=== PATIENT | female | born 1930 | race Two or more races ===

== ENCOUNTER → 2016-09-19 | Outpatient (REF) | payer MEDICARE, BC ==
[~2016-09-19] MED LIST: *BLDWK10; *MAMMOGRAM; AMBIEN5 PO; ATENOLOL50 PO; CANE; EVISTA60 PO; LASIX20 PO; MOTRIN6 PO; [UNRECOGNIZED DRUG - CODE] TOPICAL
[2016-09-19 18:34] LABS: ALBUMIN/GLOBULIN RATIO 1.29 (1.00-1.93); ALKALINE PHOSPHATASE 68 U/L (45-117); ALT/SGPT 18 U/L (12-78); ANION GAP 9 MEQ/L (8-16); AST/SGOT 20 U/L (15-37); BLOOD UREA NITROGEN 12 MG/DL (7-18); CALCIUM LEVEL 8.9 MG/DL (8.8-10.2); CARBON DIOXIDE LEVEL 28 MEQ/L (21-32); CHLORIDE LEVEL 106 MEQ/L (98-107); CHOLESTEROL LEVEL 203 MG/DL (<200); GLOMERULAR FILTRATION RATE > 60.0 (>32); GLUCOSE, FASTING 90 MG/DL (83-110); POTASSIUM SERUM 4.4 MEQ/L (3.5-5.1); SODIUM LEVEL 143 MEQ/L (136-145); TOTAL PROTEIN 7.1 GM/DL (6.4-8.2); TRIGLYCERIDES LEVEL 216 MG/DL (<150)
== END ==
LOC: M LABDRWCV 16:46
PROVIDERS: ATTEND Family Medicine
DX: E78.5 Hyperlipidemia, unspecified (principal); I10 Essential (primary) hypertension

== ENCOUNTER → 2017-02-01 | Outpatient (REF) | payer MEDICARE, BC ==
[2017-02-01 20:10] LABS: ANION GAP 6 MEQ/L (8-16); BLOOD UREA NITROGEN 10 MG/DL (7-18); CALCIUM LEVEL 9.2 MG/DL (8.8-10.2); CARBON DIOXIDE LEVEL 29 MEQ/L (21-32); CHLORIDE LEVEL 106 MEQ/L (98-107); CREATININE FOR GFR 0.72 MG/DL (0.55-1.02); GLOMERULAR FILTRATION RATE > 60.0 (>32); GLUCOSE, FASTING 101 MG/DL (83-110); POTASSIUM SERUM 4.1 MEQ/L (3.5-5.1); SODIUM LEVEL 141 MEQ/L (136-145)
== END ==
LOC: M LAB REF 16:21
PROVIDERS: ATTEND Orthopaedic Surgery
DX: Z51.81 Encounter for therapeutic drug level monitoring (principal); Z79.899 Other long term (current) drug therapy

== ENCOUNTER → 2017-03-09 | Outpatient (REF) | payer MEDICARE, BC ==
[2017-03-09 17:58] LABS: ALBUMIN 3.7 GM/DL (3.2-5.2); ALBUMIN/GLOBULIN RATIO 1.16 (1.00-1.93); ALKALINE PHOSPHATASE 70 U/L (45-117); ALT/SGPT 23 U/L (12-78); ANION GAP 8 MEQ/L (8-16); AST/SGOT 17 U/L (15-37); BLOOD UREA NITROGEN 9 MG/DL (7-18); CALCIUM LEVEL 8.9 MG/DL (8.8-10.2); CARBON DIOXIDE LEVEL 26 MEQ/L (21-32); CHLORIDE LEVEL 108 MEQ/L (98-107); CHOLESTEROL LEVEL 199 MG/DL (<200); CREATININE FOR GFR 0.75 MG/DL (0.55-1.02); GLOMERULAR FILTRATION RATE > 60.0 (>32); GLUCOSE, FASTING 93 MG/DL (83-110); SODIUM LEVEL 142 MEQ/L (136-145); TOTAL PROTEIN 6.9 GM/DL (6.4-8.2); TRIGLYCERIDES LEVEL 271 MG/DL (<150)
== END ==
LOC: M LAB REF 07:15
PROVIDERS: ATTEND Family Medicine
DX: E78.5 Hyperlipidemia, unspecified (principal); I10 Essential (primary) hypertension

== ENCOUNTER → 2017-07-31 | Outpatient (REF) | payer MEDICARE, BC ==
[2017-07-31 19:48] LABS: ALBUMIN 4.2 GM/DL (3.2-5.2); ALKALINE PHOSPHATASE 77 U/L (45-117); ALT/SGPT 18 U/L (12-78); ANION GAP 9 MEQ/L (8-16); AST/SGOT 19 U/L (7-37); BILIRUBIN,TOTAL 1.2 MG/DL (0.2-1.0); BLOOD UREA NITROGEN 8 MG/DL (7-18); CALCIUM LEVEL 9.5 MG/DL (8.8-10.2); CARBON DIOXIDE LEVEL 28 MEQ/L (21-32); CHLORIDE LEVEL 107 MEQ/L (98-107); CHOLESTEROL LEVEL 203 MG/DL (<200); CHOLESTEROL RISK RATIO 4.413 (<5); CREATININE FOR GFR 0.71 MG/DL (0.55-1.02); GLOMERULAR FILTRATION RATE > 60.0 (>32); GLUCOSE, FASTING 100 MG/DL (83-110); HDL CHOLESTEROL 46 MG/DL (>40); LDL CHOLESTEROL 107.4 MG/DL (<100); NON-HDL-C 157 MG/DL; POTASSIUM SERUM 3.6 MEQ/L (3.5-5.1); SODIUM LEVEL 144 MEQ/L (136-145); TOTAL PROTEIN 7.2 GM/DL (6.4-8.2); TRIGLYCERIDES LEVEL 248 MG/DL (<150)
== END ==
LOC: M LAB REF 16:30
DX: E78.5 Hyperlipidemia, unspecified (principal); I10 Essential (primary) hypertension; M81.0 Age-related osteoporosis without current pathological fracture
CPT/HCPCS: 84443

== ENCOUNTER → 2018-02-22 | Outpatient (REF) | payer MEDICARE, BC ==
[2018-02-22 16:40] LABS: ALBUMIN 3.5 GM/DL (3.2-5.2); ALBUMIN/GLOBULIN RATIO 0.92 (1.00-1.93); ALKALINE PHOSPHATASE 84 U/L (45-117); ALT/SGPT 26 U/L (12-78); ANION GAP 10 MEQ/L (8-16); AST/SGOT 17 U/L (7-37); BILIRUBIN,TOTAL 0.7 MG/DL (0.2-1.0); BLOOD UREA NITROGEN 5 MG/DL (7-18); CALCIUM LEVEL 8.9 MG/DL (8.8-10.2); CARBON DIOXIDE LEVEL 27 MEQ/L (21-32); CHLORIDE LEVEL 105 MEQ/L (98-107); CHOLESTEROL LEVEL 177 MG/DL (<200); CHOLESTEROL RISK RATIO 4.538 (<5); CREATININE FOR GFR 0.77 MG/DL (0.55-1.30); GLOMERULAR FILTRATION RATE > 60.0 (>32); GLUCOSE, FASTING 90 MG/DL (70-100); HDL CHOLESTEROL 39 MG/DL (>40); NON-HDL-C 138 MG/DL; POTASSIUM SERUM 4.2 MEQ/L (3.5-5.1); SODIUM LEVEL 142 MEQ/L (136-145); TOTAL PROTEIN 7.3 GM/DL (6.4-8.2); TRIGLYCERIDES LEVEL 315 MG/DL (<150)
== END ==
LOC: M LABDRWCV 16:06
DX: I10 Essential (primary) hypertension (principal); E78.5 Hyperlipidemia, unspecified; Z13.89 Encounter for screening for other disorder
CPT/HCPCS: 84443

== ENCOUNTER → 2020-01-03 | Outpatient (CLI) | payer MEDICARE, BC ==
[~2020-01-03] MED LIST changes: +ACET1TAB55 PO; +ALBU8.5H; +ASPI-161 PO; +ASPI81TAEC PO; +ATEN25TA PO; +ATEN50TA2 PO; +ATOR1TAB21 PO; +CLAR10TA7 PO; +CLOP75TA2 PO; +DOK1CAP7 PO; +FURO20TA2 PO; +GASTROGRAFIN SOLUTION 30ML (Q9963) As Ordered ONE; +ISOVUE-370 76% 100ML VIAL As Ordered ONE; +LIDO5TD TD; +MIRT-62 PO; +PANT40TA29 PO; +POLYOPD OU; +SENN18TA PO; +SERT25TA21 PO; +TRAZ-252 PO; +TRIPOIN5 XX; +VENTAER INH; +aspirin
--- NOTE | 2020-01-03 12:11 | REP ---
REASON FOR EXAM: Abdominal pain. There are no priors for comparison. CONTRAST: 100 mL Isovue 370. The precontrast enhanced portion of the examination shows a small amount of dense material in the dependent portion of the gallbladder. There are no nephroliths. Hepatic and splenic densities are within normal limits. Contrast enhanced portion of the examination shows the liver, spleen, pancreas, and adrenal glands, and kidneys with be within normal limits. There is no abnormal gallbladder wall enhancement. The abdominal aorta and para-aortic regions are within normal limits. There is very subtle fatty infiltration along the mesenteric side of the gastric antrum. The intra-abdominal bowel loops are otherwise unremarkable. There is descending colon and sigmoid colon diverticulosis. No free fluid or free air is seen in the abdomen or pelvis. There is no evidence of an intra-abdominal or intrapelvic mass or adenopathy. Bone window technique throughout the examination shows chronic spinal, hip, and sacroiliac joint degenerative changes. The lung bases are clear. IMPRESSION: 1. There is dense material seen in the dependent portion of the gallbladder suspicious for sludge formation or possibility tiny gravel-like calculi. 2. There is some evidence for fatty infiltration along the mesenteric side of the gastric antrum. Antral gastritis cannot be ruled out. 3. Diverticulosis without evidence of diverticulitis. ? Electronically Signed by Randy Pedraza DO 01/03/2020 01:46 P
== END ==
LOC: M RAD 09:09
PROVIDERS: ATTEND Physician Assistant Medical
DX: R10.9 Unspecified abdominal pain (principal); K57.30 Diverticulosis of large intestine without perforation or abscess without bleeding
CPT/HCPCS: 74178; Q9963; Q9967

== ENCOUNTER 2020-07-01 11:09 | Inpatient (IN) | payer MEDICARE, BC ==
[~2020-07-01] VITALS: Ht 157.5 cm; Wt 61.4 kg
[~2020-07-01 11:09] MED LIST changes: -ACET1TAB55 PO; -ALBU8.5H; -ASPI-161 PO; -ASPI81TAEC PO; +ASPIRIN 325 MG TAB PO SCH; -ATEN25TA PO; -ATEN50TA2 PO; -ATOR1TAB21 PO; +ATORVASTATIN 20 MG TAB PO SCH; -CLAR10TA7 PO; -CLOP75TA2 PO; -DOK1CAP7 PO; -FURO20TA2 PO; -GASTROGRAFIN SOLUTION 30ML (Q9963) As Ordered ONE; -ISOVUE-370 76% 100ML VIAL As Ordered ONE; -LIDO5TD TD; -MIRT-62 PO; -PANT40TA29 PO; -POLYOPD OU; -SENN18TA PO; -SERT25TA21 PO; -TRAZ-252 PO; -TRIPOIN5 XX; -VENTAER INH; -aspirin
[2020-07-01] MEDS ORDERED: aspirin (11:29)
[2020-07-01] MEDS ORDERED: VENTAER INH (11:29)
[2020-07-01] MEDS ORDERED: TRAZ-252 PO ×2 (11:29→13:33)
[2020-07-01] MEDS ORDERED: FURO20TA2 PO (11:29)
[2020-07-01] MEDS ORDERED: ATEN50TA2 PO (11:29)
[2020-07-01] MEDS ORDERED: ALBU8.5H (11:29)
--- NOTE | 2020-07-01 11:53 | REP ---
INDICATION: AMS. COMPARISON: None. TECHNIQUE: Helical scanning is acquired. 5 mm axial images were reformatted. Coronal MPR images were generated. FINDINGS: Bone window settings demonstrate an intact bony calvarium. There are several arachnoid granulations in the occipital bone visible incidentally. There is no evidence of skull fracture or incidental bony calvarial lesion. The visualized paranasal sinuses appear clear. No intraorbital abnormality is seen. On soft tissue window setting images; the lateral, third, and fourth ventricles are normal in size and position. Magana-white differentiation pattern is normal above and below the tentorium. There are is no evidence of intracranial hemorrhage. No mass, edema, infarction, or midline shift is seen. No extra-axial fluid collection is appreciated. There is minimal generalized volume loss. IMPRESSION: Generalized volume loss. No acute intracranial abnormality.. <Electronically signed by Jamal Roper > 07/01/20 [id number]
[2020-07-01 12:25] LABS: BASO % 0.3 % (0.0-1.0); EOS # 0.1 10^3/uL (0.0-0.5); HEMATOCRIT 40.7 % (36.0-47.0); HEMOGLOBIN 13.6 g/dl (12.0-15.5); LYMPH # 1.3 10^3/uL (1.5-5.0); LYMPH % 20.1 % (24.0-44.0); MEAN CORPUSCULAR HEMOGLOBIN 32.5 pg (27.0-33.0); MEAN CORPUSCULAR HGB CONC 33.4 g/dl (32.0-36.5); MEAN CORPUSCULAR VOLUME 97.4 fl (80.0-96.0); MONO # 0.6 10^3/uL (0.0-0.8); MONO % 10.1 % (0.0-5.0); NEUTROPHILS # 4.3 10^3/uL (1.5-8.5); NEUTROPHILS % 67.2 % (36.0-66.0); PLATELET COUNT, AUTOMATED 220 10^3/uL (150-450); RED BLOOD COUNT 4.18 10^6/uL (4.00-5.40); WHITE BLOOD COUNT 6.4 10^3/uL (4.0-10.0)
[2020-07-01 13:04] LABS: ALBUMIN 3.8 GM/DL (3.2-5.2); ALT/SGPT 20 U/L (12-78); BILIRUBIN,DIRECT 0.3 MG/DL (0.0-0.2); BILIRUBIN,TOTAL 1.3 MG/DL (0.2-1.0); BLOOD UREA NITROGEN 10 MG/DL (7-18); CARBON DIOXIDE LEVEL 32 MEQ/L (21-32); CHLORIDE LEVEL 104 MEQ/L (98-107); CPK CREATINE PHOSPHOKINASE 74 U/L (26-192); CREATININE FOR GFR 0.69 MG/DL (0.55-1.30); GLOMERULAR FILTRATION RATE > 60.0 (>32); GLUCOSE, FASTING 93 MG/DL (70-100); POTASSIUM SERUM 3.9 MEQ/L (3.5-5.1); SODIUM LEVEL 140 MEQ/L (136-145); THYROID STIMULATING HORMONE 0.726 uIU/ML (0.358-3.740); TOTAL PROTEIN 6.8 GM/DL (6.4-8.2); TROPONIN I < 0.02 NG/ML (< 0.10)
[2020-07-01] MEDS ORDERED: ASPIRIN 81 MG CHEW TABLET PO ONE (13:15)
[2020-07-01] MEDS ORDERED: ASPI-161 PO (13:33)
[2020-07-01] MEDS ORDERED: SERT25TA21 PO (13:33)
[2020-07-01] MEDS ORDERED: ACETAMINOPHEN TAB 650MG DOSE (2X325MG) PO PRN (14:00)
[2020-07-01 14:13] LABS: CHOLESTEROL LEVEL 197 MG/DL (<200); CHOLESTEROL RISK RATIO 3.396 (<5); HDL CHOLESTEROL 58 MG/DL (>40); LDL CHOLESTEROL 106 MG/DL (<100); NON-HDL-C 139 MG/DL; TRIGLYCERIDES LEVEL 167 MG/DL (<150)
[2020-07-01 14:27] LABS: RSV AMPLIFICATION NEGATIVE (NEGATIVE)
--- NOTE | 2020-07-01 14:29 | REP ---
INDICATION: altered. COMPARISON: November 19, 2011.. TECHNIQUE: Portable upright AP radiograph. FINDINGS: Monitoring electrodes overlie the chest. The lungs are well inflated and free of infiltrate. There is minimal linear fibrosis in the left base. There are degenerative changes in the shoulders. The thoracic aorta is tortuous. Heart is not felt to be enlarged. Pulmonary vasculature is not increased. IMPRESSION: No active cardiopulmonary disease seen. <Electronically signed by Jamal Roper > 07/01/20 [id number]
--- NOTE | 2020-07-01 14:39 | HPEPDOC ---
[facility] Medical History & Physical Date of Admission Jul 01, 2020 Date of Service: Jul 01, 2020 Attending Physician: Leatha Vernon MD History and Physical CHIEF COMPLAINT: Altered mental status HISTORY OF PRESENT ILLNESS: Patient is an 89-year-old female with past medical history of high blood pr essure, anxiety, lately blind, macular degeneration, claustrophobia, anxiety/depression who was brought to the emergency room via EMS after being found to be altered by her neighbors. The patient is blind she is awake alert and oriented 3 at baseline and lives independently. According to urgency room staff, he was last seen her normal self last evening. At 10 AM this morning she walked out of her house talking and acting bizarrely. She stated that her "head feels big" and stated that she woke up this way. She does not number feeling like this last evening. She does admit to having been checked out by her primary care provider in the past several weeks for what she thought was an earache. No new medication changes over the past week. In the emergency room CT of the head was negative, labs were unremarkable. On neurological examination it was noted the patient had some expressive aphasia, was noted to be stuttering at times and somewhat forgetful. She had no increased weakness in any extremities, but due to concern for CVA she was admitted for further workup. [place] the patient anna ed chest pain, nausea, vomiting, fevers, chills, headache, change in her vision. REVIEW OF SYSTEMS: CONSTITUTIONAL: Denies lack of energy, unexplained weight gain or weight loss, loss of appetite, fever, night sweats EYES: Denies eye drainage, eye pain, visual changes, dry/irritated eye EARS, NOSE, MOUTH, THROAT: Denies difficulty hearing, ringing in ears, mouth sores, loose teeth, sore throat, facial numbness or pain NECK: Denies swollen glands CARDIOVASCULAR: Denies irregular heartbeat, racing heart, chest pains, swelling of feet or legs, pain in legs with walking RESPIRATORY: Denies shortness of breath, night sweats, wheezing, sputum production, oxygen at home, coughing up blood, cough lasting > 1 month GASTROINTESTINAL: Denies abdominal pain, constipation, bloody stool, diarrhea, h eartburn, nausea, vomiting GENITOURINARY: Denies painful urination, bloody urine, frequent urination, urgency, leaking urine, impotence MUSCULOSKELETAL: Denies joint pain, muscle pain, leg swelling INTEGUMENTARY: Denies rash, itching, new skin lesion, change in existing skin lesion, hair loss or increase, breast changes. NEUROLOGICAL: Denies headaches, dizziness, difficulty walking, numbness or tingling PSYCHIATRIC: Denies recurrent bad thoughts, mood swings, hallucinations PAST MEDICAL HISTORY: 1. High blood pressure 2. Anxiety 3. legally blind 4. Macular degeneration 5. Claustrophobia 6. Anxiety/depression PAST SURGICAL HISTORY: 1. Total hysterectomy FAMILY HISTORY: Father: Healthy. Deceasead at 82 y/o Mother: Healthy. at 83 y/o SOCIAL HISTORY: Denies smoking, alcohol or drug use history. Lives alone with home health aides who come in during the day and night. She has no recent falls. She uses a cane and walker at baseline. She is DNR with trial period of intubation. ALLERGIES: Please see below. HOME MEDICATIONS: Please see below. PHYSICAL EXAMINATION: VS: Please see below CONSTITUTIONAL: No acute distress, resting comfortably, AAO x 3 EYES: PERRLA, EOM intact HENT, MOUTH: Normocephalic, atraumatic, moist mucous membranes, NECK: SUPPLE, no JVD, no lymphadenopathy, no carotid bruit CV: Regular rate and rhythm, S1S2 normal, no murmurs/rubs/gallops RESPIRATORY: Clear to auscultation bilaterally, no rales/rhonchi/wheezes GI: BS positive in 4 quadrants, soft, nontender, nondistended, no rebound or guarding, no organomegaly : Deferred MUSCULOSKELETAL: Normal ROM. No cyanosis, clubbing, swelling, joint deformity, extremity edema INTEGUMENTARY: Intact, no rashes, no lesions, no erythema NEUROLOGIC: Cranial Nerves II-XII are intact, stuttering at times, forgetful during exam LABORATORY DATA: Please see below IMAGING: CT head: Generalized volume loss. No acute intracranial abnormality. MRI brain pending US carotid ordered Echo ordered ASSESSMENT: 89-year-old female with past medical history of high blood pressure, anxiety, lately blind, macular degeneration, claustrophobia, anxiety/depression admitted for further workup of CVA. PLAN: Altered mental status r/o CVA -expressive aphasia, generalized weakness, -CT head neg above -F/u lipid panel, MRI brain, echo, swallowing eval, carotid US, PT/OT -Started on ASA, statin. -Neuro checks Q4H HTN -BP stable in ER -C/w home lasix, atenolol Depression/anxiety/claustrophobia -Currently slightly anxious -C/w sertraline, trazodone. -Can give low dose ativan for anxiolytic for MRI if needed Abnormal ECG -repeat when arrives on the floor -Trop neg, denies chest pain, incr SOB -Tele DVT px. -c/w ASA today, SCD, teds. Start Lovenox in the AM DISPOSITION: C/w treatment above. Plan is hopefully home to prior living situation when medically cleared. Vital Signs Vital Signs Date Time Temp Pulse Resp B/P (MAP) Pulse Ox O2 Delivery O2 Flow Rate FiO2 07/01/20 14:00 156/85 (108) 07/01/20 13:54 71 95 Room Air 07/01/20 11:24 98.1 20 Laboratory Data Labs 24H Laboratory Tests 2 07/01/20 12:11: Immature Granulocyte % (Auto) 0.3, Neutrophils (%) (Auto) 67.2H, Lymphocytes (%) (Auto) 20.1L, Monocytes (%) (Auto) 10.1H, Eosinophils (%) (Auto) 2.0, Basophils (%) (Auto) 0.3, Neutrophils # (Auto) 4.3, Lymphocytes # (Auto) 1.3L, Monocytes # (Auto) 0.6, Eosinophils # (Auto) 0.1, Basophils # (Auto) 0.0, Nucleated Red Blood Cells % (auto) 0.0, Anion Gap 4L, Glomerular Filtration Rate > 60.0, Calcium Level 10.0, Total Bilirubin 1.3H, Direct Bilirubin 0.3H, Aspartate Amino Transf (AST/SGOT) 11, Alanine Aminotransferase (ALT/SGPT) 20, Alkaline Phosphatase 49, Ammonia 11, Total Creatine Kinase 74, Creatine Kinase MB 2.0, Creatine Kinase MB Relative Index 2.70, Troponin I < 0.02, Total Protein 6.8, Albumin 3.8, Albumin/Globulin Ratio 1.3, Triglycerides Level 167H, Total Cholesterol 197, LDL Cholesterol 106H, Non-HDL Cholesterol (LDL + VLDL) 139, Total HDL Cholesterol 58, Cholesterol/HDL Ratio 3.396, Thyroid Stimulating Ho rmone (TSH) 0.726 07/01/20 12:31: 07/01/20 13:24: CBC/BMP Laboratory Tests 07/01/20 12:11 Home Medications Scheduled Aspirin (Aspirin EC) 81 Mg Tablet.dr, 81 MG PO DAILY Atenolol (Atenolol) 50 Mg Tablet, 50 MG PO DAILY Furosemide (Furosemide) 20 Mg Tablet, 20 MG PO DAILY Sertraline HCl (Sertraline HCl) 25 Mg Tablet, 12.5 MG PO DAILY Trazodone HCl (Trazodone HCl) 50 Mg Tablet, 50 MG PO QHS Scheduled PRN Albuterol Sulfate (Ventolin Hfa) 18 Gm Hfa.aer.ad, 2 PUFFS INH QID PRN for SHORTNESS OF BREATH Trazodone HCl (Trazodone HCl) 50 Mg Tablet, 25 MG PO QHS PRN for SLEEP TAKES IF SHE WAKES IN THE NIGHT Allergies Coded Allergies: morphine (Verified Adverse Reaction, Unknown, N/V, 07/01/20) A-FIB/CHADSVASC A-FIB History Current/History of A-Fib/PAF?: No Current PO Anticoag Therapy: No Age/Risk Factor Scoring CHADSVASC: CHADSVASC Response (Comments) Value Age Risk Factor Age >/= 75 years old 2 Gender Risk Factor Female 1 Hx of CHF No 0 Hx of HTN Yes 1 Hx of Stroke/TIA/or VTE Yes 2 Hx of Diabetes No 0 Hx of Vascular Disease No 0 Total 6 Treatment Treatment ordered: Other Other anticoagulant ordered: other Leatha Vernon MD Jul 01, 2020 14:39
[2020-07-01] MEDS ORDERED: ALBUTEROL 90 MCG/ACT 8GM HFA INHALER INH PRN (14:45)
[2020-07-01] MEDS ORDERED: traZODone 25MG PER 1/2 TABLET PO PRN (14:45)
[2020-07-01] MEDS ORDERED: LORazepam 2 MG/ML VIAL IV STA (14:53)
[2020-07-01] MEDS ORDERED: PILL CUTTER 1 EACH XX PRN (15:00)
--- NOTE | 2020-07-01 16:02 | REPVR ---
PROCEDURE INFORMATION: Exam: MR Head Without Contrast Exam date and time: 07/01/2020 3:50 PM Age: 89 years old Clinical indication: Altered mental status/memory loss; Confusion or disorientation; Patient HX: Confusion, disorientation that comes and goes; Additional info: Confused weak TECHNIQUE: Imaging protocol: MR of the head without contrast. COMPARISON: CT Head without contrast 07/01/2020 11:28 AM FINDINGS: Brain: There is no acute intracranial hemorrhage, cerebral edema, or midline shift. Mild chronic small vessel ischemic disease is present in the periventricular white matter. There is a small area of increased signal on the diffusion-weighted sequence involving the cortex and subcortical white matter of the medial right parietal convexity. No corresponding decreased signal on the ADC map can be identified. Increased FLAIR signal in this area is present. The findings likely represent a late subacute/chronic infarct. Cerebral ventricles: No hydrocephalus. Bones/joints: Unremarkable. Paranasal sinuses: Normal as visualized. No acute sinusitis. Mastoid air cells: Normal as visualized. No mastoid effusion. Orbits: Unremarkable. Soft tissues: Unremarkable. 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
--- NOTE | 2020-07-01 16:13 | REPVR ---
PROCEDURE INFORMATION: Exam: MR Angiogram Head Without Contrast, Arteries Exam date and time: 07/01/2020 3:50 PM Age: 89 years old Clinical indication: Cognitive deficit; Altered mental status; Patient HX: Confusion, disorientation that comes and goes; Additional info: Confused weak TECHNIQUE: Imaging protocol: MR angiogram head without contrast. Exam focused on the arteries. 3D rendering (Not supervised by radiologist): MIP and/or 3D reconstructed images were created by the technologist. COMPARISON: CT Head without contrast 07/01/2020 11:28 AM FINDINGS: ANTERIOR CIRCULATION: Right internal carotid artery: Intracranial segment is patent with no significant stenosis. No aneurysm. Right middle cerebral artery: No occlusion or significant stenosis. No aneurysm. Right anterior cerebral artery: No occlusion or significant stenosis. No aneurysm. Left internal carotid artery: Intracranial segment is patent with no significant stenosis. No aneurysm. Left middle cerebral artery: No occlusion or significant stenosis. No aneurysm. Left anterior cerebral artery: There is an early prominent pericallosal artery branch arising from the proximal left A2 segment. 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 Left vertebral artery: No occlusion or significant stenosis. No aneurysm. Basilar artery: No occlusion or significant stenosis. No aneurysm. Right posterior cerebral artery: No occlusion or significant stenosis. No aneurysm. Left posterior cerebral artery: No occlusion or significant stenosis. No aneurysm. IMPRESSION: There is an early prominent pericallosal artery branch arising from the proximal left A2 segment. 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 Electronically signed by: Jimmie Marroquin On 07/01/2020 16:12:59 PM
--- NOTE | 2020-07-01 16:22 | REP ---
INDICATION: CVA COMPARISON: None. TECHNIQUE: Real-time ultrasound evaluation and duplex Doppler interrogation of the extracranial carotid vasculature is performed. FINDINGS: Antegrade flow is observed in both vertebral arteries. Right carotid: The right common carotid artery shows diffuse intimal thickening but is otherwise unremarkable. There ismild mixed plaquing in the right carotid bulb and proximal ICA on two-dimensional scanning. Color flow and spectral Doppler interrogation are unremarkable on the right. Velocity chart right carotid: Right CCA PSV: 70 cm/S Right ICA PSV: 88 cm/S Right ICA EDV: 31 cm/S Right ECA PSV: 55 cm/S Right ICA/CCA ratio: 1.3 Left carotid: The left common carotid artery shows diffuse intimal thickening but is otherwise unremarkable. There is mild mixed plaquing in the left carotid bulb and proximal ICA on two-dimensional scanning. Color flow and spectral Doppler interrogation are unremarkable on the left. Velocity chart left carotid: Left CCA PSV: 87 cm/S Left ICA PSV: 73 cm/S Left ICA EDV: 19 cm/S Left ECA PSV: 66 cm/S Left ICA/CCA ratio: 0.83 IMPRESSION: Less than 50% category narrowing in the right internal carotid artery by Doppler velocity criteria. Less than 50% category narrowing in the left ICA by Doppler velocity criteria. <Electronically signed by Jamal Roper > 07/01/20 [id number]
[2020-07-01 17:32] VITALS: BP 126/70
[2020-07-01] MEDS: FUROSEMIDE 20 MG TAB PO SCH (18:32)
[2020-07-01] MEDS: atenoloL 50 MG TAB PO SCH (18:33)
[2020-07-01] MEDS: traZODone 50 MG TAB PO SCH (20:13)
[2020-07-01 21:47] VITALS: BP 102/50
[2020-07-01 22:00] VITALS: BP 127/70
[2020-07-02 06:00] VITALS: BP 116/68
[2020-07-02 06:25] LABS: HEMATOCRIT 38.8 % (36.0-47.0); MEAN CORPUSCULAR HEMOGLOBIN 32.7 pg (27.0-33.0); MEAN CORPUSCULAR HGB CONC 33.5 g/dl (32.0-36.5); MEAN CORPUSCULAR VOLUME 97.7 fl (80.0-96.0); PLATELET COUNT, AUTOMATED 205 10^3/uL (150-450); RED BLOOD COUNT 3.97 10^6/uL (4.00-5.40)
[2020-07-02 07:00] LABS: ALBUMIN 3.4 GM/DL (3.2-5.2); ALT/SGPT 18 U/L (12-78); BILIRUBIN,TOTAL 1.1 MG/DL (0.2-1.0); BLOOD UREA NITROGEN 12 MG/DL (7-18); CALCIUM LEVEL 9.4 MG/DL (8.8-10.2); CARBON DIOXIDE LEVEL 30 MEQ/L (21-32); CHLORIDE LEVEL 106 MEQ/L (98-107); CREATININE FOR GFR 0.66 MG/DL (0.55-1.30); GLOMERULAR FILTRATION RATE > 60.0 (>32); GLUCOSE, FASTING 89 MG/DL (70-100); POTASSIUM SERUM 3.6 MEQ/L (3.5-5.1); SODIUM LEVEL 140 MEQ/L (136-145); TOTAL PROTEIN 6.4 GM/DL (6.4-8.2)
--- NOTE | 2020-07-02 07:26 | ECGEPIP ---
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 Considerably less somatic artifact and slightly different precordial lead p placement but otherwise unchanged from 07/01/20 Previous EKG misinterpreted as atrial fibrillation (his rhythm is not an i indication for oral anticoagulation) Electronically Signed on 07-02-2020 7:25:55 EST by Jesse Mock
[2020-07-02] MEDS ORDERED: ASPIRIN 325 MG TAB PO SCH (09:00)
[2020-07-02] MEDS: ASPIRIN 81 MG ENTERIC TAB PO SCH (10:13)
[2020-07-02] MEDS: ATORVASTATIN 20 MG TAB PO SCH (10:14)
[2020-07-02] MEDS: FUROSEMIDE 20 MG TAB PO SCH (10:14)
[2020-07-02] MEDS: SERTRALINE HCL 25 MG TABLET PO SCH (10:14)
[2020-07-02] MEDS: CLOPIDOGREL 75 MG TAB PO SCH (10:14)
[2020-07-02] MEDS: atenoloL 50 MG TAB PO SCH (10:15)
[2020-07-02] MEDS: cefTRIAXone SOD 1 GM in D5W MINI-BAG PLUS 50 ML IV SCH (10:15)
[2020-07-02 12:36] VITALS: BP_SYST 127; BP_SYST 147; BP_DIAS 82; BP_DIAS 83
--- NOTE | 2020-07-02 13:17 | ECGEPIP ---
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
[2020-07-02 14:00] VITALS: BP 125/78
--- NOTE | 2020-07-02 14:46 | IPNPDOC ---
Date Seen The patient was seen on 07/02/20. Progress Note SUBJECTIVE: Episode of "spacing out" with walking with PT today, did not fall or get increasingly weak. Possible orthostatic hypotension, per daughter patient has been increasingly dizzy with ambulation even over the past several weeks, has had decreased PO intake. Discussed case with Dr. Silver (neurology) who agrees with plan of care. Patient denies chest pain, shortness of breath, n/v/d. OBJECTIVE: PHYSICAL EXAMINATION: VS: Please see below CONSTITUTIONAL: No acute distress, resting comfortably, AAO x 2 (self and place "place where they take care of you-hospital") EYES: PERRLA, EOM intact HENT, MOUTH: Normocephalic, atraumatic, moist mucous membranes, NECK: SUPPLE, no JVD, no lymphadenopathy, no carotid bruit CV: Regular rate and rhythm, S1S2 normal, no murmurs/rubs/gallops RESPIRATORY: Clear to auscultation bilaterally, no rales/rhonchi/wheezes GI: BS positive in 4 quadrants, soft, nontender, nondistended, no rebound or guarding, no organomegaly : Deferred MUSCULOSKELETAL: Normal ROM. No cyanosis, clubbing, swelling, joint deformity, extremity edema INTEGUMENTARY: Intact, no rashes, no lesions, no erythema NEUROLOGIC: Cranial Nerves II-XII are intact, stuttering at times, forgetful during exam. Strength 4/4 of all extremities, no acute focal deficits. Has c hronic left eye lid drooping. Sensory in tact LABORATORY DATA: Please see below IMAGING: Echocardiogram pending CT head: Generalized volume loss. No acute intracranial abnormality. 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 US carotid: Less than 50% category narrowing in the right internal carotid artery by Doppler velocity criteria. Less than 50% category narrowing in the left ICA by Doppler velocity criteria. ASSESSMENT: 89-year-old female with past medical history of high blood pressure, anxiety, lately blind, macular degeneration, claustrophobia, anxiety/depression admitted for further workup of CVA. PLAN: Altered mental status likely 2/2 to subacute/chronic CVA, UTI -Has increased forgetfullness, generalized weakness, no new focal deficits. Episode of "spacing out" with PT, no incr weakness -Orthostatics: positive but was asymptomatic -CT head, MRI, MRA above -F/u echo, PT/OT -Started on ASA, statin, plavix -Neuro checks Q4H UTI -+ UA -F/u UCX -Ceftriaxone HTN -Improved -BP elevated at 180's on admission -C/w home lasix, atenolol Depression/anxiety/claustrophobia -Has had worsening depression, anxiety with COVID -C/w sertraline, trazodone. Hx of dizziness -Per daughter she has been getting dizzy -Orthostats + so this could be cause -Poor eating at home over the past several months per daughter, decreased appetite. -Will watch and if patient complains of this issue, will consider additional imaging. -Encouraging water Q2hrs while awake. -Nutritional consult Abnormal ECG -repeat when arrives on the floor -Trop neg, denies chest pain, incr SOB -Tele DVT px. -c/w ASA today, SCD, teds. Start Lovenox in the AM DISPOSITION: C/w treatment above. Plan is hopefully home to prior living situation when medically cleared. VS, I&O, 24H, [place] Vital Signs/I&O Vital Signs Date Time Temp Pulse Resp B/P (MAP) Pulse Ox O2 Delivery O2 Flow Rate FiO2 07/02/20 10:15 78 120/66 07/02/20 06:00 96.8 18 99 Room Air I&O- Last 24 Hours up to 6 AM 07/02/20 06:00 Intake Total 300 ml Output Total 800 ml Balance -500 ml Laboratory Data 24H LABS Laboratory Tests 2 07/02/20 06:15: Nucleated Red Blood Cells % (auto) 0.0, Anion Gap 4L, Glomerular Filtration Rate > 60.0, Calcium Level 9.4, Total Bilirubin 1.1H, Aspartate Amino Transf (AST/SGOT) 13, Alanine Aminotransferase (ALT/SGPT) 18, Alkaline Phosphatase 44L, Total Protein 6.4, Albumin 3.4, Albumin/Globulin Ratio 1.1L CBC/BMP Laboratory Tests 07/02/20 06:15 Microbiology Microbiology 07/01/20 Urine Culture, Received Pending Current Medications Current Medications Medications (Trade) Dose Ordered Sig/Gayathri Route PRN Reason Start Time Stop Time Status Last Admin Dose Admin Acetaminophen (Tylenol Tab) 650 mg Q4H PRN PO PAIN OR FEVER 07/01/20 14:00 Albuterol Sulfate (Proventil, Ventolin Hfa) 2 puff QID PRN INH SHORTNESS OF BREATH 07/01/20 14:45 Aspirin (Aspirin) 325 mg DAILY PO 07/01/20 09:00 07/01/20 14:02 DC Aspirin (Aspirin) 325 mg DAILY PO 07/02/20 09:00 07/01/20 14:38 DC Aspirin (Ecotrin) 81 mg QAM PO 07/02/20 09:00 07/02/20 10:13 Atenolol (Tenormin) 50 mg DAILY PO 07/01/20 09:00 07/02/20 10:15 Atorvastatin Calcium (Lipitor) 20 mg DAILY PO 07/01/20 09:00 07/02/20 08:56 DC 07/01/20 18:32 Atorvastatin Calcium (Lipitor) 40 mg DAILY PO 07/02/20 09:00 07/02/20 10:14 Ceftriaxone Sodium 1 gm/ Dextrose 50 ml @ 100 mls/hr Q24H IV 07/02/20 09:00 07/02/20 10:15 Clopidogrel Bisulfate (PLAVix) 75 mg DAILY PO 07/02/20 09:00 07/02/20 10:14 Furosemide (Lasix) 20 mg DAILY PO 07/01/20 09:00 07/02/20 10:14 Home Med (Med Rec Complete!) ASDIRECTED XX 07/01/20 13:45 07/01/20 13:49 DC Lorazepam (Ativan) 1 mg STAT STAT IV 07/01/20 14:53 07/01/20 14:54 DC 07/01/20 15:05 Sertraline HCl (Zoloft) 12.5 mg DAILY PO 07/02/20 09:00 07/02/20 10:14 Trazodone HCl (Desyrel) 25 mg QHS PRN PO SLEEP 07/01/20 14:45 Trazodone HCl (Desyrel) 50 mg QHS PO 07/01/20 21:00 07/01/20 20:13 Allergies Coded Allergies: morphine (Verified Adverse Reaction, Unknown, N/V, 07/01/20) Leatha Vernon MD Jul 02, 2020 14:45
[2020-07-02] MEDS: traZODone 50 MG TAB PO SCH (21:25)
[2020-07-02 22:00] VITALS: BP 135/75
[2020-07-03 06:00] VITALS: BP 136/75
[2020-07-03 06:05] LABS: HEMATOCRIT 37.6 % (36.0-47.0); HEMOGLOBIN 12.9 g/dl (12.0-15.5); MEAN CORPUSCULAR HEMOGLOBIN 33.3 pg (27.0-33.0); MEAN CORPUSCULAR HGB CONC 34.3 g/dl (32.0-36.5); MEAN CORPUSCULAR VOLUME 97.2 fl (80.0-96.0); PLATELET COUNT, AUTOMATED 199 10^3/uL (150-450); RED BLOOD COUNT 3.87 10^6/uL (4.00-5.40); WHITE BLOOD COUNT 6.8 10^3/uL (4.0-10.0)
[2020-07-03 06:23] LABS: ALBUMIN 3.3 GM/DL (3.2-5.2); ALT/SGPT 19 U/L (12-78); BILIRUBIN,TOTAL 0.9 MG/DL (0.2-1.0); BLOOD UREA NITROGEN 15 MG/DL (7-18); CALCIUM LEVEL 8.8 MG/DL (8.8-10.2); CARBON DIOXIDE LEVEL 28 MEQ/L (21-32); CHLORIDE LEVEL 105 MEQ/L (98-107); CREATININE FOR GFR 0.65 MG/DL (0.55-1.30); GLOMERULAR FILTRATION RATE > 60.0 (>32); GLUCOSE, FASTING 101 MG/DL (70-100); POTASSIUM SERUM 3.9 MEQ/L (3.5-5.1); SODIUM LEVEL 141 MEQ/L (136-145); TOTAL PROTEIN 6.4 GM/DL (6.4-8.2)
[2020-07-03] MEDS: ATORVASTATIN 20 MG TAB PO SCH (10:12)
[2020-07-03] MEDS: ASPIRIN 81 MG ENTERIC TAB PO SCH (10:12)
[2020-07-03 10:16] VITALS: BP 125/54
[2020-07-03] MEDS: CLOPIDOGREL 75 MG TAB PO SCH (10:16)
[2020-07-03] MEDS: FUROSEMIDE 20 MG TAB PO SCH (10:16)
[2020-07-03] MEDS: atenoloL 50 MG TAB PO SCH (10:16)
[2020-07-03] MEDS: SERTRALINE HCL 25 MG TABLET PO SCH (10:16)
[2020-07-03] MEDS: cefTRIAXone SOD 1 GM in D5W MINI-BAG PLUS 50 ML IV SCH (10:17)
[2020-07-03] MEDS ORDERED: ATOR1TAB21 PO (11:21)
[2020-07-03] MEDS ORDERED: CLOP75TA2 PO (11:21)
[2020-07-03] MEDS ORDERED: ASPI81TAEC PO (11:21)
[2020-07-03 14:00] VITALS: BP 124/70
--- NOTE | 2020-07-03 14:41 | DS.PDOC ---
Discharge Summary General Date of Admission Jul 01, 2020 at 13:51 Date of Discharge 07/03/20 Attending Physician: Leatha Vernon MD Discharge Summary HISTORY OF PRESENT ILLNESS: Patient is an 89-year-old female with past medical history of high blood pressure, anxiety, lately blind, macular degeneration, claustrophobia, anxiety/depression who was brought to the emergency room via EMS after being found to be altered by her neighbors. The patient is blind she is awake alert and oriented 3 at baseline and lives independently. According to urgency room staff, he was last seen her normal self last evening. At 10 AM this morning she walked out of her house talking and acting bizarrely. She stated that her "head feels big" and stated that she woke up this way. She does not remember feeling like this last evening. She does admit to having been checked out by her primary care provider in the past several weeks for what she thought was an earache. No new medication changes over the past week. In the emergency room CT of the head was negative, labs were unremarkable. On neurological examination it was noted the patient had some expressive aphasia, was noted to be stuttering at times and somewhat forgetful. She had no increased weakness in any extremities, but due to concern for CVA she was admitted for further workup. [place] the patient denied chest pain, nausea, vomiting, fevers, chills, headache, change in her vision. HOSPITAL COURSE: MRI brain showed small late subacute/chronic infarct involving the medial right parietal convexity. MRA showed an early prominent pericallosal artery branch arising from the proximal left A2 segment. 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 US carotid: less than 50% category narrowing in the right internal carotid artery by Doppler velocity criteria, less than 50% category narrowing in the left ICA by Doppler velocity criteria. Echocardiogram 07/01/20: results are pending. Lipids were elevated, she was started on both ASA, Plavix and high dose statin. Neurology was consulted who agreed with current treatment plan, he did not think she needed a vascular evaluation. Patient was assessed by PT and felt she would benefit from continued rehab. She had several episodes of orthostatic hypotension during her stay, one of which she "blanked out" while standing but soon after came to. There were no new focal deficits aside from mild memory loss, stuttering at times. She has been generally weak since admission, not increased. She was later discharged to ARU to continue rehabilitation. PAST MEDICAL HISTORY: 1. High blood pressure 2. Anxiety 3. legally blind 4. Macular degeneration 5. Claustrophobia 6. Anxiety/depression PAST SURGICAL HISTORY: 1. Total hysterectomy FAMILY HISTORY: Father: Healthy. Deceasead at 82 y/o Mother: Healthy. at 83 y/o SOCIAL HISTORY: Denies smoking, alcohol or drug use history. Lives alone with home health aides who come in during the day and night. She has no recent falls. She uses a cane and walker at baseline. She is DNR with trial period of intubation. PHYSICAL EXAMINATION: VS: Please see below CONSTITUTIONAL: No acute distress, resting comfortably, AAO x 2 (self and place "place where they take care of you-hospital") EYES: PERRLA, EOM intact HENT, MOUTH: Normocephalic, atraumatic, moist mucous membranes, NECK: SUPPLE, no JVD, no lymphadenopathy, no carotid bruit CV: Regular rate and rhythm, S1S2 normal, no murmurs/rubs/gallops RESPIRATORY: Clear to auscultation bilaterally, no rales/rhonchi/wheezes GI: BS positive in 4 quadrants, soft, nontender, nondistended, no rebound or guarding, no organomegaly : Deferred MUSCULOSKELETAL: Normal ROM. No cyanosis, clubbing, swelling, joint deformity, extremity edema INTEGUMENTARY: Intact, no rashes, no lesions, no erythema NEUROLOGIC: Cranial Nerves II-XII are intact, stuttering at times, forgetful during exam. Strength 4/4 of all extremities, no acute focal deficits. Has chronic left eye lid drooping. Sensory in tact LABORATORY DATA: Please see below IMAGING: Echocardiogram: Pending report CT head: Generalized volume loss. No acute intracranial abnormality. 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 US carotid: Less than 50% category narrowing in the right internal carotid artery by Doppler velocity criteria. Less than 50% category narrowing in the left ICA by Doppler velocity criteria. ASSESSMENT: 89-year-old female with past medical history of high blood pressure, anxiety, lately blind, macular degeneration, claustrophobia, anxiety/depression admitted for further workup of CVA. PLAN: Altered mental status likely 2/2 to subacute/chronic CVA, UTI -Has increased forgetfullness, generalized weakness, no new focal deficits. Episode of "spacing out" with PT, no incr weakness -Orthostatics: positive but was asymptomatic -CT head, MRI, MRA above -F/u echo, PT/OT -Started on ASA, statin, plavix -Neuro checks Q4H UTI -+ UA -UCX pending currently but can f/u in ARU -Completed 3 days of ceftriaxone by 07/03/20 HTN -Improved -BP elevated at 180's on admission -C/w home lasix, atenolol Depression/anxiety/claustrophobia -Has had worsening depression, anxiety with COVID -C/w sertraline, trazodone. Hx of dizziness -Per daughter she has been getting dizzy -Orthostats + so this could be cause -Poor eating at home over the past several months per daughter, decreased appetite. -Encouraging water Q2hrs while awake. -Nutritional consult Abnormal ECG -Trop neg, denies chest pain, incr SOB -Tele DISPOSITION: D/c to ARU today to continue rehab. TIME SPENT ON DISCHARGE: Greater than 30 minutes. Vital Signs/I&Os Vital Signs Date Time Temp Pulse Resp B/P (MAP) Pulse Ox O2 Delivery O2 Flow Rate FiO2 07/03/20 10:16 72 125/54 07/03/20 06:00 97.3 16 93 Room Air I&O- Last 24 Hours up to 6 AM 07/03/20 06:00 Intake Total 1270 ml Output Total 1025 ml Balance 245 ml Laboratory Data Labs 24H Laboratory Tests 2 07/03/20 05:16: Nucleated Red Blood Cells % (auto) 0.0, Anion Gap 8, Glomerular Filtration Rate > 60.0, Calcium Level 8.8, Total Bilirubin 0.9, Aspartate Amino Transf (AST/SGOT) 15, Alanine Aminotransferase (ALT/SGPT) 19, Alkaline Phosphatase 43L, Total Protein 6.4, Albumin 3.3, Albumin/Globulin Ratio 1.1L CBC/BMP Laboratory Tests 07/03/20 05:16 Microbiology Microbiology 07/01/20 Urine Culture, Received Pending Discharge Medications Scheduled Aspirin (Aspirin EC) 81 Mg Tablet.dr, 81 MG PO DAILY, (Reported) Atenolol (Atenolol) 50 Mg Tablet, 50 MG PO DAILY, (Reported) Atorvastatin Calcium (Atorvastatin Calcium) 20 Mg Tablet, 40 MG PO DAILY Clopidogrel Bisulfate (Clopidogrel) 75 Mg Tablet, 75 MG PO DAILY Furosemide (Furosemide) 20 Mg Tablet, 20 MG PO DAILY, (Reported) Sertraline HCl (Sertraline HCl) 25 Mg Tablet, 12.5 MG PO DAILY, (Reported) Trazodone HCl (Trazodone HCl) 50 Mg Tablet, 50 MG PO QHS, (Reported) Scheduled PRN Albuterol Sulfate (Ventolin Hfa) 18 Gm Hfa.aer.ad, 2 PUFFS INH QID PRN for SHORTNESS OF BREATH, (Reported) Trazodone HCl (Trazodone HCl) 50 Mg Tablet, 25 MG PO QHS PRN for SLEEP, (Reported) TAKES IF SHE WAKES IN THE NIGHT Allergies Coded Allergies: morphine (Verified Adverse Reaction, Unknown, N/V, 07/01/20) Leatha Vernon MD Jul 03, 2020 14:41
--- NOTE | 2020-07-06 10:20 | ECHO ---
DATE OF PROCEDURE: 07/02/2020 Age: 89 Gender: Female REFERRING PHYSICIAN: Dr. Leatha Vernon PATIENT LOCATION: [id number]. REASON FOR STUDY: Cerebrovascular accident (CVA). 2D MEASUREMENTS: IVS 1.0 cm LV 5.2 cm LVPW 1.1 cm LA 4.5 cm Aorta 3.2 cm IVC 1.3 cm DOPPLER MEASUREMENT Peak velocity across the aortic valve 1.6 msec Peak velocity across the LVOT 0.9 msec Maximum tricuspid valve velocity 2.4 msec 2D COMMENTS: 1. Normal left ventricular size, wall thickness, and low normal global left ventricular systolic function. The estimated left ventricular systolic ejection fraction is 50% to 55%. 2. Mildly dilated left atrium. Normal right atrium and right ventricle. 3. The atrial septum appeared to be normal without evidence of defect or shunt. 4. Normal aortic root. 5. No pericardial effusion seen. 6. Minimally calcified aortic valve with normal leaflet excursion. Normal mitral valve and tricuspid valve. The pulmonic valve and proximal pulmonary artery branches were not well visualized. 7. The inferior vena cava was normal in size. Central venous pressure is most likely normal. Doppler detects mild mitral regurgitation and mild tricuspid regurgitation. The calculated pulmonary artery systolic pressure varies between 30 to 40 mmHg. Abnormal relaxation pattern was noted across the mitral valve leaflets, as well as the mitral valve annulus, consistent with features of grade 1 left ventricular diastolic dysfunction. IMPRESSION: 1. Low-normal global left ventricular systolic function. There are some features of grade 1 left ventricular diastolic dysfunction manifested by abnormal relaxation. 2. Aortic valve sclerosis without stenosis or aortic regurgitation. 3. Mildly enlarged left atrium with mild mitral regurgitation. 4. Mild tricuspid regurgitation with mild pulmonary hypertension. MTDD
== END 2020-07-03 16:22 | DRG 65 ==
LOC: EDBD 11:09 → M ED 11:09 → M ED INP 13:51 → M MSPAV 17:41
PROVIDERS: ADMIT Internal Medicine; ATTEND Internal Medicine
DX: I63.9 Cerebral infarction, unspecified (principal); N39.0 Urinary tract infection, site not specified; I10 Essential (primary) hypertension; F41.9 Anxiety disorder, unspecified; F32.9 Major depressive disorder, single episode, unspecified; Z79.82 Long term (current) use of aspirin; Z79.899 Other long term (current) drug therapy; Z88.5 Allergy status to narcotic agent

== ENCOUNTER 2020-07-03 12:40 | Inpatient (IN) | payer MEDICARE, BC ==
[~2020-07-03] VITALS: Ht 157.5 cm; Wt 57.8 kg
[~2020-07-03 12:40] MED LIST changes: +ALBU8.5H; +ASPI-161 PO; +ASPI81TAEC PO; -ASPIRIN 325 MG TAB PO SCH; +ATEN50TA2 PO; +ATOR1TAB21 PO; -ATORVASTATIN 20 MG TAB PO SCH; +CLOP75TA2 PO; +FURO20TA2 PO; +SERT25TA21 PO; +TRAZ-252 PO; +VENTAER INH; +aspirin
--- NOTE | 2020-07-03 13:51 | HPEPDOC ---
Mailroom Messenger Note DATE OF ADMISSION: 07-03-20 DATE OF SERVICE:07-03-20 TIME OF ADMISSION: Please refer to physician's admission order. SOURCE OF ADMISSION INFORMATION: [facility] record and patient CHIEF COMPLAINT: stroke with dizziness HISTORY OF PRESENT ILLNESS: 89F pmh HTN, anxiety, macular degeneration and total left eye blindness from , claustrophobia, anxiety/depression started on low dose ZOloft about 2 weeks ago who presented to [facility] ED on 07-01-20 with altered mental status. 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 She was diagnosed with a urinary tract infection and her encephalopathy was thought to be due to recent stroke and UTI. She was started on IV Ceftriaxone and was noted to have orthostatic with a history dizziness that she reported was chronic. Per patients daughter she also had poor po intake for quite some time and patient reports insomnia. She was evaluated by therapy, noted to have impairments in mobility and ADLs and deemed medically appropriate for discharge to ARU on 07-03-20. REVIEW OF SYSTEMS: The following is a completed review of systems and has been reviewed. Review of systems otherwise unremarkable. PAIN: Patient self reports no pain EYES: +legally blind EARS, NOSE, & THROAT: +dysphagia CARDIOVASCULAR: Denies chest pain or palpitations PULMONARY: Denies shortness of breath GASTROINTESTINAL: + constipation GENITOURINARY: +UTI MUSCULOSKELETAL: left sided weakness, bilat shoulder arthritis NEUROLOGICAL:+stroke HEMATOLOGICAL: denies easy bruising SKIN: denies rash PSYCHIATRIC: +anxiety/depression All other review of systems found to be negative. PAST MEDICAL HISTORY: as per HPI PAST SURGICAL HISTORY: Hysterectomy ALLERGIES: Please see below. MEDICATIONS: Please see below. FAMILY HISTORY: non-contributory SOCIAL HISTORY: No etoh/illicit drugs/smoking, DIET: level 3, fluid restrict PHYSICAL EXAMINATION: VITAL SIGNS: Please see below. GENERAL: Pleasant and cooperative. No acute distress. left eye ptosis (chronic) HEENT: PERRL. Extraocular movements intact in right eye. Clear conjunctiva CARDIOVASCULAR: Regular rate and rhythm. No murmurs, rubs, or gallops LUNGS: +bibasilar crackles ABDOMEN: Soft, nontender, nondistended. Positive bowel sounds. Normal active bowel sounds NEUROLOGICAL: Alert and oriented times three. Cranial nerves II through XII grossly intact. Sensation grossly intact with extinction to light touch left side +head/neck/trunk chorea EXTREMITIES: 5-\5 strength bilateral upper extremities (bilat shoulder restricted ROM). 5\5 strength right lower extremity. 5-/5 strength in left lower extremity. +bilat LE (-) Mariah's SKIN: intact LABORATORY DATA: Please see below. IMAGING:Imaging documentation personally reviewed by record FUNCTIONAL STATUS: Premorbid: Modified Independent with all activities of daily life as well as mobility with cane and walker On Admission: Min-Mod assist with functional transfers, bed mobility, dressing, able to walk 10 feet GOALS: Mod-I with RW household distances, bathing, toileting, dressing ASSESSMENT:89-year-old F with past medical history of HTN who presents status post right parietal stroke PLAN: 1. rehab- PT/OT advance gait and ADLs, strengthen/stretch/maintain ROM all 4 limbs -[employer] for swallow and cognition 2. Neuro- recent right parietal stroke with left sided weakness, c/u ASa, Plavix and statin for secondary stroke prevention -patient noted to have head/neck/trunk chorea on exam, she reports this began years ago and attributes it to her anxiety and not since she started Zoloft a couple of weeks ago- will switch from SSRI to Remeron to assist with depression, poor appetite and insomnia while monitoring for worsening motor symptoms 3. cardiac- hx of HTN with recent orthostatics, will lower dose of atenolol and monitor, on ASA and Plavix -c/u lasix 20mg po, will give one time IV injection of 20mg due to crackles on exam and bilat LE edema, patient likely has CHF and reports she has had swollen legs before and drinks a lot of water at home to stay hydrated- will fluid restrict, daily weights, medicine consulted to assist in overall management -HLD c/u statin 4. resp- monitor for infection, Duonebs 5. - s/p 2 doses of IV ceftriaxone, f/u Ucx results -monitor PVRs 6. Psych- will start remeron for insomnia/depression/poor po intake and stop low dose sertraline which patient reports was started about 2 weeks ago -trazodone 25mg prn 7. DVT ppx- lovenox 8. GI ppx- protonix 9 Pain- tyelenol prn 10. Dispo- tbd POST ADMISSION PHYSICIAN EVALUATION: Medical and functional status: Description of medical status, medical assessment: As above. Rehabilitation diagnosis and current and prior cold morbid medical conditions as above. Risk of complications and plans to mitigate them as above. Description of functional status current status is as above. Prior status as above. Status compared to preadmission: There are no clinically significant differences between the patient's current status and the information described on the preadmission screening document. Treatment plan anticipated: Treatment plan is as described above. Required disciplines including physical therapy, occupational therapy, others as noted above Intensity of services: 3 hours a day, 6 days a week. Special considerations: There are no specific special or safety considerations that would likely preclude immediate implementation of an intensive rehabilitation program or subsequently influence the plan of care. ATTESTATION: Considering all the information above, it is my best judgment that this patient requires intensive rehabilitation therapy as described above and an inpatient hospital environment due to the complexity of nursing, medical, and rehabilitation needs required by the patient. Furthermore, this patient can reasonably be expected to participate in an benefit from an inpatient rehabilitation stay with an interdisciplinary team approach to the delivery of rehabilitation care under the direction and supervision of rehabilitation physician. PROGNOSIS: good ESTIMATED LENGTH OF STAY:14-18 days. PROJECTED DISCHARGE DESTINATION: Home with family support and any durable med ical equipment required to increase functional safety and mobility. TIME SPENT COUNSELING AND COORDINATING INITIAL CARE: Greater than 70 minutes. Vital Signs as per EMR charting Home Medications Scheduled Aspirin (Aspirin EC) 81 Mg Tablet.dr, 81 MG PO DAILY, (Reported) Atenolol (Atenolol) 50 Mg Tablet, 50 MG PO DAILY, (Reported) Atorvastatin Calcium (Atorvastatin Calcium) 20 Mg Tablet, 40 MG PO DAILY Clopidogrel Bisulfate (Clopidogrel) 75 Mg Tablet, 75 MG PO DAILY Furosemide (Furosemide) 20 Mg Tablet, 20 MG PO DAILY, (Reported) Sertraline HCl (Sertraline HCl) 25 Mg Tablet, 12.5 MG PO DAILY, (Reported) Trazodone HCl (Trazodone HCl) 50 Mg Tablet, 50 MG PO QHS, (Reported) Scheduled PRN Albuterol Sulfate (Ventolin Hfa) 18 Gm Hfa.aer.ad, 2 PUFFS INH QID PRN for SHORTNESS OF BREATH, (Reported) Trazodone HCl (Trazodone HCl) 50 Mg Tablet, 25 MG PO QHS PRN for SLEEP, (Reported) TAKES IF SHE WAKES IN THE NIGHT Allergies Coded Allergies: morphine (Verified Adverse Reaction, Unknown, N/V, 07/01/20) A-FIB/CHADSVASC A-FIB History Current/History of A-Fib/PAF?: No PAT RAMIREZ MD Jul 03, 2020 13:51
[2020-07-03] MEDS: REMEDY PHYTOPLEX Z-GUARD PASTE 113GM TUBE (FROM STOREROOM PRODUCT) TOP SCH ×2 (16:00→20:58)
[2020-07-03 16:56] VITALS: BP 168/80
[2020-07-03] MEDS ORDERED: FUROSEMIDE 20MG/2ML VIAL (J1940) IV ONE (17:00)
[2020-07-03 20:00] VITALS: BP 166/79
[2020-07-03] MEDS: IPRATROPIUM 0.5MG/ALBUTEROL 2.5MG INH SOL UD 3ML (DUONEB) NEB SCH (20:00)
[2020-07-03 20:01] VITALS: BP 137/79
[2020-07-03 20:02] VITALS: BP 140/83
[2020-07-03] MEDS: traZODone 25MG PER 1/2 TABLET PO PRN (20:57)
[2020-07-03] MEDS: MIRTAZAPINE 7.5MG PER 1/2 TABLET PO SCH (20:57)
[2020-07-03] MEDS: DOCUSATE SODIUM 100MG CAPSULE PO SCH (20:58)
[2020-07-03] MEDS: SENNA 8.6 MG TAB (SENOKOT) PO SCH (20:58)
[2020-07-04] VITALS (9 sets, daily range): BP systolic 118–147; BP diastolic 58–77
[2020-07-04] MEDS: IPRATROPIUM 0.5MG/ALBUTEROL 2.5MG INH SOL UD 3ML (DUONEB) NEB SCH ×3 (07:34→20:42)
[2020-07-04] MEDS: atenoloL 25 MG TAB PO SCH (08:00)
[2020-07-04] MEDS: ASPIRIN 81 MG ENTERIC TAB PO SCH (08:00)
[2020-07-04] MEDS: ATORVASTATIN 20 MG TAB PO SCH (08:00)
[2020-07-04] MEDS: CLOPIDOGREL 75 MG TAB PO SCH (08:00)
[2020-07-04] MEDS: PANTOPRAZOLE 40MG TAB (PROTONIX) PO SCH (08:00)
[2020-07-04] MEDS: FUROSEMIDE 20 MG TAB PO SCH (08:00)
[2020-07-04] MEDS: REMEDY PHYTOPLEX Z-GUARD PASTE 113GM TUBE (FROM STOREROOM PRODUCT) TOP SCH ×3 (08:01→20:42)
[2020-07-04] MEDS: ENOXAPARIN 30MG/0.3ML SYRINGE (J1650 PER 10MG) SC SCH (08:01)
[2020-07-04] MEDS: DOCUSATE SODIUM 100MG CAPSULE PO SCH ×2 (08:01→20:42)
[2020-07-04 08:19] LABS: BASO % 0.6 % (0.0-1.0); EOS # 0.2 10^3/uL (0.0-0.5); EOS % 3.3 % (0.0-3.0); HEMATOCRIT 39.9 % (36.0-47.0); HEMOGLOBIN 13.4 g/dl (12.0-15.5); LYMPH # 1.7 10^3/uL (1.5-5.0); LYMPH % 24.4 % (24.0-44.0); MEAN CORPUSCULAR HGB CONC 33.6 g/dl (32.0-36.5); MEAN CORPUSCULAR VOLUME 98.3 fl (80.0-96.0); MONO # 0.7 10^3/uL (0.0-0.8); MONO % 10.1 % (0.0-5.0); NEUTROPHILS # 4.3 10^3/uL (1.5-8.5); NEUTROPHILS % 61.3 % (36.0-66.0); PLATELET COUNT, AUTOMATED 211 10^3/uL (150-450); RED BLOOD COUNT 4.06 10^6/uL (4.00-5.40); WHITE BLOOD COUNT 7.1 10^3/uL (4.0-10.0)
[2020-07-04 08:43] LABS: ALBUMIN 3.5 GM/DL (3.2-5.2); ALT/SGPT 20 U/L (12-78); BILIRUBIN,TOTAL 0.9 MG/DL (0.2-1.0); BLOOD UREA NITROGEN 18 MG/DL (7-18); CALCIUM LEVEL 9.3 MG/DL (8.8-10.2); CARBON DIOXIDE LEVEL 31 MEQ/L (21-32); CHLORIDE LEVEL 102 MEQ/L (98-107); GLOMERULAR FILTRATION RATE > 60.0 (>32); GLUCOSE, FASTING 119 MG/DL (70-100); SODIUM LEVEL 141 MEQ/L (136-145); TOTAL PROTEIN 6.5 GM/DL (6.4-8.2)
[2020-07-04] MEDS: MIDODRINE 5 MG TAB PO SCH ×2 (12:18→16:25)
--- NOTE | 2020-07-04 13:56 | HPEPDOC ---
[facility] Medical History & Physical Date of Admission Jul 03, 2020 Date of Service: Jul 04, 2020 Attending Physician: Leatha Vernon MD History and Physical MEDICAL H&P HISTORY OF PRESENT ILLNESS: Patient is an 89-year-old female with past medical history of high blood pressure, anxiety, lately blind, macular degeneration, claustrophobia, anxiety/depression, known subacute vs. chronic CVA, dysphagia who was admitted to ARU after being discharged from [facility] inpatient 07/01- where she was being treated for new CVA, dysphagia. During her hospitalization there she had a MRI brain showed small late subacute/chronic infarct involving the medial right parietal convexity. MRA showed an early prominent pericallosal artery branch arising from the proximal left A2 segment. 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 US carotid: less than 50% category narrowing in the right internal carotid artery by Doppler velocity criteria, less than 50% category narrowing in the left ICA by Doppler velocity criteria. Echocardiogram 07/01/20: results are pending. Lipids were elevated, she was started on both ASA, Plavix and high dose statin. Neurology was consulted who agreed with current treatment plan, he did not think she needed a vascular evaluation. Patient was assessed by PT and felt she would benefit from continued rehab. She had several episodes of orthostatic hypotension during her stay, one of which she "blanked out" while standing but soon after came to. There were no new focal deficits aside from mild memory lo ss, stuttering at times. She has been generally weak since admission, not increased. She was later discharged to ARU to continue rehabilitation on 07/03/20. ARU consulted medicine team to continue following beginning 07/04/20. It was reported that she had several episodes of "blanking out" during conversation, not losing consciousness but almost staring into space. There seemed be a disconnect in the patient communicating during this time. After several seconds, patient would resume talking to nursing staff, rehab staff. BP and HR were tested, she did not appear orthostatic at that time ;however, when this happened previously on the hospital floor it was noted her BP systolic had dropped 20 mmHg. On exam, patient had chronic left eyelid drooping but no new focal deficits. She admits to knowing when she has these episodes, this upsets her as she becomes apologetic and also tearful. I discussed current issue with on-call Neurologist (Dr. Silver) who said we could be seeing AMS 2/2 to transient orthostatic hypotension vs. possible seizure activity. She was started on lower ext compression stockings and low dose midodrine TID. EEG was ordered. If should occur again before EEG to be done (07/06/20) then we could start on keppra 250 mg PO BID. As this may alter EEG results, do not add unless thinking to absolutely need it. 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 Deceasead at 82 y/o Mother: Healthy. at 83 y/o SOCIAL HISTORY: Denies smoking, alcohol or drug use history. Lives alone with home health aides who come in during the day and night. She has no recent falls. She uses a cane and walker at baseline. She is DNR with trial period of intubation. PHYSICAL EXAMINATION: VS: Please see below CONSTITUTIONAL: No acute distress, sitting in bedside chair , AAO x3 EYES: PERRLA, EOM intact HENT, MOUTH: Normocephalic, atraumatic, moist mucous membranes, NECK: SUPPLE, no JVD, no lymphadenopathy, no carotid bruit CV: Regular rate and rhythm, S1S2 normal, no murmurs/rubs/gallops RESPIRATORY: Clear to auscultation bilaterally, no rales/rhonchi/wheezes GI: BS positive in 4 quadrants, soft, nontender, nondistended, no rebound or guarding, no organomegaly : Deferred MUSCULOSKELETAL: Normal ROM. No cyanosis, clubbing, swelling, joint deformity, extremity edema INTEGUMENTARY: Intact, no rashes, no lesions, no erythema NEUROLOGIC: Cranial Nerves II-XII are intact. Strength 4/5 of all extremities, no acute focal deficits. Has chronic left eye lid drooping. Sensory in tact PSYCH: mood at times sad, tearful LABORATORY DATA: Please see below IMAGING: Echocardiogram 07/01/20: Report still pending CT head: Generalized volume loss. No acute intracranial abnormality. 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 US carotid: Less than 50% category narrowing in the right internal carotid artery by Doppler velocity criteria. Less than 50% category narrowing in the left ICA by Doppler velocity criteria. ASSESSMENT: 89-year-old female with past medical history of high blood pressure, anxiety, lately blind, macular degeneration, claustrophobia, anxiety/with recent CVA, dysphagia, episodes of change in mental status admitted to ARU for rehabi litation. PLAN: Late subacute/chronic CVA possibly 2/2 to uncontrolled HTN vs. vasculopathy -Has increased forgetfullness, generalized weakness,episode of "spacing out" with PT -CT head, MRI, MRA above -Echo transciption still pending, PT/OT -No need for vascular consult per neuro -C/w ASA, statin, plavix Staring episodes, r/o seizures vs. transient changes in BP/HR or orthostatic hypotension -2 episodes since began rehab -No recorded positive orthostatics here but was + on the hospital floor when this occurred. -Discussed with neurology who recommended compression stockings, midodrine TID. Watch for too high of blood pressure -EEG ordered for 07/06/20 to r/o seizures, but if should occur before this date again, can start keppra 250 mg PO BID. -Can discuss with Dr. Silver at any time, no official consult placed. Dysphagia -Swallow evaluated, c/w current recommended diet Recent UTI -+ UA -UCX still not back from prior admission -Currently asymptomatic -Completed 3 days of ceftriaxone by 07/03/20 HTN -Stable, watch for incr with midodrine added. If increases then may need to either 1. decrease dose or 2. stop completely. -C/w home lasix, atenolol Depression/anxiety/claustrophobia -Has had worsening depression, anxiety with COVID -Currently stable -C/w sertraline, trazodone. Hx of dizziness poss 2/2 to BP changes/orthostatics +? -Per daughter she has been getting dizzy but no reported dizziness by patient today or to us by staff -Poor eating at home over the past several months per daughter, decreased appetite. -Encouraging water Q2hrs while awake, monitor intake Abnormal ECG -Trop neg, denies chest pain, incr SOB -Tele DVT px -Enoxaparin DISPOSITION: Thank you kindly for this consult. Will continue to follow closely. Please feel free to contact us at any time. Vital Signs Vital Signs Date Time Temp Pulse Resp B/P (MAP) Pulse Ox O2 Delivery O2 Flow Rate FiO2 07/04/20 12:18 84 147/64 (91) 07/04/20 05:48 98.0 18 96 Room Air Laboratory Data Labs 24H Laboratory Tests 2 07/04/20 07:44: Immature Granulocyte % (Auto) 0.3, Neutrophils (%) (Auto) 61.3, Lymphocytes (%) (Auto) 24.4, Monocytes (%) (Auto) 10.1H, Eosinophils (%) (Auto) 3.3H, Basophils (%) (Auto) 0.6, Neutrophils # (Auto) 4.3, Lymphocytes # (Auto) 1.7, Monocytes # (Auto) 0.7, Eosinophils # (Auto) 0.2, Basophils # (Auto) 0.0, Nucleated Red Blood Cells % (auto) 0.0, Anion Gap 8, Glomerular Filtration Rate > 60.0, Calcium Level 9.3, Total Bilirubin 0.9, Aspartate Amino Transf (AST/SGOT) 12, Alanine Aminotransferase (ALT/SGPT) 20, Alkaline Phosphatase 45, Total Protein 6.5, Albumin 3.5, Albumin/Globulin Ratio 1.2 CBC/BMP Laboratory Tests 07/04/20 07:44 Home Medications Scheduled Aspirin (Aspirin EC) 81 Mg Tablet.dr, 81 MG PO DAILY Atenolol (Atenolol) 50 Mg Tablet, 50 MG PO DAILY Atorvastatin Calcium (Atorvastatin Calcium) 20 Mg Tablet, 40 MG PO DAILY Clopidogrel Bisulfate (Clopidogrel) 75 Mg Tablet, 75 MG PO DAILY Furosemide (Furosemide) 20 Mg Tablet, 20 MG PO DAILY Sertraline HCl (Sertraline HCl) 25 Mg Tablet, 12.5 MG PO DAILY Trazodone HCl (Trazodone HCl) 50 Mg Tablet, 50 MG PO QHS Scheduled PRN Albuterol Sulfate (Ventolin Hfa) 18 Gm Hfa.aer.ad, 2 PUFFS INH QID PRN for SHORTNESS OF BREATH Trazodone HCl (Trazodone HCl) 50 Mg Tablet, 25 MG PO QHS PRN for SLEEP TAKES IF SHE WAKES IN THE NIGHT Allergies Coded Allergies: morphine (Verified Adverse Reaction, Unknown, N/V, 07/01/20) A-FIB/CHADSVASC A-FIB History Current/History of A-Fib/PAF?: No Current PO Anticoag Therapy: No Age/Risk Factor Scoring CHADSVASC: CHADSVASC Response (Comments) Value Age Risk Factor Age >/= 75 years old 2 Gender Risk Factor Female 1 Hx of CHF No 0 Hx of HTN Yes 1 Hx of Stroke/TIA/or VTE Yes 2 Hx of Diabetes No 0 Hx of Vascular Disease No 0 Total 6 Treatment Treatment ordered: Other Other anticoagulant ordered: Leatha Sands MD Jul 04, 2020 13:56
[2020-07-04] MEDS ORDERED: MIDODRINE 5 MG TAB PO SCH (16:00)
[2020-07-04] MEDS: MIRTAZAPINE 7.5MG PER 1/2 TABLET PO SCH (20:42)
[2020-07-04] MEDS: SENNA 8.6 MG TAB (SENOKOT) PO SCH (20:42)
[2020-07-04] MEDS: traZODone 25MG PER 1/2 TABLET PO PRN (20:44)
[2020-07-05] VITALS (7 sets, daily range): BP systolic 123–156; BP diastolic 65–81
[2020-07-05] MEDS: IPRATROPIUM 0.5MG/ALBUTEROL 2.5MG INH SOL UD 3ML (DUONEB) NEB SCH ×3 (07:27→19:21)
[2020-07-05] MEDS: ASPIRIN 81 MG ENTERIC TAB PO SCH (07:59)
[2020-07-05] MEDS: atenoloL 25 MG TAB PO SCH (07:59)
[2020-07-05] MEDS: MIDODRINE 5 MG TAB PO SCH ×3 (07:59→16:32)
[2020-07-05] MEDS: FUROSEMIDE 20 MG TAB PO SCH (07:59)
[2020-07-05] MEDS: ENOXAPARIN 30MG/0.3ML SYRINGE (J1650 PER 10MG) SC SCH (07:59)
[2020-07-05] MEDS: REMEDY PHYTOPLEX Z-GUARD PASTE 113GM TUBE (FROM STOREROOM PRODUCT) TOP SCH ×3 (08:00→20:06)
[2020-07-05] MEDS: ATORVASTATIN 20 MG TAB PO SCH (08:00)
[2020-07-05] MEDS: DOCUSATE SODIUM 100MG CAPSULE PO SCH ×2 (08:00→20:05)
[2020-07-05] MEDS: PANTOPRAZOLE 40MG TAB (PROTONIX) PO SCH (08:00)
[2020-07-05] MEDS: CLOPIDOGREL 75 MG TAB PO SCH (08:00)
[2020-07-05] MEDS: SENNA 8.6 MG TAB (SENOKOT) PO SCH (20:05)
[2020-07-05] MEDS: MIRTAZAPINE 7.5MG PER 1/2 TABLET PO SCH (20:05)
[2020-07-05] MEDS: traZODone 25MG PER 1/2 TABLET PO PRN (20:35)
[2020-07-06 03:31] VITALS: BP 165/81
--- NOTE | 2020-07-06 04:08 | REPVR ---
PROCEDURE INFORMATION: Exam: CT Head Without Contrast Exam date and time: 07/06/20 (3:39am) Age: 89 years old Clinical indication: Stroke symptoms. Possible CVA. TECHNIQUE: Imaging protocol: Computed tomography of the head without contrast. Radiation optimization: All CT scans at this facility use at least one of these dose optimization techniques: automated exposure control; mA and/or kV adjustment per patient size (includes targeted exams where dose is matched to clinical indication); or iterative reconstruction. COMPARISON: CT HEAD of 07/01/20 FINDINGS: Brain: Age-appropriate atrophic changes. No acute hemorrhage. No mass effect. Cerebral ventricles: No ventriculomegaly. Bones/joints: Unremarkable. No acute fracture. Paranasal sinuses: Visualized sinuses are unremarkable. No air-fluid levels. Mastoid air cells: Visualized mastoid air cells are well aerated. Soft tissues: Unremarkable. IMPRESSION: No acute intracranial pathology is appreciated. The brain had a similar appearance 5 days ago. Electronically signed by: Carey Mobley On 07/06/2020 04:08:19 AM
[2020-07-06 04:44] VITALS: BP 126/72
[2020-07-06 05:48] VITALS: BP 151/70
[2020-07-06] MEDS: IPRATROPIUM 0.5MG/ALBUTEROL 2.5MG INH SOL UD 3ML (DUONEB) NEB SCH ×3 (07:20→20:00)
[2020-07-06 07:38] LABS: HEMATOCRIT 40.5 % (36.0-47.0); HEMOGLOBIN 13.3 g/dl (12.0-15.5); MEAN CORPUSCULAR HEMOGLOBIN 32.7 pg (27.0-33.0); MEAN CORPUSCULAR HGB CONC 32.8 g/dl (32.0-36.5); MEAN CORPUSCULAR VOLUME 99.5 fl (80.0-96.0); PLATELET COUNT, AUTOMATED 226 10^3/uL (150-450); RED BLOOD COUNT 4.07 10^6/uL (4.00-5.40); WHITE BLOOD COUNT 7.1 10^3/uL (4.0-10.0)
[2020-07-06 07:48] LABS: ALBUMIN 3.6 GM/DL (3.2-5.2); ALT/SGPT 21 U/L (12-78); BILIRUBIN,TOTAL 1.1 MG/DL (0.2-1.0); BLOOD UREA NITROGEN 12 MG/DL (7-18); CALCIUM LEVEL 9.2 MG/DL (8.8-10.2); CARBON DIOXIDE LEVEL 31 MEQ/L (21-32); CHLORIDE LEVEL 103 MEQ/L (98-107); CREATININE FOR GFR 0.76 MG/DL (0.55-1.30); GLOMERULAR FILTRATION RATE > 60.0 (>32); GLUCOSE, FASTING 82 MG/DL (70-100); POTASSIUM SERUM 4.2 MEQ/L (3.5-5.1); SODIUM LEVEL 140 MEQ/L (136-145); TOTAL PROTEIN 6.6 GM/DL (6.4-8.2)
[2020-07-06] MEDS: ATORVASTATIN 20 MG TAB PO SCH (09:23)
[2020-07-06] MEDS: FUROSEMIDE 20 MG TAB PO SCH (09:23)
[2020-07-06] MEDS: PANTOPRAZOLE 40MG TAB (PROTONIX) PO SCH (09:23)
[2020-07-06] MEDS: CLOPIDOGREL 75 MG TAB PO SCH (09:23)
[2020-07-06] MEDS: DOCUSATE SODIUM 100MG CAPSULE PO SCH ×2 (09:23→20:46)
[2020-07-06] MEDS: ASPIRIN 81 MG ENTERIC TAB PO SCH (09:23)
[2020-07-06] MEDS: ENOXAPARIN 30MG/0.3ML SYRINGE (J1650 PER 10MG) SC SCH (09:24)
[2020-07-06] MEDS: atenoloL 25 MG TAB PO SCH (09:24)
[2020-07-06] MEDS: REMEDY PHYTOPLEX Z-GUARD PASTE 113GM TUBE (FROM STOREROOM PRODUCT) TOP SCH ×3 (09:25→20:48)
[2020-07-06] MEDS: MIDODRINE 5 MG TAB PO SCH ×3 (09:30→16:45)
--- NOTE | 2020-07-06 11:02 | IPNPDOC ---
PM&R Progress Note DATE OF SERVICE: Jul 06, 2020 Residential Living Assistant Progress Note Subjective: Patient seen walking in therapy stating she felt a heaviness in her head, but was able to walk and participate. Per therapy staff she had a few episodes of spacing out while in therapy and appeared more confused. REVIEW OF SYSTEMS: The following is a completed review of systems and has been reviewed. Review of systems otherwise unremarkable. PAIN: Patient self reports no pain EYES: +legally blind EARS, NOSE, & THROAT: +dysphagia CARDIOVASCULAR: Denies chest pain or palpitations PULMONARY: Denies shortness of breath GASTROINTESTINAL: denies diarrhea/constipation GENITOURINARY: +UTI MUSCULOSKELETAL: left sided weakness, bilat shoulder arthritis NEUROLOGICAL:+stroke HEMATOLOGICAL: denies easy bruising SKIN: denies rash PSYCHIATRIC: +anxiety/depression All other review of systems found to be negative. PHYSICAL EXAMINATION: VITAL SIGNS: Please see below. GENERAL: Pleasant and cooperative. No acute distress. left eye ptosis (chronic) HEENT: PERRL. Extraocular movements intact in right eye. Clear conjunctiva CARDIOVASCULAR: Regular rate and rhythm. No murmurs, rubs, or gallops LUNGS: CTA ABDOMEN: Soft, nontender, nondistended. Positive bowel sounds. Normal active bowel sounds NEUROLOGICAL: Alert and oriented times three. Cranial nerves II through XII grossly intact. Sensation grossly intact with extinction to light touch left side +head/neck/trunk chorea EXTREMITIES: 5-\5 strength bilateral upper extremities (bilat shoulder restricted ROM). 5\5 strength right lower extremity. 5-/5 strength in left lower extremity. +bilat LE (-) Mariah's SKIN: intact ASSESSMENT:89-year-old F with past medical history of HTN who presents status post right parietal stroke PLAN: 1. rehab- PT/OT advance gait and ADLs, strengthen/stretch/maintain ROM all 4 limbs -DAIRY NUTRITIONIST for swallow and cognition 2. Neuro- recent right parietal stroke with left sided weakness, c/u ASa, Plavix and statin for secondary stroke prevention -patient noted to have head/neck/trunk chorea on initial exam, she reports this began years ago and attributes it to her anxiety and not since she started Zoloft a couple of weeks ago- s/p switch from SSRI to Remeron to assist with depression, poor appetite and insomnia while monitoring for worsening motor symptoms -patient with episodes of spacing out today in therapy, EEG ordered, prolactin l evel pending, CTH negative for acute pathology, patient able to participate in therapy-neurology consulted 3. cardiac- hx of HTN with recent orthostatics which have resolved, c/u lower dose of atenolol, orthostatics d/'c and midodrine administration changed to hold if sBP >120 to avoid HTN, c/u on ASA and Plavix -c/u lasix 20mg po, c/u fluid restrict, daily weights, medicine consulted to assist in overall management -HLD c/u statin 4. resp- monitor for infection, Duonebs 5. - s/p 2 doses of IV ceftriaxone, +UCx for STREPTOCOCCUS ANGINOSUS will repeat UA/Ucx given altered mental status -monitor PVRs 6. Psych- c/u remeron for insomnia/depression/poor po intake and stop low dose sertraline which patient reports was started about 2 weeks ago- -trazodone 25mg prn 7. DVT ppx- lovenox 8. GI ppx- protonix 9 Pain- tyelenol prn 10. Dispo- tbd Allergies Coded Allergies: morphine (Verified Adverse Reaction, Unknown, N/V, 07/01/20) Vital Signs Vital Signs Date Time Temp Pulse Resp B/P (MAP) Pulse Ox O2 Delivery O2 Flow Rate FiO2 07/06/20 09:24 71 146/76 07/06/20 05:48 98.1 19 94 Room Air Laboratory Data CBC/BMP Laboratory Tests 07/06/20 03:56 Labs 24H Laboratory Tests 2 07/06/20 03:30: 07/06/20 03:56: Nucleated Red Blood Cells % (auto) 0.0, Anion Gap 6L, Glomerular Filtration Rate > 60.0, Calcium Level 9.2, Total Bilirubin 1.1H, Aspartate Amino Transf (AST/SGOT) 18, Alanine Aminotransferase (ALT/SGPT) 21, Alkaline Phosphatase 47, Total Protein 6.6, Albumin 3.6, Albumin/Globulin Ratio 1.2 07/06/20 04:01: Current Medications Current Medications Current Medications Medications (Trade) Dose Ordered Sig/Gayathri Route PRN Reason Start Time Stop Time Status Last Admin Dose Admin Acetaminophen (Tylenol Tab) 650 mg Q4HP PRN PO fever/MILD PAIN (PS 1-4) 07/03/20 13:45 Albuterol/ Ipratropium (Duoneb (Ipr 0.5mg/Alb 2.5mg)) 3 ml RTID NEB 07/03/20 20:00 07/06/20 07:20 Aspirin (Ecotrin) 81 mg DAILY PO 07/04/20 09:00 07/06/20 09:23 Atenolol (Tenormin) 25 mg DAILY PO 07/04/20 09:00 07/06/20 09:24 Atorvastatin Calcium (Lipitor) 40 mg DAILY PO 07/04/20 09:00 07/06/20 09:23 Clopidogrel Bisulfate (PLAVix) 75 mg DAILY PO 07/04/20 09:00 07/06/20 09:23 Docusate Sodium (Colace) 100 mg BID PO 07/03/20 21:00 07/06/20 09:23 Enoxaparin Sodium (Lovenox) 30 mg DAILY SC 07/04/20 09:00 07/06/20 09:24 Furosemide (Lasix) 20 mg DAILY PO 07/04/20 09:00 07/06/20 09:23 Midodrine (Proamatine) 5 mg TID PO 07/04/20 16:00 07/04/20 10:10 DC Midodrine (Proamatine) 5 mg TID@08,12,16 PO 07/04/20 12:00 07/05/20 16:32 Mirtazapine (Remeron) 7.5 mg QHS PO 07/03/20 21:00 07/05/20 20:05 Pantoprazole Sodium (Protonix) 40 mg DAILY PO 07/04/20 09:00 07/06/20 09:23 Polyethylene Glycol (Miralax) 1 pkt DAILYPRN PRN PO CONSTIPATION 07/05/20 17:00 Senna (Senokot) 1 tab QHS PO 07/03/20 21:00 07/05/20 20:05 Trazodone HCl (Desyrel) 25 mg QHSP PRN PO INSOMNIA 07/03/20 13:45 07/05/20 20:35 PAT RAMIREZ MD Jul 06, 2020 11:02
[2020-07-06 13:12] VITALS: BP_SYST 119; BP_SYST 122; BP_DIAS 59
[2020-07-06 14:00] VITALS: BP 118/68
[2020-07-06 20:04] VITALS: BP 132/62
[2020-07-06] MEDS: SENNA 8.6 MG TAB (SENOKOT) PO SCH (20:46)
[2020-07-06] MEDS: MIRTAZAPINE 7.5MG PER 1/2 TABLET PO SCH (20:46)
[2020-07-06] MEDS: traZODone 25MG PER 1/2 TABLET PO PRN (20:46)
[2020-07-07 05:21] VITALS: BP 147/67
[2020-07-07] MEDS: IPRATROPIUM 0.5MG/ALBUTEROL 2.5MG INH SOL UD 3ML (DUONEB) NEB SCH ×3 (07:23→20:00)
[2020-07-07 07:40] LABS: HEMATOCRIT 38.4 % (36.0-47.0); HEMOGLOBIN 12.9 g/dl (12.0-15.5); MEAN CORPUSCULAR HEMOGLOBIN 32.8 pg (27.0-33.0); MEAN CORPUSCULAR HGB CONC 33.6 g/dl (32.0-36.5); MEAN CORPUSCULAR VOLUME 97.7 fl (80.0-96.0); PLATELET COUNT, AUTOMATED 204 10^3/uL (150-450); RED BLOOD COUNT 3.93 10^6/uL (4.00-5.40)
[2020-07-07] MEDS: DOCUSATE SODIUM 100MG CAPSULE PO SCH ×2 (07:52→20:52)
[2020-07-07] MEDS: PANTOPRAZOLE 40MG TAB (PROTONIX) PO SCH (07:52)
[2020-07-07] MEDS: CLOPIDOGREL 75 MG TAB PO SCH (07:52)
[2020-07-07] MEDS: ASPIRIN 81 MG ENTERIC TAB PO SCH (07:52)
[2020-07-07] MEDS: ATORVASTATIN 20 MG TAB PO SCH (07:53)
[2020-07-07] MEDS: FUROSEMIDE 20 MG TAB PO SCH (07:53)
[2020-07-07] MEDS: atenoloL 25 MG TAB PO SCH (07:53)
[2020-07-07] MEDS: ENOXAPARIN 30MG/0.3ML SYRINGE (J1650 PER 10MG) SC SCH (07:54)
[2020-07-07] MEDS: MIDODRINE 5 MG TAB PO SCH ×3 (07:54→16:00)
[2020-07-07] MEDS: REMEDY PHYTOPLEX Z-GUARD PASTE 113GM TUBE (FROM STOREROOM PRODUCT) TOP SCH ×3 (07:54→20:52)
[2020-07-07 08:08] LABS: ALBUMIN 3.4 GM/DL (3.2-5.2); ALT/SGPT 22 U/L (12-78); BILIRUBIN,TOTAL 1.1 MG/DL (0.2-1.0); BLOOD UREA NITROGEN 12 MG/DL (7-18); CARBON DIOXIDE LEVEL 31 MEQ/L (21-32); CHLORIDE LEVEL 104 MEQ/L (98-107); CREATININE FOR GFR 0.69 MG/DL (0.55-1.30); GLOMERULAR FILTRATION RATE > 60.0 (>32); GLUCOSE, FASTING 101 MG/DL (70-100); POTASSIUM SERUM 4.2 MEQ/L (3.5-5.1); SODIUM LEVEL 141 MEQ/L (136-145); TOTAL PROTEIN 6.3 GM/DL (6.4-8.2)
[2020-07-07] MEDS: SODIUM CHLORIDE NASAL 0.65% SPRAY BTL (OCEAN) SCH ×3 (09:00→20:53)
--- NOTE | 2020-07-07 11:25 | IPNPDOC ---
PM&R Progress Note DATE OF SERVICE: Jul 07, 2020 Rawhide Trimmer Progress Note Subjective: Patient seen in her room stating she thinks she slept well last night and that her head feels less heavy compared to yesterday, but that she has been having nose bleeds on the right side the last two mornings that she states she does get at home from time to time. REVIEW OF SYSTEMS: The following is a completed review of systems and has been reviewed. Review of systems otherwise unremarkable. PAIN: Patient self reports no pain EYES: +legally blind EARS, NOSE, & THROAT: +dysphagia CARDIOVASCULAR: Denies chest pain or palpitations PULMONARY: Denies shortness of breath GASTROINTESTINAL: denies diarrhea/constipation GENITOURINARY: +UTI (resolved) MUSCULOSKELETAL: left sided weakness, bilat shoulder arthritis NEUROLOGICAL:+stroke HEMATOLOGICAL: denies easy bruising SKIN: denies rash PSYCHIATRIC: +anxiety/depression All other review of systems found to be negative. PHYSICAL EXAMINATION: VITAL SIGNS: Please see below. GENERAL: Pleasant and cooperative. No acute distress. left eye ptosis (chronic) HEENT: PERRL. Extraocular movements intact in right eye. Clear conjunctiva CARDIOVASCULAR: Regular rate and rhythm. No murmurs, rubs, or gallops LUNGS: CTA ABDOMEN: Soft, nontender, nondistended. Positive bowel sounds. Normal active bowel sounds NEUROLOGICAL: Alert and oriented times three. Cranial nerves II through XII grossly intact. Sensation grossly intact with extinction to light touch left side +head/neck/trunk chorea (improved today) EXTREMITIES: 5-\5 strength bilateral upper extremities (bilat shoulder rest ricted ROM). 5\5 strength right lower extremity. 5-/5 strength in left lower extremity. +bilat LE (improving) (-) Mariah's SKIN: intact ASSESSMENT:89-year-old F with past medical history of HTN who presents status post right parietal stroke PLAN: 1. rehab- PT/OT advance gait and ADLs, strengthen/stretch/maintain ROM all 4 limbs, ambulating with RW -STE[employer] SH[employer]EL [employer]NER for swallow and cognition 2. Neuro- recent right parietal stroke with left sided weakness, c/u ASa, Plavix and statin for secondary stroke prevention -patient noted to have head/neck/trunk chorea on initial exam, she reports this began years ago and attributes it to her anxiety and not since she started Zoloft a couple of weeks ago- s/p switch from SSRI to Remeron to assist with depression, poor appetite and insomnia while monitoring for worsening motor symptoms -patient with episodes of spacing out 07-06-20 s/p EEG, prolactin level WNL and CTH negative for acute pathology, patient able to participate in therapy- neurology consulted, awaiting EEG read 3. cardiac- hx of HTN with recent orthostatics which have resolved, c/u lower dose of atenolol, orthostatics d/c'd and midodrine administration changed to hold if sBP >120 to avoid HTN, c/u on ASA and Plavix -c/u lasix 20mg po, c/u fluid restrict, daily weights, medicine consulted to assist in overall management- recent ECHO shows diastolic CHF -HLD c/u statin 4. resp- monitor for infection, Duonebs 5. - s/p 2 doses of IV ceftriaxone, +UCx for STREPTOCOCCUS ANGINOSUS repeat AU negative -monitor PVRs 6. Psych- c/u remeron for insomnia/depression/poor po intake and stop low dose sertraline which patient reports was started about 2 weeks ago- -trazodone 25mg prn 7. DVT ppx- will d/c lovenox due to episodes of epistaxis, Doppler ordered to r/o DVT, c/u TEDs 8. GI ppx- protonix 9 Pain- Tylenol prn 10. Dispo- tbd Allergies Coded Allergies: morphine (Verified Adverse Reaction, Unknown, N/V, 07/01/20) Vital Signs Vital Signs Date Time Temp Pulse Resp B/P (MAP) Pulse Ox O2 Delivery O2 Flow Rate FiO2 07/07/20 07:53 69 138/67 07/07/20 05:21 97.7 18 97 Room Air Laboratory Data CBC/BMP Laboratory Tests 07/07/20 07:22 Labs 24H Laboratory Tests 2 07/07/20 07:22: Nucleated Red Blood Cells % (auto) 0.0, Anion Gap 6L, Glomerular Filtration Rate > 60.0, Calcium Level 9.0, Total Bilirubin 1.1H, Aspartate Amino Transf (AST/SGOT) 15, Alanine Aminotransferase (ALT/SGPT) 22, Alkaline Phosphatase 47, Total Protein 6.3L, Albumin 3.4, Albumin/Globulin Ratio 1.2 07/07/20 10:47: Urine Color STRAW, Urine Appearance CLEAR, Urine pH 7.0, Urine Specific [place] 1.003, Urine Protein NEGATIVE, Urine Glucose (UA) NEGATIVE, Urine Ketones NEGATIVE, Urine Blood NEGATIVE, Urine Nitrite NEGATIVE, Urine Bilirubin NEGATIVE, Urine Urobilinogen 0.2, Urine Leukocyte Esterase NEGATIVE, Urine WBC (Auto) 0, Urine RBC (Auto) 0, Urine Hyaline Casts (Auto) 0, Urine Bacteria (A uto) NEGATIVE, Urine Squamous Epithelial Cells 0, Urine Sperm (Auto) Current Medications Current Medications Current Medications Medications (Trade) Dose Ordered Sig/Gayathri Route PRN Reason Start Time Stop Time Status Last Admin Dose Admin Acetaminophen (Tylenol Tab) 650 mg Q4HP PRN PO fever/MILD PAIN (PS 1-4) 07/03/20 13:45 Albuterol/ Ipratropium (Duoneb (Ipr 0.5mg/Alb 2.5mg)) 3 ml RTID NEB 07/03/20 20:00 07/06/20 07:20 Aspirin (Ecotrin) 81 mg DAILY PO 07/04/20 09:00 07/07/20 07:52 Atenolol (Tenormin) 25 mg DAILY PO 07/04/20 09:00 07/07/20 07:53 Atorvastatin Calcium (Lipitor) 40 mg DAILY PO 07/04/20 09:00 07/07/20 07:53 Clopidogrel Bisulfate (PLAVix) 75 mg DAILY PO 07/04/20 09:00 07/07/20 07:52 Docusate Sodium (Colace) 100 mg BID PO 07/03/20 21:00 07/07/20 07:52 Enoxaparin Sodium (Lovenox) 30 mg DAILY SC 07/04/20 09:00 07/07/20 11:00 DC 07/07/20 07:54 Furosemide (Lasix) 20 mg DAILY PO 07/04/20 09:00 07/07/20 07:53 Midodrine (Proamatine) 5 mg TID PO 07/04/20 16:00 07/04/20 10:10 DC Midodrine (Proamatine) 5 mg TID@08,12,16 PO 07/04/20 12:00 07/05/20 16:32 Mirtazapine (Remeron) 7.5 mg QHS PO 07/03/20 21:00 07/06/20 20:46 Pantoprazole Sodium (Protonix) 40 mg DAILY PO 07/04/20 09:00 07/07/20 07:52 Polyethylene Glycol (Miralax) 1 pkt DAILYPRN PRN PO CONSTIPATION 07/05/20 17:00 Senna (Senokot) 1 tab QHS PO 07/03/20 21:00 07/06/20 20:46 Sodium Chloride ([place] Nasal [place]) 2 spray TID NA 07/07/20 09:00 Trazodone HCl (Desyrel) 25 mg QHSP PRN PO INSOMNIA 07/03/20 13:45 07/06/20 20:46 PAT RAMIREZ MD Jul 07, 2020 11:25
[2020-07-07 12:29] VITALS: BP 146/73
--- NOTE | 2020-07-07 12:29 | REP ---
INDICATION: immobility COMPARISON: None. TECHNIQUE: Real time compression and duplex Doppler interrogation of the bilateral lower extremity deep venous system is performed. FINDINGS: Bilaterally, the common femoral, superficial femoral and popliteal veins are fully compressible with transducer pressure and demonstrate normal spontaneous and phasic flow, without evidence of deep venous thrombosis. IMPRESSION: No evidence of deep venous thrombosis of the bilateral lower extremity femoral popliteal venous system. <Electronically signed by Beck Magana > 07/07/20 [id number]
[2020-07-07 14:00] VITALS: BP 125/58
[2020-07-07 16:25] VITALS: BP 131/64
[2020-07-07] MEDS: MIRTAZAPINE 7.5MG PER 1/2 TABLET PO SCH (20:52)
[2020-07-07] MEDS: SENNA 8.6 MG TAB (SENOKOT) PO SCH (20:52)
[2020-07-07 21:00] VITALS: BP 146/77
[2020-07-07] MEDS: traZODone 25MG PER 1/2 TABLET PO PRN (21:42)
[2020-07-08 06:00] VITALS: BP 133/66
[2020-07-08 06:59] LABS: BASO % 0.2 % (0.0-1.0); EOS # 0.3 10^3/uL (0.0-0.5); EOS % 4.3 % (0.0-3.0); HEMATOCRIT 35.5 % (36.0-47.0); HEMOGLOBIN 12.4 g/dl (12.0-15.5); LYMPH # 1.4 10^3/uL (1.5-5.0); LYMPH % 22.1 % (24.0-44.0); MEAN CORPUSCULAR HEMOGLOBIN 33.9 pg (27.0-33.0); MEAN CORPUSCULAR HGB CONC 34.9 g/dl (32.0-36.5); MONO # 0.7 10^3/uL (0.0-0.8); MONO % 11.3 % (0.0-5.0); NEUTROPHILS % 61.8 % (36.0-66.0); PLATELET COUNT, AUTOMATED 204 10^3/uL (150-450); RED BLOOD COUNT 3.66 10^6/uL (4.00-5.40); WHITE BLOOD COUNT 6.5 10^3/uL (4.0-10.0)
[2020-07-08 07:25] LABS: BLOOD UREA NITROGEN 13 MG/DL (7-18); CALCIUM LEVEL 9.3 MG/DL (8.8-10.2); CARBON DIOXIDE LEVEL 31 MEQ/L (21-32); CHLORIDE LEVEL 102 MEQ/L (98-107); CREATININE FOR GFR 0.68 MG/DL (0.55-1.30); GLOMERULAR FILTRATION RATE > 60.0 (>32); GLUCOSE, FASTING 94 MG/DL (70-100); POTASSIUM SERUM 3.9 MEQ/L (3.5-5.1); SODIUM LEVEL 138 MEQ/L (136-145)
[2020-07-08] MEDS: IPRATROPIUM 0.5MG/ALBUTEROL 2.5MG INH SOL UD 3ML (DUONEB) NEB SCH ×3 (08:00→20:00)
[2020-07-08] MEDS: FUROSEMIDE 20 MG TAB PO SCH (08:27)
[2020-07-08] MEDS: CLOPIDOGREL 75 MG TAB PO SCH (08:28)
[2020-07-08] MEDS: ATORVASTATIN 20 MG TAB PO SCH (08:28)
[2020-07-08] MEDS: atenoloL 25 MG TAB PO SCH (08:28)
[2020-07-08] MEDS: ASPIRIN 81 MG ENTERIC TAB PO SCH (08:28)
[2020-07-08] MEDS: PANTOPRAZOLE 40MG TAB (PROTONIX) PO SCH (08:28)
[2020-07-08] MEDS: DOCUSATE SODIUM 100MG CAPSULE PO SCH ×2 (08:28→20:33)
[2020-07-08] MEDS: SODIUM CHLORIDE NASAL 0.65% SPRAY BTL (OCEAN) SCH (08:29)
[2020-07-08] MEDS: MIDODRINE 5 MG TAB PO SCH ×3 (08:29→16:04)
--- NOTE | 2020-07-08 09:33 | IPNPDOC ---
PM&R Progress Note DATE OF SERVICE: Jul 08, 2020 Hand Folder Progress Note Subjective: Patient seen in her room stating she feels a little better today and that she is interested in trying an antihistamine for her left sided head pressure. REVIEW OF SYSTEMS: The following is a completed review of systems and has been reviewed. Review of systems otherwise unremarkable. PAIN: Patient self reports no pain EYES: +legally blind EARS, NOSE, & THROAT: +dysphagia CARDIOVASCULAR: Denies chest pain or palpitations PULMONARY: Denies shortness of breath GASTROINTESTINAL: denies diarrhea/constipation GENITOURINARY: +UTI (resolved) MUSCULOSKELETAL: left sided weakness, bilat shoulder arthritis NEUROLOGICAL:+stroke HEMATOLOGICAL: denies easy bruising SKIN: denies rash PSYCHIATRIC: +anxiety/depression All other review of systems found to be negative. PHYSICAL EXAMINATION: VITAL SIGNS: Please see below. GENERAL: Pleasant and cooperative. No acute distress. left eye ptosis (chronic) HEENT: PERRL. Extraocular movements intact in right eye. Clear conjunctiva CARDIOVASCULAR: Regular rate and rhythm. No murmurs, rubs, or gallops LUNGS: CTA ABDOMEN: Soft, nontender, nondistended. Positive bowel sounds. Normal active bowel sounds NEUROLOGICAL: Alert and oriented times three. Cranial nerves II through XII grossly intact. Sensation grossly intact with extinction to light touch left side +head/neck/trunk chorea (improved today) EXTREMITIES: 5-\5 strength bilateral upper extremities (bilat shoulder restricted ROM). 5\5 strength right lower extremity. 5-/5 strength in left lower extremity. +bilat LE (improving) (-) Mariah's SKIN: intact ASSESSMENT:89-year-old F with past medical history of HTN who presents status post right parietal stroke PLAN: 1. 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 Neuro- recent right parietal stroke with left sided weakness, c/u ASa, Plavix and statin for secondary stroke prevention -patient with episodes of spacing out 12-21-20 s/p EEG, prolactin level WNL and CTH negative for acute pathology, patient able to participate in therapy- neurology consulted, awaiting EEG read, no further episodes 3. cardiac- hx of HTN with recent orthostatics which have resolved, c/u lower dose of atenolol, orthostatics d/c'd and midodrine administration changed to hold if sBP >120 to avoid HTN, c/u on ASA and Plavix -c/u lasix 20mg po, c/u fluid restrict, daily weights, medicine consulted to a ssist in overall management- recent ECHO shows diastolic CHF -HLD c/u statin 4. resp- monitor for infection, Duonebs -will start loratidine for reported left sided head pressure, patient admits to having had sinus issues for years- no new deficits on exam 5. - s/p 2 doses of IV ceftriaxone, +UCx for STREPTOCOCCUS ANGINOSUS repeat UA negative -monitor PVRs 6. Psych- c/u remeron for insomnia/depression/poor po intake -trazodone 25mg prn 7. DVT ppx- d/c'd lovenox due to episodes of epistaxis, Doppler negative for DVT, c/u teds 8. GI ppx- protonix 9 Pain- Tylenol prn 10. Dispo- tbd-discussed patients case at length with daughter mildred and family's concern regarding a safe discharge Allergies Coded Allergies: morphine (Verified Adverse Reaction, Unknown, N/V, 07/01/20) Vital Signs Vital Signs Date Time Temp Pulse Resp B/P (MAP) Pulse Ox O2 Delivery O2 Flow Rate FiO2 07/08/20 08:28 68 133/66 07/08/20 06:00 98.8 18 95 Room Air Laboratory Data CBC/BMP Laboratory Tests 07/08/20 06:46 Labs 24H Laboratory Tests 2 07/07/20 10:47: Urine Color STRAW, Urine Appearance CLEAR, Urine pH 7.0, Urine Specific [place] 1.003, Urine Protein NEGATIVE, Urine Glucose (UA) NEGATIVE, Urine Ketones NEGATIVE, Urine Blood NEGATIVE, Urine Nitrite NEGATIVE, Urine Bilirubin NEGATIVE, Urine Urobilinogen 0.2, Urine Leukocyte Esterase NEGATIVE, Urine WBC (Auto) 0, Urine RBC (Auto) 0, Urine Hyaline Casts (Auto) 0, Urine Bacteria (Auto) NEGATIVE, Urine Squamous Epithelial Cells 0, Urine Sperm (Auto) 07/08/20 06:46: Immature Granulocyte % (Auto) 0.3, Neutrophils (%) (Auto) 61.8, Lymphocytes (%) (Auto) 22.1L, Monocytes (%) (Auto) 11.3H, Eosinophils (%) (Auto) 4.3H, Basophils (%) (Auto) 0.2, Neutrophils # (Auto) 4.0, Lymphocytes # (Auto) 1.4L, Monocytes # (Auto) 0.7, Eosinophils # (Auto) 0.3, Basophils # (Auto) 0.0, Nucleated Red Blood Cells % (auto) 0.0, Anion Gap 5L, Glomerular Filtration Rate > 60.0, Calcium Level 9.3 Current Medications Current Medications Current Medications Medications (Trade) Dose Ordered Sig/Gayathri Route PRN Reason Start Time Stop Time Status Last Admin Dose Admin Acetaminophen (Tylenol Tab) 650 mg Q4HP PRN PO fever/MILD PAIN (PS 1-4) 07/03/20 13:45 Albuterol/ Ipratropium (Duoneb (Ipr 0.5mg/Alb 2.5mg)) 3 ml RTID NEB 07/03/20 20:00 07/06/20 07:20 Aspirin (Ecotrin) 81 mg DAILY PO 07/04/20 09:00 07/08/20 08:28 Atenolol (Tenormin) 25 mg DAILY PO 07/04/20 09:00 07/08/20 08:28 Atorvastatin Calcium (Lipitor) 40 mg DAILY PO 07/04/20 09:00 07/08/20 08:28 Clopidogrel Bisulfate (PLAVix) 75 mg DAILY PO 07/04/20 09:00 07/08/20 08:28 Docusate Sodium (Colace) 100 mg BID PO 07/03/20 21:00 07/08/20 08:28 Enoxaparin Sodium (Lovenox) 30 mg DAILY SC 07/04/20 09:00 07/07/20 11:00 DC 07/07/20 07:54 Furosemide (Lasix) 20 mg DAILY PO 07/04/20 09:00 07/08/20 08:27 Midodrine (Proamatine) 5 mg TID PO 07/04/20 16:00 07/04/20 10:10 DC Midodrine (Proamatine) 5 mg TID@08,12,16 PO 07/04/20 12:00 07/08/20 08:29 Mirtazapine (Remeron) 7.5 mg QHS PO 07/03/20 21:00 07/07/20 20:52 Pantoprazole Sodium (Protonix) 40 mg DAILY PO 07/04/20 09:00 07/08/20 08:28 Polyethylene Glycol (Miralax) 1 pkt DAILYPRN PRN PO CONSTIPATION 07/05/20 17:00 Senna (Senokot) 1 tab QHS PO 07/03/20 21:00 07/07/20 20:52 Sodium Chloride ([place] Nasal [place]) 2 spray TID NA 07/07/20 09:00 07/07/20 16:28 Trazodone HCl (Desyrel) 25 mg QHSP PRN PO INSOMNIA 07/03/20 13:45 07/07/20 21:42 PAT RAMIREZ MD Jul 08, 2020 09:33
[2020-07-08] MEDS: ACETAMINOPHEN TAB 650MG DOSE (2X325MG) PO PRN (10:21)
[2020-07-08] MEDS: REMEDY PHYTOPLEX Z-GUARD PASTE 113GM TUBE (FROM STOREROOM PRODUCT) TOP SCH ×3 (10:21→20:34)
--- NOTE | 2020-07-08 12:00 | EEG ---
ELECTROENCEPHALOGRAM DATE: 07/06/2020 DIAGNOSIS: Blank spells, rule out seizure in a patient who is status post right parietal stroke. EEG #: REFERRING PHYSICIAN: PAT RAMIREZ MD TECHNICAL DESCRIPTION: This digital EEG was recorded by 21-scalp, ear, and two EKG electrodes and was reviewed in bipolar and referential montages following reformatting in 10-20 international electrode placement system. INTERPRETATION: Patient was noted to be in awake and drowsy states during this EEG. Resting and awake background rhythm consisted of 9 Hz alpha activity measuring 15-40 microvolts in amplitude, which was symmetric and reactive to eye opening. Attenuation of posterior dominant rhythm was seen during transition to drowsiness. Brief stage 1 sleep was reviewed and was symmetric bilaterally. Bilateral mid-temporal wicket waves were rarely noted. Hyperventilation could not be performed. Photic stimulation remained unremarkable. EKG revealed normal sinus rhythm. No focal, lateralizing, or epileptiform abnormalities were seen. Electrode artifact was noted. There was no relevant clinical activity. CONCLUSION: This EEG in awake, drowsy states, stage 1 sleep is within normal limits.
[2020-07-08] MEDS: POLYVINYL ALCOHOL OPHTH SOLN 15 ML(LIQUITEARS) OU SCH ×3 (12:31→20:34)
[2020-07-08] MEDS: LORATADINE 10 MG TAB PO SCH (13:28)
[2020-07-08 14:00] VITALS: BP 118/63
[2020-07-08 18:58] VITALS: BP 138/70
[2020-07-08 20:00] VITALS: BP 132/62
[2020-07-08] MEDS: MIRTAZAPINE 7.5MG PER 1/2 TABLET PO SCH (20:33)
[2020-07-08] MEDS: SENNA 8.6 MG TAB (SENOKOT) PO SCH (20:33)
[2020-07-09 05:46] VITALS: BP 116/84
[2020-07-09] MEDS: ACETAMINOPHEN TAB 650MG DOSE (2X325MG) PO PRN ×2 (06:36→21:01)
[2020-07-09] MEDS: IPRATROPIUM 0.5MG/ALBUTEROL 2.5MG INH SOL UD 3ML (DUONEB) NEB SCH ×3 (07:17→20:00)
[2020-07-09] MEDS: DOCUSATE SODIUM 100MG CAPSULE PO SCH ×2 (09:39→21:00)
[2020-07-09] MEDS: ASPIRIN 81 MG ENTERIC TAB PO SCH (09:39)
[2020-07-09] MEDS: FUROSEMIDE 20 MG TAB PO SCH (09:39)
[2020-07-09] MEDS: PANTOPRAZOLE 40MG TAB (PROTONIX) PO SCH (09:39)
[2020-07-09] MEDS: MIRALAX *UNIT DOSE* 17GM PACKET PO PRN (09:39)
[2020-07-09] MEDS: CLOPIDOGREL 75 MG TAB PO SCH (09:40)
[2020-07-09] MEDS: atenoloL 25 MG TAB PO SCH (09:40)
[2020-07-09] MEDS: MIDODRINE 5 MG TAB PO SCH ×3 (09:40→17:26)
[2020-07-09] MEDS: LORATADINE 10 MG TAB PO SCH (09:40)
[2020-07-09] MEDS: ATORVASTATIN 20 MG TAB PO SCH (09:40)
[2020-07-09] MEDS: REMEDY PHYTOPLEX Z-GUARD PASTE 113GM TUBE (FROM STOREROOM PRODUCT) TOP SCH ×3 (09:41→21:01)
[2020-07-09] MEDS: POLYVINYL ALCOHOL OPHTH SOLN 15 ML(LIQUITEARS) OU SCH ×4 (09:42→21:01)
[2020-07-09 20:00] VITALS: BP 140/67
[2020-07-09] MEDS: traZODone 25MG PER 1/2 TABLET PO PRN (21:00)
[2020-07-09] MEDS: SENNA 8.6 MG TAB (SENOKOT) PO SCH (21:00)
[2020-07-09] MEDS: MIRTAZAPINE 7.5MG PER 1/2 TABLET PO SCH (21:00)
[2020-07-10 05:42] VITALS: BP 135/70
[2020-07-10 07:03] LABS: BASO % 0.6 % (0.0-1.0); EOS # 0.4 10^3/uL (0.0-0.5); HEMATOCRIT 36.3 % (36.0-47.0); HEMOGLOBIN 12.1 g/dl (12.0-15.5); LYMPH # 1.7 10^3/uL (1.5-5.0); LYMPH % 23.5 % (24.0-44.0); MEAN CORPUSCULAR HEMOGLOBIN 33.1 pg (27.0-33.0); MEAN CORPUSCULAR HGB CONC 33.3 g/dl (32.0-36.5); MEAN CORPUSCULAR VOLUME 99.2 fl (80.0-96.0); MONO # 0.9 10^3/uL (0.0-0.8); MONO % 12.8 % (0.0-5.0); NEUTROPHILS # 4.1 10^3/uL (1.5-8.5); NEUTROPHILS % 57.7 % (36.0-66.0); PLATELET COUNT, AUTOMATED 213 10^3/uL (150-450); RED BLOOD COUNT 3.66 10^6/uL (4.00-5.40); WHITE BLOOD COUNT 7.2 10^3/uL (4.0-10.0)
[2020-07-10] MEDS: IPRATROPIUM 0.5MG/ALBUTEROL 2.5MG INH SOL UD 3ML (DUONEB) NEB SCH ×3 (07:24→20:00)
[2020-07-10 07:34] LABS: BLOOD UREA NITROGEN 15 MG/DL (7-18); CALCIUM LEVEL 8.9 MG/DL (8.8-10.2); CARBON DIOXIDE LEVEL 31 MEQ/L (21-32); CHLORIDE LEVEL 102 MEQ/L (98-107); CREATININE FOR GFR 0.72 MG/DL (0.55-1.30); GLOMERULAR FILTRATION RATE > 60.0 (>32); GLUCOSE, FASTING 83 MG/DL (70-100); POTASSIUM SERUM 4.2 MEQ/L (3.5-5.1); SODIUM LEVEL 140 MEQ/L (136-145)
[2020-07-10] MEDS: ACETAMINOPHEN TAB 650MG DOSE (2X325MG) PO PRN (09:10)
[2020-07-10] MEDS: CLOPIDOGREL 75 MG TAB PO SCH (09:10)
[2020-07-10] MEDS: atenoloL 25 MG TAB PO SCH (09:10)
[2020-07-10] MEDS: FUROSEMIDE 20 MG TAB PO SCH (09:10)
[2020-07-10] MEDS: ASPIRIN 81 MG ENTERIC TAB PO SCH (09:11)
[2020-07-10] MEDS: LORATADINE 10 MG TAB PO SCH (09:11)
[2020-07-10] MEDS: PANTOPRAZOLE 40MG TAB (PROTONIX) PO SCH (09:11)
[2020-07-10] MEDS: MIDODRINE 5 MG TAB PO SCH ×3 (09:11→16:18)
[2020-07-10] MEDS: ATORVASTATIN 20 MG TAB PO SCH (09:11)
[2020-07-10] MEDS: DOCUSATE SODIUM 100MG CAPSULE PO SCH ×2 (09:11→21:03)
[2020-07-10] MEDS: POLYVINYL ALCOHOL OPHTH SOLN 15 ML(LIQUITEARS) OU SCH ×4 (09:12→21:04)
[2020-07-10] MEDS: REMEDY PHYTOPLEX Z-GUARD PASTE 113GM TUBE (FROM STOREROOM PRODUCT) TOP SCH ×3 (09:13→21:04)
[2020-07-10 14:00] VITALS: BP 119/59
[2020-07-10 21:00] VITALS: BP 111/82
[2020-07-10] MEDS: traZODone 25MG PER 1/2 TABLET PO PRN (21:03)
[2020-07-10] MEDS: SENNA 8.6 MG TAB (SENOKOT) PO SCH (21:03)
[2020-07-10] MEDS: MIRTAZAPINE 7.5MG PER 1/2 TABLET PO SCH (21:04)
[2020-07-11 06:00] VITALS: BP 129/62
[2020-07-11] MEDS: IPRATROPIUM 0.5MG/ALBUTEROL 2.5MG INH SOL UD 3ML (DUONEB) NEB SCH ×3 (08:00→23:16)
[2020-07-11] MEDS: ASPIRIN 81 MG ENTERIC TAB PO SCH (08:41)
[2020-07-11] MEDS: MIDODRINE 5 MG TAB PO SCH ×3 (08:41→15:21)
[2020-07-11] MEDS: atenoloL 25 MG TAB PO SCH (08:42)
[2020-07-11] MEDS: DOCUSATE SODIUM 100MG CAPSULE PO SCH ×2 (08:44→20:43)
[2020-07-11] MEDS: LORATADINE 10 MG TAB PO SCH (08:44)
[2020-07-11] MEDS: PANTOPRAZOLE 40MG TAB (PROTONIX) PO SCH (08:44)
[2020-07-11] MEDS: CLOPIDOGREL 75 MG TAB PO SCH (08:44)
[2020-07-11] MEDS: ATORVASTATIN 20 MG TAB PO SCH (08:44)
[2020-07-11] MEDS: FUROSEMIDE 20 MG TAB PO SCH (08:45)
[2020-07-11] MEDS: MIRALAX *UNIT DOSE* 17GM PACKET PO PRN (08:45)
[2020-07-11] MEDS: REMEDY PHYTOPLEX Z-GUARD PASTE 113GM TUBE (FROM STOREROOM PRODUCT) TOP SCH ×3 (10:35→20:44)
[2020-07-11] MEDS: POLYVINYL ALCOHOL OPHTH SOLN 15 ML(LIQUITEARS) OU SCH ×4 (10:35→20:44)
[2020-07-11] MEDS: ACETAMINOPHEN TAB 650MG DOSE (2X325MG) PO PRN (10:38)
[2020-07-11 20:30] VITALS: BP 150/78
[2020-07-11] MEDS: MIRTAZAPINE 7.5MG PER 1/2 TABLET PO SCH (20:43)
[2020-07-11] MEDS: traZODone 25MG PER 1/2 TABLET PO PRN (20:43)
[2020-07-11] MEDS: SENNA 8.6 MG TAB (SENOKOT) PO SCH (20:43)
[2020-07-12 06:06] VITALS: BP 150/70
[2020-07-12] MEDS: MIDODRINE 5 MG TAB PO SCH ×3 (08:00→15:44)
[2020-07-12] MEDS: IPRATROPIUM 0.5MG/ALBUTEROL 2.5MG INH SOL UD 3ML (DUONEB) NEB SCH ×3 (08:00→19:27)
[2020-07-12] MEDS: ATORVASTATIN 20 MG TAB PO SCH (08:44)
[2020-07-12] MEDS: PANTOPRAZOLE 40MG TAB (PROTONIX) PO SCH (08:45)
[2020-07-12] MEDS: CLOPIDOGREL 75 MG TAB PO SCH (08:45)
[2020-07-12] MEDS: LORATADINE 10 MG TAB PO SCH (08:45)
[2020-07-12] MEDS: DOCUSATE SODIUM 100MG CAPSULE PO SCH ×2 (08:45→20:04)
[2020-07-12] MEDS: atenoloL 25 MG TAB PO SCH (08:46)
[2020-07-12] MEDS: FUROSEMIDE 20 MG TAB PO SCH (08:46)
[2020-07-12] MEDS: POLYVINYL ALCOHOL OPHTH SOLN 15 ML(LIQUITEARS) OU SCH ×4 (08:46→20:04)
[2020-07-12] MEDS: ASPIRIN 81 MG ENTERIC TAB PO SCH (08:46)
[2020-07-12] MEDS: REMEDY PHYTOPLEX Z-GUARD PASTE 113GM TUBE (FROM STOREROOM PRODUCT) TOP SCH ×3 (08:47→20:05)
[2020-07-12 14:00] VITALS: BP 124/68
[2020-07-12 20:00] VITALS: BP 155/81
[2020-07-12] MEDS: MIRTAZAPINE 7.5MG PER 1/2 TABLET PO SCH (20:04)
[2020-07-12] MEDS: SENNA 8.6 MG TAB (SENOKOT) PO SCH (20:04)
[2020-07-12] MEDS: traZODone 25MG PER 1/2 TABLET PO PRN (23:01)
[2020-07-13 06:00] VITALS: BP 134/65
[2020-07-13] MEDS: MIDODRINE 5 MG TAB PO SCH ×3 (07:34→16:01)
[2020-07-13] MEDS: ASPIRIN 81 MG ENTERIC TAB PO SCH (07:41)
[2020-07-13] MEDS: PANTOPRAZOLE 40MG TAB (PROTONIX) PO SCH (07:41)
[2020-07-13] MEDS: CLOPIDOGREL 75 MG TAB PO SCH (07:41)
[2020-07-13] MEDS: ATORVASTATIN 20 MG TAB PO SCH (07:41)
[2020-07-13] MEDS: LORATADINE 10 MG TAB PO SCH (07:41)
[2020-07-13] MEDS: atenoloL 25 MG TAB PO SCH (07:41)
[2020-07-13] MEDS: FUROSEMIDE 20 MG TAB PO SCH (07:42)
[2020-07-13] MEDS: REMEDY PHYTOPLEX Z-GUARD PASTE 113GM TUBE (FROM STOREROOM PRODUCT) TOP SCH ×3 (07:42→20:13)
[2020-07-13] MEDS: POLYVINYL ALCOHOL OPHTH SOLN 15 ML(LIQUITEARS) OU SCH ×4 (07:42→20:13)
[2020-07-13] MEDS: DOCUSATE SODIUM 100MG CAPSULE PO SCH ×2 (07:43→20:12)
[2020-07-13] MEDS: IPRATROPIUM 0.5MG/ALBUTEROL 2.5MG INH SOL UD 3ML (DUONEB) NEB SCH ×3 (08:00→20:00)
[2020-07-13 08:12] LABS: BASO % 0.4 % (0.0-1.0); EOS # 0.3 10^3/uL (0.0-0.5); EOS % 4.1 % (0.0-3.0); HEMATOCRIT 37.5 % (36.0-47.0); HEMOGLOBIN 12.9 g/dl (12.0-15.5); LYMPH # 1.5 10^3/uL (1.5-5.0); LYMPH % 19.6 % (24.0-44.0); MEAN CORPUSCULAR HEMOGLOBIN 33.9 pg (27.0-33.0); MEAN CORPUSCULAR HGB CONC 34.4 g/dl (32.0-36.5); MEAN CORPUSCULAR VOLUME 98.7 fl (80.0-96.0); MONO # 0.8 10^3/uL (0.0-0.8); MONO % 10.5 % (0.0-5.0); PLATELET COUNT, AUTOMATED 220 10^3/uL (150-450); WHITE BLOOD COUNT 7.8 10^3/uL (4.0-10.0)
[2020-07-13 08:40] LABS: BLOOD UREA NITROGEN 15 MG/DL (7-18); CALCIUM LEVEL 9.3 MG/DL (8.8-10.2); CARBON DIOXIDE LEVEL 30 MEQ/L (21-32); CHLORIDE LEVEL 102 MEQ/L (98-107); CREATININE FOR GFR 0.84 MG/DL (0.55-1.30); GLOMERULAR FILTRATION RATE > 60.0 (>32); GLUCOSE, FASTING 136 MG/DL (70-100); SODIUM LEVEL 139 MEQ/L (136-145)
[2020-07-13 11:56] VITALS: BP 136/73
[2020-07-13] MEDS: ACETAMINOPHEN TAB 650MG DOSE (2X325MG) PO PRN ×2 (12:05→23:40)
[2020-07-13 14:00] VITALS: BP 115/61
[2020-07-13 15:58] VITALS: BP 108/66
--- NOTE | 2020-07-13 17:29 | IPNPDOC ---
PM&R Progress Note DATE OF SERVICE: Jul 13, 2020 Sales Support Specialist Progress Note Subjective: Patient seen in her room stating she is starting to sleep better and that the pressure in her head is improving, but still present. She denies any new weakn ess in her limbs or worsening swallow. REVIEW OF SYSTEMS: The following is a completed review of systems and has been reviewed. Review of systems otherwise unremarkable. PAIN: Patient self reports no pain EYES: +legally blind EARS, NOSE, & THROAT: +dysphagia CARDIOVASCULAR: Denies chest pain or palpitations PULMONARY: Denies shortness of breath GASTROINTESTINAL: denies diarrhea/constipation GENITOURINARY: +UTI (resolved) MUSCULOSKELETAL: left sided weakness, bilat shoulder arthritis NEUROLOGICAL:+stroke HEMATOLOGICAL: denies easy bruising SKIN: denies rash PSYCHIATRIC: +anxiety/depression All other review of systems found to be negative. PHYSICAL EXAMINATION: VITAL SIGNS: Please see below. GENERAL: Pleasant and cooperative. No acute distress. left eye ptosis (chronic) HEENT: PERRL. Extraocular movements intact in right eye. Clear conjunctiva CARDIOVASCULAR: Regular rate and rhythm. No murmurs, rubs, or gallops LUNGS: CTA ABDOMEN: Soft, nontender, nondistended. Positive bowel sounds. Normal active bowel sounds NEUROLOGICAL: Alert and oriented times three. Cranial nerves II through XII grossly intact. Sensation grossly intact with extinction to light touch left side +head/neck/trunk chorea (improved today) EXTREMITIES: 5-\5 strength bilateral upper extremities (bilat shoulder restricted ROM). 5\5 strength right lower extremity. 5-/5 strength in left lower extremity. +bilat LE (improving) (-) Mariah's SKIN: intact ASSESSMENT:89-year-old F with past medical history of HTN who presents status post right parietal stroke PLAN: 1. rehab- PT/OT advance gait and ADLs, strengthen/stretch/maintain ROM all 4 limbs, ambulating with RW -FRAME MAKER for swallow and cognition 2. Neuro- recent right parietal stroke with left sided weakness, c/u ASa, Plavix and statin for secondary stroke prevention -patient with episodes of spacing out 12-21-20 s/p EEG, prolactin level WNL and CTH negative for acute pathology, patient able to participate in therapy-john rology consulted- EEG negative for seizure activity 3. cardiac- hx of HTN with recent orthostatics which have resolved, c/u lower dose of atenolol, orthostatics d/c'd and midodrine changed to prn, patient not having furher orthostativs, will consider d/c altogether -c/u ASA and Plavix -c/u lasix 20mg po, c/u fluid restrict, daily weights, medicine consulted to assist in overall management- recent ECHO shows diastolic CHF -HLD c/u statin 4. resp- monitor for infection, Duonebs -will start loratidine for reported left sided head pressure, patient admits to having had sinus issues for years- no new deficits on exam 5. - s/p 2 doses of IV ceftriaxone, +UCx for STREPTOCOCCUS ANGINOSUS repeat UA negative -monitor PVRs 6. Psych- c/u remeron for insomnia/depression/poor po intake- sleep overall improving -trazodone 25mg prn 7. DVT ppx- d/c'd lovenox due to episodes of epistaxis-patient reprots no nose bleed today - Doppler negative for DVT, c/u teds 8. GI ppx- protonix 9 Pain- Tylenol prn 10. Dispo- tbd-discussed patients case at length with daughter mildred and family's concern regarding a safe discharge Allergies Coded Allergies: morphine (Verified Adverse Reaction, Unknown, N/V, 07/01/20) Vital Signs Vital Signs Date Time Temp Pulse Resp B/P (MAP) Pulse Ox O2 Delivery O2 Flow Rate FiO2 07/13/20 15:58 80 108/66 (80) 07/13/20 14:00 98.8 18 94 Room Air Laboratory Data CBC/BMP Laboratory Tests 07/13/20 07:40 Labs 24H Laboratory Tests 2 07/13/20 07:40: Immature Granulocyte % (Auto) 0.4, Neutrophils (%) (Auto) 65.0, Lymphocytes (%) (Auto) 19.6L, Monocytes (%) (Auto) 10.5H, Eosinophils (%) (Auto) 4.1H, Basophils (%) (Auto) 0.4, Neutrophils # (Auto) 5.0, Lymphocytes # (Auto) 1.5, Monocytes # (Auto) 0.8, Eosinophils # (Auto) 0.3, Basophils # (Auto) 0.0, Nucleated Red Blood Cells % (auto) 0.0, Anion Gap 7L, Glomerular Filtration Rate > 60.0, Calcium Level 9.3 Current Medications Current Medications Current Medications Medications (Trade) Dose Ordered Sig/Gayathri Route PRN Reason Start Time Stop Time Status Last Admin Dose Admin Acetaminophen (Tylenol Tab) 650 mg Q4HP PRN PO fever/MILD PAIN (PS 1-4) 07/03/20 13:45 07/13/20 12:05 Albuterol/ Ipratropium (Duoneb (Ipr 0.5mg/Alb 2.5mg)) 3 ml RTID NEB 07/03/20 20:00 07/06/20 07:20 Artificial Tears ([place] Tears) 2 drop QID OU 07/08/20 13:00 07/13/20 16:01 Aspirin (Ecotrin) 81 mg DAILY PO 07/04/20 09:00 07/13/20 07:41 Atenolol (Tenormin) 25 mg DAILY PO 07/04/20 09:00 07/13/20 07:41 Atorvastatin Calcium (Lipitor) 40 mg DAILY PO 07/04/20 09:00 07/13/20 07:41 Clopidogrel Bisulfate (PLAVix) 75 mg DAILY PO 07/04/20 09:00 07/13/20 07:41 Docusate Sodium (Colace) 100 mg BID PO 07/03/20 21:00 07/12/20 20:04 Enoxaparin Sodium (Lovenox) 30 mg DAILY SC 07/04/20 09:00 07/07/20 11:00 DC 07/07/20 07:54 Furosemide (Lasix) 20 mg DAILY PO 07/04/20 09:00 07/13/20 07:42 Loratadine (Claritin) 10 mg DAILY PO 07/08/20 09:00 07/13/20 07:41 Midodrine (Proamatine) 5 mg TID PO 07/04/20 16:00 07/04/20 10:10 DC Midodrine (Proamatine) 5 mg TID@08,12,16 PO 07/04/20 12:00 07/13/20 16:01 Mirtazapine (Remeron) 7.5 mg QHS PO 07/03/20 21:00 07/12/20 20:04 Pantoprazole Sodium (Protonix) 40 mg DAILY PO 07/04/20 09:00 07/13/20 07:41 Polyethylene Glycol (Miralax) 1 pkt DAILYPRN PRN PO CONSTIPATION 07/05/20 17:00 07/11/20 08:45 Senna (Senokot) 1 tab QHS PO 07/03/20 21:00 07/12/20 20:04 Sodium Chloride ([employer] Nasal [place]) 2 spray TID NA 07/07/20 09:00 07/08/20 10:50 DC 07/07/20 16:28 Trazodone HCl (Desyrel) 25 mg QHSP PRN PO INSOMNIA 07/03/20 13:45 07/12/20 23:01 PAT RAMIREZ MD Jul 13, 2020 17:29
[2020-07-13 20:00] VITALS: BP 151/75
[2020-07-13] MEDS: MIRTAZAPINE 7.5MG PER 1/2 TABLET PO SCH (20:12)
[2020-07-13] MEDS: SENNA 8.6 MG TAB (SENOKOT) PO SCH (20:12)
[2020-07-13] MEDS: traZODone 25MG PER 1/2 TABLET PO PRN (21:23)
[2020-07-14 05:01] VITALS: BP 132/74
[2020-07-14] MEDS ORDERED: MIDODRINE 5 MG TAB PO PRN (08:00)
[2020-07-14] MEDS: PANTOPRAZOLE 40MG TAB (PROTONIX) PO SCH (08:11)
[2020-07-14] MEDS: DOCUSATE SODIUM 100MG CAPSULE PO SCH ×2 (08:11→21:58)
[2020-07-14] MEDS: atenoloL 25 MG TAB PO SCH (08:12)
[2020-07-14] MEDS: ASPIRIN 81 MG ENTERIC TAB PO SCH (08:12)
[2020-07-14] MEDS: ATORVASTATIN 20 MG TAB PO SCH (08:12)
[2020-07-14] MEDS: LORATADINE 10 MG TAB PO SCH (08:12)
[2020-07-14] MEDS: FUROSEMIDE 20 MG TAB PO SCH (08:12)
[2020-07-14] MEDS: POLYVINYL ALCOHOL OPHTH SOLN 15 ML(LIQUITEARS) OU SCH ×4 (08:13→21:59)
[2020-07-14] MEDS: REMEDY PHYTOPLEX Z-GUARD PASTE 113GM TUBE (FROM STOREROOM PRODUCT) TOP SCH ×3 (08:13→22:00)
[2020-07-14] MEDS: ACETAMINOPHEN TAB 650MG DOSE (2X325MG) PO PRN ×2 (08:14→21:59)
[2020-07-14] MEDS: CLOPIDOGREL 75 MG TAB PO SCH ×2 (08:59→16:17)
[2020-07-14] MEDS: IPRATROPIUM 0.5MG/ALBUTEROL 2.5MG INH SOL UD 3ML (DUONEB) NEB SCH ×3 (09:05→20:00)
[2020-07-14 14:00] VITALS: BP 112/58
--- NOTE | 2020-07-14 16:12 | IPNPDOC ---
PM&R Progress Note DATE OF SERVICE: Jul 14, 2020 Rail Technician Progress Note Subjective: Patient very upset because she reports her vision in the right eye has gotten worse since her admission to [facility]U and that there is a dramatic change since yesterday when she could read the numbers on the phone, but today she cannot. REVIEW OF SYSTEMS: The following is a completed review of systems and has been reviewed. Review of systems otherwise unremarkable. PAIN: Patient self reports no pain EYES: +legally blind EARS, NOSE, & THROAT: +dysphagia CARDIOVASCULAR: Denies chest pain or palpitations PULMONARY: Denies shortness of breath GASTROINTESTINAL: denies diarrhea/constipation GENITOURINARY: +UTI (resolved) MUSCULOSKELETAL: left sided weakness, bilat shoulder arthritis NEUROLOGICAL:+stroke HEMATOLOGICAL: denies easy bruising SKIN: denies rash PSYCHIATRIC: +anxiety/depression All other review of systems found to be negative. PHYSICAL EXAMINATION: VITAL SIGNS: Please see below. GENERAL: Pleasant and cooperative. No acute distress. left eye ptosis (chronic) HEENT: PERRL. Extraocular movements intact in right eye. Clear conjunctiva CARDIOVASCULAR: Regular rate and rhythm. No murmurs, rubs, or gallops LUNGS: CTA ABDOMEN: Soft, nontender, nondistended. Positive bowel sounds. Normal active bowel sounds NEUROLOGICAL: Alert and oriented times three. Cranial nerves II through XII grossly intact. Sensation grossly intact with extinction to light touch left side +head/neck/trunk chorea (improved today) EXTREMITIES: 5-\5 strength bilateral upper extremities (bilat shoulder res tricted ROM). 5\5 strength right lower extremity. 5-/5 strength in left lower extremity. +bilat LE (improving) (-) Mariah's SKIN: intact ASSESSMENT:89-year-old F with past medical history of HTN who presents status post right parietal stroke PLAN: 1. rehab- PT/OT advance gait and ADLs, strengthen/stretch/maintain ROM all 4 limbs, ambulating with RW -SAUSAGE CUTTER for swallow and cognition, c/u level 3 2. 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 Ophthalmology- patient with right sided macular degeneration with subjective worsening of symptoms, discussed case with Dr. Watson who has kindly agreed t o an inhouse retinal exam, suspect advancement of her MD 3. cardiac- hx of HTN with recent orthostatics which have resolved, c/u lower dose of atenolol, orthostatics d/c'd and midodrine changed to prn, patient not having further orthostatics, will consider d/c altogether -c/u ASA and Plavix -c/u lasix 20mg po, c/u fluid restrict, daily weights, medicine consulted to assist in overall management- recent ECHO shows diastolic CHF -HLD c/u statin 4. resp- monitor for infection, Duonebs -c/u loratidine for reported left sided head pressure, patient admits to having had sinus issues for years- no new deficits on exam 5. - s/p 2 doses of IV ceftriaxone, +UCx for STREPTOCOCCUS ANGINOSUS repeat UA negative -monitor PVRs 6. Psych- c/u remeron for insomnia/depression/poor po intake- sleep overall improving -trazodone 25mg prn 7. DVT ppx- d/c'd lovenox due to episodes of epistaxis- h/h stable likely provoked by dual antiplatelet therapy - Doppler negative for DVT, c/u teds 8. GI ppx- protonix 9 Pain- Tylenol prn 10. Dispo- tbd Allergies Coded Allergies: morphine (Verified Adverse Reaction, Unknown, N/V, 07/01/20) Vital Signs Vital Signs Date Time Temp Pulse Resp B/P (MAP) Pulse Ox O2 Delivery O2 Flow Rate FiO2 07/14/20 14:00 98.5 83 18 112/58 (76) 96 Room Air Current Medications Current Medications Current Medications Medications (Trade) Dose Ordered Sig/Gayathri Route PRN Reason Start Time Stop Time Status Last Admin Dose Admin Acetaminophen (Tylenol Tab) 650 mg Q4HP PRN PO fever/MILD PAIN (PS 1-4) 07/03/20 13:45 07/14/20 08:14 Albuterol/ Ipratropium (Duoneb (Ipr 0.5mg/Alb 2.5mg)) 3 ml RTID NEB 07/03/20 20:00 07/06/20 07:20 Artificial Tears ([place] Tears) 2 drop QID OU 07/08/20 13:00 07/14/20 12:33 Aspirin (Ecotrin) 81 mg DAILY PO 07/04/20 09:00 07/14/20 08:12 Atenolol (Tenormin) 25 mg DAILY PO 07/04/20 09:00 07/14/20 08:12 Atorvastatin Calcium (Lipitor) 40 mg DAILY PO 07/04/20 09:00 07/14/20 08:12 Clopidogrel Bisulfate (PLAVix) 75 mg DAILY PO 07/04/20 09:00 07/13/20 07:41 Docusate Sodium (Colace) 100 mg BID PO 07/03/20 21:00 07/14/20 08:11 Enoxaparin Sodium (Lovenox) 30 mg DAILY SC 07/04/20 09:00 07/07/20 11:00 DC 07/07/20 07:54 Furosemide (Lasix) 20 mg DAILY PO 07/04/20 09:00 07/14/20 08:12 Loratadine (Claritin) 10 mg DAILY PO 07/08/20 09:00 07/14/20 08:12 Midodrine (Proamatine) 5 mg TID PO 07/04/20 16:00 07/04/20 10:10 DC Midodrine (Proamatine) 5 mg TID@08,12,16 PO 07/04/20 12:00 07/13/20 17:31 DC 07/13/20 16:01 Midodrine (Proamatine) 5 mg TID@08,12,16 PRN PO sbp <100 07/14/20 08:00 Mirtazapine (Remeron) 7.5 mg QHS PO 07/03/20 21:00 07/13/20 20:12 Pantoprazole Sodium (Protonix) 40 mg DAILY PO 07/04/20 09:00 07/14/20 08:11 Polyethylene Glycol (Miralax) 1 pkt DAILYPRN PRN PO CONSTIPATION 07/05/20 17:00 07/11/20 08:45 Senna (Senokot) 1 tab QHS PO 07/03/20 21:00 07/13/20 20:12 Sodium Chloride ([place] Nasal [place]) 2 spray TID NA 07/07/20 09:00 12/23/20 10:50 DC 07/07/20 16:28 Trazodone HCl (Desyrel) 25 mg QHSP PRN PO INSOMNIA 07/03/20 13:45 07/13/20 21:23 PAT RAMIREZ MD Jul 14, 2020 16:11
[2020-07-14 20:00] VITALS: BP 112/67
[2020-07-14] MEDS: SENNA 8.6 MG TAB (SENOKOT) PO SCH (21:58)
[2020-07-14] MEDS: traZODone 25MG PER 1/2 TABLET PO PRN (21:58)
[2020-07-14] MEDS: MIRTAZAPINE 7.5MG PER 1/2 TABLET PO SCH (21:58)
[2020-07-15 06:49] VITALS: BP 125/63
[2020-07-15 07:27] LABS: BASO % 0.6 % (0.0-1.0); EOS # 0.3 10^3/uL (0.0-0.5); EOS % 4.5 % (0.0-3.0); HEMATOCRIT 38.7 % (36.0-47.0); HEMOGLOBIN 12.7 g/dl (12.0-15.5); LYMPH # 1.5 10^3/uL (1.5-5.0); LYMPH % 20.3 % (24.0-44.0); MEAN CORPUSCULAR HEMOGLOBIN 32.5 pg (27.0-33.0); MEAN CORPUSCULAR HGB CONC 32.8 g/dl (32.0-36.5); MONO # 0.8 10^3/uL (0.0-0.8); MONO % 11.2 % (0.0-5.0); NEUTROPHILS # 4.5 10^3/uL (1.5-8.5); PLATELET COUNT, AUTOMATED 232 10^3/uL (150-450); RED BLOOD COUNT 3.91 10^6/uL (4.00-5.40); WHITE BLOOD COUNT 7.2 10^3/uL (4.0-10.0)
[2020-07-15 07:52] LABS: BLOOD UREA NITROGEN 14 MG/DL (7-18); CALCIUM LEVEL 9.1 MG/DL (8.8-10.2); CARBON DIOXIDE LEVEL 33 MEQ/L (21-32); CHLORIDE LEVEL 105 MEQ/L (98-107); CREATININE FOR GFR 0.74 MG/DL (0.55-1.30); GLOMERULAR FILTRATION RATE > 60.0 (>32); GLUCOSE, FASTING 108 MG/DL (70-100); POTASSIUM SERUM 4.1 MEQ/L (3.5-5.1); SODIUM LEVEL 141 MEQ/L (136-145)
[2020-07-15] MEDS: IPRATROPIUM 0.5MG/ALBUTEROL 2.5MG INH SOL UD 3ML (DUONEB) NEB SCH ×3 (08:00→20:00)
--- NOTE | 2020-07-15 08:55 | IPNPDOC ---
PM&R Progress Note DATE OF SERVICE: Jul 15, 2020 Greige Goods Inspector Progress Note Subjective: Patient reporting she ahd a good day in therapy and feels that although her vision in the right eye is worse that she feels more confident ambulating. REVIEW OF SYSTEMS: The following is a completed review of systems and has been reviewed. Review of systems otherwise unremarkable. PAIN: Patient self reports no pain EYES: +legally blind EARS, NOSE, & THROAT: +dysphagia CARDIOVASCULAR: Denies chest pain or palpitations PULMONARY: Denies shortness of breath GASTROINTESTINAL: denies diarrhea/constipation GENITOURINARY: +UTI (resolved) MUSCULOSKELETAL: left sided weakness, bilat shoulder arthritis NEUROLOGICAL:+stroke HEMATOLOGICAL: denies easy bruising SKIN: denies rash PSYCHIATRIC: +anxiety/depression All other review of systems found to be negative. PHYSICAL EXAMINATION: VITAL SIGNS: Please see below. GENERAL: Pleasant and cooperative. No acute distress. left eye ptosis (chronic) HEENT: PERRL. Extraocular movements intact in right eye. Clear conjunctiva CARDIOVASCULAR: Regular rate and rhythm. No murmurs, rubs, or gallops LUNGS: CTA ABDOMEN: Soft, nontender, nondistended. Positive bowel sounds. Normal active b owel sounds NEUROLOGICAL: Alert and oriented times three. Cranial nerves II through XII grossly intact. Sensation grossly intact with extinction to light touch left side +head/neck/trunk chorea (improved today) EXTREMITIES: 5-\5 strength bilateral upper extremities (bilat shoulder restricted ROM). 5\5 strength right lower extremity. 5-/5 strength in left lower extremity. +bilat LE (improving) (-) Mariah's SKIN: intact ASSESSMENT:89-year-old F with past medical history of HTN who presents status post right parietal stroke PLAN: 1. rehab- PT/OT advance gait and ADLs, strengthen/stretch/maintain ROM all 4 limbs, ambulating with RW -SOFT TOP INSTALLER for swallow and cognition, c/u level 3 2. 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 Ophthalmology- patient with right sided macular degeneration with subjective worsening of symptoms, discussed case with Dr. Watson who has kindly agreed to an inhouse retinal exam, suspect advancement of her MD 3. cardiac- hx of HTN with recent orthostatics which have resolved, c/u lower dose of atenolol, orthostatics d/c'd and midodrine changed to prn, patient not having further orthostatics, will consider d/c altogether -c/u ASA and Plavix -c/u lasix 20mg po, c/u fluid restrict, daily weights, medicine consulted to assist in overall management- recent ECHO shows diastolic CHF -HLD c/u statin 4. resp- monitor for infection, Duonebs -c/u loratidine for reported left sided head pressure, patient admits to having had sinus issues for years- no new deficits on exam 5. - s/p 2 doses of IV ceftriaxone, +UCx for STREPTOCOCCUS ANGINOSUS repeat UA negative -monitor PVRs 6. Psych- c/u remeron for insomnia/depression/poor po intake- sleep overall improving -trazodone 25mg prn 7. DVT ppx- d/c'd lovenox due to episodes of epistaxis- h/h stable likely provoked by dual antiplatelet therapy - Doppler negative for DVT, c/u teds 8. GI ppx- protonix 9 Pain- Tylenol prn 10. Dispo- tbd Allergies Coded Allergies: morphine (Verified Adverse Reaction, Unknown, N/V, 07/01/20) Vital Signs Vital Signs Date Time Temp Pulse Resp B/P (MAP) Pulse Ox O2 Delivery O2 Flow Rate FiO2 07/15/20 06:49 98.7 79 17 125/63 (83) 94 Room Air Laboratory Data CBC/BMP Laboratory Tests 07/15/20 06:46 Labs 24H Laboratory Tests 2 07/15/20 06:46: Immature Granulocyte % (Auto) 0.4, Neutrophils (%) (Auto) 63.0, Lymphocytes (%) (Auto) 20.3L, Monocytes (%) (Auto) 11.2H, Eosinophils (%) (Auto) 4.5H, Basophils (%) (Auto) 0.6, Neutrophils # (Auto) 4.5, Lymphocytes # (Auto) 1.5, Monocytes # (Auto) 0.8, Eosinophils # (Auto) 0.3, Basophils # (Auto) 0.0, Nucleated Red Blood Cells % (auto) 0.0, Anion Gap 3L, Glomerular Filtration Rate > 60.0, Calcium Level 9.1 Current Medications Current Medications Current Medications Medications (Trade) Dose Ordered Sig/Gayathri Route PRN Reason Start Time Stop Time Status Last Admin Dose Admin Acetaminophen (Tylenol Tab) 650 mg Q4HP PRN PO fever/MILD PAIN (PS 1-4) 07/03/20 13:45 07/14/20 21:59 Albuterol/ Ipratropium (Duoneb (Ipr 0.5mg/Alb 2.5mg)) 3 ml RTID NEB 07/03/20 20:00 07/06/20 07:20 Artificial Tears ([place]wa Tears) 2 drop QID OU 07/08/20 13:00 07/14/20 21:59 Aspirin (Ecotrin) 81 mg DAILY PO 07/04/20 09:00 07/14/20 08:12 Atenolol (Tenormin) 25 mg DAILY PO 07/04/20 09:00 07/14/20 08:12 Atorvastatin Calcium (Lipitor) 40 mg DAILY PO 07/04/20 09:00 07/14/20 08:12 Clopidogrel Bisulfate (PLAVix) 75 mg DAILY PO 07/04/20 09:00 07/14/20 16:17 Docusate Sodium (Colace) 100 mg BID PO 07/03/20 21:00 07/14/20 21:58 Enoxaparin Sodium (Lovenox) 30 mg DAILY SC 07/04/20 09:00 07/07/20 11:00 DC 07/07/20 07:54 Furosemide (Lasix) 20 mg DAILY PO 07/04/20 09:00 07/14/20 08:12 Loratadine (Claritin) 10 mg DAILY PO 07/08/20 09:00 07/14/20 08:12 Midodrine (Proamatine) 5 mg TID PO 07/04/20 16:00 07/04/20 10:10 DC Midodrine (Proamatine) 5 mg TID@08,12,16 PO 07/04/20 12:00 07/13/20 17:31 DC 07/13/20 16:01 Midodrine (Proamatine) 5 mg TID@08,12,16 PRN PO sbp <100 07/14/20 08:00 Mirtazapine (Remeron) 7.5 mg QHS PO 07/03/20 21:00 07/14/20 21:58 Pantoprazole Sodium (Protonix) 40 mg DAILY PO 07/04/20 09:00 07/14/20 08:11 Polyethylene Glycol (Miralax) 1 pkt DAILYPRN PRN PO CONSTIPATION 07/05/20 17:00 07/11/20 08:45 Senna (Senokot) 1 tab QHS PO 07/03/20 21:00 07/14/20 21:58 Sodium Chloride ([place] Nasal [place]) 2 spray TID NA 07/07/20 09:00 07/08/20 10:50 DC 07/07/20 16:28 Trazodone HCl (Desyrel) 25 mg QHSP PRN PO INSOMNIA 07/03/20 13:45 07/14/20 21:58 PAT RAMIREZ MD Jul 15, 2020 08:55
[2020-07-15] MEDS: ASPIRIN 81 MG ENTERIC TAB PO SCH (09:38)
[2020-07-15] MEDS: PANTOPRAZOLE 40MG TAB (PROTONIX) PO SCH (09:38)
[2020-07-15] MEDS: DOCUSATE SODIUM 100MG CAPSULE PO SCH ×2 (09:39→21:17)
[2020-07-15] MEDS: ATORVASTATIN 20 MG TAB PO SCH (09:39)
[2020-07-15] MEDS: atenoloL 25 MG TAB PO SCH (09:39)
[2020-07-15] MEDS: LORATADINE 10 MG TAB PO SCH (09:40)
[2020-07-15] MEDS: FUROSEMIDE 20 MG TAB PO SCH (09:40)
[2020-07-15] MEDS: CLOPIDOGREL 75 MG TAB PO SCH (09:40)
[2020-07-15] MEDS: REMEDY PHYTOPLEX Z-GUARD PASTE 113GM TUBE (FROM STOREROOM PRODUCT) TOP SCH ×3 (09:41→21:18)
[2020-07-15] MEDS: POLYVINYL ALCOHOL OPHTH SOLN 15 ML(LIQUITEARS) OU SCH ×4 (09:42→21:17)
[2020-07-15 14:00] VITALS: BP 128/67
[2020-07-15 21:00] VITALS: BP 129/66
[2020-07-15] MEDS: SENNA 8.6 MG TAB (SENOKOT) PO SCH (21:17)
[2020-07-15] MEDS: MIRTAZAPINE 7.5MG PER 1/2 TABLET PO SCH (21:17)
[2020-07-15] MEDS: traZODone 25MG PER 1/2 TABLET PO PRN (21:17)
[2020-07-16 05:45] VITALS: BP 154/82
[2020-07-16] MEDS: IPRATROPIUM 0.5MG/ALBUTEROL 2.5MG INH SOL UD 3ML (DUONEB) NEB SCH ×3 (07:30→20:00)
[2020-07-16] MEDS: CLOPIDOGREL 75 MG TAB PO SCH (08:59)
[2020-07-16] MEDS: PANTOPRAZOLE 40MG TAB (PROTONIX) PO SCH (08:59)
[2020-07-16] MEDS: ATORVASTATIN 20 MG TAB PO SCH (08:59)
[2020-07-16] MEDS: DOCUSATE SODIUM 100MG CAPSULE PO SCH ×2 (08:59→20:52)
[2020-07-16] MEDS: ASPIRIN 81 MG ENTERIC TAB PO SCH (08:59)
[2020-07-16] MEDS: LORATADINE 10 MG TAB PO SCH (08:59)
[2020-07-16] MEDS: FUROSEMIDE 20 MG TAB PO SCH (08:59)
[2020-07-16] MEDS: REMEDY PHYTOPLEX Z-GUARD PASTE 113GM TUBE (FROM STOREROOM PRODUCT) TOP SCH ×3 (09:01→20:52)
[2020-07-16] MEDS: atenoloL 25 MG TAB PO SCH (09:01)
[2020-07-16] MEDS: POLYVINYL ALCOHOL OPHTH SOLN 15 ML(LIQUITEARS) OU SCH ×4 (09:01→20:52)
[2020-07-16] MEDS: ACETAMINOPHEN TAB 650MG DOSE (2X325MG) PO PRN (11:08)
[2020-07-16 14:00] VITALS: BP 110/59
[2020-07-16 20:11] VITALS: BP 135/62
[2020-07-16] MEDS: traZODone 25MG PER 1/2 TABLET PO PRN (20:51)
[2020-07-16] MEDS: SENNA 8.6 MG TAB (SENOKOT) PO SCH (20:52)
[2020-07-16] MEDS: MIRTAZAPINE 7.5MG PER 1/2 TABLET PO SCH (20:52)
[2020-07-17 05:32] VITALS: BP 133/66
[2020-07-17] MEDS: IPRATROPIUM 0.5MG/ALBUTEROL 2.5MG INH SOL UD 3ML (DUONEB) NEB SCH ×3 (07:40→20:00)
[2020-07-17] MEDS: DOCUSATE SODIUM 100MG CAPSULE PO SCH ×2 (09:17→20:25)
[2020-07-17] MEDS: PANTOPRAZOLE 40MG TAB (PROTONIX) PO SCH (09:17)
[2020-07-17] MEDS: FUROSEMIDE 20 MG TAB PO SCH (09:17)
[2020-07-17] MEDS: ASPIRIN 81 MG ENTERIC TAB PO SCH (09:18)
[2020-07-17] MEDS: LORATADINE 10 MG TAB PO SCH (09:18)
[2020-07-17] MEDS: atenoloL 25 MG TAB PO SCH (09:18)
[2020-07-17] MEDS: ATORVASTATIN 20 MG TAB PO SCH (09:19)
[2020-07-17] MEDS: CLOPIDOGREL 75 MG TAB PO SCH (09:19)
[2020-07-17] MEDS: REMEDY PHYTOPLEX Z-GUARD PASTE 113GM TUBE (FROM STOREROOM PRODUCT) TOP SCH ×2 (09:19→20:03)
[2020-07-17] MEDS: POLYVINYL ALCOHOL OPHTH SOLN 15 ML(LIQUITEARS) OU SCH ×3 (09:20→20:25)
[2020-07-17 10:34] LABS: BASO % 0.3 % (0.0-1.0); EOS # 0.3 10^3/uL (0.0-0.5); EOS % 4.2 % (0.0-3.0); HEMATOCRIT 35.7 % (36.0-47.0); HEMOGLOBIN 12.3 g/dl (12.0-15.5); LYMPH # 1.3 10^3/uL (1.5-5.0); LYMPH % 17.9 % (24.0-44.0); MEAN CORPUSCULAR HEMOGLOBIN 34.2 pg (27.0-33.0); MEAN CORPUSCULAR HGB CONC 34.5 g/dl (32.0-36.5); MEAN CORPUSCULAR VOLUME 99.2 fl (80.0-96.0); MONO # 0.7 10^3/uL (0.0-0.8); MONO % 9.7 % (0.0-5.0); NEUTROPHILS # 4.9 10^3/uL (1.5-8.5); NEUTROPHILS % 67.5 % (36.0-66.0); PLATELET COUNT, AUTOMATED 215 10^3/uL (150-450); WHITE BLOOD COUNT 7.3 10^3/uL (4.0-10.0)
[2020-07-17 10:44] LABS: BLOOD UREA NITROGEN 12 MG/DL (7-18); CARBON DIOXIDE LEVEL 32 MEQ/L (21-32); CHLORIDE LEVEL 104 MEQ/L (98-107); CREATININE FOR GFR 0.66 MG/DL (0.55-1.30); GLOMERULAR FILTRATION RATE > 60.0 (>32); GLUCOSE, FASTING 90 MG/DL (70-100); SODIUM LEVEL 139 MEQ/L (136-145)
[2020-07-17 14:00] VITALS: BP 130/63
[2020-07-17] MEDS: ACETAMINOPHEN TAB 650MG DOSE (2X325MG) PO PRN (14:05)
[2020-07-17 20:00] VITALS: BP 141/65
[2020-07-17] MEDS: MIRTAZAPINE 7.5MG PER 1/2 TABLET PO SCH (20:25)
[2020-07-17] MEDS: traZODone 25MG PER 1/2 TABLET PO PRN (20:25)
[2020-07-17] MEDS: SENNA 8.6 MG TAB (SENOKOT) PO SCH (20:25)
[2020-07-18 05:39] VITALS: BP 135/65
[2020-07-18] MEDS: REMEDY PHYTOPLEX Z-GUARD PASTE 113GM TUBE (FROM STOREROOM PRODUCT) TOP SCH ×3 (07:04→20:03)
[2020-07-18] MEDS: IPRATROPIUM 0.5MG/ALBUTEROL 2.5MG INH SOL UD 3ML (DUONEB) NEB SCH ×3 (08:00→21:58)
[2020-07-18] MEDS: PHENYLEPHRINE 0.25% NASAL SPR 15 ML SCH ×2 (09:00→20:03)
[2020-07-18] MEDS: ATORVASTATIN 20 MG TAB PO SCH (09:03)
[2020-07-18] MEDS: CLOPIDOGREL 75 MG TAB PO SCH (09:04)
[2020-07-18] MEDS: LORATADINE 10 MG TAB PO SCH (09:04)
[2020-07-18] MEDS: atenoloL 25 MG TAB PO SCH (09:04)
[2020-07-18] MEDS: DOCUSATE SODIUM 100MG CAPSULE PO SCH ×2 (09:05→20:02)
[2020-07-18] MEDS: PANTOPRAZOLE 40MG TAB (PROTONIX) PO SCH (09:05)
[2020-07-18] MEDS: ASPIRIN 81 MG ENTERIC TAB PO SCH (09:05)
[2020-07-18] MEDS: ACETAMINOPHEN TAB 650MG DOSE (2X325MG) PO PRN (09:06)
[2020-07-18] MEDS: POLYVINYL ALCOHOL OPHTH SOLN 15 ML(LIQUITEARS) OU SCH ×4 (09:11→20:02)
[2020-07-18] MEDS: FUROSEMIDE 20 MG TAB PO SCH (09:11)
[2020-07-18 14:00] VITALS: BP 131/60
[2020-07-18 19:55] VITALS: BP 131/64
[2020-07-18] MEDS: SENNA 8.6 MG TAB (SENOKOT) PO SCH (20:02)
[2020-07-18] MEDS: traZODone 25MG PER 1/2 TABLET PO PRN (20:02)
[2020-07-18] MEDS: MIRTAZAPINE 7.5MG PER 1/2 TABLET PO SCH (20:02)
[2020-07-19 05:48] VITALS: BP 122/58
[2020-07-19] MEDS: IPRATROPIUM 0.5MG/ALBUTEROL 2.5MG INH SOL UD 3ML (DUONEB) NEB SCH ×2 (08:00→14:00)
[2020-07-19] MEDS: ACETAMINOPHEN TAB 650MG DOSE (2X325MG) PO PRN (08:37)
[2020-07-19] MEDS: ASPIRIN 81 MG ENTERIC TAB PO SCH (08:37)
[2020-07-19] MEDS: CLOPIDOGREL 75 MG TAB PO SCH (08:38)
[2020-07-19] MEDS: PANTOPRAZOLE 40MG TAB (PROTONIX) PO SCH (08:38)
[2020-07-19] MEDS: DOCUSATE SODIUM 100MG CAPSULE PO SCH ×2 (08:38→20:42)
[2020-07-19] MEDS: LORATADINE 10 MG TAB PO SCH (08:38)
[2020-07-19] MEDS: atenoloL 25 MG TAB PO SCH (08:38)
[2020-07-19] MEDS: FUROSEMIDE 20 MG TAB PO SCH (08:38)
[2020-07-19] MEDS: ATORVASTATIN 20 MG TAB PO SCH (08:38)
[2020-07-19] MEDS: PHENYLEPHRINE 0.25% NASAL SPR 15 ML SCH ×2 (08:39→20:41)
[2020-07-19] MEDS: REMEDY PHYTOPLEX Z-GUARD PASTE 113GM TUBE (FROM STOREROOM PRODUCT) TOP SCH ×3 (08:39→20:41)
[2020-07-19] MEDS: POLYVINYL ALCOHOL OPHTH SOLN 15 ML(LIQUITEARS) OU SCH ×4 (08:40→20:42)
[2020-07-19 14:00] VITALS: BP 115/58
[2020-07-19 20:17] VITALS: BP 149/85
[2020-07-19] MEDS: SENNA 8.6 MG TAB (SENOKOT) PO SCH (20:42)
[2020-07-19] MEDS: traZODone 25MG PER 1/2 TABLET PO PRN (20:42)
[2020-07-19] MEDS: MIRTAZAPINE 7.5MG PER 1/2 TABLET PO SCH (20:42)
[2020-07-20 06:00] VITALS: BP 128/65
[2020-07-20 08:09] LABS: BASO % 0.5 % (0.0-1.0); EOS # 0.3 10^3/uL (0.0-0.5); EOS % 4.1 % (0.0-3.0); HEMATOCRIT 38.8 % (36.0-47.0); LYMPH # 1.4 10^3/uL (1.5-5.0); MEAN CORPUSCULAR HEMOGLOBIN 33.7 pg (27.0-33.0); MEAN CORPUSCULAR HGB CONC 33.5 g/dl (32.0-36.5); MEAN CORPUSCULAR VOLUME 100.5 fl (80.0-96.0); MONO # 0.7 10^3/uL (0.0-0.8); MONO % 8.9 % (0.0-5.0); NEUTROPHILS # 5.5 10^3/uL (1.5-8.5); NEUTROPHILS % 68.1 % (36.0-66.0); PLATELET COUNT, AUTOMATED 211 10^3/uL (150-450); RED BLOOD COUNT 3.86 10^6/uL (4.00-5.40)
[2020-07-20] MEDS: ASPIRIN 81 MG ENTERIC TAB PO SCH (08:17)
[2020-07-20] MEDS: atenoloL 25 MG TAB PO SCH (08:17)
[2020-07-20] MEDS: CLOPIDOGREL 75 MG TAB PO SCH (08:17)
[2020-07-20] MEDS: FUROSEMIDE 20 MG TAB PO SCH (08:18)
[2020-07-20] MEDS: PANTOPRAZOLE 40MG TAB (PROTONIX) PO SCH (08:18)
[2020-07-20] MEDS: DOCUSATE SODIUM 100MG CAPSULE PO SCH ×2 (08:18→20:44)
[2020-07-20] MEDS: LORATADINE 10 MG TAB PO SCH (08:18)
[2020-07-20] MEDS: ATORVASTATIN 20 MG TAB PO SCH (08:18)
[2020-07-20] MEDS: ACETAMINOPHEN TAB 650MG DOSE (2X325MG) PO PRN (08:19)
[2020-07-20] MEDS: REMEDY PHYTOPLEX Z-GUARD PASTE 113GM TUBE (FROM STOREROOM PRODUCT) TOP SCH ×3 (08:19→20:45)
[2020-07-20] MEDS: PHENYLEPHRINE 0.25% NASAL SPR 15 ML SCH ×2 (08:19→20:45)
[2020-07-20] MEDS: POLYVINYL ALCOHOL OPHTH SOLN 15 ML(LIQUITEARS) OU SCH ×4 (08:20→20:45)
[2020-07-20 08:39] LABS: BLOOD UREA NITROGEN 15 MG/DL (7-18); CALCIUM LEVEL 9.1 MG/DL (8.8-10.2); CARBON DIOXIDE LEVEL 29 MEQ/L (21-32); CHLORIDE LEVEL 102 MEQ/L (98-107); GLOMERULAR FILTRATION RATE > 60.0 (>32); GLUCOSE, FASTING 146 MG/DL (70-100); POTASSIUM SERUM 3.9 MEQ/L (3.5-5.1); SODIUM LEVEL 139 MEQ/L (136-145)
--- NOTE | 2020-07-20 09:39 | IPNPDOC ---
PM&R Progress Note DATE OF SERVICE: Jul 16, 2020 Sole Leveler Progress Note Subjective: Patient reporting she still has head pressure, but that it seems to be a little better. She is wondering when the eye doctor will come to visit and samuel any new changes in her vision. REVIEW OF SYSTEMS: The following is a completed review of systems and has been reviewed. Review of systems otherwise unremarkable. PAIN: Patient self reports no pain EYES: +legally blind EARS, NOSE, & THROAT: +dysphagia CARDIOVASCULAR: Denies chest pain or palpitations PULMONARY: Denies shortness of breath GASTROINTESTINAL: denies diarrhea/constipation GENITOURINARY: +UTI (resolved) MUSCULOSKELETAL: left sided weakness, bilat shoulder arthritis NEUROLOGICAL:+stroke HEMATOLOGICAL: denies easy bruising SKIN: denies rash PSYCHIATRIC: +anxiety/depression All other review of systems found to be negative. PHYSICAL EXAMINATION: VITAL SIGNS: Please see below. GENERAL: Pleasant and cooperative. No acute distress. left eye ptosis (chronic) HEENT: PERRL. Extraocular movements intact in right eye. Clear conjunctiva CARDIOVASCULAR: Regular rate and rhythm. No murmurs, rubs, or gallops LUNGS: CTA ABDOMEN: Soft, nontender, nondistended. Positive bowel sounds. Normal active bowel sounds NEUROLOGICAL: Alert and oriented times three. Cranial nerves II through XII grossly intact. Sensation grossly intact with extinction to light touch left s libby +head/neck/trunk chorea (improved today) EXTREMITIES: 5-\5 strength bilateral upper extremities (bilat shoulder restricted ROM). 5\5 strength right lower extremity. 5-/5 strength in left lower extremity. +bilat LE (improving) (-) Mariah's SKIN: intact ASSESSMENT:89-year-old F with past medical history of HTN who presents status post right parietal stroke PLAN: 1. rehab- PT/OT advance gait and ADLs, strengthen/stretch/maintain ROM all 4 limbs, ambulating with RW -CAPSULE MACHINE OPERATOR for swallow and cognition, c/u level 3 2. 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 Ophthalmology- patient with right sided macular degeneration with subjective worsening of symptoms, discussed case with Dr. Watson who has kindly agreed to an inhouse retinal exam, suspect advancement of her MD 3. cardiac- hx of HTN with recent orthostatics which have resolved, c/u lower dose of atenolol, orthostatics d/c'd and midodrine patient not having further orthostatics -c/u ASA and Plavix -c/u lasix 20mg po, c/u fluid restrict, daily weights, medicine consulted to assist in overall management- recent ECHO shows diastolic CHF -HLD c/u statin 4. resp- monitor for infection, Duonebs -c/u loratidine for reported left sided head pressure, patient admits to having had sinus issues for years- no new deficits on exam 5. - s/p 2 doses of IV ceftriaxone, +UCx for STREPTOCOCCUS ANGINOSUS repeat UA negative -monitor PVRs 6. Psych- c/u remeron for insomnia/depression/poor po intake- sleep overall improving -trazodone 25mg prn 7. DVT ppx- d/c'd lovenox due to episodes of epistaxis- h/h stable likely provoked by dual antiplatelet therapy - Doppler negative for DVT, c/u teds 8. ENT- hx of epistaxis with increasing frequency since starting ASA and Plavix, H/H stable will consider inhouse ENT consult 9. GI ppx- protonix 10. Pain- Tylenol prn 10. Dispo- tbd Allergies Coded Allergies: morphine (Verified Adverse Reaction, Unknown, N/V, 07/01/20) Vital Signs Vital Signs Date Time Temp Pulse Resp B/P (MAP) Pulse Ox O2 Delivery O2 Flow Rate FiO2 07/20/20 08:17 75 128/65 07/20/20 06:00 98.5 18 95 Room Air Laboratory Data CBC/BMP Laboratory Tests 07/20/20 07:52 Labs 24H Laboratory Tests 2 07/20/20 07:52: Immature Granulocyte % (Auto) 0.4, Neutrophils (%) (Auto) 68.1H, Lymphocytes (%) (Auto) 18.0L, Monocytes (%) (Auto) 8.9H, Eosinophils (%) (Auto) 4.1H, Basophils (%) (Auto) 0.5, Neutrophils # (Auto) 5.5, Lymphocytes # (Auto) 1.4L, Monocytes # (Auto) 0.7, Eosinophils # (Auto) 0.3, Basophils # (Auto) 0.0, Nucleated Red Blood Cells % (auto) 0.0, Anion Gap 8, Glomerular Filtration Rate > 60.0, Calcium Level 9.1 Current Medications Current Medications Current Medications Medications (Trade) Dose Ordered Sig/Gayathri Route PRN Reason Start Time Stop Time Status Last Admin Dose Admin Acetaminophen (Tylenol Tab) 650 mg Q4HP PRN PO fever/MILD PAIN (PS 1-4) 07/03/20 13:45 07/20/20 08:19 Albuterol/ Ipratropium (Duoneb (Ipr 0.5mg/Alb 2.5mg)) 3 ml RTID NEB 07/03/20 20:00 07/06/20 07:20 Artificial Tears ([place] Tears) 2 drop QID OU 07/08/20 13:00 07/20/20 08:20 Aspirin (Ecotrin) 81 mg DAILY PO 07/04/20 09:00 07/20/20 08:17 Atenolol (Tenormin) 25 mg DAILY PO 07/04/20 09:00 07/20/20 08:17 Atorvastatin Calcium (Lipitor) 40 mg DAILY PO 07/04/20 09:00 07/20/20 08:18 Clopidogrel Bisulfate (PLAVix) 75 mg DAILY PO 07/04/20 09:00 07/20/20 08:17 Docusate Sodium (Colace) 100 mg BID PO 07/03/20 21:00 07/20/20 08:18 Enoxaparin Sodium (Lovenox) 30 mg DAILY SC 07/04/20 09:00 07/07/20 11:00 DC 07/07/20 07:54 Furosemide (Lasix) 20 mg DAILY PO 07/04/20 09:00 07/20/20 08:18 Loratadine (Claritin) 10 mg DAILY PO 07/08/20 09:00 07/20/20 08:18 Midodrine (Proamatine) 5 mg TID PO 07/04/20 16:00 07/04/20 10:10 DC Midodrine (Proamatine) 5 mg TID@08,12,16 PO 07/04/20 12:00 07/13/20 17:31 DC 12/28/20 16:01 Midodrine (Proamatine) 5 mg TID@08,12,16 PRN PO sbp <100 07/14/20 08:00 07/16/20 09:45 DC Mirtazapine (Remeron) 7.5 mg QHS PO 07/03/20 21:00 07/19/20 20:42 Pantoprazole Sodium (Protonix) 40 mg DAILY PO 07/04/20 09:00 07/20/20 08:18 Phenylephrine HCl (Neosynephrine 0.25% Nasal [place]) 2 spray BID NA 07/18/20 09:00 07/20/20 08:19 Polyethylene Glycol (Miralax) 1 pkt DAILYPRN PRN PO CONSTIPATION 07/05/20 17:00 07/11/20 08:45 Senna (Senokot) 1 tab QHS PO 07/03/20 21:00 07/19/20 20:42 Sodium Chloride ([place] Nasal [place]) 2 spray TID NA 07/07/20 09:00 07/08/20 10:50 DC 07/07/20 16:28 Trazodone HCl (Desyrel) 25 mg QHSP PRN PO INSOMNIA 07/03/20 13:45 07/19/20 20:42 PAT RAMIREZ MD Jul 20, 2020 09:39
--- NOTE | 2020-07-20 09:42 | IPNPDOC ---
PM&R Progress Note DATE OF SERVICE: Jul 20, 2020 Temp Recruiter Progress Note Subjective: Patient seen by hand welt butter today, states her vision is a little worse today and that she had another nose bleed this morning. REVIEW OF SYSTEMS: The following is a completed review of systems and has been reviewed. Review of systems otherwise unremarkable. PAIN: Patient self reports no pain EYES: +legally blind EARS, NOSE, & THROAT: +dysphagia, +epistaxis CARDIOVASCULAR: Denies chest pain or palpitations PULMONARY: Denies shortness of breath GASTROINTESTINAL: denies diarrhea/constipation GENITOURINARY: +UTI (resolved) MUSCULOSKELETAL: left sided weakness, bilat shoulder arthritis NEUROLOGICAL:+stroke HEMATOLOGICAL: denies easy bruising SKIN: denies rash PSYCHIATRIC: +anxiety/depression All other review of systems found to be negative. PHYSICAL EXAMINATION: VITAL SIGNS: Please see below. GENERAL: Pleasant and cooperative. No acute distress. left eye ptosis (chronic) HEENT: PERRL. Extraocular movements intact in right eye. Clear conjunctiva CARDIOVASCULAR: Regular rate and rhythm. No murmurs, rubs, or gallops LUNGS: CTA ABDOMEN: Soft, nontender, nondistended. Positive bowel sounds. Normal active bowel sounds NEUROLOGICAL: Alert and oriented times three. Cranial nerves II through XII grossly intact. Sensation grossly intact with extinction to light touch left side +head/neck/trunk chorea (improved today) EXTREMITIES: 5-\5 strength bilateral upper extremities (bilat shoulder restricted ROM). 5\5 strength right lower extremity. 5-/5 strength in left lower extremity. +bilat LE (improving) (-) Mariah's SKIN: intact ASSESSMENT:89-year-old F with past medical history of HTN who presents status post right parietal stroke PLAN: 1. rehab- PT/OT advance gait and ADLs, strengthen/stretch/maintain ROM all 4 limbs, ambulating with RW -CARTON STAMPER for swallow and cognition, c/u level 3 2. 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 Ophthalmology- patient with right sided macular degeneration with subjective worsening of symptoms, discussed case with Dr. Watson who has kindly agreed to an inhouse retinal exam, suspect advancement of her MD 3. cardiac- hx of HTN with recent orthostatics which have resolved, c/u lower dose of atenolol, orthostatics d/c'd and midodrine patient not having further orthostatics -c/u ASA and Plavix -c/u lasix 20mg po, c/u fluid restrict, daily weights, medicine consulted to assist in overall management- recent ECHO shows diastolic CHF -HLD c/u statin 4. resp- monitor for infection, Duonebs -c/u loratidine for reported left sided head pressure, patient admits to having had sinus issues for years- no new deficits on exam 5. - s/p 2 doses of IV ceftriaxone, +UCx for STREPTOCOCCUS ANGINOSUS repeat UA negative -monitor PVRs 6. Psych- c/u remeron for insomnia/depression/poor po intake- sleep overall improving -trazodone 25mg prn 7. DVT ppx- d/c'd lovenox due to episodes of epistaxis- h/h stable likely provoked by dual antiplatelet therapy - Doppler negative for DVT, c/u teds 8. ENT- hx of epistaxis with increasing frequency since starting ASA and Plavix, H/H stable, trial of Phenylephrine nasal spray has not successfully treated nose bleeds, patient scheduled to see Dr. Mccarthy ENT 07-21-20 for evaluation as outpatient 9. GI ppx- protonix 10. Pain- Tylenol prn 10. Dispo- tbd Allergies Coded Allergies: morphine (Verified Adverse Reaction, Unknown, N/V, 07/01/20) Vital Signs Vital Signs Date Time Temp Pulse Resp B/P (MAP) Pulse Ox O2 Delivery O2 Flow Rate FiO2 07/20/20 08:17 75 128/65 07/20/20 06:00 98.5 18 95 Room Air Laboratory Data CBC/BMP Laboratory Tests 07/20/20 07:52 Labs 24H Laboratory Tests 2 07/20/20 07:52: Immature Granulocyte % (Auto) 0.4, Neutrophils (%) (Auto) 68.1H, Lymphocytes (%) (Auto) 18.0L, Monocytes (%) (Auto) 8.9H, Eosinophils (%) (Auto) 4.1H, Basophils (%) (Auto) 0.5, Neutrophils # (Auto) 5.5, Lymphocytes # (Auto) 1.4L, Monocytes # (Auto) 0.7, Eosinophils # (Auto) 0.3, Basophils # (Auto) 0.0, Nucleated Red Blood Cells % (auto) 0.0, Anion Gap 8, Glomerular Filtration Rate > 60.0, Calcium Level 9.1 Current Medications Current Medications Current Medications Medications (Trade) Dose Ordered Sig/Gayathri Route PRN Reason Start Time Stop Time Status Last Admin Dose Admin Acetaminophen (Tylenol Tab) 650 mg Q4HP PRN PO fever/MILD PAIN (PS 1-4) 07/03/20 13:45 07/20/20 08:19 Albuterol/ Ipratropium (Duoneb (Ipr 0.5mg/Alb 2.5mg)) 3 ml RTID NEB 07/03/20 20:00 07/06/20 07:20 Artificial Tears ([place] Tears) 2 drop QID OU 07/08/20 13:00 07/20/20 08:20 Aspirin (Ecotrin) 81 mg DAILY PO 07/04/20 09:00 07/20/20 08:17 Atenolol (Tenormin) 25 mg DAILY PO 07/04/20 09:00 07/20/20 08:17 Atorvastatin Calcium (Lipitor) 40 mg DAILY PO 07/04/20 09:00 07/20/20 08:18 Clopidogrel Bisulfate (PLAVix) 75 mg DAILY PO 07/04/20 09:00 07/20/20 08:17 Docusate Sodium (Colace) 100 mg BID PO 07/03/20 21:00 07/20/20 08:18 Enoxaparin Sodium (Lovenox) 30 mg DAILY SC 07/04/20 09:00 07/07/20 11:00 DC 07/07/20 07:54 Furosemide (Lasix) 20 mg DAILY PO 07/04/20 09:00 07/20/20 08:18 Loratadine (Claritin) 10 mg DAILY PO 07/08/20 09:00 07/20/20 08:18 Midodrine (Proamatine) 5 mg TID PO 07/04/20 16:00 07/04/20 10:10 DC Midodrine (Proamatine) 5 mg TID@08,12,16 PO 07/04/20 12:00 07/13/20 17:31 DC 07/13/20 16:01 Midodrine (Proamatine) 5 mg TID@08,12,16 PRN PO sbp <100 07/14/20 08:00 07/16/20 09:45 DC Mirtazapine (Remeron) 7.5 mg QHS PO 07/03/20 21:00 07/19/20 20:42 Pantoprazole Sodium (Protonix) 40 mg DAILY PO 07/04/20 09:00 07/20/20 08:18 Phenylephrine HCl (Neosynephrine 0.25% Nasal [place]) 2 spray BID NA 07/18/20 09:00 07/20/20 08:19 Polyethylene Glycol (Miralax) 1 pkt DAILYPRN PRN PO CONSTIPATION 07/05/20 17:00 07/11/20 08:45 Senna (Senokot) 1 tab QHS PO 07/03/20 21:00 07/19/20 20:42 Sodium Chloride ([place] Nasal [place]) 2 spray TID NA 07/07/20 09:00 07/08/20 10:50 DC 07/07/20 16:28 Trazodone HCl (Desyrel) 25 mg QHSP PRN PO INSOMNIA 07/03/20 13:45 07/19/20 20:42 PAT RAMIREZ MD Jul 20, 2020 09:42
[2020-07-20] MEDS: IPRATROPIUM 0.5MG/ALBUTEROL 2.5MG INH SOL UD 3ML (DUONEB) NEB SCH ×3 (09:49→20:00)
[2020-07-20] MEDS ORDERED: PHENYLEPHRINE 2.5% OPHTH SOL 2ML OD ONE (11:00)
[2020-07-20] MEDS ORDERED: TROPICAMIDE 0.5% OPHTH SOLN 15 ML OD ONE (11:00)
[2020-07-20 13:24] VITALS: BP 133/77
[2020-07-20 20:15] VITALS: BP 123/69
[2020-07-20] MEDS: traZODone 25MG PER 1/2 TABLET PO PRN (20:44)
[2020-07-20] MEDS: MIRTAZAPINE 7.5MG PER 1/2 TABLET PO SCH (20:44)
[2020-07-20] MEDS: SENNA 8.6 MG TAB (SENOKOT) PO SCH (20:44)
[2020-07-21 06:02] VITALS: BP 129/62
[2020-07-21] MEDS: ATORVASTATIN 20 MG TAB PO SCH (07:50)
[2020-07-21] MEDS: DOCUSATE SODIUM 100MG CAPSULE PO SCH ×2 (07:50→20:43)
[2020-07-21] MEDS: ACETAMINOPHEN TAB 650MG DOSE (2X325MG) PO PRN (07:50)
[2020-07-21] MEDS: CLOPIDOGREL 75 MG TAB PO SCH (07:50)
[2020-07-21] MEDS: PANTOPRAZOLE 40MG TAB (PROTONIX) PO SCH (07:51)
[2020-07-21] MEDS: ASPIRIN 81 MG ENTERIC TAB PO SCH (07:51)
[2020-07-21] MEDS: LORATADINE 10 MG TAB PO SCH (07:51)
[2020-07-21] MEDS: FUROSEMIDE 20 MG TAB PO SCH (07:51)
[2020-07-21] MEDS: atenoloL 25 MG TAB PO SCH (07:52)
[2020-07-21] MEDS: POLYVINYL ALCOHOL OPHTH SOLN 15 ML(LIQUITEARS) OU SCH ×4 (07:53→20:44)
[2020-07-21] MEDS: PHENYLEPHRINE 0.25% NASAL SPR 15 ML SCH (07:54)
[2020-07-21] MEDS: REMEDY PHYTOPLEX Z-GUARD PASTE 113GM TUBE (FROM STOREROOM PRODUCT) TOP SCH ×3 (07:54→20:44)
[2020-07-21] MEDS: IPRATROPIUM 0.5MG/ALBUTEROL 2.5MG INH SOL UD 3ML (DUONEB) NEB SCH ×3 (08:00→20:00)
--- NOTE | 2020-07-21 09:46 | IPNPDOC ---
PM&R Progress Note DATE OF SERVICE: Jul 21, 2020 [employer] Progress Note Subjective: Patient seen by ENT today and she states her head pressure was back but that after taking tylenol it had diminished. REVIEW OF SYSTEMS: The following is a completed review of systems and has been reviewed. Review of systems otherwise unremarkable. PAIN: Patient self reports no pain EYES: +legally blind EARS, NOSE, & THROAT: +dysphagia, +epistaxis CARDIOVASCULAR: Denies chest pain or palpitations PULMONARY: Denies shortness of breath GASTROINTESTINAL: denies diarrhea/constipation GENITOURINARY: +UTI (resolved) MUSCULOSKELETAL: left sided weakness, bilat shoulder arthritis NEUROLOGICAL:+stroke HEMATOLOGICAL: denies easy bruising SKIN: denies rash PSYCHIATRIC: +anxiety/depression All other review of systems found to be negative. PHYSICAL EXAMINATION: VITAL SIGNS: Please see below. GENERAL: Pleasant and cooperative. No acute distress. left eye ptosis (chronic) HEENT: PERRL. Extraocular movements intact in right eye. Clear conjunctiva CARDIOVASCULAR: Regular rate and rhythm. No murmurs, rubs, or gallops LUNGS: CTA ABDOMEN: Soft, nontender, nondistended. Positive bowel sounds. Normal active bowel sounds NEUROLOGICAL: Alert and oriented times three. Cranial nerves II through XII grossly intact. Sensation grossly intact with extinction to light touch left side EXTREMITIES: 5-\5 strength bilateral upper extremities (bilat shoulder restricted ROM). 5\5 strength right lower extremity. 5-/5 strength in left lower extremity. +bilat LE (improving) (-) Mariah's SKIN: intact ASSESSMENT:89-year-old F with past medical history of HTN who presents status post right parietal stroke PLAN: 1. rehab- PT/OT advance gait and ADLs, strengthen/stretch/maintain ROM all 4 limbs, ambulating with RW -DIRECTOR DRUG for swallow and cognition, c/u level 3 2. Neuro- recent right parietal stroke with left sided weakness, c/u ASa, Plavix and statin for secondary stroke prevention- left sided weakness greatly improving -patient with episodes of spacing out 12-21-20 s/p EEG, prolactin level WNL and CTH negative for acute pathology, patient able to participate in therapy- neurology consulted- EEG negative for seizure activity 3. Ophthalmology- patient with right sided macular degeneration with subjective worsening of symptoms, discussed case with Dr. Watson who came in for inhouse exam, no acute retinal bleeding, patient likely having advanced of her MD 3. cardiac- hx of HTN with recent orthostatics which have resolved, c/u lower dose of atenolol, orthostatics d/c'd and midodrine patient not having further orthostatics -c/u ASA and Plavix -c/u lasix 20mg po, c/u fluid restrict, daily weights, medicine consulted to assist in overall management- recent ECHO shows diastolic CHF -HLD c/u statin 4. resp- monitor for infection, Duonebs -c/u loratidine for reported left sided head pressure, patient admits to having had sinus issues for years- no new deficits on exam 5. - s/p 2 doses of IV ceftriaxone, +UCx for STREPTOCOCCUS ANGINOSUS repeat UA negative -monitor PVRs 6. Psych- c/u remeron for insomnia/depression/poor po intake- sleep overall improving -trazodone 25mg prn 7. DVT ppx- d/c'd lovenox due to episodes of epistaxis- h/h stable likely provoked by dual antiplatelet therapy - Doppler negative for DVT, c/u teds 8. ENT- hx of epistaxis with increasing frequency since starting ASA and Plavix, H/H stable, trial of Phenylephrine nasal spray has not successfully treated nose bleeds,per Dr. Rothman's recs will start saline rinse and triple antibiotic ointment 9. GI ppx- protonix 10. Pain- patient with ongoing and fluctuating left sided head pressure which responds to Tylenol and has overall improved since starting claritin, but still present 10. Dispo- patient continues to make gains in therapy and will need more rehab on discharge as her moblity is limited by her recent change in vision -discussed patient's care ad case at length today with daughter mildred Allergies Coded Allergies: morphine (Verified Adverse Reaction, Unknown, N/V, 07/01/20) Vital Signs Vital Signs Date Time Temp Pulse Resp B/P (MAP) Pulse Ox O2 Delivery O2 Flow Rate FiO2 07/21/20 07:52 88 136/67 07/21/20 06:02 97.4 18 97 Room Air Current Medications Current Medications Current Medications Medications (Trade) Dose Ordered Sig/Gayathri Route PRN Reason Start Time Stop Time Status Last Admin Dose Admin Acetaminophen (Tylenol Tab) 650 mg Q4HP PRN PO fever/MILD PAIN (PS 1-4) 07/03/20 13:45 07/21/20 07:50 Albuterol/ Ipratropium (Duoneb (Ipr 0.5mg/Alb 2.5mg)) 3 ml RTID NEB 07/03/20 20:00 07/06/20 07:20 Artificial Tears (Akwa Tears) 2 drop QID OU 07/08/20 13:00 07/21/20 07:53 Aspirin (Ecotrin) 81 mg DAILY PO 07/04/20 09:00 07/21/20 07:51 Atenolol (Tenormin) 25 mg DAILY PO 07/04/20 09:00 07/21/20 07:52 Atorvastatin Calcium (Lipitor) 40 mg DAILY PO 07/04/20 09:00 07/21/20 07:50 Clopidogrel Bisulfate (PLAVix) 75 mg DAILY PO 07/04/20 09:00 07/21/20 07:50 Docusate Sodium (Colace) 100 mg BID PO 07/03/20 21:00 07/21/20 07:50 Enoxaparin Sodium (Lovenox) 30 mg DAILY SC 07/04/20 09:00 07/07/20 11:00 DC 07/07/20 07:54 Furosemide (Lasix) 20 mg DAILY PO 07/04/20 09:00 07/21/20 07:51 Loratadine (Claritin) 10 mg DAILY PO 07/08/20 09:00 07/21/20 07:51 Midodrine (Proamatine) 5 mg TID PO 07/04/20 16:00 07/04/20 10:10 DC Midodrine (Proamatine) 5 mg TID@08,12,16 PO 07/04/20 12:00 07/13/20 17:31 DC 07/13/20 16:01 Midodrine (Proamatine) 5 mg TID@08,12,16 PRN PO sbp <100 07/14/20 08:00 07/16/20 09:45 DC Mirtazapine (Remeron) 7.5 mg QHS PO 07/03/20 21:00 07/20/20 20:44 Pantoprazole Sodium (Protonix) 40 mg DAILY PO 07/04/20 09:00 07/21/20 07:51 Phenylephrine HCl (Neosynephrine 0.25% Nasal [place]) 2 spray BID NA 07/18/20 09:00 07/21/20 07:54 Polyethylene Glycol (Miralax) 1 pkt DAILYPRN PRN PO CONSTIPATION 07/05/20 17:00 07/11/20 08:45 Senna (Senokot) 1 tab QHS PO 07/03/20 21:00 07/20/20 20:44 Sodium Chloride ([place] Nasal [place]) 2 spray TID NA 07/07/20 09:00 07/08/20 10:50 DC 07/07/20 16:28 Trazodone HCl (Desyrel) 25 mg QHSP PRN PO INSOMNIA 07/03/20 13:45 07/20/20 20:44 PAT RAMIREZ MD Jul 21, 2020 09:46
[2020-07-21 14:00] VITALS: BP 127/61
[2020-07-21] MEDS: NEOSPORIN TOP OINT 15GM XX SCH ×3 (14:17→20:44)
[2020-07-21] MEDS: traZODone 25MG PER 1/2 TABLET PO PRN (20:43)
[2020-07-21] MEDS: SENNA 8.6 MG TAB (SENOKOT) PO SCH (20:43)
[2020-07-21] MEDS: MIRTAZAPINE 7.5MG PER 1/2 TABLET PO SCH (20:43)
[2020-07-21 22:00] VITALS: BP 132/67
[2020-07-22 06:00] VITALS: BP 125/74
[2020-07-22] MEDS: IPRATROPIUM 0.5MG/ALBUTEROL 2.5MG INH SOL UD 3ML (DUONEB) NEB SCH ×3 (07:59→20:00)
[2020-07-22] MEDS: REMEDY PHYTOPLEX Z-GUARD PASTE 113GM TUBE (FROM STOREROOM PRODUCT) TOP SCH ×3 (09:05→20:49)
[2020-07-22] MEDS: NEOSPORIN TOP OINT 15GM XX SCH ×4 (09:05→20:49)
[2020-07-22] MEDS: ATORVASTATIN 20 MG TAB PO SCH (09:07)
[2020-07-22] MEDS: DOCUSATE SODIUM 100MG CAPSULE PO SCH ×2 (09:07→20:47)
[2020-07-22] MEDS: LORATADINE 10 MG TAB PO SCH (09:07)
[2020-07-22] MEDS: CLOPIDOGREL 75 MG TAB PO SCH (09:07)
[2020-07-22] MEDS: ASPIRIN 81 MG ENTERIC TAB PO SCH (09:07)
[2020-07-22] MEDS: FUROSEMIDE 20 MG TAB PO SCH (09:08)
[2020-07-22] MEDS: atenoloL 25 MG TAB PO SCH (09:08)
[2020-07-22] MEDS: PANTOPRAZOLE 40MG TAB (PROTONIX) PO SCH (09:09)
[2020-07-22] MEDS: ACETAMINOPHEN TAB 650MG DOSE (2X325MG) PO PRN (09:12)
[2020-07-22] MEDS: POLYVINYL ALCOHOL OPHTH SOLN 15 ML(LIQUITEARS) OU SCH ×4 (09:14→20:48)
[2020-07-22 10:07] LABS: BASO % 0.5 % (0.0-1.0); EOS # 0.3 10^3/uL (0.0-0.5); EOS % 3.2 % (0.0-3.0); HEMATOCRIT 36.9 % (36.0-47.0); HEMOGLOBIN 12.8 g/dl (12.0-15.5); LYMPH # 1.2 10^3/uL (1.5-5.0); LYMPH % 14.5 % (24.0-44.0); MEAN CORPUSCULAR HEMOGLOBIN 34.3 pg (27.0-33.0); MEAN CORPUSCULAR HGB CONC 34.7 g/dl (32.0-36.5); MEAN CORPUSCULAR VOLUME 98.9 fl (80.0-96.0); MONO # 0.8 10^3/uL (0.0-0.8); MONO % 9.4 % (0.0-5.0); NEUTROPHILS # 6.2 10^3/uL (1.5-8.5); NEUTROPHILS % 72.2 % (36.0-66.0); PLATELET COUNT, AUTOMATED 230 10^3/uL (150-450); RED BLOOD COUNT 3.73 10^6/uL (4.00-5.40); WHITE BLOOD COUNT 8.5 10^3/uL (4.0-10.0)
[2020-07-22 10:30] LABS: BLOOD UREA NITROGEN 13 MG/DL (7-18); CALCIUM LEVEL 9.5 MG/DL (8.8-10.2); CARBON DIOXIDE LEVEL 29 MEQ/L (21-32); CHLORIDE LEVEL 102 MEQ/L (98-107); CREATININE FOR GFR 0.68 MG/DL (0.55-1.30); GLOMERULAR FILTRATION RATE > 60.0 (>32); GLUCOSE, FASTING 108 MG/DL (70-100); POTASSIUM SERUM 4.1 MEQ/L (3.5-5.1); SODIUM LEVEL 137 MEQ/L (136-145)
--- NOTE | 2020-07-22 12:09 | IPNPDOC ---
PM&R Progress Note DATE OF SERVICE: Jul 22, 2020 Agency Appointments Supervisor Progress Note Subjective: Patient seen in her room stating she feels much better today and although her vision is still worse than on admission she feels he is able to move around be tter. REVIEW OF SYSTEMS: The following is a completed review of systems and has been reviewed. Review of systems otherwise unremarkable. PAIN: Patient self reports no pain EYES: +legally blind EARS, NOSE, & THROAT: +dysphagia, +epistaxis CARDIOVASCULAR: Denies chest pain or palpitations PULMONARY: Denies shortness of breath GASTROINTESTINAL: denies diarrhea/constipation GENITOURINARY: +UTI (resolved) MUSCULOSKELETAL: left sided weakness, bilat shoulder arthritis NEUROLOGICAL:+stroke HEMATOLOGICAL: denies easy bruising SKIN: denies rash PSYCHIATRIC: +anxiety/depression All other review of systems found to be negative. PHYSICAL EXAMINATION: VITAL SIGNS: Please see below. GENERAL: Pleasant and cooperative. No acute distress. left eye ptosis (chronic) HEENT: PERRL. Extraocular movements intact in right eye. Clear conjunctiva CARDIOVASCULAR: Regular rate and rhythm. No murmurs, rubs, or gallops LUNGS: CTA ABDOMEN: Soft, nontender, nondistended. Positive bowel sounds. Normal active bowel sounds NEUROLOGICAL: Alert and oriented times three. Cranial nerves II through XII grossly intact. Sensation grossly intact with extinction to light touch left side EXTREMITIES: 5-\5 strength bilateral upper extremities (bilat shoulder restricted ROM). 5\5 strength right lower extremity. 5-/5 strength in left lower extremity. +bilat LE (improving) (-) Mariah's SKIN: intact ASSESSMENT:89-year-old F with past medical history of HTN who presents status post right parietal stroke PLAN: 1. rehab- PT/OT advance gait and ADLs, strengthen/stretch/maintain ROM all 4 limbs, ambulating with RW -BAR[employer] RO[employer] OPERATOR for swallow and cognition, c/u level 3 2. Neuro- recent right parietal stroke with left sided weakness, c/u ASa, Plavix and statin for secondary stroke prevention- left sided weakness greatly improving -patient with episodes of spacing out 12-21-20 s/p EEG, prolactin level WNL and CTH negative for acute pathology, patient able to participate in therapy- neurology consulted- EEG negative for seizure activity 3. Ophthalmology- patient with right sided macular degeneration with subjective worsening of symptoms, discussed case with Dr. Watson who came in for inhouse exam, no acute retinal bleeding, patient likely having advanced of her MD 3. cardiac- hx of HTN with recent orthostatics which have resolved, c/u lower dose of atenolol, orthostatics d/c'd and midodrine patient not having further orthostatics -c/u ASA and Plavix -c/u lasix 20mg po, c/u fluid restrict, daily weights, medicine consulted to assist in overall management- recent ECHO shows diastolic CHF -HLD c/u statin 4. resp- monitor for infection, Duonebs -c/u loratidine for reported left sided head pressure, patient admits to having had sinus issues for years- no new deficits on exam 5. - s/p 2 doses of IV ceftriaxone, +UCx for STREPTOCOCCUS ANGINOSUS repeat UA negative -monitor PVRs 6. Psych- c/u remeron for insomnia/depression/poor po intake- sleep overall improving -trazodone 25mg prn 7. DVT ppx- d/c'd lovenox due to episodes of epistaxis- h/h stable likely provoked by dual antiplatelet therapy - Doppler negative for DVT, c/u teds 8. ENT- hx of epistaxis with increasing frequency since starting ASA and Plavix, H/H stable, trial of Phenylephrine nasal spray has not successfully treated nose bleeds,per Dr. Rothman's recs started saline rinse and triple antibiotic ointment, if bleeding persists Dr. Rothman has offered to do in-office cauterization 9. GI ppx- protonix 10. Pain- patient with ongoing and fluctuating left sided head pressure which responds to Tylenol and has overall improved since starting claritin, but still present 10. Dispo- patient continues to make gains in therapy and will need more rehab on discharge as her mobility is limited by her recent change in vision Allergies Coded Allergies: morphine (Verified Adverse Reaction, Unknown, N/V, 07/01/20) Vital Signs Vital Signs Date Time Temp Pulse Resp B/P (MAP) Pulse Ox O2 Delivery O2 Flow Rate FiO2 07/22/20 09:08 78 125/74 07/22/20 06:00 97.8 18 96 Room Air Laboratory Data CBC/BMP Laboratory Tests 07/22/20 09:53 Labs 24H Laboratory Tests 2 07/22/20 09:53: Immature Granulocyte % (Auto) 0.2, Neutrophils (%) (Auto) 72.2H, Lymphocytes (%) (Auto) 14.5L, Monocytes (%) (Auto) 9.4H, Eosinophils (%) (Auto) 3.2H, Basophils (%) (Auto) 0.5, Neutrophils # (Auto) 6.2, Lymphocytes # (Auto) 1.2L, Monocytes # (Auto) 0.8, Eosinophils # (Auto) 0.3, Basophils # (Auto) 0.0, Nucleated Red Blood Cells % (auto) 0.0, Anion Gap 6L, Glomerular Filtration Rate > 60.0, Calcium Level 9.5 Current Medications Current Medications Current Medications Medications (Trade) Dose Ordered Sig/Gayathri Route PRN Reason Start Time Stop Time Status Last Admin Dose Admin Acetaminophen (Tylenol Tab) 650 mg Q4HP PRN PO fever/MILD PAIN (PS 1-4) 07/03/20 13:45 07/22/20 09:12 Albuterol/ Ipratropium (Duoneb (Ipr 0.5mg/Alb 2.5mg)) 3 ml RTID NEB 07/03/20 20:00 07/06/20 07:20 Artificial Tears ([place]wa Tears) 2 drop QID OU 07/08/20 13:00 07/22/20 09:14 Aspirin (Ecotrin) 81 mg DAILY PO 07/04/20 09:00 07/22/20 09:07 Atenolol (Tenormin) 25 mg DAILY PO 07/04/20 09:00 07/22/20 09:08 Atorvastatin Calcium (Lipitor) 40 mg DAILY PO 07/04/20 09:00 07/22/20 09:07 Clopidogrel Bisulfate (PLAVix) 75 mg DAILY PO 07/04/20 09:00 07/22/20 09:07 Docusate Sodium (Colace) 100 mg BID PO 07/03/20 21:00 07/22/20 09:07 Enoxaparin Sodium (Lovenox) 30 mg DAILY SC 07/04/20 09:00 07/07/20 11:00 DC 07/07/20 07:54 Furosemide (Lasix) 20 mg DAILY PO 07/04/20 09:00 07/22/20 09:08 Loratadine (Claritin) 10 mg DAILY PO 07/08/20 09:00 07/22/20 09:07 Midodrine (Proamatine) 5 mg TID PO 07/04/20 16:00 07/04/20 10:10 DC Midodrine (Proamatine) 5 mg TID@08,12,16 PO 07/04/20 12:00 07/13/20 17:31 DC 07/13/20 16:01 Midodrine (Proamatine) 5 mg TID@08,12,16 PRN PO sbp <100 07/14/20 08:00 07/16/20 09:45 DC Mirtazapine (Remeron) 7.5 mg QHS PO 07/03/20 21:00 07/21/20 20:43 Neomycin/ Polymyxin/ Bacitracin (Neosporin) 1 dose QID XX 07/21/20 13:00 07/22/20 09:05 Pantoprazole Sodium (Protonix) 40 mg DAILY PO 07/04/20 09:00 07/22/20 09:09 Phenylephrine HCl (Neosynephrine 0.25% Nasal [place]) 2 spray BID NA 07/18/20 09:00 07/21/20 12:50 DC 07/21/20 07:54 Polyethylene Glycol (Miralax) 1 pkt DAILYPRN PRN PO CONSTIPATION 07/05/20 17:00 07/11/20 08:45 Senna (Senokot) 1 tab QHS PO 07/03/20 21:00 07/21/20 20:43 Sodium Chloride ([place] Nasal [place]) 2 spray TID NA 07/07/20 09:00 07/08/20 10:50 DC 07/07/20 16:28 Trazodone HCl (Desyrel) 25 mg QHSP PRN PO INSOMNIA 07/03/20 13:45 07/21/20 20:43 PAT RAMIREZ MD Jul 22, 2020 12:09
[2020-07-22 14:00] VITALS: BP 130/70
[2020-07-22] MEDS ORDERED: LIDO5TD TD (15:34)
[2020-07-22] MEDS ORDERED: CLAR10TA7 PO (15:34)
[2020-07-22] MEDS ORDERED: TRIPOIN5 XX (15:34)
[2020-07-22] MEDS ORDERED: ACET1TAB55 PO (15:34)
[2020-07-22] MEDS ORDERED: SENN18TA PO (15:34)
[2020-07-22] MEDS ORDERED: DOK1CAP7 PO (15:34)
[2020-07-22] MEDS ORDERED: TRAZ-252 PO (15:34)
[2020-07-22] MEDS ORDERED: ATEN25TA PO (15:34)
[2020-07-22] MEDS ORDERED: PANT40TA29 PO (15:34)
[2020-07-22] MEDS ORDERED: MIRT-62 PO (15:34)
[2020-07-22] MEDS ORDERED: POLYOPD OU (15:34)
[2020-07-22] MEDS: LIDOCAINE 5% (LIDODERM) PATCH TD SCH (16:42)
[2020-07-22 20:00] VITALS: BP 132/65
[2020-07-22] MEDS: SENNA 8.6 MG TAB (SENOKOT) PO SCH (20:47)
[2020-07-22] MEDS: MIRTAZAPINE 7.5MG PER 1/2 TABLET PO SCH (20:47)
[2020-07-22] MEDS: traZODone 25MG PER 1/2 TABLET PO PRN (20:48)
[2020-07-22] MEDS ORDERED: **NOTE PATIENT COMMENT** MISC XX SCH (21:00)
[2020-07-23] MEDS: ACETAMINOPHEN TAB 650MG DOSE (2X325MG) PO PRN (05:37)
[2020-07-23 06:00] VITALS: BP 129/80
[2020-07-23] MEDS: IPRATROPIUM 0.5MG/ALBUTEROL 2.5MG INH SOL UD 3ML (DUONEB) NEB SCH (08:00)
[2020-07-23] MEDS: PANTOPRAZOLE 40MG TAB (PROTONIX) PO SCH (08:24)
[2020-07-23] MEDS: DOCUSATE SODIUM 100MG CAPSULE PO SCH (08:24)
[2020-07-23] MEDS: CLOPIDOGREL 75 MG TAB PO SCH (08:24)
[2020-07-23] MEDS: ATORVASTATIN 20 MG TAB PO SCH (08:24)
[2020-07-23] MEDS: LORATADINE 10 MG TAB PO SCH (08:24)
[2020-07-23] MEDS: LIDOCAINE 5% (LIDODERM) PATCH TD SCH (08:24)
[2020-07-23 08:25] VITALS: BP 129/80
[2020-07-23] MEDS: ASPIRIN 81 MG ENTERIC TAB PO SCH (08:25)
[2020-07-23] MEDS: atenoloL 25 MG TAB PO SCH (08:25)
[2020-07-23] MEDS: POLYVINYL ALCOHOL OPHTH SOLN 15 ML(LIQUITEARS) OU SCH (08:25)
[2020-07-23] MEDS: FUROSEMIDE 20 MG TAB PO SCH (08:25)
[2020-07-23] MEDS: NEOSPORIN TOP OINT 15GM XX SCH (08:26)
[2020-07-23] MEDS: REMEDY PHYTOPLEX Z-GUARD PASTE 113GM TUBE (FROM STOREROOM PRODUCT) TOP SCH (08:27)
--- NOTE | 2020-07-23 10:40 | PMRDS ---
NAME: RADHA LUTHER [facility] WT ID#: [id number] JOB: [id number] INGRID: 07/03/2020 ACCT: [id number] DOCTOR: PAT RAMIREZ MD PMR DISCHARGE SUMMARY DATE OF ADMISSION: 07/03/2020 DATE OF DISCHARGE: 07/23/2020 CHIEF COMPLAINT/DISCHARGE DIAGNOSIS: 1. Stroke with dizziness. HISTORY OF PRESENT ILLNESS: This is an 89-year-old female with a past medical history of hypertension, anxiety, macular degeneration and total left eye blindness from , claustrophobia, anxiety, depression, started on low dose Zoloft about two weeks ago who presented to [facility] on 07/03/2020 with altered mental status. CTA was performed showing no intracranial abnormality and brain MRI showed "a small subacute/chronic infarct involving the medial right parietal." She was diagnosed with a urinary tract infection and her encephalopathy was thought to be due to a recent stroke and UTI. She was started on IV Ceftriaxone and was noted to have orthostatics with a history of dizziness that she reported was chronic. Per patient's daughter she also had poor p.o. intake for quite some time and the patient reports insomnia. She was evaluated by therapy and noted to have impairments in mobility and ADLs and deemed medically appropriate for discharge to ARU on 07/03/2020. PAST MEDICAL HISTORY: As per HPI. HOSPITAL COURSE: The patient was admitted and enrolled in a comprehensive PT/OT, Speech Language Pathology program. She received 24 hour nursing supervision and weekly team meetings were held to discuss her progress. The patient was maintained on aspirin and Plavix in addition to a statin for a secondary stroke prevention. Her left sided weakness improved greatly and she was placed on a fluid restriction in addition to daily Lasix for her diastolic CHF. The patient complained of intermittent left sided head pressure which did respond to Claritin and Tylenol. Patient had an episode of spacing out for which an EEG was ordered and was negative. Repeat CTA was also negative for acute pathology. Patient was visited by ophthalmology during her hospital course who did an eye exam for worsening macular degeneration in the right eye. The patient also had intermittent epistaxis which preceded her admission to the hospital, however increased in frequency and she received saline rinses and triple antibiotic treatment which was prescribed and recommended by Dr. Mccarthy who saw the patient as an outpatient during her hospital stay. The patient's sleep improved with the addition of Remeron and Trazodone p.r.n. She made significant and steady gains in therapy and was deemed medically and functionally stable for discharge to short-term rehab. DISCHARGE MEDICATIONS: As per instructions. FUNCTIONAL HISTORY ON DISCHARGE: The patient was standby assist for ambulation and for dressing. Thank you for this referral.
== END 2020-07-23 11:30 | DRG 57 ==
LOC: M PM&R 16:30
PROVIDERS: ADMIT Physical Medicine & Rehabilitation; ATTEND Physical Medicine & Rehabilitation
DX: I69.354 Hemiplegia and hemiparesis following cerebral infarction affecting left non-dominant side (principal); I10 Essential (primary) hypertension; F41.9 Anxiety disorder, unspecified; H35.30 Unspecified macular degeneration; F32.9 Major depressive disorder, single episode, unspecified; F40.240 Claustrophobia; G47.00 Insomnia, unspecified; K59.00 Constipation, unspecified; G25.5 Other chorea; Z79.82 Long term (current) use of aspirin; Z79.02 Long term (current) use of antithrombotics/antiplatelets; Z79.899 Other long term (current) drug therapy; Z88.5 Allergy status to narcotic agent; Z66 Do not resuscitate; H54.8 Legal blindness, as defined in USA; I69.321 Dysphasia following cerebral infarction

== ENCOUNTER → 2020-07-29 | Outpatient (REF) ==
[~2020-07-29] MED LIST changes: +ACET1TAB55 PO; +ATEN25TA PO; +CLAR10TA7 PO; +DOK1CAP7 PO; +LIDO5TD TD; +MIRT-62 PO; +PANT40TA29 PO; +POLYOPD OU; +SENN18TA PO; +TRIPOIN5 XX
== END ==
LOC: SKLAB2 07:00
PROVIDERS: ATTEND Internal Medicine
DX: Z20.822 Contact with and (suspected) exposure to COVID-19 (principal)

== ENCOUNTER → 2020-08-05 | Outpatient (REF) | LOC: SKLAB7 07:00 | PROVIDERS: ATTEND Internal Medicine | DX: Z20.822 Contact with and (suspected) exposure to COVID-19 (principal) ==

== ENCOUNTER → 2020-08-12 | Outpatient (REF) | LOC: SKLAB7 08:00 | PROVIDERS: ATTEND Internal Medicine | DX: Z20.822 Contact with and (suspected) exposure to COVID-19 (principal) ==

== ENCOUNTER → 2020-08-13 | Outpatient (REF) | payer BC, MEDICARE | LOC: SKLAB7 08-12 10:17 | PROVIDERS: ATTEND Internal Medicine | DX: Z20.822 Contact with and (suspected) exposure to COVID-19 (principal) ==

== ENCOUNTER → 2020-08-17 | Outpatient (REF) | payer MEDICARE, BC, MEDICAID | PROVIDERS: ATTEND Internal Medicine | DX: Z20.822 Contact with and (suspected) exposure to COVID-19 (principal) ==

== ENCOUNTER → 2020-08-24 | Outpatient (REF) | payer MEDICARE, BC, MEDICAID | PROVIDERS: ATTEND Internal Medicine | DX: Z20.822 Contact with and (suspected) exposure to COVID-19 (principal) ==

== ENCOUNTER → 2020-08-31 | Outpatient (REF) | payer MEDICARE, BC, MEDICAID | PROVIDERS: ATTEND Internal Medicine | DX: Z20.822 Contact with and (suspected) exposure to COVID-19 (principal) ==

== ENCOUNTER → 2020-09-07 | Outpatient (REF) | payer MEDICARE, BC, MEDICAID | PROVIDERS: ATTEND Internal Medicine | DX: Z20.822 Contact with and (suspected) exposure to COVID-19 (principal) ==

== ENCOUNTER 2020-09-29 08:45 | Observation (INO) | payer MEDICARE, BC, MEDICAID ==
[~2020-09-29] VITALS: Ht 160 cm; Wt 63.6 kg
[~2020-09-29 08:45] MED LIST changes: +ASPI-569 PO; -ASPI81TAEC PO
--- NOTE | 2020-09-29 09:23 | REP ---
INDICATION: CVA - Nursing interventions must not delay CT. COMPARISON: Comparison CT study 07/06/2020 and 07/01/2020.. TECHNIQUE: Helical scanning is acquired. 5 mm axial images were reformatted. Coronal MPR images were generated. FINDINGS: Preliminary digital ward aide radiograph is unremarkable. The patient is edentulous. On bone window settings there are multiple arachnoid granulations again noted in the occipital bone unchanged. The bony calvarium is otherwise intact. Vascular calcification is again noted in the distal internal carotid arteries. The visualized paranasal sinuses are clear. No intraorbital abnormality is seen. On soft tissue window settings, the lateral, 3rd, and 4th ventricles are normal in position and appearance. Magana-white differentiation pattern is normal above and below the tentorium. There is no evidence of intracranial hemorrhage or acute infarction. No mass, extra-axial fluid collection, or midline shift is seen. There is mild generalized volume loss. IMPRESSION: Mild generalized volume loss and vascular calcification again noted. No acute intracranial abnormality seen.. <Electronically signed by Jamal Roper > 09/29/20 0912
--- NOTE | 2020-09-29 09:24 | REP ---
INDICATION: CVA. COMPARISON: Comparison chest x-ray 07/01/2020. TECHNIQUE: Portable upright AP chest radiograph. FINDINGS: Monitoring electrodes are visible. The lungs are well inflated and clear. Pleural angles are sharp. Heart size is normal and unchanged. The thoracic aorta is somewhat tortuous. There are degenerative changes in the shoulders. There is diffuse osteopenia.. IMPRESSION: No active disease.. <Electronically signed by Jamal Roper > 09/29/20 0913
[2020-09-29 09:40] LABS: BASO % 0.6 % (0.0-1.0); EOS # 0.3 10^3/uL (0.0-0.5); EOS % 4.4 % (0.0-3.0); HEMATOCRIT 40.2 % (36.0-47.0); HEMOGLOBIN 13.4 g/dl (12.0-15.5); LYMPH # 1.4 10^3/uL (1.5-5.0); LYMPH % 19.4 % (24.0-44.0); MEAN CORPUSCULAR HEMOGLOBIN 32.5 pg (27.0-33.0); MEAN CORPUSCULAR HGB CONC 33.3 g/dl (32.0-36.5); MEAN CORPUSCULAR VOLUME 97.6 fl (80.0-96.0); MONO # 0.8 10^3/uL (0.0-0.8); MONO % 11.5 % (2.0-8.0); NEUTROPHILS # 4.5 10^3/uL (1.5-8.5); NEUTROPHILS % 63.8 % (36.0-66.0); PLATELET COUNT, AUTOMATED 173 10^3/uL (150-450); RED BLOOD COUNT 4.12 10^6/uL (4.00-5.40)
[2020-09-29 09:49] LABS: INR 1.07; PROTHROMBIN TIME 14.1 SECONDS (12.5-14.3)
[2020-09-29 09:50] LABS: PARTIAL THROMBOPLASTIN TIME 26.2 SECONDS (24.2-38.5)
[2020-09-29 10:15] LABS: ALBUMIN 3.5 GM/DL (3.2-5.2); ALT/SGPT 22 U/L (12-78); BILIRUBIN,DIRECT 0.3 MG/DL (0.0-0.2); BILIRUBIN,TOTAL 0.7 MG/DL (0.2-1.0); BLOOD UREA NITROGEN 13 MG/DL (7-18); CALCIUM LEVEL 9.1 MG/DL (8.8-10.2); CARBON DIOXIDE LEVEL 31 MEQ/L (21-32); CHLORIDE LEVEL 104 MEQ/L (98-107); CK-MB VALUE MASS 1.2 NG/ML (<3.6); CPK CREATINE PHOSPHOKINASE 44 U/L (26-192); GLOMERULAR FILTRATION RATE > 60.0 (>32); GLUCOSE, FASTING 86 MG/DL (70-100); MAGNESIUM LEVEL 2.2 MG/DL (1.8-2.4); MB/CK RELATIVE INDEX 2.73 (< OR =4); POTASSIUM SERUM 3.9 MEQ/L (3.5-5.1); SODIUM LEVEL 141 MEQ/L (136-145); TOTAL PROTEIN 6.5 GM/DL (6.4-8.2); TROPONIN I < 0.02 NG/ML (< 0.10)
[2020-09-29] MEDS ORDERED: APAP325T4 PO (13:41)
[2020-09-29] MEDS ORDERED: SM N0.65 NARES (13:41)
[2020-09-29] MEDS ORDERED: LORA-930 PO (13:41)
[2020-09-29] MEDS ORDERED: ATOR40TA75 PO (13:41)
[2020-09-29] MEDS ORDERED: SALI0.652 NARES (13:41)
[2020-09-29] MEDS ORDERED: PLAV1TAB2 PO (13:41)
[2020-09-29] MEDS ORDERED: VOLT1GEL15 TOP ×2 (13:41)
[2020-09-29] MEDS ORDERED: SENN-53 PO (13:41)
[2020-09-29] MEDS ORDERED: MOM30SS PO (13:41)
[2020-09-29] MEDS ORDERED: PANT-23 PO (13:41)
[2020-09-29] MEDS ORDERED: ASPI81TA27 PO (13:41)
[2020-09-29] MEDS ORDERED: MELA3TAB30 PO (13:41)
[2020-09-29] MEDS ORDERED: MIRT-62 PO (13:41)
[2020-09-29] MEDS ORDERED: COLA100C5 PO (13:41)
[2020-09-29] MEDS ORDERED: POLYOPD OU (13:41)
[2020-09-29] MEDS ORDERED: QC A650T3 PO (13:41)
[2020-09-29] MEDS ORDERED: ATEN25TA PO (13:41)
[2020-09-29] MEDS ORDERED: LASI20TA3 PO (13:41)
[2020-09-29 15:40] VITALS: BP 146/86
[2020-09-29] MEDS ORDERED: ACETAMINOPHEN TAB 650MG DOSE (2X325MG) PO PRN (15:55)
[2020-09-29] MEDS: DOCUSATE SODIUM 100MG CAPSULE PO SCH ×2 (16:01→20:17)
[2020-09-29] MEDS: ASPIRIN 81MG ENTERIC TABLET PO SCH (16:02)
[2020-09-29] MEDS: CLOPIDOGREL 75 MG TAB PO SCH (16:02)
[2020-09-29] MEDS: PANTOPRAZOLE 40MG TAB (PROTONIX) PO SCH (16:02)
[2020-09-29] MEDS: atenoloL 25 MG TAB PO SCH (16:03)
--- NOTE | 2020-09-29 16:41 | HPEPDOC ---
General Date of Admission 09/29/20 Date of Service: Sep 29, 2020 Chief Complaint The patient is a 89-year-old female admitted with a reason for visit of AMS. 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 Ambrose reports that she woke up in the morning and her head felt heavy and she just did not feel right she was having difficulty in ambulating. On my interview she was alert and oriented and could tell me all her past medical history. She still complained of some headache about 4/10 in intensity dull aching type across the forehead and asked for tylenol. She denied any weakness. She did report in the morning her left hand felt heavy and weak. She also said that she was hungry as she did not get any breakfast also she did not get any of her morning meds. She was admitted for TIA/ stroke. Home Medications Scheduled Acetaminophen (Acetaminophen 8 Hour) 650 Mg Tablet.er, 650 MG PO QHS, (Reported) Aspirin (Aspirin EC) 81 Mg Tablet.dr, 81 MG PO DAILY, (Reported) Atenolol (Atenolol) 25 Mg Tablet, 25 MG PO DAILY, (Reported) Atorvastatin Calcium (Atorvastatin Calcium) 40 Mg Tablet, 40 MG PO QHS, (Reported) Clopidogrel Bisulfate (Plavix) 75 Mg Tablet, 75 MG PO DAILY, (Reported) Diclofenac Sodium (Voltaren) 100 Gm Gel..gram., 2 GRAM TOP BID, (Reported) APPLY TO NECK Docusate Sodium (Colace) 100 Mg Capsule, 100 MG PO BID, (Reported) Furosemide (Lasix) 20 Mg Tablet, 20 MG PO DAILY, (Reported) Loratadine (Loratadine) 10 Mg Tablet, 10 MG PO DAILY, (Reported) Melatonin (Melatonin) 3 Mg Tablet, 3 MG PO QHS, (Reported) Mirtazapine (Remeron) 15 Mg Tablet, 15 MG PO QHS, (Reported) Pantoprazole Sodium (Pantoprazole Sodium) 40 Mg Tablet.dr, 40 MG PO DAILY, (Reported) Polyvinyl Alcohol (Artificial Tears) 15 Ml Drops, 2 DROP OU QID, (Reported) Sennosides/Docusate Sodium (Senna Plus Tablet) 1 Each Tablet, 1 TAB PO DAILY, (Reported) Sodium Chloride (Saline Mist) 44 Ml [place], 1 SPRAY NARES QID, (Reported) Scheduled PRN Acetaminophen (Acetaminophen) 325 Mg Tablet, 650 MG PO Q4H PRN for PAIN, (Reported) Diclofenac Sodium (Voltaren) 100 Gm Gel..gram., 2 GRAM TOP Q6H PRN for PAIN, ( Reported) APPLY TO NECK Milk Of Magnesia (Milk of Magnesia) 2,400 Mg/10 Ml Oral.susp, 10 ML PO DAILY PRN for CONSTIPATION, (Reported) Sodium Chloride (Saline Nasal [place]) 44 Ml [place], 1 SPRAY NARES Q2H PRN for NASAL DRYNESS, (Reported) Allergies Coded Allergies: morphine (Verified Adverse Reaction, Mild, N/V, 09/29/20) Past Medical History Medical History CVA involving the medial right parietal convexity in Jun 2020 with dizziness. 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 at 82 y/o due to old age Mother: Healthy. at 83 y/o due to old age Social History * Smoker: Denies Alcohol: Denies Drugs: denies A-FIB/CHADSVASC A-FIB History Current/History of A-Fib/PAF?: No Review of Systems Constitutional: Denies: Chills, Fever, Night Sweats Eyes: Reports: Vision change; Denies: Pain ENT: Reports: Head Aches, Dysphagia Skin: Denies: Rash, Lesions, Breakdown Pulmonary: Denies: Dyspnea, Cough Cardiovascular: Denies: Chest Pain, Palpitations, Orthopnea, Paroxysmal Noc. Dyspnea, Lt Headedness Gastrointestinal: Denies: Nausea, Vomiting, Abdominal Pain, Diarrhea Genitourinary: Denies: Dysuria, Frequency, Incontinence, Retention Musculoskeletal: Denies: Neck Pain, Back Pain, Joint Pain, Muscle Pain, Spasms Physical Examination General Exam: Positive: Alert, Cooperative, No Acute Distress Eye Exam: Positive: PERRLA, Conjunctiva & lids normal, EOMI; Negative: Sclera icteric ENT Exam: Positive: Atraumatic, Mucous membr. moist/pink, Pharynx Normal, Other ENT (left eye blind from ) Neck Exam: Positive: Supple; Negative: JVD, thyromegaly Chest Exam: Positive: Clear to auscultation, Normal air movement Heart Exam: Positive: Rate Normal, Regular Rhythm, Normal S1, Normal S2; Negative: Murmurs, Rubs Telemetry: Positive: No significant arrhythmia Extremity Exam: Positive: Normal pulses; Negative: Clubbing, Cyanosis, Edema Skin Exam: Positive: Nl turgor and temperature; Negative: Breakdown, Lesion Vital Signs Vital Signs Date Time Temp Pulse Resp B/P (MAP) Pulse Ox O2 Delivery O2 Flow Rate FiO2 09/29/20 12:30 71 16 118/62 (80) 93 09/29/20 09:00 97.7 Room Air Laboratory Data Labs 24H Laboratory Tests 2 09/29/20 09:27: Immature Granulocyte % (Auto) 0.3, Neutrophils (%) (Auto) 63.8, Lymphocytes (%) (Auto) 19.4L, Monocytes (%) (Auto) 11.5H, Eosinophils (%) (Auto) 4.4H, Basophils (%) (Auto) 0.6, Neutrophils # (Auto) 4.5, Lymphocytes # (Auto) 1.4L, Monocytes # (Auto) 0.8, Eosinophils # (Auto) 0.3, Basophils # (Auto) 0.0, Nucleated Red Bloo d Cells % (auto) 0.0, Prothrombin Time 14.1H, Prothromb Time International Ratio 1.07, Activated Partial Thromboplast Time 26.2, Anion Gap 6L, Glomerular Filtration Rate > 60.0, Calcium Level 9.1, Magnesium Level 2.2, Total Bilirubin 0.7, Direct Bilirubin 0.3H, Aspartate Amino Transf (AST/SGOT) 14, Alanine Aminotransferase (ALT/SGPT) 22, Alkaline Phosphatase 73, Total Creatine Kinase 44, Creatine Kinase MB 1.2, Creatine Kinase MB Relative Index 2.73, Troponin I < 0.02, Total Protein 6.5, Albumin 3.5, Albumin/Globulin Ratio 1.2 09/29/20 09:54: Coronavirus (COVID-19)(PCR) NEGATIVE, Influenza Virus Type A RNA (PCR) NEGATIVE, Influenza Virus Type B (PCR) NEGATIVE, Respiratory Syncytial Virus (RT-PCR NEGATIVE 09/29/20 11:01: Urine Color YELLOW, Urine Appearance CLEAR, Urine pH 7.0, Urine Specific [place] 1.005, Urine Protein NEGATIVE, Urine Glucose (UA) NEGATIVE, Urine Ketones NEGATIVE, Urine Blood NEGATIVE, Urine Nitrite NEGATIVE, Urine Bilirubin N EGATIVE, Urine Urobilinogen 0.2, Urine Leukocyte Esterase NEGATIVE, Urine WBC (Auto) 0, Urine RBC (Auto) 0, Urine Hyaline Casts (Auto) 0, Urine Bacteria (Auto) NEGATIVE, Urine Squamous Epithelial Cells 0, Urine Sperm (Auto) CBC/BMP Laboratory Tests 09/29/20 09:27 Microbiology Microbiology 09/29/20 Blood Culture, Received Pending 09/29/20 Blood Culture, Received Pending Assessment/Plan 89 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 Ambrose reports that she woke up in the morning and her head felt heavy and she just did not feel right she was having difficulty in ambulating. She was admitted for TIA/ stroke. Acute metabolic encephalopathy TIA / Stroke causing acute confusion or metabolic encephalopathy now resolved will get MRI. in MRA from June she does have almost complete occlusison of an artery CT head neg No infectious process found. continue ASA, statin, plavix PT/OT HTN continue atenolol H/O cva in jun 2020 with left hemiparesis with dysphagia and dizziness will continue asa, plavix and statin. Plan / VTE VTE Prophylaxis Ordered?: Yes NIKHIL HOSKINS MD Sep 29, 2020 13:04
[2020-09-29] MEDS: POLYVINYL ALCOHOL OPHTH SOLN 15 ML(LIQUITEARS) OU SCH ×2 (17:35→20:18)
[2020-09-29] MEDS: SODIUM CHLORIDE NASAL 0.65% SPRAY BTL (OCEAN) SCH ×2 (17:35→20:18)
--- NOTE | 2020-09-29 19:35 | ECGEPIP ---
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
[2020-09-29] MEDS ORDERED: MIRTAZAPINE 15 MG TAB PO SCH (21:00)
[2020-09-29] MEDS ORDERED: ENOXAPARIN 40MG/0.4ML SYRINGE (J1650 PER 10MG) SC SCH (21:00)
[2020-09-29] MEDS ORDERED: ATORVASTATIN 20 MG TAB PO SCH (21:00)
[2020-09-29 22:00] VITALS: BP 135/77
[2020-09-29] MEDS ORDERED: diazePAM 2 MG TAB PO ONE (23:15)
--- NOTE | 2020-09-30 00:47 | REPVR ---
PROCEDURE INFORMATION: Exam: MR Head Without Contrast Exam date and time: 09/30/2020 12:10 AM Age: 89 years old Clinical indication: Visual disturbance and weakness, facial; Additional info: Tia/stroke TECHNIQUE: Imaging protocol: MR of the head without contrast. COMPARISON: MRI-Brain without Contrast 07/01/2020 3:16 PM FINDINGS: Brain: Mild nonspecific T2/FLAIR hyperintensities of the periventricular and deep subcortical white matter, most likely secondary to chronic small vessel ischemic change. No intracranial hemorrhage or extra-axial fluid collection. No evidence of mass effect or midline shift. No restricted diffusion to suggest acute infarct. Cerebral ventricles: Mild prominence of the ventricles and sulci, likely attributed to parenchymal volume loss. Bones/joints: Unremarkable. Orbital cavity: Unremarkable. Soft tissues: Unremarkable. IMPRESSION: 1. No acute intracranial pathology. 2. Chronic findings, as above. Electronically signed by: Kishan Enciso On 09/30/2020 00:47:22 AM
[2020-09-30 06:00] VITALS: BP 127/59
[2020-09-30] MEDS ORDERED: SENOKOT S TAB PO SCH (09:00)
[2020-09-30] MEDS: DOCUSATE SODIUM 100MG CAPSULE PO SCH (09:43)
[2020-09-30] MEDS: ASPIRIN 81MG ENTERIC TABLET PO SCH (09:44)
[2020-09-30] MEDS: PANTOPRAZOLE 40MG TAB (PROTONIX) PO SCH (09:44)
[2020-09-30 09:45] VITALS: BP 114/71
[2020-09-30] MEDS: atenoloL 25 MG TAB PO SCH (09:45)
[2020-09-30] MEDS: SODIUM CHLORIDE NASAL 0.65% SPRAY BTL (OCEAN) SCH (09:46)
[2020-09-30] MEDS: CLOPIDOGREL 75 MG TAB PO SCH (09:46)
[2020-09-30] MEDS: POLYVINYL ALCOHOL OPHTH SOLN 15 ML(LIQUITEARS) OU SCH (09:47)
--- NOTE | 2020-10-01 13:38 | DS.PDOC ---
Discharge Summary General Date of Admission Sep 29, 2020 at 14:10 Date of Discharge 09/30/20 Discharge Summary PROCEDURES PERFORMED DURING STAY: [None]. DISCHARGE DIAGNOSES: TIA SECONDARY DIAGNOSIS: CVA involving the medial right parietal convexity in Jun 2020 with dizziness. 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 Patient reports that she woke up in the morning and her head felt heavy and she just did not feel right she was having difficulty in ambulating. She was admitted for TIA/ stroke. TIA now resolved will get MRI negative for any acute stroke. 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 continue ASA, statin, plavix HTN continue atenolol H/O cva in jun 2020 with left hemiparesis with dysphagia and dizziness will continue asa, plavix and statin. Bilateral blindness. DISCHARGE MEDICATIONS: Please see below. ALLERGIES: Please see below. PHYSICAL EXAMINATION ON DISCHARGE: VITAL SIGNS: Please see below. General Exam: Positive: Alert, Cooperative, No Acute Distress Eye Exam: Positive: PERRLA, Conjunctiva & lids normal, EOMI; Negative: Sclera icteric ENT Exam: Positive: Atraumatic, Mucous membr. moist/pink, Pharynx Normal, Other ENT (left eye blind from ) Neck Exam: Positive: Supple; Negative: JVD, thyromegaly Chest Exam: Positive: Clear to auscultation, Normal air movement Heart Exam: Positive: Rate Normal, Regular Rhythm, Normal S1, Normal S2; Negative: Murmurs, Rubs Telemetry: Positive: No significant arrhythmia Extremity Exam: Positive: Normal pulses; Negative: Clubbing, Cyanosis, Edema Skin Exam: Positive: Nl turgor and temperature; Negative: Breakdown, Lesion LABORATORY DATA: Please see below. IMAGING: MRI Brain: Mild nonspecific T2/FLAIR hyperintensities of the periventricular and deep subcortical white matter, most likely secondary to chronic small vessel ischemic change. No intracranial hemorrhage or extra-axial fluid collection. No evidence of mass effect or midline shift. No restricted diffusion to suggest acute infarct. Cerebral ventricles: Mild prominence of the ventricles and sulci, likely attributed to parenchymal volume loss. Bones/joints: Unremarkable. Orbital cavity: Unremarkable. Soft tissues: Unremarkable. IMPRESSION: 1. No acute intracranial pathology. 2. Chronic findings, as above. ACTIVITY: [As tolerated]. DIET: As tolerated DISPOSITION: 01 Home, Self-Care. DISCHARGE INSTRUCTIONS: Follow up with PMD in 1 to 2 weeks DISCHARGE CONDITION: [Stable]. TIME SPENT ON DISCHARGE: 35 minutes. Vital Signs/I&Os Vital Signs Date Time Temp Pulse Resp B/P (MAP) Pulse Ox O2 Delivery O2 Flow Rate FiO2 09/30/20 09:45 89 114/71 09/30/20 06:00 96.5 20 95 Room Air I&O- Last 24 Hours up to 6 AM 10/01/20 06:00 Intake Total 360 ml Output Total 200 ml Balance 160 ml Microbiology Microbiology 09/29/20 Blood Culture - Preliminary, Resulted No Growth after 48 hours. All Specime... 09/29/20 Blood Culture - Preliminary, Resulted No Growth after 48 hours. All Specime... Discharge Medications Scheduled Acetaminophen (Acetaminophen 8 Hour) 650 Mg Tablet.er, 650 MG PO QHS, (Reported) Aspirin (Aspirin EC) 81 Mg Tablet.dr, 81 MG PO DAILY, (Reported) Atenolol (Atenolol) 25 Mg Tablet, 25 MG PO DAILY, (Reported) Atorvastatin Calcium (Atorvastatin Calcium) 40 Mg Tablet, 40 MG PO QHS, (Reported) Clopidogrel Bisulfate (Plavix) 75 Mg Tablet, 75 MG PO DAILY, (Reported) Diclofenac Sodium (Voltaren) 100 Gm Gel..gram., 2 GRAM TOP BID, (Reported) APPLY TO NECK Docusate Sodium (Colace) 100 Mg Capsule, 100 MG PO BID, (Reported) Furosemide (Lasix) 20 Mg Tablet, 20 MG PO DAILY, (Reported) Loratadine (Loratadine) 10 Mg Tablet, 10 MG PO DAILY, (Reported) Melatonin (Melatonin) 3 Mg Tablet, 3 MG PO QHS, (Reported) Mirtazapine (Remeron) 15 Mg Tablet, 15 MG PO QHS, (Reported) Pantoprazole Sodium (Pantoprazole Sodium) 40 Mg Tablet.dr, 40 MG PO DAILY, (Reported) Polyvinyl Alcohol (Artificial Tears) 15 Ml Drops, 2 DROP OU QID, (Reported) Sennosides/Docusate Sodium (Senna Plus Tablet) 1 Each Tablet, 1 TAB PO DAILY, (Reported) Sodium Chloride (Saline Mist) 44 Ml [place], 1 SPRAY NARES QID, (Reported) Scheduled PRN Acetaminophen (Acetaminophen) 325 Mg Tablet, 650 MG PO Q4H PRN for PAIN, (Reported) Diclofenac Sodium (Voltaren) 100 Gm Gel..gram., 2 GRAM TOP Q6H PRN for PAIN, (Reported) APPLY TO NECK Milk Of Magnesia (Milk of Magnesia) 2,400 Mg/10 Ml Oral.susp, 10 ML PO DAILY PRN for CONSTIPATION, (Reported) Sodium Chloride (Saline Nasal [place]) 44 Ml [place], 1 SPRAY NARES Q2H PRN for NASAL DRYNESS, (Reported) Allergies Coded Allergies: morphine (Verified Adverse Reaction, Mild, N/V, 09/29/20) NIKHIL HOSKINS MD Oct 01, 2020 13:38
== END 2020-09-30 13:02 | disposition home or self-care (01) ==
LOC: M ED 08:45 → EDBD 08:45 → M ED INP 14:10 → INTOOBSV 14:10 → ENRESERV 14:24 → M MSPAV 15:34
PROVIDERS: ADMIT Internal Medicine Nephrology; ATTEND Internal Medicine Nephrology
DX: G45.9 Transient cerebral ischemic attack, unspecified (principal); R42 Dizziness and giddiness; I10 Essential (primary) hypertension; F41.9 Anxiety disorder, unspecified; F32.9 Major depressive disorder, single episode, unspecified; Z79.82 Long term (current) use of aspirin; Z79.899 Other long term (current) drug therapy; Z79.02 Long term (current) use of antithrombotics/antiplatelets; Z88.5 Allergy status to narcotic agent; Z86.73 Personal history of transient ischemic attack (TIA), and cerebral infarction without residual deficits; H54.60 Unqualified visual loss, one eye, unspecified
CPT/HCPCS: 70450; 70551; 71045; 80048; 80076; 81001; 82550; 82553; 83735; 84484; 85025; 85610; 85730; 87040; 87502; 87798; 93005; 93041; 94760; 96372; 97116; 97161; 97165; 99285; G0378; J1650; U0002

== ENCOUNTER → 2020-12-18 | Outpatient (REF) | payer MEDICARE, BC, MEDICAID ==
[~2020-12-18] MED LIST changes: +APAP325T4 PO; +ASPI81TA27 PO; +ATOR40TA75 PO; +COLA100C5 PO; +LASI20TA3 PO; +LORA-930 PO; +MELA3TAB30 PO; +MOM30SS PO; +NEOM28OI XX; +PANT-23 PO; +PLAV1TAB2 PO; +QC A650T3 PO; +SALI0.652 NARES; +SENN-53 PO; +SM N0.65 NARES; -TRIPOIN5 XX; +VOLT1GEL15 TOP
[2020-12-18 10:04] LABS: BASO % 0.6 % (0.0-1.0); EOS # 0.3 10^3/uL (0.0-0.5); EOS % 4.8 % (0.0-3.0); HEMATOCRIT 40.5 % (36.0-47.0); HEMOGLOBIN 13.3 g/dl (12.0-15.5); LYMPH # 1.5 10^3/uL (1.5-5.0); LYMPH % 23.2 % (24.0-44.0); MEAN CORPUSCULAR HEMOGLOBIN 32.3 pg (27.0-33.0); MEAN CORPUSCULAR HGB CONC 32.8 g/dl (32.0-36.5); MEAN CORPUSCULAR VOLUME 98.3 fl (80.0-96.0); MONO # 0.9 10^3/uL (0.0-0.8); MONO % 12.8 % (2.0-8.0); NEUTROPHILS # 3.9 10^3/uL (1.5-8.5); NEUTROPHILS % 58.3 % (36.0-66.0); PLATELET COUNT, AUTOMATED 203 10^3/uL (150-450); RED BLOOD COUNT 4.12 10^6/uL (4.00-5.40); WHITE BLOOD COUNT 6.6 10^3/uL (4.0-10.0)
[2020-12-18 11:02] LABS: ALBUMIN 3.6 GM/DL (3.2-5.2); ALT/SGPT 23 U/L (12-78); BILIRUBIN,TOTAL 0.7 MG/DL (0.2-1.0); BLOOD UREA NITROGEN 13 MG/DL (7-18); CALCIUM LEVEL 9.3 MG/DL (8.8-10.2); CARBON DIOXIDE LEVEL 28 MEQ/L (21-32); CHLORIDE LEVEL 106 MEQ/L (98-107); CHOLESTEROL LEVEL 137 MG/DL (<200); CHOLESTEROL RISK RATIO 2.209 (<5); CREATININE FOR GFR 0.59 MG/DL (0.55-1.30); GLOMERULAR FILTRATION RATE > 60.0 (>32); GLUCOSE, FASTING 92 MG/DL (70-100); HDL CHOLESTEROL 62 MG/DL (>40); LDL CHOLESTEROL 46 MG/DL (<100); NON-HDL-C 75 MG/DL; POTASSIUM SERUM 4.2 MEQ/L (3.5-5.1); SODIUM LEVEL 140 MEQ/L (136-145); TOTAL PROTEIN 6.7 GM/DL (6.4-8.2); TRIGLYCERIDES LEVEL 146 MG/DL (<150)
== END ==
PROVIDERS: ATTEND Family Medicine
DX: E78.5 Hyperlipidemia, unspecified (principal); G47.00 Insomnia, unspecified; I10 Essential (primary) hypertension

== ENCOUNTER → 2021-02-16 | Outpatient (CLI) | payer MEDICARE, BC, MEDICAID ==
[~2021-02-16] MED LIST changes: +ATIV1TAB10 PO; +BENA25CA4 PO; +BUSP5TA PO; +CLAR10CA3 PO; +CLOB0.0548 TOP; +DICL20GE TP; +DOK1CAP4 PO; -DOK1CAP7 PO; +ECOT81TA5 PO; +ELIQ5TAB PO; +HM S0.65 NARES; +HYOS125TA PO; +LISI5TAB11 PO; +MELA10CA2 PO; +MORP1SOL5 PO; +REME15TA2 PO; +SERT25TA85 PO; +TGTSUS2 PO; +VALA1TAB5 PO; +VALA500T5 PO; +ZOLO25TA PO
== END ==
LOC: M ST 13:48
PROVIDERS: ATTEND Family Medicine
DX: R13.10 Dysphagia, unspecified (principal)

== ENCOUNTER 2021-04-26 08:50 | Inpatient (IN) | payer MEDICARE, BC, MEDICAID ==
[~2021-04-26] VITALS: Ht 165.1 cm; Wt 76.3 kg
[~2021-04-26 08:50] MED LIST changes: -ATIV1TAB10 PO; -BENA25CA4 PO; -BUSP5TA PO; -CLAR10CA3 PO; -CLOB0.0548 TOP; -DICL20GE TP; -ECOT81TA5 PO; -ELIQ5TAB PO; -HM S0.65 NARES; -HYOS125TA PO; -LISI5TAB11 PO; -MELA10CA2 PO; -MORP1SOL5 PO; -REME15TA2 PO; -SERT25TA85 PO; -TGTSUS2 PO; -VALA1TAB5 PO; -VALA500T5 PO; -ZOLO25TA PO
[2021-04-26] MEDS ORDERED: SERTRALINE HCL 25 MG TABLET PO SCH (09:00)
--- NOTE | 2021-04-26 09:40 | REP ---
INDICATION: Altered Mental Status COMPARISON: 09/29/2020 TECHNIQUE: Portable AP view of the chest FINDINGS: The mediastinum and cardiac silhouette are stable and within normal limits for portable technique. The lung casey demonstrate chronic appearing changes without focal consolidation, effusion, or pneumothorax. Skeletal structures demonstrate stable osteopenia and degenerative changes. IMPRESSION: No acute cardiopulmonary process appreciated. <Electronically signed by Cayetano Olivera > 04/26/21 [id number]
[2021-04-26 09:44] LABS: BASO % 0.4 % (0.0-1.0); EOS # 0.3 10^3/uL (0.0-0.5); HEMATOCRIT 38.2 % (36.0-47.0); HEMOGLOBIN 13.5 g/dl (12.0-15.5); LYMPH # 1.3 10^3/uL (1.5-5.0); LYMPH % 15.2 % (24.0-44.0); MEAN CORPUSCULAR HEMOGLOBIN 33.7 pg (27.0-33.0); MEAN CORPUSCULAR HGB CONC 35.3 g/dl (32.0-36.5); MEAN CORPUSCULAR VOLUME 95.3 fl (80.0-96.0); MONO # 0.8 10^3/uL (0.0-0.8); MONO % 9.5 % (2.0-8.0); NEUTROPHILS % 71.4 % (36.0-66.0); PLATELET COUNT, AUTOMATED 203 10^3/uL (150-450); RED BLOOD COUNT 4.01 10^6/uL (4.00-5.40); WHITE BLOOD COUNT 8.4 10^3/uL (4.0-10.0)
[2021-04-26] MEDS ORDERED: ISOVUE-370 76% 100ML VIAL As Ordered ONE (09:44)
[2021-04-26 09:55] LABS: INR 1.11; PARTIAL THROMBOPLASTIN TIME 26.1 SECONDS (25.9-37.0); PROTHROMBIN TIME 14.8 SECONDS (12.7-14.5)
[2021-04-26 10:11] LABS: ACETAMINOPHEN LEVEL < 2.0 UG/ML (10.0-30.0); ALBUMIN 3.5 GM/DL (3.2-5.2); ALT/SGPT 19 U/L (12-78); BILIRUBIN,DIRECT 0.3 MG/DL (0.0-0.2); BILIRUBIN,TOTAL 0.9 MG/DL (0.2-1.0); CK-MB VALUE MASS 1.4 NG/ML (<3.6); CPK CREATINE PHOSPHOKINASE 62 U/L (26-192); ETHYL ALCOHOL (ETHANOL) < 0.003 % (0.000-0.010); MB/CK RELATIVE INDEX 2.26 (< OR =4); SALICYLATE LEVEL < 1.7 MG/DL (5.0-30.0); THYROID STIMULATING HORMONE 0.829 uIU/ML (0.358-3.740); TOTAL PROTEIN 6.6 GM/DL (6.4-8.2); TROPONIN I < 0.02 NG/ML (< 0.10)
--- NOTE | 2021-04-26 10:13 | REP ---
INDICATION: cva COMPARISON: 09/29/2020 TECHNIQUE: Axial noncontrast images from the skull base to the thoracic inlet with coronal reformations. This CT examination was performed using the following dose reduction techniques: Automated exposure control, adjustment of mA and/or kv according to the patient's size, and use of iterative reconstruction technique. FINDINGS: Atrophy with periventricular leukomalacia and microvascular ischemic changes are appreciated. The ventricles and sulci are symmetric. Magana-white differentiation is maintained. There is no evidence for acute intracranial hemorrhage, mass/mass effect, pathology or infarction. No extra-axial fluid collection. Calvarium is intact. Paranasal sinuses and mastoid air cells are clear. IMPRESSION: Atrophy and microvascular ischemic changes. No acute intracranial hemorrhage, infarction, or mass/mass effect. <Electronically signed by Cayetano Olivera > 04/26/21 [id number]
--- NOTE | 2021-04-26 10:15 | REPVR ---
PROCEDURE INFORMATION: Exam: CT Angiography Neck With Contrast Exam date and time: 04/26/2021 9:00 AM Age: 89 years old Clinical indication: Other: Unresponsive; Additional info: CVA - nursing interventions must not delay CT TECHNIQUE: Imaging protocol: Computed tomography angiography of the neck with contrast. 3D rendering (Not supervised by radiologist): MIP and/or 3D reconstructed images were created by the technologist. Radiation optimization: All CT scans at this facility use at least one of these dose optimization techniques: automated exposure control; mA and/or kV adjustment per patient size (includes targeted exams where dose is matched to clinical indication); or iterative reconstruction. Contrast material: ISOVUE 370; Contrast volume: 100 ml; Contrast route: INTRAVENOUS (IV); COMPARISON: MRA BRAIN W/O CONTRAST 07/01/2020 3:16 PM FINDINGS: Right common carotid artery: No stenosis. No dissection or occlusion. Right internal carotid artery: See "Left internal carotid artery" finding. Right external carotid artery: No occlusion or stenosis of the origin. Left common carotid artery: No stenosis. No dissection or occlusion. Left internal carotid artery: Mild atherosclerosis of the left carotid bulb and proximal left internal carotid artery without any hemodynamically significant stenosis . Distal artery is tortuous. Mild atherosclerosis of the left carotid bulb and proximal left internal carotid artery without any hemodynamically significant stenosis . Distal artery is tortuous. Left external carotid artery: No occlusion or stenosis of the origin. Right vertebral artery: No stenosis. No dissection or occlusion. Left vertebral artery:Dominant. No stenosis. No dissection or occlusion. Soft tissues: Normal. No significant soft tissue swelling. Bones/joints: No acute fracture. Lungs: Diffuse ground-glass airspace opacities with septal thickening of the lungs likely edema. IMPRESSION: No hemodynamically significant stenosis, occlusion, or dissection. REFERENCES: NASCET CRITERIA. The degree of internal carotid artery stenosis is based on NASCET criteria. Normal is no stenosis. Mild is less than 50% stenosis. Moderate is 50-69% stenosis. Severe is 70% to 99% stenosis. Total occlusion is no detectable patent lumen. Electronically signed by: Yovana Coburn On 04/26/2021 10:15:13 AM
[2021-04-26 10:22] LABS: RSV AMPLIFICATION NEGATIVE (NEGATIVE)
--- NOTE | 2021-04-26 10:22 | REPVR ---
PROCEDURE INFORMATION: Exam: CT Angiography Head With Contrast, Arteriography Exam date and time: 04/26/2021 9:00 AM Age: 89 years old Clinical indication: Other: Unresponsive; Additional info: CVA - nursing interventions must not delay CT TECHNIQUE: Imaging protocol: Computed tomography angiography of the head with contrast. Exam focused on the arteries. 3D rendering (Not supervised by radiologist): MIP and/or 3D reconstructed images were created by the technologist. Radiation optimization: All CT scans at this facility use at least one of these dose optimization techniques: automated exposure control; mA and/or kV adjustment per patient size (includes targeted exams where dose is matched to clinical indication); or iterative reconstruction. Contrast material: ISOVUE 370; Contrast volume: 100 ml; Contrast route: INTRAVENOUS (IV); COMPARISON: MRA BRAIN W/O CONTRAST 07/01/2020 3:16 PM FINDINGS: ANTERIOR CIRCULATION: Right internal carotid artery: Unremarkable. Intracranial segment is patent with no significant stenosis. No aneurysm. Right middle cerebral artery: Unremarkable. No occlusion or significant stenosis. No aneurysm. Right anterior cerebral artery: Hypoplastic right A1 segment. Right A2 segment is unremarkable. Left internal carotid artery: Unremarkable. Intracranial segment is patent with no significant stenosis. No aneurysm. Left middle cerebral artery: Unremarkable. No occlusion or significant stenosis. No aneurysm. Left anterior cerebral artery: Left A1 and A2 segments are unremarkable. Again identified is a prominent Alee colossal artery branch arising from the proximal left A2 segment. 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 as it passes around the genu of the corpus callosum, unchanged from prior study. POSTERIOR CIRCULATION: Right vertebral artery: Unremarkable. No occlusion or significant stenosis. No aneurysm. Left vertebral artery: Dominant left vertebral artery. Basilar artery: Unremarkable. No occlusion or significant stenosis. No aneurysm. Right posterior cerebral artery: Unremarkable. No occlusion or significant stenosis. No aneurysm. Left posterior cerebral artery: Unremarkable. No occlusion or significant stenosis. No aneurysm. Brain: No definite mass, mass effect, or midline shift. Small old infarcts in left cerebellum. Cerebral ventricles: Ventricles and sulci are prominent representing mild volume loss. Bones/joints: Unremarkable. No acute fracture. Soft tissues: Unremarkable. IMPRESSION: Left A1 and A2 segments are unremarkable. Again identified is a prominent Alee colossal artery branch arising from the proximal left A2 segment. 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 as it passes around the genu of the corpus callosum, unchanged from prior study. Hypoplastic right A1 segment. Right A2 segment is unremarkable. Electronically signed by: Yovana Coburn On 04/26/2021 10:22:22 AM
[2021-04-26 10:23] LABS: AMPHETAMINES LEVEL URINE NEGATIVE (NEGATIVE); BARBITURATES URINE NEGATIVE (NEGATIVE); BENZODIAZEPINES URINE NEGATIVE (NEGATIVE); CANNABINOIDS URINE NEGATIVE (NEGATIVE); COCAINE METABOLITE URINE NEGATIVE (NEGATIVE); METHADONE URINE NEGATIVE (NEGATIVE); OPIATES URINE NEGATIVE (NEGATIVE); PHENCYCLIDINE URINE NEGATIVE (NEGATIVE)
[2021-04-26] MEDS ORDERED: CLOB0.0548 TOP (11:40)
[2021-04-26] MEDS ORDERED: BENA25CA4 PO (11:40)
[2021-04-26] MEDS ORDERED: SERT25TA85 PO (11:40)
[2021-04-26] MEDS ORDERED: DICL20GE TP (11:40)
[2021-04-26] MEDS ORDERED: MELA10CA2 PO (11:40)
--- NOTE | 2021-04-26 11:52 | HPEPDOC ---
General Date of Admission 04/26/21 Date of Service: Apr 26, 2021 Chief Complaint The patient is a 89-year-old female admitted with a reason for visit of [facility]. 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 Her daughter stated that her mom yesterday had problem with memory and she was disoriented, she forgot how to eat meal. Around 6 AM when patient woke up she developed increased left-sided weakness and was disoriented in place and time. When I saw the patient she was oriented in place and time she was able to answer my questions appropriately. In ER patient was found to have elevated systolic blood pressure up to 199/82, unremarkable CBC, negative UA, normal glucose level. EKG showed atrial fibrillation. CT head negative for acute stroke. CT neck negative for significant stenosis of carotid arteries. CTA showed prominent Alee colossal artery branch arising from the proximal left A2 segment. 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 as it passes around the genu of the corpus callosum, unchanged from prior study Home Medications Scheduled Acetaminophen (Acetaminophen 8 Hour) 650 Mg Tablet.er, 650 MG PO QHS, (Reported) Aspirin (Aspirin EC) 81 Mg Tablet.dr, 81 MG PO DAILY, (Reported) Atenolol (Atenolol) 25 Mg Tablet, 25 MG PO DAILY, (Reported) Atorvastatin Calcium (Atorvastatin Calcium) 40 Mg Tablet, 40 MG PO QHS, (Reported) Clopidogrel Bisulfate (Plavix) 75 Mg Tablet, 75 MG PO DAILY, (Reported) Diclofenac Sodium (Voltaren) 100 Gm Gel..gram., 2 GRAM TOP BID, (Reported) APPLY TO NECK Docusate Sodium (Colace) 100 Mg Capsule, 100 MG PO BID, (Reported) Furosemide (Lasix) 20 Mg Tablet, 20 MG PO DAILY, (Reported) Loratadine (Loratadine) 10 Mg Tablet, 10 MG PO DAILY, (Reported) Melatonin (Melatonin) 3 Mg Tablet, 3 MG PO QHS, (Reported) Mirtazapine (Remeron) 15 Mg Tablet, 15 MG PO QHS, (Reported) Pantoprazole Sodium (Pantoprazole Sodium) 40 Mg Tablet.dr, 40 MG PO DAILY, (Reported) Polyvinyl Alcohol (Artificial Tears) 15 Ml Drops, 2 DROP OU QID, (Reported) Sennosides/Docusate Sodium (Senna Plus Tablet) 1 Each Tablet, 1 TAB PO DAILY, (Reported) Sodium Chloride (Saline Mist) 44 Ml [place], 1 SPRAY NARES QID, (Reported) Scheduled PRN Acetaminophen (Acetaminophen) 325 Mg Tablet, 650 MG PO Q4H PRN for PAIN, (Re ported) Diclofenac Sodium (Voltaren) 100 Gm Gel..gram., 2 GRAM TOP Q6H PRN for PAIN, (Reported) APPLY TO NECK Milk Of Magnesia (Milk of Magnesia) 2,400 Mg/10 Ml Oral.susp, 10 ML PO DAILY PRN for CONSTIPATION, (Reported) Sodium Chloride (Saline Nasal [place]) 44 Ml [place], 1 SPRAY NARES Q2H PRN for NASAL DRYNESS, (Reported) Allergies Coded Allergies: morphine (Verified Adverse Reaction, Mild, N/V, 09/29/20) Past Medical History Medical History CVA involving the medial right parietal convexity in Jun 2020 with dizziness. 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 , Right eye macular degeneration HTN Claustrophobia Anxiety/depression Surgical History Surgical History Total hysterectomy RIGHT KNEE REPLACED 2007 CARPAL TUNNEL RELEASE BOTH HANDS EYE CANCER TREATMENT Cataract in right eye Social History * Smoker: Denies Drugs: denies A-FIB/CHADSVASC A-FIB History Current/History of A-Fib/PAF?: Yes Current PO Anticoag Therapy: No Treatment Treatment ordered: Apixaban Review of Systems Constitutional: Denies: Chills, Fever ENT: Denies: Head Aches Skin: Denies: Rash, Lesions Pulmonary: Denies: Dyspnea Cardiovascular: Denies: Chest Pain Gastrointestinal: Denies: Nausea Genitourinary: Denies: Dysuria Hematologic: Denies: Bruising Musculoskeletal: Denies: Neck Pain Neurological: Reports: Weakness, Confusion Psych: Reports: Mood Normal Physical Examination General Exam: Positive: Alert Eye Exam: Positive: PERRLA ENT Exam: Positive: Atraumatic Neck Exam: Positive: Supple; Negative: JVD Chest Exam: Positive: Clear to auscultation Heart Exam: Positive: Irregular Rhythm Telemetry: Positive: Atrial fibrillation Abdomen Exam: Positive: Normal bowel sounds Extremity Exam: Negative: Clubbing Skin Exam: Positive: Nl turgor and temperature Neuro Exam: Positive: Strength at 5/5 X4 ext, Cranial Nerves 3-12 NL, Reflexes 2+, Other (Left lower extremity strength 3 out of 5, left upper extremity strength 3 out of 5) Psych Exam: Positive: Oriented x 3 Vital Signs Vital Signs Date Time Temp Pulse Resp B/P (MAP) Pulse Ox O2 Delivery O2 Flow Rate FiO2 04/26/21 11:15 67 153/70 (97) 91 04/26/21 09:10 97.8 16 Room Air Laboratory Data Labs 24H Laboratory Tests 2 04/26/21 09:18: Immature Granulocyte % (Auto) 0.5, Neutrophils (%) (Auto) 71.4H, Lymphocytes (%) (Auto) 15.2L, Monocytes (%) (Auto) 9.5H, Eosinophils (%) (Auto) 3.0, Basophils (%) (Auto) 0.4, Neutrophils # (Auto) 6.0, Lymphocytes # (Auto) 1.3L, Monocytes # (Auto) 0.8, Eosinophils # (Auto) 0.3, Basophils # (Auto) 0.0, Nucleated Red Blood Cells % (auto) 0.0, Prothrombin Time 14.8H, Prothromb Time International Ratio 1.11, Activated Partial Thromboplast Time 26.1, Urine Color YELLOW, Urine Appearance CLEAR, Urine pH 6.0, Urine Specific [place] 1.008, Urine Protein NEGATIVE, Urine Glucose (UA) NEGATIVE, Urine Ketones NEGATIVE, Urine Blood NEGATIVE, Urine Nitrite NEGATIVE, Urine Bilirubin NEGATIVE, Urine Urobilinogen 0.2, Urine Leukocyte Esterase NEGATIVE, Urine WBC (Auto) 1, Urine RBC (Auto) 0, Urine Hyaline Casts (Auto) 0, Urine Bacteria (Auto) NEGATIVE, Urine Squamous Epithelial Cells 0, Urine Sperm (Auto) , Lactic Acid Level 1.0, Total Bilirubin 0.9, Direct Bilirubin 0.3H, Aspartate Amino Transf (AST/SGOT) 16, Alanine Aminotransferase (ALT/SGPT) 19, Alkaline Phosphatase 80, Ammonia 18, Total Creatine Kinase 62, Creatine Kinase MB 1.4, Creatine Kinase MB Relative Index 2.26, Troponin I < 0.02, Total Protein 6.6, Albumin 3.5, Albumin/Globulin Ratio 1.1L, Thyroid Stimulating Hormone (TSH) 0.829, Salicylates Level < 1.7L, Urine Opiates Screen NEGATIVE, Urine Methadone Screen NEGATIVE, Acetaminophen Level < 2.0L, Urine Barbiturates Screen NEGATIVE, Urine Phencyclidine Screen NEGATIVE, Urine Amphetamines Screen NEGATIVE, Urine Benzodiazepines Screen NEGATIVE, Urine Cocaine Metabolite Screen NEGATIVE, Urine Cannabinoids Screen NEGATIVE, Ethyl Alcohol Level < 0.003, Coronavirus (COVID-19)(PCR) NEGATIVE, Influenza Type A (RT-PCR) NEGATIVE, Influenza Type B (RT-PCR) NEGATIVE, Respiratory Syncytial Virus (PCR) NEGATIVE 04/26/21 09:35: POC Glucose (Misc Panel) 102, POC Sodium (Misc Panel) 143, POC Potassium (Misc Panel) 3.2L, POC Chloride (Misc Panel) 103, POC Total CO2 (Misc Panel) 28.0H, POC Blood Urea Nitrogen (Misc Panel 8, POC Ionized Calcium (Misc Panel) 4.7, POC Creatinine (Misc Panel) 0.6, POC Hematocrit (Misc Panel) 37.0L CBC/BMP Laboratory Tests 04/26/21 09:18 Microbiology Microbiology 04/26/21 Blood Culture, Received Pending 04/26/21 Blood Culture, Received Pending Assessment/Plan Patient is 89 years old female from [facility] with past medical history of 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 Her daughter stated that her mom yesterday had problem with memory and she was disoriented, she forgot how to eat meal. Around 6 AM when patient woke up she developed increased left-sided weakness and was d isoriented in place and time. When I saw the patient she was oriented in place and time she was able to answer my questions appropriately. In ER patient was found to have elevated systolic blood pressure up to 199/82, unremarkable CBC, negative UA, normal glucose level. EKG showed atrial fibrillation. CT head negative for acute stroke. CT neck negative for significant stenosis of carotid arteries. CTA showed prominent Alee colossal artery branch arising from the proximal left A2 segment. 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 as it passes around the genu of the corpus callosum, unchanged from prior study Problems (1) TIA (transient ischemic attack) Status: Acute Problem Text: When I saw the patient she was alert, oriented She has a residual left sided weakness after stroke in 2020 We will proceed with brain MRI Also patient developed atrial fibrillation on EKG, newly diagnosed I will start Eliquis 5 mg twice daily with continuation of aspirin Telemetry ARU screen Speech evaluation (2) HTN (hypertension) Status: Chronic Problem Text: When I saw patient her blood pressure dropped to 150/80 Continue home meds (3) Legal blindness Status: Chronic Problem Text: Follow-up with PCP (4) Atrial fibrillation Status: Acute Problem Text: Newly diagnosed atrial fibrillation I started Eliquis 5 mg twice daily Heart rate under control (5) Metabolic encephalopathy Status: Acute Problem Text: Resolved when I saw patient Continue to monitor (6) Hyperlipidemia Status: Chronic Problem Text: Continue statin Plan / VTE VTE Prophylaxis Ordered?: Yes RIO CYR DO Apr 26, 2021 11:52
[2021-04-26] MEDS ORDERED: HM S0.65 NARES (12:12)
[2021-04-26] MEDS ORDERED: HOME MED LIST COMPLETE! XX SCH (12:20)
[2021-04-26 14:15] VITALS: BP 128/73
[2021-04-26] MEDS: APIXABAN 5 MG TAB (ELIQUIS) PO SCH ×2 (14:52→22:00)
[2021-04-26 15:30] VITALS: BP 128/73
[2021-04-26] MEDS ORDERED: SODIUM CHLORIDE NASAL 0.65% SPRAY BTL (OCEAN) PRN (15:55)
[2021-04-26] MEDS ORDERED: ACETAMINOPHEN 325 MG TAB PO PRN (15:55)
[2021-04-26 16:01] LABS: CHOLESTEROL RISK RATIO 2.16 (<5); THYROID STIMULATING HORMONE 0.834 uIU/ML (0.358-3.740)
[2021-04-26] MEDS: ACETAMINOPHEN TAB 650MG DOSE (2X325MG) PO PRN (18:13)
[2021-04-26] MEDS: POLYVINYL ALCOHOL OPHTH SOLN 15 ML(LIQUITEARS) OU SCH ×2 (18:18→22:01)
[2021-04-26] MEDS: LORazepam 0.5 MG TAB PO PRN (18:18)
--- NOTE | 2021-04-26 19:20 | ECGEPIP ---
[facility] - ED Test Date: 2021-04-26 Pat Name: RADHA LUTHER Department: Room: - Gender: Female Refund Clerk: [email or web address] : [id number] Requested By: José Broderick Order Number: [id number] Reading MD: José Broderick Measurements Intervals [place] Rate: 69 P: [place]: QRS: 2 QRSD: 86 T: 79 QT: 430 QTc: 460 Interpretive Statements Atrial fibrillation with premature ventricular or aberrantly conducted complexes Nonspecific T wave abnormality Baseline artifact may affect reading 09/29/20 rate decreased rhythm change Nonspecific ST T wave changes Borderline prolonged QTc Electronically Signed on 04-26-2021 19:19:51 EDT by José Broderick
[2021-04-26 22:00] VITALS: BP 109/53
[2021-04-26] MEDS: ATORVASTATIN 20 MG TAB PO SCH (22:00)
[2021-04-26] MEDS: SERTRALINE HCL 25 MG TABLET PO SCH (22:00)
[2021-04-26] MEDS: MIRTAZAPINE 15 MG TAB PO SCH (22:00)
[2021-04-26] MEDS: diphenhydrAMINE 25MG CAP PO PRN (22:01)
[2021-04-27 06:00] VITALS: BP 146/73
[2021-04-27] MEDS: PANTOPRAZOLE 40MG TAB (PROTONIX) PO SCH (08:33)
[2021-04-27] MEDS: LORATADINE 10 MG TAB PO SCH (08:33)
[2021-04-27] MEDS: APIXABAN 5 MG TAB (ELIQUIS) PO SCH ×2 (08:33→20:24)
[2021-04-27] MEDS: ASPIRIN 81MG ENTERIC TABLET PO SCH (08:33)
[2021-04-27] MEDS: FUROSEMIDE 20 MG TAB PO SCH (08:33)
[2021-04-27] MEDS: atenoloL 25 MG TAB PO SCH (08:36)
[2021-04-27] MEDS: POLYVINYL ALCOHOL OPHTH SOLN 15 ML(LIQUITEARS) OU SCH ×4 (08:37→20:24)
[2021-04-27] MEDS ORDERED: DOCUSATE SODIUM 100MG CAPSULE PO SCH (09:00)
[2021-04-27] MEDS ORDERED: SENOKOT S TAB PO SCH (09:00)
[2021-04-27 12:10] LABS: HEMATOCRIT 38.2 % (36.0-47.0); HEMOGLOBIN 13.3 g/dl (12.0-15.5); MEAN CORPUSCULAR HEMOGLOBIN 33.4 pg (27.0-33.0); MEAN CORPUSCULAR HGB CONC 34.8 g/dl (32.0-36.5); PLATELET COUNT, AUTOMATED 214 10^3/uL (150-450); RED BLOOD COUNT 3.98 10^6/uL (4.00-5.40); WHITE BLOOD COUNT 8.3 10^3/uL (4.0-10.0)
[2021-04-27 13:06] LABS: ALBUMIN 3.5 GM/DL (3.2-5.2); ALT/SGPT 20 U/L (12-78); BILIRUBIN,TOTAL 0.9 MG/DL (0.2-1.0); BLOOD UREA NITROGEN 10 MG/DL (7-18); CALCIUM LEVEL 9.3 MG/DL (8.8-10.2); CARBON DIOXIDE LEVEL 30 MEQ/L (21-32); CHLORIDE LEVEL 106 MEQ/L (98-107); CREATININE FOR GFR 0.68 MG/DL (0.55-1.30); GLOMERULAR FILTRATION RATE > 60.0 (>32); GLUCOSE, FASTING 97 MG/DL (70-100); MAGNESIUM LEVEL 2.1 MG/DL (1.8-2.4); POTASSIUM SERUM 3.4 MEQ/L (3.5-5.1); SODIUM LEVEL 141 MEQ/L (136-145); TOTAL PROTEIN 6.7 GM/DL (6.4-8.2)
[2021-04-27 14:00] VITALS: BP 142/85
[2021-04-27] MEDS: diphenhydrAMINE 25MG CAP PO PRN (16:36)
--- NOTE | 2021-04-27 18:02 | IPNPDOC ---
Subjective Date Seen The patient was seen on 04/27/21. Subjective Chief Complaint/HPI Patient was seen and examined at bedside this morning. She reported being legally blind left eye from , and blind in the right eye secondary to macular degeneration. She reports having problems with her memory, and hard time finding words. She also endorses having greater left-sided weakness from her baseline weakness. These findings are not normal, but she feels that they have worsened and the daughter had same concerns reportedly on admission. She is also expressed concerns about her blindness restricting her from being indepe ndent. Objective Physical Examination Heart Exam: Positive: Irregular Rhythm Psych Exam: Positive: Oriented x 3 Other physical findings General: Lying in bed, no acute distress Head/Neck/Throat: Trachea midline, mucous membranes moist Eyes: Sclera anicteric, no erythema or discharge appreciate bilateral Thorax: Normal respiratory effort on room air, lungs clear to auscultation bilaterally, no wheezes/rales/rhonchi Cardiovascular: Normal rate, regular rhythm, normal S1, S2; no S3, S4, rubs/gallops/murmurs Abdomen: Bowel sounds present, soft/nontender/nondistended Genitourinary: No CVA tenderness, no Blas in place Musculoskeletal: Moving all extremities, no edema Skin: Warm, dry Neurologic: Awake, alert, oriented x3. He reports. Blindness in left eye, and mainly in the right eye. Otherwise cranial nerves II to XII are intact. Strength in the right upper and lower extremity is 5/5. Strength in the left upper and lower extremities 3/5. Reflexes 2+. Sensation to gross touch intact. Assessment /Plan Assessment #CVA -Concerns for worsening cognition as well as left-sided weakness. CT of the head showed no acute findings. CT angiography of the neck showed no significant stenosis. CT angiography of the head noted a prominent pericallosal artery branch arising from the proximal left A2 segment. There was severe focal stenosis or near occlusion of this artery as it passes around the genu of the corpus callosum, which was unchanged from prior studies. -MRI of the brain is pending -F/u on echocardiogram -Continue with aspirin and statin therapy. #Atrial fibrillation -This is new diagnosis and possibly contributing to her stroke. She is on a tenolol with acceptable heart rate. Continue with Eliquis for systemic anticoagulation #Hypertension -Continue with ambulatory antihypertensives #Hyperlipidemia -Continue with statin therapy #Metabolic encephalopathy -This had resolved, possibly secondary to hypertensive episode #DVT prophylaxis -Offered by apixaban Plan/VTE VTE Prophylaxis Ordered?: Yes VS, I&O, 24H, Fishbone Vital Signs/I&O Vital Signs Date Time Temp Pulse Resp B/P (MAP) Pulse Ox O2 Delivery O2 Flow Rate FiO2 04/27/21 14:00 97.6 61 18 142/85 (104) 97 Room Air I&O- Last 24 Hours up to 6 AM 04/27/21 06:00 Intake Total 700 ml Balance 700 ml Laboratory Data 24H LABS Laboratory Tests 2 04/27/21 11:38: Nucleated Red Blood Cells % (auto) 0.0, Anion Gap 5L, Glomerular Filtration Rate > 60.0, Calcium Level 9.3, Magnesium Level 2.1, Total Bilirubin 0.9, Aspartate Amino Transf (AST/SGOT) 14, Alanine Aminotransferase (ALT/SGPT) 20, Alkaline Phosphatase 85, Total Protein 6.7, Albumin 3.5, Albumin/Globulin Ratio 1.1L CBC/BMP Laboratory Tests 04/27/21 11:38 Microbiology Microbiology 04/26/21 Blood Culture - Preliminary, Resulted No growth after 24 hours . All specim... 04/26/21 Blood Culture - Preliminary, Resulted No growth after 24 hours . All specim... MATT ANDUJAR M.D. Apr 27, 2021 18:02
[2021-04-27] MEDS: ATORVASTATIN 20 MG TAB PO SCH (20:23)
[2021-04-27] MEDS: SERTRALINE HCL 25 MG TABLET PO SCH (20:23)
[2021-04-27] MEDS: MIRTAZAPINE 15 MG TAB PO SCH (20:24)
[2021-04-27] MEDS ORDERED: hydrOXYzine 25 MG TAB PO ONE (20:45)
--- NOTE | 2021-04-27 21:20 | ECHO ---
ECHOCARDIOGRAM DATE OF PROCEDURE: 04/27/2021 Age: Gender: Height: 165 cm Weight: 76 kg REFERRING PHYSICIAN: Dr. Kumari INDICATION: Cerebrovascular accident. MEASUREMENTS: IVS 1.1 LV 4.2 LVPW 1.2 PRICILA 4.1 Aorta 3.1 IVC 1.0 Mitral E-wave velocity 86, A wave 115 E prime septal 5.4 E prime lateral 7.1 FINDINGS: The study is of fair technical quality. The patient is in sinus rhythm. Normal LV size with borderline LVH and preserved LV systolic function. Estimated LVEF 60%-65%. Normal RV size and systolic function. Mild left atrial enlargement. Right atrium is probably normal size. Aortic valve is mildly sclerotic but has three cusps and normal mobility. There are also mild degenerative abnormalities of mitral valve, but mobility of leaflets is preserved. Tricuspid valve appears normal. Pulmonic valve was not well seen. No pericardial effusion, but small amount of pericardial fat pad is noted. Inferior vena cava is normal size and appropriately collapses with inspiration, indicative of normal central venous pressure. Aortic root, aortic arch, and visualized segment of abdominal aorta all appear normal. Doppler interrogation reveals competent aortic valve without significant stenosis or insufficiency. There is mild mitral and mild tricuspid insufficiency. Calculated pulmonary artery pressure is around 30 mmHg, corresponding to upper limits of normal values. Mitral inflow pattern and tissue Doppler imaging of mitral annulus revealed grade 1 diastolic dysfunction. CONCLUSIONS: 1. Study is of fair technical quality, underlying sinus rhythm. 2. Normal LV size with borderline LVH and preserved LV systolic function. Grade 1 diastolic dysfunction. 3. Aortic sclerosis but no significant stenosis or insufficiency. 4. Mild mitral and tricuspid insufficiency. 5. Normal central venous pressure and borderline pulmonary hypertension.
--- NOTE | 2021-04-28 03:39 | REPVR ---
PROCEDURE INFORMATION: Exam: MR Head Without Contrast Exam date and time: 04/26/2021 4:31 PM Age: 89 years old Clinical indication: Condition or disease; Other: Stroke TECHNIQUE: Imaging protocol: MR of the head without contrast. COMPARISON: CT Head without contrast 04/26/2021 9:47 AM FINDINGS: Brain: There is a small focus of diffusion hyperintensity associated with the left posterior frontal cortex, with hyperintensity on FLAIR. This is new compared to the previous exam. No significant hypointensity on the ADC trace sequence is visualized in this region. This is concerning for a subacute infarct. This is visualized on series 304 frames 24 and 25. Mild FLAIR hyperintense gliosis is identified involving the medial right parietal lobe, which is a chronic finding compared to the previous exam. Small chronic infarcts within the bilateral cerebellar lobes. Magnetic susceptibility probable mineralization involving the bilateral basal ganglia. There are scattered foci of FLAIR hyperintensity within the cerebral white matter, with mild periventricular gliosis. There is no mass effect or restricted diffusion associated with these foci. In a patient this age, this likely represents chronic small vessel ischemic disease. There is mild prominence of sulci, compatible with atrophy. Multiple ovoid foci of T2 hyperintensity are identified posterior to the cerebellar lobes and involving the occipital skull. Arachnoid granulations are suggested. A small T2 hyperintense chronic lacunar infarct is visualized within the right thalamus. Additional foci of T2 hyperintensity are seen within the bilateral basal ganglia, likely representing dilated perivascular spaces and/or chronic ischemic changes. Cerebral ventricles: Mild age-appropriate prominence of the ventricles. Bones/joints: Hyperostosis frontalis interna. Paranasal sinuses: Minimal mucosal thickening of scattered ethmoid air cells. Mastoid air cells: No mastoid effusion. Orbital cavity: A right orbital lens implant is identified. Soft tissues: Unremarkable, as visualized. IMPRESSION: 1. There is a small focus of diffusion hyperintensity associated with the left posterior frontal cortex. This is new compared to the previous exam and concerning for a subacute infarct. 2. Mild gliosis is identified involving the medial right parietal lobe, which is a chronic finding compared to the previous exam. Small chronic infarcts within the bilateral cerebellar lobes. Additional chronic ischemic changes noted above. 3. Mild white matter disease, likely representing chronic small vessel ischemic disease. 4. Mild atrophy. 5. Multiple ovoid foci of T2 hyperintensity are identified posterior to the cerebellar lobes and involving the occipital skull. Arachnoid granulations are suggested. 6. Additional findings described above. Electronically signed by: Navid Mccloud On 04/28/2021 03:39:14 AM
[2021-04-28 06:00] VITALS: BP 158/83
[2021-04-28 06:30] LABS: HEMATOCRIT 36.8 % (36.0-47.0); HEMOGLOBIN 12.7 g/dl (12.0-15.5); MEAN CORPUSCULAR HEMOGLOBIN 33.4 pg (27.0-33.0); MEAN CORPUSCULAR HGB CONC 34.5 g/dl (32.0-36.5); MEAN CORPUSCULAR VOLUME 96.8 fl (80.0-96.0); PLATELET COUNT, AUTOMATED 195 10^3/uL (150-450); WHITE BLOOD COUNT 7.5 10^3/uL (4.0-10.0)
[2021-04-28 06:54] LABS: BLOOD UREA NITROGEN 11 MG/DL (7-18); CALCIUM LEVEL 8.6 MG/DL (8.8-10.2); CARBON DIOXIDE LEVEL 29 MEQ/L (21-32); CHLORIDE LEVEL 108 MEQ/L (98-107); CREATININE FOR GFR 0.74 MG/DL (0.55-1.30); GLOMERULAR FILTRATION RATE > 60.0 (>32); GLUCOSE, FASTING 89 MG/DL (70-100); PHOSPHORUS LEVEL 3.1 MG/DL (2.5-4.9); POTASSIUM SERUM 3.2 MEQ/L (3.5-5.1); SODIUM LEVEL 143 MEQ/L (136-145)
[2021-04-28] MEDS: APIXABAN 5 MG TAB (ELIQUIS) PO SCH ×2 (08:55→20:21)
[2021-04-28] MEDS: PANTOPRAZOLE 40MG TAB (PROTONIX) PO SCH (08:55)
[2021-04-28] MEDS: ASPIRIN 81MG ENTERIC TABLET PO SCH (08:55)
[2021-04-28] MEDS: POLYVINYL ALCOHOL OPHTH SOLN 15 ML(LIQUITEARS) OU SCH ×4 (08:56→20:20)
[2021-04-28] MEDS: FUROSEMIDE 20 MG TAB PO SCH (08:56)
[2021-04-28] MEDS: LORATADINE 10 MG TAB PO SCH (08:56)
[2021-04-28 08:57] VITALS: BP 140/78
[2021-04-28] MEDS: atenoloL 25 MG TAB PO SCH (08:57)
[2021-04-28] MEDS: diphenhydrAMINE 25MG CAP PO PRN ×2 (09:01→20:20)
[2021-04-28] MEDS: ACETAMINOPHEN TAB 650MG DOSE (2X325MG) PO PRN (09:01)
[2021-04-28 14:00] VITALS: BP 161/76
[2021-04-28] MEDS: LORazepam 0.5 MG TAB PO PRN (14:30)
--- NOTE | 2021-04-28 14:44 | IPNPDOC ---
Subjective Date Seen The patient was seen on 04/28/21. Subjective Chief Complaint/HPI Patient was seen and examined at bedside this morning. She reports that there is some improvement in her acute on chronic left lower extremity weakness. She denied headaches, blurry vision, chest pain, palpitations, shortness of breath, problems with urination and bowel movements. Objective Physical Examination Heart Exam: Positive: Irregular Rhythm Psych Exam: Positive: Oriented x 3 Other physical findings General: Lying in bed, no acute distress Head/Neck/Throat: Trachea midline, mucous membranes moist Eyes: Sclera anicteric, no erythema or discharge appreciate bilateral Thorax: Normal respiratory effort on room air, lungs clear to auscultation bilaterally, no wheezes/rales/rhonchi Cardiovascular: Normal rate, regular rhythm, normal S1, S2; no S3, S4, rubs/gallops/murmurs Abdomen: Bowel sounds present, soft/nontender/nondistended Genitourinary: No CVA tenderness, no Blas in place Musculoskeletal: Moving all extremities, no edema Skin: Warm, dry Neurologic: Awake, alert, oriented x3. He reports. Blindness in left eye, and mainly in the right eye. Otherwise cranial nerves II to XII are intact. Strength in the right upper and lower extremity is 5/5. Strength in the left upper and lower extremities 4/5 today, she was able to lift it off the examination bed. Reflexes 2+. Sensation to gross touch intact. Assessment /Plan Assessment #CVA -Concerns for worsening cognition as well as left-sided weakness. MRI noted subacute infarct in the left posterior frontal cortex. -CT angiography of the neck showed no significant stenosis. CT angiography of the head noted a prominent pericallosal artery branch arising from the proximal left A2 segment. There was severe focal stenosis or near occlusion of this artery as it passes around the genu of the corpus callosum, which was unchanged from prior studies. -Echocardiogram findings reviewed. -Continue with aspirin and statin therapy. #Atrial fibrillation -This is new diagnosis and possibly contributing to her stroke. She is on ateno lol with acceptable heart rate. Continue with Eliquis for systemic anticoagulation. #Hypertension -Continue with ambulatory antihypertensives #Hyperlipidemia -Continue with statin therapy #Metabolic encephalopathy -This had resolved, possibly secondary to hypertensive episode #DVT prophylaxis -Offered by apixaban Plan/VTE VTE Prophylaxis Ordered?: Yes VS, I&O, 24H, Fishbone Vital Signs/I&O Vital Signs Date Time Temp Pulse Resp B/P (MAP) Pulse Ox O2 Delivery O2 Flow Rate FiO2 04/28/21 08:57 88 140/78 04/28/21 06:00 98.5 18 96 Room Air I&O- Last 24 Hours up to 6 AM 04/28/21 06:00 Intake Total 298 ml Output Total 1100 ml Balance -802 ml Laboratory Data 24H LABS Laboratory Tests 2 04/28/21 06:08: Nucleated Red Blood Cells % (auto) 0.0, Anion Gap 6L, Glomerular Filtration Rate > 60.0, Calcium Level 8.6L, Phosphorus Level 3.1, Magnesium Level 2.0 CBC/BMP Laboratory Tests 04/28/21 06:08 Microbiology Microbiology 04/26/21 Blood Culture - Preliminary, Resulted No Growth after 48 hours. All Specime... 04/26/21 Blood Culture - Preliminary, Resulted No Growth after 48 hours. All Specime... MATT ANDUJAR M.D. Apr 28, 2021 14:29
[2021-04-28] MEDS: ATORVASTATIN 20 MG TAB PO SCH (20:20)
[2021-04-28] MEDS: SERTRALINE HCL 25 MG TABLET PO SCH (20:20)
[2021-04-28] MEDS: MIRTAZAPINE 15 MG TAB PO SCH (20:21)
[2021-04-28 22:00] VITALS: BP 146/69
[2021-04-29 06:00] VITALS: BP 147/68
[2021-04-29] MEDS ORDERED: POTASSIUM CHLORIDE 10MEQ SR TABLET PO ONE ×2 (07:20→08:20)
[2021-04-29] MEDS ORDERED: ELIQ5TAB PO (07:24)
--- NOTE | 2021-04-29 07:30 | CR ---
CONSULTATION DATE: 04/28/2021 REFERRING PHYSICIAN: Randy Jung MD REASON FOR CONSULTATION: Stroke and altered mental status. 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 as she was having memory problems. The patient states that she woke up Monday morning and felt disoriented and forgot how to eat a meal. She felt a pressure in her head in the frontal head region. She felt her left arm was weak. In the emergency department, her blood pressure was noted to be 199/82. CT scan of head was unremarkable for stroke. CTA of head and neck showed stenosis of left pericallosal artery. CTA of neck was unremarkable. The patient was found to have atrial fibrillation in the emergency department on her 12-lead EKG. Her MRI scan of brain yesterday showed a small acute left frontal lacunar ischemic stroke. Patient now feels back to her baseline. She denies any dysphagia, dysarthria, diplopia, falls, loss of consciousness, headaches, neck or back pain. PAST MEDICAL HISTORY: As described above. HOME MEDICATIONS: 1. Aspirin 81 mg p.o. daily. 2. Plavix 75 mg p.o. daily which has been discontinued and patient is now on Eliquis 5 mg p.o. b.i.d. 3. Atenolol 25 mg p.o. daily. 4. Atorvastatin 40 mg p.o. daily. 5. Lasix 20 mg p.o. daily. 6. Claritin 10 mg p.o. daily. 7. Melatonin 3 mg p.o. q.h.s. 8. Mirtazapine 15 mg p.o. q.h.s. 9. Protonix 40 mg p.o. daily. 10. Senna one tablet p.o. daily. 11. Milk of Magnesia as needed. 12. Tylenol as needed. ALLERGIES: MORPHINE. REVIEW OF SYSTEMS: All systems were reviewed and found to be noncontributory except as mentioned in the history of present illness. SOCIAL HISTORY: She lives at [facility]. She denies smoking, alcohol or illicit drug use. FAMILY HISTORY: Unremarkable and noncontributory. PHYSICAL EXAMINATION: VITAL SIGNS: Blood pressure 153/70, pulse 67, 91% saturation on room air. HEART: Regular rate and rhythm. LUNGS: Clear to auscultation. ABDOMEN: Soft, nontender, nondistended. EXTREMITIES: No pedal edema. MUSCULOSKELETAL: No abnormalities. SKIN: No rash. NEUROLOGICAL: No signs of meningeal irritation. The patient is awake, alert, oriented to place, person and time. Normal speech, comprehension and repetition. Extraocular muscles are intact. No facial weakness. Tongue and uvula are midline. 5/5 strength in right arm and leg. Left-sided strength is 5-/5 and it is a chronic finding from prior stroke. No dysmetria. Sensory and cerebellar testing is normal, both sides. LABORATORY DATA: CBC and metabolic profile were unremarkable. Creatinine was 0.6. Urine toxicology screen was unremarkable. lnfluenza, RSV and COVID testing was negative. ASSESSMENT: 1. Small acute left frontal lacunar ischemic stroke, likely embolic. 2. History of left hemiparesis from prior right-sided ischemic stroke. 3. New onset atrial fibrillation, likely paroxysmal. 4. Hypertension and dyslipidemia. PLAN: 1. Discontinue Plavix and start Eliquis 5 mg p.o. b.i.d. 2. Continue aspirin 81 mg p.o. daily and Lipitor 40 mg p.o. daily. 3. Physical and occupational therapy. 4. Follow up with Dr. Manzanares on an outpatient basis as planned.
[2021-04-29 07:36] LABS: HEMATOCRIT 36.8 % (36.0-47.0); HEMOGLOBIN 12.8 g/dl (12.0-15.5); MEAN CORPUSCULAR HEMOGLOBIN 33.6 pg (27.0-33.0); MEAN CORPUSCULAR HGB CONC 34.8 g/dl (32.0-36.5); MEAN CORPUSCULAR VOLUME 96.6 fl (80.0-96.0); PLATELET COUNT, AUTOMATED 206 10^3/uL (150-450); RED BLOOD COUNT 3.81 10^6/uL (4.00-5.40); WHITE BLOOD COUNT 8.3 10^3/uL (4.0-10.0)
[2021-04-29 07:48] LABS: BLOOD UREA NITROGEN 12 MG/DL (7-18); CALCIUM LEVEL 8.8 MG/DL (8.8-10.2); CARBON DIOXIDE LEVEL 29 MEQ/L (21-32); CHLORIDE LEVEL 107 MEQ/L (98-107); CREATININE FOR GFR 0.74 MG/DL (0.55-1.30); GLOMERULAR FILTRATION RATE > 60.0 (>32); GLUCOSE, FASTING 89 MG/DL (70-100); MAGNESIUM LEVEL 2.1 MG/DL (1.8-2.4); PHOSPHORUS LEVEL 3.2 MG/DL (2.5-4.9); POTASSIUM SERUM 3.5 MEQ/L (3.5-5.1); SODIUM LEVEL 143 MEQ/L (136-145)
[2021-04-29] MEDS: atenoloL 25 MG TAB PO SCH (07:52)
[2021-04-29] MEDS: APIXABAN 5 MG TAB (ELIQUIS) PO SCH (07:52)
[2021-04-29] MEDS: FUROSEMIDE 20 MG TAB PO SCH (07:52)
[2021-04-29] MEDS: POLYVINYL ALCOHOL OPHTH SOLN 15 ML(LIQUITEARS) OU SCH (07:52)
[2021-04-29] MEDS: PANTOPRAZOLE 40MG TAB (PROTONIX) PO SCH (07:52)
[2021-04-29] MEDS: LORATADINE 10 MG TAB PO SCH (07:52)
[2021-04-29] MEDS: ASPIRIN 81MG ENTERIC TABLET PO SCH (07:52)
--- NOTE | 2021-04-29 17:03 | DS.PDOC ---
Discharge Summary General Date of Admission Apr 26, 2021 at 11:22 Date of Discharge 04/29/21 Discharge Summary DISCHARGE DIAGNOSES: 1. CVA 2. New onset A.fib COMPLICATIONS/CHIEF COMPLAINT: TIA. HOSPITAL COURSE: Ms. 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 an MRI of the brain noted a small focus of diffusion hyperintensity associated with the left posterior frontal cortex. This is new compared to the previous exam and concerning for a subacute infarct; in addition to other chronic findings. She was evaluated by the neurology team and it was recommended for her to continue taking aspirin. She was also noted to have new onset atrial fibrillation and her heart rate was controlled with her ambulatory atenolol. She was started on systemic anticoagulation with Eliquis. She was on aspirin and Plavix at home, and in order to decrease bleeding risk her Plavix was discontinued. She will be going home on aspirin and Eliquis only. Neurology was in agreement with this plan. Patient was also in agreement was plan. She is willing to accept the risks of being on Eliquis. Of note, an echocardiogram was done, however there is no mentioning of PFO. She is encouraged to have a repeat echocardiogram done with the neurology team as an outpatient. Patient worked with physical therapy as well as occupational therapy and was cleared. Patient was encouraged to obtain records of her imaging for appropriate follow- up of acute as well as chronic findings. Patient asked to follow-up with her primary care physician as well as neurology within 5 to 7 days. DISCHARGE MEDICATIONS: Please see below. ALLERGIES: Please see below. PHYSICAL EXAMINATION ON DISCHARGE: VITAL SIGNS: Please see below. General: Lying in bed, no acute distress Head/Neck/Throat: Trachea midline, mucous membranes moist Eyes: Sclera anicteric, no erythema or discharge appreciate bilateral Thorax: Normal respiratory effort on room air, lungs clear to auscultation bilaterally, no wheezes/rales/rhonchi Cardiovascular: Normal rate, regular rhythm, normal S1, S2; dorsalis pedis and radial pulses 2+ Abdomen: Bowel sounds present, soft/nontender/nondistended Genitourinary: No CVA tenderness, no Blas in place Musculoskeletal: Moving all extremities, no edema Skin: Warm, dry Neurologic: Awake, alert, oriented x3. He reports. Blindness in left eye, and severely decreased vision in the right eye. Otherwise cranial nerves II to XII are intact. Strength in the right upper and lower extremity is 5/5. Strength in the left upper and lower extremities 4/5 today, she was able to lift it off the examination bed. Reflexes 2+. Sensation to gross touch intact. LABORATORY DATA: Please see below. IMAGING: PORTABLE CHEST X-RAY FINDINGS: The mediastinum and cardiac silhouette are stable and within normal limits for portable technique. The lung casey demonstrate chronic appearing changes wit hout focal consolidation, effusion, or pneumothorax. Skeletal structures demonstrate stable osteopenia and degenerative changes. IMPRESSION: No acute cardiopulmonary process appreciated. CT ANGIO HEAD FINDINGS: ANTERIOR CIRCULATION: Right internal carotid artery: Unremarkable. Intracranial segment is patent with no significant stenosis. No aneurysm. Right middle cerebral artery: Unremarkable. No occlusion or significant stenosis. No aneurysm. Right anterior cerebral artery: Hypoplastic right A1 segment. Right A2 segment is unremarkable. Left internal carotid artery: Unremarkable. Intracranial segment is patent with no significant stenosis. No aneurysm. Left middle cerebral artery: Unremarkable. No occlusion or significant stenosis. No aneurysm. Left anterior cerebral artery: Left A1 and A2 segments are unremarkable. Again identified is a prominent Alee colossal artery branch arising from the proximal left A2 segment. 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 as it passes around the genu of the corpus callosum, unchanged from prior study. POSTERIOR CIRCULATION: Right vertebral artery: Unremarkable. No occlusion or significant stenosis. No aneurysm. Left vertebral artery: Dominant left vertebral artery. Basilar artery: Unremarkable. No occlusion or significant stenosis. No aneurysm. Right posterior cerebral artery: Unremarkable. No occlusion or significant stenosis. No aneurysm. Left posterior cerebral artery: Unremarkable. No occlusion or significant stenosis. No aneurysm. Brain: No definite mass, mass effect, or midline shift. Small old infarcts in left cerebellum. Cerebral ventricles: Ventricles and sulci are prominent representing mild volume loss. Bones/joints: Unremarkable. No acute fracture. Soft tissues: Unremarkable. IMPRESSION: Left A1 and A2 segments are unremarkable. Again identified is a prominent Alee colossal artery branch arising from the proximal left A2 segment. 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 as it passes around the genu of the corpus callosum, unchanged from prior study. Hypoplastic right A1 segment. Right A2 segment is unremarkable. CT ANGIO NECK FINDINGS: Right common carotid artery: No stenosis. No dissection or occlusion. Right internal carotid artery: See "Left internal carotid artery" finding. Right external carotid artery: No occlusion or stenosis of the origin. Left common carotid artery: No stenosis. No dissection or occlusion. Left internal carotid artery: Mild atherosclerosis of the left carotid bulb and proximal left internal carotid artery without any hemodynamically significant stenosis . Distal artery is tortuous. Mild atherosclerosis of the left carotid bulb and proximal left internal carotid artery without any hemodynamically significant stenosis . Distal artery is tortuous. Left external carotid artery: No occlusion or stenosis of the origin. Right vertebral artery: No stenosis. No dissection or occlusion. Left vertebral artery:Dominant. No stenosis. No dissection or occlusion. Soft tissues: Normal. No significant soft tissue swelling. Bones/joints: No acute fracture. Lungs: Diffuse ground-glass airspace opacities with septal thickening of the lungs likely edema. IMPRESSION: No hemodynamically significant stenosis, occlusion, or dissection. REFERENCES: NASCET CRITERIA. The degree of internal carotid artery stenosis is based on NASCET criteria. Normal is no stenosis. Mild is less than 50% stenosis. Moderate is 50-69% stenosis. Severe is 70% to 99% stenosis. Total occlusion is no detectable patent lumen. CT Head without contrast FINDINGS: Atrophy with periventricular leukomalacia and microvascular ischemic changes are appreciated. The ventricles and sulci are symmetric. Magana-white differentiation is maintained. There is no evidence for acute intracranial hemorrhage, mass/mass effect, pathology or infarction. No extra-axial fluid collection. Calvarium is intact. Paranasal sinuses and mastoid air cells are clear. IMPRESSION: Atrophy and microvascular ischemic changes. No acute intracranial hemorrhage, infarction, or mass/mass effect. MRI-Brain without Contrast FINDINGS: Brain: There is a small focus of diffusion hyperintensity associated with the left posterior frontal cortex, with hyperintensity on FLAIR. This is new compared to the previous exam. No significant hypointensity on the ADC trace sequence is visualized in this region. This is concerning for a subacute infarct. This is visualized on series 304 frames 24 and 25. Mild FLAIR hyperintense gliosis is identified involving the medial right parietal lobe, which is a chronic finding compared to the previous exam. Small chronic infarcts within the bilateral cerebellar lobes. Magnetic susceptibility probable mineralization involving the bilateral basal ganglia. There are scattered foci of FLAIR hyperintensity within the cerebral white matter, with mild periventricular gliosis. There is no mass effect or restricted diffusion associated with these foci. In a patient this age, this likely represents chronic small vessel ischemic disease. There is mild prominence of sulci, compatible with atrophy. Multiple ovoid foci of T2 hyperintensity are identified posterior to the cerebellar lobes and involving the occipital skull. Arachnoid granulations are suggested. A small T2 hyperintense chronic lacunar infarct is visualized within the right thalamus. Additional foci of T2 hyperintensity are seen within the bilateral basal ganglia, likely representing dilated perivascular spaces and/or chronic ischemic changes. Cerebral ventricles: Mild age-appropriate prominence of the ventricles. Bones/joints: Hyperostosis frontalis interna. Paranasal sinuses: Minimal mucosal thickening of scattered ethmoid air cells. Mastoid air cells: No mastoid effusion. Orbital cavity: A right orbital lens implant is identified. Soft tissues: Unremarkable, as visualized. IMPRESSION: 1. There is a small focus of diffusion hyperintensity associated with the left posterior frontal cortex. This is new compared to the previous exam and concerning for a subacute infarct. 2. Mild gliosis is identified involving the medial right parietal lobe, which is a chronic finding compared to the previous exam. Small chronic infarcts within the bilateral cerebellar lobes. Additional chronic ischemic changes noted above. 3. Mild white matter disease, likely representing chronic small vessel ischemic disease. 4. Mild atrophy. 5. Multiple ovoid foci of T2 hyperintensity are identified posterior to the cerebellar lobes and involving the occipital skull. Arachnoid granulations are suggested. 6. Additional findings described above. PROGNOSIS: Good ACTIVITY: As tolerated DIET: Regular DISPOSITION: O4 Xfer [facility] DISCHARGE INSTRUCTIONS: 1. Follow-up with primary care physician as well as neurologist within 5 to 7 days DISCHARGE CONDITION: Stable TIME SPENT ON DISCHARGE: 30 minutes. Vital Signs/I&Os Vital Signs Date Time Temp Pulse Resp B/P (MAP) Pulse Ox O2 Delivery O2 Flow Rate FiO2 04/29/21 06:00 98.1 69 18 147/68 (94) 92 Room Air I&O- Last 24 Hours up to 6 AM 04/29/21 06:00 Intake Total 2720 ml Output Total 1800 ml Balance 920 ml Laboratory Data Labs 24H Laboratory Tests 2 04/28/21 20:50: Coronavirus (COVID-19)(PCR) NEGATIVE 04/29/21 07:08: Nucleated Red Blood Cells % (auto) 0.0, Anion Gap 7L, Glomerular Filtration Rate > 60.0, Calcium Level 8.8, Phosphorus Level 3.2, Magnesium Level 2.1 CBC/BMP Laboratory Tests 04/29/21 07:08 Microbiology Microbiology 04/26/21 Blood Culture - Preliminary, Resulted No Growth after 72 hours. All specime... 04/26/21 Blood Culture - Preliminary, Resulted No Growth after 72 hours. All specime... Discharge Medications Scheduled Apixaban (Eliquis) 5 Mg Tablet, 5 MG PO BID Aspirin (Aspirin EC) 81 Mg Tablet.dr, 81 MG PO DAILY, (Reported) Atenolol (Atenolol) 25 Mg Tablet, 25 MG PO DAILY, (Reported) Atorvastatin Calcium (Atorvastatin Calcium) 40 Mg Tablet, 40 MG PO QHS, (Report ed) Docusate Sodium (Colace) 100 Mg Capsule, 100 MG PO DAILY, (Reported) Furosemide (Lasix) 20 Mg Tablet, 20 MG PO DAILY, (Reported) Loratadine (Loratadine) 10 Mg Tablet, 10 MG PO DAILY, (Reported) Melatonin (Melatonin) 10 Mg Capsule, 10 MG PO QHS, (Reported) Mirtazapine (Remeron) 15 Mg Tablet, 15 MG PO QHS, (Reported) Pantoprazole Sodium (Pantoprazole Sodium) 40 Mg Tablet.dr, 40 MG PO DAILY, (Reported) Polyvinyl Alcohol (Artificial Tears) 15 Ml Drops, 2 DROP OU QID, (Reported) Sennosides/Docusate Sodium (Senna Plus Tablet) 1 Each Tablet, 1 TAB PO DAILY, (Reported) Sertraline Hcl (Sertraline HCl) 25 Mg Tablet, 25 MG PO DAILY, (Reported) Scheduled PRN Acetaminophen (Acetaminophen) 325 Mg Tablet, 650 MG PO Q4H PRN for PAIN, (Reported) Clobetasol Propionate/Emoll (Clobetasol Emollient 0.05% Crm) 0.05% 15GM Cream..g., 1 APLCT TOP BID PRN for ITCHING, (Reported) WRIST Diclofenac Sodium (Voltaren Arthritis Pain) 1 % Gel..gram., 1 GM TP for PAIN LEVEL 1-4, (Reported) RIGHT KNEE Diphenhydramine HCl (Benadryl) 25 Mg Capsule, 25 MG PO BID PRN for ITCHING, ( Reported) Sodium Chloride (Saline Nasal Chester) 44 Ml [place], 1 SPRAY NARES QID PRN for NASAL DRYNESS, (Reported) 0800,1200,1600,1999 Allergies Coded Allergies: morphine (Verified Adverse Reaction, Mild, N/V, 09/29/20) MATT ANDUJAR M.D. Apr 29, 2021 17:03
== END 2021-04-29 08:02 | DRG 64 ==
LOC: M ED 08:50 → M MSPAV 11:22 → ENRESERV 12:35 → M MSPAV 14:30
PROVIDERS: ADMIT Internal Medicine; ATTEND Internal Medicine
DX: I63.9 Cerebral infarction, unspecified (principal); G93.41 Metabolic encephalopathy; I69.354 Hemiplegia and hemiparesis following cerebral infarction affecting left non-dominant side; I10 Essential (primary) hypertension; I48.0 Paroxysmal atrial fibrillation; H35.30 Unspecified macular degeneration; F41.9 Anxiety disorder, unspecified; F32.9 Major depressive disorder, single episode, unspecified; Z79.82 Long term (current) use of aspirin; Z79.899 Other long term (current) drug therapy; Z88.5 Allergy status to narcotic agent; H54.40 Blindness, one eye, unspecified eye; Z96.651 Presence of right artificial knee joint; E78.5 Hyperlipidemia, unspecified; Z79.01 Long term (current) use of anticoagulants

== ENCOUNTER 2021-05-16 09:40 | Inpatient (IN) | payer MEDICARE, BC, MEDICAID ==
[~2021-05-16] VITALS: Ht 157.5 cm; Wt 74.0 kg
[~2021-05-16 09:40] MED LIST changes: +BENA25CA4 PO; +CLOB0.0548 TOP; +DICL20GE TP; +ELIQ5TAB PO; +FUROSEMIDE 20 MG TAB PO SCH; +HM S0.65 NARES; +MELA10CA2 PO; +SERT25TA85 PO
--- NOTE | 2021-05-16 10:25 | REP ---
INDICATION: AMS. COMPARISON: 09/29/2020 TECHNIQUE: 5 mm contiguous transaxial sections were obtained from the skull base to the cerebral convexities with thin cuts through the posterior fossa without the administration of intravenous contrast. FINDINGS: The ventricles and sulci are unchanged. A deep cerebral white matter is unchanged. No acute intracranial hemorrhagic or non hemorrhagic event has developed. There is deep white matter ischemic change status quo. There are no extra-axial fluid collections. There is no shift of the midline structures. Multiple unchanged lucencies are seen in the occipital bone status quo. The paranasal sinuses and mastoid air cells are unchanged. IMPRESSION: Stable appearing chronic changes <Electronically signed by Randy Pedraza > 05/16/21 1021
[2021-05-16] MEDS ORDERED: ELIQ5TAB PO (11:01)
[2021-05-16] MEDS ORDERED: TGTSUS2 PO (11:01)
[2021-05-16] MEDS ORDERED: POLYOPD OU (11:01)
[2021-05-16] MEDS ORDERED: BUSP5TA PO (11:01)
--- OUTSIDE RECORDS SUMMARY | 2021-05-16 11:11 | CCD | Continuity of Care Document ---
Author Author Yodit TYLER PA Organization Unknown Address [address] [place] [address] Phone [phone] Care Team Providers Care [employer] Spanish [employer] Name Role Phone Jose Buck MD AUTM [phone] Bob Faulkner MD AUTM [phone] Mansoor Rosado MD AUTM [phone] [facility] - Radiology AUTM Unavailable [facility]M [phone] [facility] AUTM [phone] [facility] AUTM [phone] [facility] AUTM [phone] Problems Active Problems Provider Date Anxiety Onset: 03/11/2011 Hyperlipidemia Onset: 11/30/2010 Osteoarthritis Onset: 07/21/2010 Mixed hyperlipidemia Onset: 04/10/2010 Benign essential hypertension Onset: 09/2009 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 Onset: 5 Essential hypertension Jose Buck M.D. Onset: 5 Edema Jose Buck M.D. 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 Onset: 10/28/2015 Social History Type Date Description Comments Sex Unknown Tobacco Use Start: Unknown End: Unknown Patient is a former smoker smoked age 19 - 25, none since. Allergies, Adverse Reactions, Alerts Active Allergies Criticality Reaction | Severity Comments Date Morphine Unable to assess criticality Moderate, nausea and vomi ting 10/03/2008 Medications Active Medications SIG Qnty Indications Ordering Provide r Date Sertraline HCL 25mg Tablets 1 by mouth every day at night 30tabs MACARENA Cavazos JR 03/18 Clobetasol Propionate E 0.05% Crea m apply to affected area twice a day 120gm MACARENA Mayfield 03/25/2021 Benadryl Allergy 25mg Capsules take one by mouth twice a day am and at bedtime 8:00am and 8:00pm 60caps MACARENA Cavazos JR 03/25/2021 Acetaminophen 160mg/5ML Solution 20ml q4 hours prn 500ml Jose Buck M.D. 03/16/2021 Melatonin 10mg Tablets 1 every night at bedtime 90tabs Jose Buck M.D. 03/05/2021 Diclofenac Sodium 1% Gel apply 1 gram to right knee as directed 200units Jose Buck M.D. 08/2020 Artificial Tears 1.4% Solution 2 drop into both eyes qid 30ml Jose Buck M.D. 01/19/2021 Acetaminophen 160mg/5ML Solution 20ml [id number] scheduled 500ml Jose Buck M.D. 12/10/[address] 1 by mouth every morning 30tabs Jose Buck M.D. 08/19/2020 Saline Mist Butler 0.65% Solution 3-4x/d prn 44ml Jose Buck M.D. 08/19/2020 Milk Of Magnesia 1200mg/15ML Suspe nsion 30ml every day by mouth as needed constipation 355ml Daniel Buck M.D. 08/19/2020 Plavix 75mg Tablets 1 by mouth every day 30tabs Jose Buck M.D. 08/19/2020 Aspirin Enteric Coated Adult Low Strengt h 81mg Tablets DR 1 every day 30tabs Jose Buck M.D. 08/19 Loratadine 10mg Capsules 1 by mouth once a day 30caps Jose Buck M.D. 08/19/2020 Atenolol 25mg Tablets 1 by mouth every day 90tabs Jose F. White, M.D. 08/19/2020 Lipitor 40mg Tablets 1 by mouth every day 30tajacquelin Buck M.D. 08/19/2020 Colace 100mg Capsules 1 by mouth twice a day 60angy Buck M.D. 08/19/2020 Senna Plus 8.6-50mg Tablets 1 by mouth every day 30tajacquelin Buck M.D. 08/18/2020 Tylenol PM Extra Strength 500-25mg Tablets 1-2 by mouth every night at bedtime as needed Isaiah Tyler JR, MACARENA 01/02/2020 Carpal Tunnel Wrist Stabilizer/Large/X-L arge Misc please disp bilateral carpal tunnel spli nts, to wear each night. (disp appropriate size) 1Pair G56.01 Jose Bcuk M.D. 5 G56.02 Multi For Her 50+ Capsules 1 by mouth every day 30angy Buck M.D. 12/15/2014 Lasix 20mg Tablets 1 b y mouth every day 90jeanette Buck M.D. 06/18/2014 Mirtazapine 15mg Tablets take one tablet by mouth at bedtime 30jeanette Buck M.D. 0 000 History Medications Artificial Tears 0.2-0.2-1% Soluti on 1 drop both eyes at bedtime 15ml Jose Buck M.D. 0 01/15/2021 - 01/19/2021 Medications Administered in Office Medication SIG Qnty Indications Ordering Provider Date Covid-19 vaccine, Unspecified Inj ection Unknown 09/02/2020 Immunizations CPT Code Status Date Vaccine Lot # 61860 Given 04/14/2021 Influenza Vaccin e Quadrivalent Preser/Antibiotic Free Im Use 280755 U-Flu Given 06/04/2019 Influenza,Unspecified U-Flu Given 04/24/2018 Influenza,Unspecified 29351 Given 12/14/2010 Pneumovax 23 01448 Given 09/24/2010 Pneumovax 23 20386 Refused 06/18/2014 Influenza Virus Vaccine 20252 Refused 12/04/2013 Zoster Vaccine 18436 Refused 12/04/2013 Adacel- Tetanus Diphtheria P ertussis 54902 Refused 03/11/2013 Influenza Virus Vaccine 65431 Refused 12/05/2011 Influenza Virus Vaccine 40805 Refused 04/16/2010 Influenza Virus Vaccine Vital Signs Date Vital Result Comment 04/14/2021 1:27pm BP Systolic 122 mmHg BP Diastolic 78 mmHg Height 62 inches 5'2" Weight 167.00 lb BMI (Body Mass Index) 30.5 kg/m2 03/25/2021 9:18am BP Systolic 116 mmHg BP Diastolic 68 mmHg Heart Rate 83 /min Height 62 inches 5'2" Weight 164.00 lb O2 % BldC Oximetry 96 % BMI (Body Mass Index) 30.0 kg/m2 Results Description No Information Available Procedures Date Code Description Status 03/25/2021 13066 Office/Outpatient Established Mo d MDM 30-39 Min Completed 01/27/2021 45743 Office/Outpatient Established Mo d MDM 30-39 Min Completed 12/21/2020 88238 Office/Outpatient Established Mo d MDM 30-39 Min Completed 10/14/2020 20459 Trans Care SRV W/I 14D Of DC, Co mm W/I 2 Dys Med Rec Completed Medical Devices Description No Information Available Encounters Type Date Location Provider Dx Diagnosis Office Visit 03/25/2021 9:20a [facility] Acosta JR G45.9 Transient cerebral ischemic attack, unspecified 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, as defined in [place] 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 F41.9 Anxiety disorder, unspecifie d E78.5 Hyperlipidemia, unspecified R42 Dizziness and giddiness R60.9 Edema, unspecified Assessments Date Code Description Provider 04/14/2021 F32.9 Major depressive disorder, singl e episode, unspecified Isaiah Tyler JR, MACARENA 04/14/2021 F41.9 Anxiety disorder, unspecified Ro wolfgang Tyler JR, PA 04/14/2021 I10 Essential (primary) hypertension Isaiah Tyler JR, MACARENA 04/14/2021 R21 Rash and other nonspecific skin eruption Isaiah Tyler JR, MACARENA 04/14/2021 G45.9 Transient cerebral ischemic shonda ck, unspecified Isaiah Tyler JR, MACARENA 04/14/2021 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, as defined in [facility] MACARENA Cavazos JR 03/25/2021 G45.9 Transient cerebral ischemic shonda ck, unspecified MACARENA Cavazos JR 03/25/2021 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, as defined [place] MACARENA Cavazos JR 03/25/2021 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 MACARENA Cavazos JR 03/25/2021 R21 Rash and other nonspecific skin eruption Isaiah Tyler JR, MACARENA 03/25/2021 I10 Essential (primary) hypertension MACARENA Cavazos JR 03/25/2021 F41.9 Anxiety disorder, unspecified Ro wolfgang Tyler JR PA 01/27/2021 I10 Essential (primary) hypertension Isaiah Tyler JR, PA 01/27/2021 E78.5 Hyperlipidemia, unspecified Robe Daniel Tyler JR, PA 01/27/2021 G45.9 Transient cerebral ischemic shonda ck, unspecified Isaiah Tyler JR, PA 01/27/2021 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, as defined in [facility] Isaiah Daniel Ninoskastephanie , PA 01/27/2021 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 12/21/2020 I10 Essential (primary) hypertension Jose Buck M.D. 12/21/2020 G45.9 Transient cerebral ischemic shonda ck, unspecified Jose Buck M.D. 12/21/2020 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, as defined in [facility] Jose Buck M.D. 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 12/21/2020 F41.9 Anxiety disorder, unspecified José Manuel Buck M.D. 12/21/2020 R60.9 Edema, unspecified Jose camarillo M.D. 12/21/2020 G47.00 Insomnia, unspecified Jose phelan M.D. 10/14/2020 G45.9 Transient cerebral ischemic shonda ck, unspecified Jose Buck M.D. 10/14/2020 I10 Essential (primary) hypertension Jose Buck M.D. 10/14/2020 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, as defined in [facility] Jose Buck M.D. 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 10/14/2020 F41.9 Anxiety disorder, unspecified José Manuel Buck M.D. 10/14/2020 E78.5 Hyperlipidemia, unspecified Loan Buck M.D. 10/14/2020 R42 Dizziness and giddiness Jose Buck M.D. 10/14/2020 R60.9 Edema, unspecified Jose camarillo M.D. Plan of Treatment Future Appointment(s):* 08/02/2021 11:00 am - MACARENA Cavazos JR at [facility] * 05/20/2021 10:40 am - [facility] * 05/20/2021 11:00 am - Jose [facility] 04/14/2021 - MACARENA Cavazos JR* F32.9 Major depressive disorder, single episode, unspecified * F41.9 Anxiety disorder, unspecified * I10 Essential (primary) hypertension * R21 Rash and other nonspecific skin eruption * G45.9 Transient cerebral ischemic attack, unspecified * 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, as defined in [place] * All * New Medication:* Sertraline HCL 25 mg - 1 by mouth every day at night Functional Status Description No Information Available Mental Status Description No Information Available Referrals Refer to Dr Reason for Referral Status Appt Date Ruthann Manzanares MD CONSULT FOR CVA CALL ADWOA VELIZ TO SCHEDULE APPT [phone] Scheduled 11/16/2020 [facility] Neu[facility] [address] [place] [address] [phone]
--- OUTSIDE RECORDS SUMMARY | 2021-05-16 11:11 | CCD | Continuity of Care Document ---
Author Author Yodit GERARDO M.D. Organization Unknown Address [address] [place] [address] Phone [phone] Care Team Providers Care Overlay Operator Name Role Phone Jose Buck M.D. AUTM [phone] Problems Active Problems Provider Date Ischemic stroke Ruthann Gerardo M.D. Onset: 11/16/2020 Social History Type Date Description Comments Sex Unknown Tobacco Use Start: Unknown End: Unknown Patient is a former smoker Allergies, Adverse Reactions, Alerts Active Allergies Criticality Reaction | Severity Comments Date Morphine Unable to assess criticality 11/16/2020 Medications Active Medications SIG Qnty Indications Ordering Provide r Date Aspirin Ec 81mg Tablets DR 1 by mouth every day Unknown Plavix 75mg Tablets 1 by mouth every day Unknown Immunizations Description No Information Available Vital Signs Date Vital Result Comment 03/01/2021 12:08pm Respiratory Rate 12 /min Height 62 inches 5'2" Weight 136.00 lb BMI (Body Mass Index) 24.9 kg/m2 [place] Body Weight 110 lb 11/16/2020 12:20pm Respiratory Rate 12 /min Height 62 inches 5'2" Weight 136.00 lb BMI (Body Mass Index) 24.9 kg/m2 [place] Body Weight 110 lb Results Description No Information Available Procedures Date Code Description Status 03/01/2021 08023 Office/Outpatient Established Mo d MDM 30-39 Min Completed 01/05/2021 95073 EEG Recording Awake & Asleep Com pleted 01/05/2021 15618 EEG Recording Awake & Asleep Com pleted 11/27/2020 25935 Sympathetic Skin Responses Compl eted 11/27/2020 15086 Test Autonomic Nervous System, C ardiovagal Innervation Completed 11/27/2020 16027 Artery Study Extremity Mult Leve ls Bilateral Completed 11/16/2020 06285 Office/Outpatient [place] [facility] 6 0-74 Minutes Completed Medical Devices Description No Information Available Encounters Type Date Location Provider Dx Diagnosis Office Visit 03/01/2021 11:45a [facility] Ruthann ornelas M.D. R41.82 Altered mental status, unspecified G45.9 Transient cerebral ischemic attack, unspecified Office Visit 11/16/2020 11:30a [facility] Ruthann ornelas M.D. I63.9 Cerebral infarction, unspecified R51.9 Headache, unspecified Assessments Date Code Description Provider 03/01/2021 R41.82 Altered mental status, unspecifi ed Ruthann Gerardo M.D. 03/01/2021 G45.9 Transient cerebral ischemic shonda ck, unspecified Ruthann Gerardo M.D. 01/05/2021 R41.82 Altered mental status, unspecifi ed Jaci Ho M.D. 01/05/2021 R41.82 Altered mental status, unspecifi ed EEG 11/27/2020 I95.1 Orthostatic hypotension Ruthann rutledge M.D. 11/27/2020 I95.1 Orthostatic hypotension Ans/VS 11/27/2020 G45.8 Other transient cere bral ischemic attacks and related syndromes Ruthann Gerardo M.D. 11/27/2020 G45.8 Other transient cere bral ischemic attacks and related syndromes Ans/VS 11/16/2020 I63.9 Cerebral infarction, unspecified Ruthann Gerardo M.D. 11/16/2020 R51.9 Headache, unspecified Ruthann pandya M.D. Plan of Treatment Future Appointment(s):* 06/08/2021 12:00 pm - Ruthann Gerardo M.D. at [facility] Functional Status Description No Information Available Mental Status Description No Information Available Referrals Description No Information Available
--- OUTSIDE RECORDS SUMMARY | 2021-05-16 11:11 | CCD | Continuity of Care Document ---
Author Author Yodit TYLER PA Organization Unknown Address [address] [place] [address] Phone [phone] Care Team Providers Care Director Nurses' Registry Name Role Phone Jose Buck MD AUTM [phone] Bob Faulkner MD AUTM [phone] Mansoor Rosado MD AUTM [phone] [facility] - Radiology AUTM Unavailable [facility] AUTM [phone] [facility] 2ND AUTM [phone] [facility] Shah[facility]ar AUTM [phone] [facility] 2[facility] Shah[facility]ar AUTM [phone] Problems Active Problems Provider Date Anxiety Onset: [...] SIG Qnty Indications Ordering Provide r Date Benadryl Allergy 25mg Capsules Take one by mouth QHS prn 90caps MACARENA Cavazos JR 021 Clobetasol Propionate E 0.05% Crea m apply to affected area twice a day 120gm MACARENA [place] 03/25/2021 Acetaminophen 160mg/5ML Solution 20ml q4 hours prn 500ml Jose Buck M.D. 03/16/2021 Melatonin 10mg Tablets 1 every night at bedtime 90tabs Jose Buck M.D. 03/05/2021 Diclofenac Sodium 1% Gel apply 1 gram to right knee as directed 200units Jose Buck M.D. 08/2020 Artificial Tears 1.4% Solution 2 drop into both eyes qid 30ml Jose Buck M.D. 01/19/2021 Acetaminophen 160mg/5ML Solution 20ml [id number] scheduled 500ml Jose Buck M.D. 12/10/19 [address] 1 by mouth every morning 30tajacquelin Buck M.D. 08/19/2020 Saline Mist [place] 0.65% Solution 3-4x/d prn 44ml Jose Buck M.D. 08/19/2020 Milk Of Magnesia 1200mg/15ML Suspe nsion 30ml every day by mouth as needed constipation 355ml Daniel Buck M.D. 08/19/2020 Plavix 75mg Tablets 1 by mouth every day 30tajacquelin Buck M.D. 08/19/2020 Aspirin Enteric Coated Adult Low Strengt h 81mg Tablets DR 1 every day 30tajacquelin Buck M.D. 08/19 Loratadine 10mg Capsules 1 by mouth once a day 30caps Jose Buck M.D. 08/19/2020 Atenolol 25mg Tablets 1 by mouth every day 90tabs Jose Buck M.D. 08/19/2020 Lipitor 40mg Tablets 1 by mouth every day 30tajacquelin Buck M.D. 08/19/2020 Colace 100mg Capsules 1 by mouth twice a day 60angy Buck M.D. 08/19/2020 Senna Plus 8.6-50mg Tablets 1 by mouth every day 30tajacquelin Buck M.D. 08/18/2020 Tylenol PM Extra Strength 500-25mg Tablets 1-2 by mouth every night at bedtime as needed MACARENA Cavazos JR 01/02/2020 Carpal Tunnel Wrist Stabilizer/Large/X-L arge Misc please disp bilateral carpal tunnel spli nts, to wear each night. (disp appropriate size) 1Pair G56.01 Jose Buck M.D. 5 G56.02 Multi For Her 50+ [...] CPT Code Status Date Vaccine Lot # U-Flu Given 06/04/2019 Influenza,Unspecified U-Flu Given 04/24/2018 Influenza,Unspecified 90298 Given 12/14/2010 Pneumovax 23 18547 Given 09/24/2010 Pneumovax 23 64228 Refused 06/18/2014 Influenza Virus Vaccine 24821 Refused 12/04/2013 Zoster Vaccine 41585 Refused 12/04/2013 Adacel- Tetanus Diphtheria P ertussis (Age64 & Under) 97673 Refused 03/11/2013 Influenza Virus Vaccine 14607 Refused 12/05/2011 Influenza Virus Vaccine 49295 Refused 04/16/2010 Influenza Virus Vaccine Vital Signs Date Vital Result Comment 03/25/2021 9:18am BP Systolic 116 mmHg BP Diastolic 68 mmHg Heart Rate 83 /min Height 62 inches 5'2" Weight 164.00 lb O2 % BldC Oximetry 96 % BMI (Body Mass Index) 30.0 kg/m2 01/27/2021 12:59pm BP Systolic 118 mmHg BP Diastolic 81 mmHg Heart Rate 75 /min Height 62 inches 5'2" Weight 158.00 lb BMI (Body Mass Index) 28.9 kg/m2 Results Test Acquired Date Facility Test Result H/L Range Note Ua W/ Reflex To Culture 09/29/[address] [address] [phone] Appearance, Urine RFX CLEAR Normal Clear Color, Urine RFX YELLOW Normal Yellow PH,Urine RFX 7.0 units Normal 5.0-9.0 Specific [place] Ur Auto RFX 1.005 Normal 1.002-1.035 Protein, Urine Auto RFX NEGATIVE mg/dL Normal Negative Glucose, Urine (Ua) Auto RFX NEGATIVE mg/dL Normal Negative Ketone, Urine Auto RFX NEGATIVE mg/dL Normal Negative Urobilinogen, Urine Auto RFX 0.2 mg/dL Normal 0.0-2.0 Bilirubin, Urine Auto RFX NEGATIVE Normal Negative Nitrite, Urine Auto RFX NEGATIVE Normal Negative Leukocyte Esterase Ur Auto RFX NEGATIVE Normal Negative Blood, Urine Blood RFX NEGATIVE Normal Negative WBC, Urine Auto RFX 0 /HPF Normal 0-3 RBC, Urine Auto RFX 0 /HPF Normal 0-3 Bacteria, Urine Auto RFX NEGATIVE Normal Negative Squam Epithelial Cell Ur Aurfx 0 /HPF Normal 0-6 Hyaline Cast, Urine Auto RFX 0 /LPF Normal 0-1 Influenza A&B RFX Giovana Naso 09/29/[address] [address] [phone] Influenza A Amplification NEGATIVE Normal Negati ve 1 Influenza B Amplification NEGATIVE Normal Negative 2 Laboratory test finding 09/29/[address] [address] [phone] RSV Dna Amplification NEGATIVE Normal Negative 3 Sars Covid-19 Amplification NEGATIVE Normal Negative 4 CBC With Differential 09/29/[address] [address] [phone] White Blood Count 7.0 10 Normal 4.0-10.0 Red Blood Count 4.12 10 Normal 4.00-5.40 Hemoglobin 13.4 g/dL Normal 12.0-15.5 Hematocrit 40.2 % Normal 36.0-47.0 Mean Corpuscular Volume 97.6 fl High 80.0-96.0 Mean Corpuscular Hemoglobin 32.5 pg Normal 27.0-33.0 Mean Corpuscular HGB Conc 33.3 g/dL Normal 32.0-36.5 Red Cell Distribution Width 12.2 % Normal 11.5-14.5 Platelet Count, Automated 173 10 Normal 150-450 Neutrophils % 63.8 % Normal 36.0-66.0 Lymph % 19.4 % Low 24.0-44.0 [place] % 11.5 % High 2.0-8.0 Eos % 4.4 % High 0.0-3.0 Baso % 0.6 % Normal 0.0-1.0 Immature Granulocyte % 0.3 % Normal 0-3.0 Nucleated Red Blood Cell % 0.0 % Normal 0-0 Neutrophils # 4.5 10 Normal 1.5-8.5 Lymph # 1.4 10 Low 1.5-5.0 [place] # 0.8 10 Normal 0.0-0.8 Eos # 0.3 10 Normal 0.0-0.5 Baso # 0.0 10 Normal 0.0-0.2 Prothrombin Time/Inr 09/29/2020 [facility] [address] [place] [address] [phone] Prothrombin Time 14.1 seconds High 12.5-14.3 Inr 1.07 Normal 5 Laboratory test finding 09/29/2020 [facility] [address] [place] [address] [phone] Partial Thromboplastin Time 26.2 seconds Normal 24 .2-38.5 Cardiac Marker Panel 09/29/2020 [facility] [address] [place] [address] [phone] CPK Creatine Phosphokinase 44 U/L Normal 26-19 2 CK-MB Value Mass 1.2 NG/ML Normal <3.6 MB/CK Relative Index 2.73 Normal < Or =4 6 Troponin I < 0.02 NG/ML Normal < 0.10 7 Liver Profile 09/29/2020 [facility] [address] [place] [address] [phone] Ast/Sgot 14 U/L Normal 7-37 Alt/SGPT 22 U/L Normal 12-78 Alkaline Phosphatase 73 U/L Normal 45-117 Bilirubin,Total 0.7 mg/dL Normal 0.2-1.0 Bilirubin,Direct 0.3 mg/dL High 0.0-0.2 Total Protein 6.5 GM/DL Normal 6.4-8.2 Albumin 3.5 GM/DL Normal 3.2-5.2 Albumin/Globulin Ratio 1.2 Normal 1.2-2.2 Basic Metabolic Profile 09/29/[address] [address] [phone] Glucose, Fasting 86 mg/dL Normal 70-100 Blood Urea Nitrogen 13 mg/dL Normal 7-18 Creatinine For GFR 0.60 mg/dL Normal 0.55-1.30 Glomerular Filtration Rate > 60.0 Normal >32 8 Sodium Level 141 mEq/L Normal 136-145 Potassium Serum 3.9 mEq/L Normal 3.5-5.1 Chloride Level 104 mEq/L Normal 98-107 Carbon Dioxide Level 31 mEq/L Normal 21-32 Anion Gap 6 mEq/L Low 8-16 Calcium Level 9.1 mg/dL Normal 8.8-10.2 Laboratory test finding 09/29/[address] [address] [phone] Magnesium Level 2.2 mg/dL Normal 1.8-2.4 1 Negative results do not prec lude influenza or RSV virus infection and should not be used as the sole basis for treatment or other patient management decisions. 2 Negative results do not prec lude influenza or RSV virus infection and should not be used as the sole basis for treatment or other patient management decisions. 3 Negative results do not prec lude influenza or RSV virus infection and should not be used as the sole basis for treatment or other patient management decisions. 4 A false negative result may occur if a specimen is improperly collected, transported or handled. False negative results may also occur if inadequate numbers of organisms are present in the specimen. As with any molecular test, mutations within the target regions of Xpert Xpress SARS-CoV-2 could affect primer and/or probe binding resulting in failure to detect the presence of virus. This test cannot rule out diseases caused by other bacterial or viral pathogens. DISCLAIMER: Testing was performed using the [employer] SARS-CoV-2 test. This test was developed and its performance characteristics determined by [employer]. This test has not been FDA cleared or approved. This test has been authorized by FDA under an Emergency Use Authorization (EUA). This test is only authorized for the duration of time the declaration that circumstances exist justifying the authorization of the emergency use of in vitro diagnostic tests for detection of SARS-CoV-2 virus and/or diagnosis of COVID-19 infection under section 564(b)(1) of the Act, 21 U.S.C. 360bbb-3(b)(1), unless the authorization is terminated or revoked sooner. 5 THERAPUTIC HUMAN INR VALUES INDICATIONS NORMAL RANGES PROPHYLAXIS/TREATMENT OF: VENOUS THROMBOSIS 2.0-3.0 PULMONARY EMBOLISM 2.0-3.0 PREVENTION OF SYSTEMIC EMBOLISM FROM: TISSUE HEART VALVES 2.0-3.0 ACUTE MYOCARDIAL INFARCTION 2.0-3.0 VALVULAR HEART DISEASE 2.0-3.0 ATRIAL FIBRILLATION 2.0-3.0 MECHANICAL VALVES(HIGH RISK) 2.5-3.5 RECURRENT MYOCARDIAL INFARCTION 2.5-3.5 6 DIAGNOSIS CRITERIA MMB ng/ml Relative Index (RI) NON-AMI < or = 5 N/A COLÓN ZONE > 5 < or = 4 AMI > 5 > 4 7 Troponin I Reference Interva l for [employer] LOCI: 99th Percentile= 0.00-0.045 ng/ml Risk Stratification: <= 0.10 ng/ml Decreased Risk for Adverse Clinical Events. 0.10-1.50 ng/ml Increased Risk for Adv erse Clinical Events. Evaluation of additional criterion and/or repeat testing in 2-6 hours is suggested to rule out myocardial damage. >= 1.50 ng/ml Indicative of Myocardial Injury. 8 Units are mL/min/1.73 m2 Chronic Kidney Disease Staging per NKF: Stage I & II GFR >=60 Normal to Mildly Decreased Stage III GFR 30-59 Moderately Decreased Stage IV GFR 15-29 Severely Decreased Stage V GFR <15 Very Little GFR Left ESRD GFR <15 on CODE CLERK Procedures Date Code Description Status 03/25/2021 47581 Office/Outpatient Established Mo d MDM 30-39 Min Completed 01/27/2021 68299 Office/Outpatient Established Mo d MDM 30-39 Min Completed 12/21/2020 20167 Office/Outpatient Established Mo d MDM 30-39 Min Completed 10/14/2020 34794 Trans Care SRV W/I 14D Of DC, Co mm W/I 2 Dys Med Rec Completed Medical Devices Description No Information Available Encounters Type Date Location Provider Dx Diagnosis Office Visit 03/25/2021 9:20a [facility] PMACARENA Acosta JR G45.9 Transient cerebral ischemic attack, unspecified 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, as defined in [place] Z85.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 G45.9 Transient cerebral ischemic attack, unsp ecified I10 Essential (primary) hyperten gary 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, as defined in [facility] Z85.840 Personal history of malignan t neoplasm of eye F41.9 Anxiety disorder, unspecifie d E78.5 Hyperlipidemia, unspecified R42 Dizziness and giddiness R60.9 Edema, unspecified Assessments Date Code Description Provider 03/25/2021 G45.9 Transient cerebral ischemic shonda ck, unspecified Isaiah Tyler JR, PA 03/25/2021 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, as defined in [facility] MACARENA Cavazos JR 03/25/2021 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 Isaiah Tyler JR, PA 03/25/2021 R21 Rash and other nonspecific skin eruption Isaiah Tyler JR, PA 03/25/2021 I10 Essential (primary) hypertension Isaiah Tyler JR, PA 03/25/2021 F41.9 Anxiety disorder, unspecified Ro wolfgang Tyler JR, PA 01/27/2021 I10 Essential (primary) hypertension Isaiah Tyler JR, PA 01/27/2021 E78.5 Hyperlipidemia, unspecified Robe rt Daniel Tyler JR, PA 01/27/2021 G45.9 Transient cerebral ischemic shonda ck, unspecified Isaiah Tyler JR, PA 01/27/2021 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, as defined in [facility] MACARENA Cavazos JR 01/27/2021 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 Isaiah Tyler JR, PA 01/27/2021 F41.9 Anxiety disorder, unspecified Ro wolfgang Tyler JR, PA 01/27/2021 R60.9 Edema, unspecified Isaiah brown JR, PA 01/27/2021 G47.00 Insomnia, unspecified Isaiah merida JR, PA 12/21/2020 E78.5 Hyperlipidemia, unspecified Loan Buck M.D. 12/21/2020 I10 Essential (primary) hypertension Jose Buck M.D. 12/21/2020 G45.9 Transient cerebral ischemic shonda ck, unspecified Jose Buck M.D. 12/21/2020 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, as defined in [facility] Jose Buck M.D. 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 12/21/2020 F41.9 Anxiety disorder, unspecified José Manuel Buck M.D. 12/21/2020 R60.9 Edema, unspecified Jose camarillo M.D. 12/21/2020 G47.00 Insomnia, unspecified Jose phelan M.D. 10/14/2020 G45.9 Transient cerebral ischemic shonda ck, [place] Jose Buck M.D. 10/14/2020 I10 Essential (primary) hypertension Jose Buck M.D. 10/14/2020 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, as defined [place] Jose Buck M.D. 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 10/14/2020 F41.9 Anxiety disorder, unspecified José Manuel Buck M.D. 10/14/2020 E78.5 Hyperlipidemia, unspecified Loan Buck M.D. 10/14/2020 R42 Dizziness and giddiness Jose Buck M.D. 10/14/2020 R60.9 Edema, it[place]ified Jose camarillo M.D. Plan of Treatment Future Appointment(s):* 08/02/2021 11:00 am - MACARENA Cavazos JR at [facility] * 05/20/2021 10:40 am - Nurse #2 at [facility] * 05/20/2021 11:00 am - Jose Buck M.D. at [facility] 12/21/2020 - Jose Buck M.D.* E78.5 Hyperlipidemia, unspecified * I10 Essential (primary) hypertension * G45.9 Transient cerebral ischemic attack, unspecified * 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, as defined in [facility] * Z85.840 Personal history of malignant neoplasm of eye * F41.9 Anxiety disorder, unspecified * R60.9 Edema, unspecified * G47.00 Insomnia, unspecified * * Comments:* 1. Hyperlipidemia: Continue Lipitor daily. We will check lipids prior to her next visit.2. Hypertension: Well-controlled on present regimen, will continue and monitor.3. 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 She is now in assisted living and will continue follow up with neurology for evaluation. 4. 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 She has poor vision in her right eye with history of macular degeneration and follows up Dr. Faulkner. She gets regular help from her daughter and others.5. Personal history of malignant neoplasm of eye: She follows up with Dr. 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 Anxiety disorder: Doing well on Mirtazapine daily. She will let me know if she has any issues.7. Edema: Controlled. We will monitor.8. Insomnia: Generally stable on Melatonin and also uses Tylenol. We will continue to monitor.Ongoing cares: I am going to see her again in 4-5 months with CBC, CMP and TSH. If she has new problems or issues sooner she will let us know. Functional Status Description No Information Available Mental Status Description No Information Available Referrals Refer to Reason for Referral Status Appt Date Ruthann Manzanares MD CONSULT FOR CVA CALL ADWOA VELIZ TO SCHEDULE APPT [phone] Scheduled 11/16/2020 [facility] [address] [place] [address] [phone]
--- OUTSIDE RECORDS SUMMARY | 2021-05-16 11:11 | CCD | Continuity of Care Document ---
Author Author Yodit GERARDO M.D. Organization Unknown Address [address] [place] [address] Phone [phone] Care Team Providers Care Staff Anesthesiologist Name Role Phone Jose Buck M.D. AUTM [phone] Problems Active Problems Provider Date Ischemic stroke Ruthann Gerardo M.D. Onset: 11/16/2020 Social History Type Date Description Comments Sex Unknown Tobacco Use Start: Unknown End: Unknown Patient is a former smoker Allergies, Adverse Reactions, Alerts Active Allergies Reaction Severity Comments Date Morphine 11/16/2020 Medications Active Medications SIG Qnty Indications Ordering Provide r Date Aspirin Ec 81mg Tablets DR 1 by mouth every day Unknown Plavix 75mg Tablets 1 by mouth every day Unknown Immunizations Description No Information Available Vital Signs Date Vital Result Comment 03/01/2021 12:08pm Respiratory Rate 12 /min Height 62 inches 5'2" Weight 136.00 lb BMI (Body Mass Index) 24.9 kg/m2 [place] Body Weight 110 lb 11/16/2020 12:20pm Respiratory Rate 12 /min Height 62 inches 5'2" Weight 136.00 lb BMI (Body Mass Index) 24.9 kg/m2 [place] Body Weight 110 lb Results Description No Information Available Procedures Date Code Description Status 01/05/2021 44175 EEG Recording Awake & Asleep Com pleted 01/05/2021 75698 EEG Recording Awake & Asleep Com pleted 11/27/2020 64229 Sympathetic Skin Responses Compl eted 11/27/2020 93209 Test Autonomic Nervous System, C ardiovagal Innervation Completed 11/27/2020 03110 Artery Study Extremity Mult Leve ls Bilateral Completed 11/16/2020 88789 Office/Outpatient [facility] 6 0-74 Minutes Completed Medical Devices Description No Information Available Encounters Type Date Location Provider Dx Diagnosis Office Visit 11/16/2020 11:30a Main office - [facility] Ruthann ornelas M.D. I63.9 Cerebral infarction, unspecified R51.9 Headache, unspecified Assessments Date Code Description Provider 03/01/2021 R41.82 Altered mental status, unspecifi ed Ruthann Gerardo M.D. 03/01/2021 G45.9 Transient cerebral ischemic shonda ck, [place] Ruthann Geradro M.D. 01/05/2021 R41.82 Altered mental status, unspecifi [...] unspecified Ruthann pandya M.D. Plan of Treatment No Information Available Functional Status Description No Information Available Mental Status Description No Information Available Referrals Description No Information Available
--- OUTSIDE RECORDS SUMMARY | 2021-05-16 11:11 | CCD | Continuity of Care Document ---
Author Author Yodit TYLER PA Organization Unknown Address [address] [place] [address] Phone [phone] Care Team Providers Care Physical Sciences Professor Name Role Phone Jose Buck MD AUTM [phone] Bob Faulkner MD AUTM [phone] Mansoor Rosado MD AUTM [phone] [facility] - Radiology AUT[facility] Unavailable [facility] [phone] [facility] [phone] [facility] AUTM [phone] [facility] AUTM [phone] Problems Active Problems Provider Date Anxiety Onset: [...] smoked age 19 - 25, none since. Allergies and adverse reactions Active Allergies Criticality Reaction | Severity Comments [...] Buck M.D. 01/19/2021 Acetaminophen 160mg/5ML Solution 20ml [id number] scheduled 500ml Jose Buck M.D. 12/10/19 [address] 1 by mouth every morning 30tabs Jose Buck M.D. 08/19/2020 Saline Mist [place] 0.65% Solution 3-4x/d prn 44ml Jose Buck [...] 1 by mouth every day 90tabs Jose Pereyra. White, M.D. 08/19/2020 Lipitor 40mg Tablets 1 by mouth every day 30jeanette Buck M.D. 08/19/2020 Colace 100mg Capsules 1 by mouth twice a day 60angy Buck M.D. 08/19/2020 Senna Plus 8.6-50mg Tablets 1 by mouth every day 30jeanette Buck M.D. 08/18/2020 Tylenol PM Extra Strength [...] Medication SIG Qnty Indications Ordering Provider Date Administration Of Flu Vaccine Inj ection MACARENA Cavazos JR 021 Covid-19 vaccine, Unspecified Inj ection Unknown 09/02/2020 Immunizations CPT Code Status Date Vaccine Lot # 04353 Given 04/14/2021 Influenza Vaccin e Quadrivalent Preser/Antibiotic Free Im Use 379320 U-Flu Given 06/04/2019 Influenza,Unspecified U-Flu Given 04/24/2018 Influenza,Unspecified 97589 Given 12/14/2010 Pneumovax 23 38462 Given 09/24/2010 Pneumovax 23 20314 Refused 06/18/2014 Influenza Virus Vaccine 24503 Refused 12/04/2013 Zoster Vaccine 71295 Refused 12/04/2013 Adacel- Tetanus Diphtheria P ertussis 21607 Refused 03/11/2013 Influenza Virus Vaccine 36273 Refused 12/05/2011 Influenza Virus Vaccine 29994 Refused 04/16/2010 Influenza Virus Vaccine Vital Signs [...] Information Available Procedures Date Code Description Status 04/14/2021 37396 Office/Outpatient Established Mo d MDM 30-39 Min Completed 03/25/2021 93589 Office/Outpatient Established Mo d MDM 30-39 Min Completed 01/27/2021 92514 Office/Outpatient Established Mo d MDM 30-39 Min Completed 12/21/2020 05352 Office/Outpatient Established Mo d MDM 30-39 Min Completed Medical Devices Description No Information Available Encounters Type Date Location Provider Dx Diagnosis Office Visit 04/14/2021 1[facility] F32.9 Major depressive disorder, s brian episode, unspecified F41.9 Anxiety disorder, unspecifie d I10 Essential (primary) hyperten gary R21 Rash and other nonspecific s kin eruption G45.9 Transient cerebral ischemic attack, unspecified 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, as defined in [place] Z23 Encounter for immunization Office Visit 03/25/2021 9:20a [facility], [place] G45.9 Transient cerebral ischemic attack, unspecified 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, as defined in [place] 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, as defined in 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 F41.9 Anxiety disorder, unspecifie d R60.9 Edema, unspecified G47.00 Insomnia, unspecified Assessments Date Code Description Provider 04/14/2021 F32.9 Major depressive disorder, singl e episode, unspecified MACARENA Cavazos JR 04/14/2021 F41.9 Anxiety disorder, unspecified Ro MACARENA Richardson JR 04/14/2021 I10 Essential (primary) hypertension MACARENA Cavazos JR 04/14/2021 R21 Rash and other nonspecific skin eruption MACARENA Cavazos JR 04/14/2021 G45.9 Transient cerebral ischemic shonda ck, unspecified MACARENA Cavazos JR 04/14/2021 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, as defined in [facility] MACARENA Cavazos JR 04/14/2021 Z23 Encounter for immunization MACARENA Moralse JR 03/25/2021 G45.9 Transient cerebral ischemic shonda ck, unspecified MACARENA Cavazos JR 03/25/2021 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, as defined in [facility] MACARENA Cavazos JR 03/25/2021 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 MACARENA Cavazos JR 03/25/2021 R21 Rash and other nonspecific skin eruption MACARENA Cavazos JR 03/25/2021 I10 Essential (primary) hypertension MACARENA Cavazos JR 03/25/2021 F41.9 Anxiety disorder, unspecified Ro wolfgang Daniel Tyler JR, PA 01/27/2021 I10 Essential (primary) hypertension Isaiah Tyler JR, PA 01/27/2021 E78.5 Hyperlipidemia, unspecified Robe rt Daniel Tyler JR, PA 01/27/2021 G45.9 Transient cerebral ischemic shonda ck, unspecified Isaiah Tyler JR, PA 01/27/2021 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, as defined in [facility] Isaiah Tyler JR, PA 01/27/2021 Z85.840 Personal history of malignant [...] 12/21/2020 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, as defined in [facility] Jose Buck M.D. 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 12/21/2020 F41.9 Anxiety disorder, unspecified José Manuel Buck M.D. 12/21/2020 R60.9 Edema, unspecified Jose camarillo M.D. 12/21/2020 G47.00 Insomnia, unspecified Jose phelan M.D. Plan of Treatment Future Appointment(s):* 08/02/2021 11:00 am - MACARENA Cavazos JR at [facility] * 05/20/2021 10:40 am - Nurse #2 at [facility] * 05/20/2021 11:00 am - Jose Buck M.D. at [facility] 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 Anxiety disorder: Doing well on Mirtazapine [...]
--- OUTSIDE RECORDS SUMMARY | 2021-05-16 11:11 | CCD | Continuity of Care Document ---
Author Author Yodit TYLER PA Organization Unknown Address [address] [place] [address] Phone [phone] Care Team Providers Care Installations Inspector Name Role Phone Jose Buck MD AUTM [phone] Bob Faulkner MD AUTM [phone] Mansoor Rosado MD AUTM [phone] [facility] AUTM Unavailable [facility] [phone] [facility] [phone] [facility] AUTM [phone] [facility] AUTM [phone] Problems Active Problems Provider Date Anxiety Onset: [...] Buck M.D. 01/19/2021 Acetaminophen 160mg/5ML Solution 20ml [id number] scheduled 500ml Jose Buck M.D. 12/10/19 21 Aspirin Enteric Coated Adult Low Strengt h 81mg Tablets DR 1 every day 30tajacquelin Buck M.D. 08/19 Saline Mist [place] 0.65% Solution 3-4x/d prn 44ml Jose Buck M.D. 08/19/2020 Milk Of Magnesia 1200mg/15ML Suspe nsion 30ml every day by mouth as needed constipation 355ml Daniel Buck M.D. 08/19/2020 Plavix 75mg Tablets 1 by mouth every day 30tajacquelin Buck M.D. 08/19/[address] 1 by mouth every morning 30tajacquelin Buck M.D. 08/19/2020 Loratadine 10mg Capsules 1 by mouth once [...] Jose Buck M.D. 0 01/15/2021 - 01/19/2021 Melatonin 3mg Capsules 1 every night at bedtime 30angy Buck M.D. 09/24/2020 - 03/05/2021 Medications Administered in Office Medication SIG Qnty Indications Ordering Provider Date Covid-19 vaccine, Unspecified Inj ection Unknown 09/02/2020 Immunizations CPT Code Status Date Vaccine Lot # U-Flu Given 06/04/2019 Influenza,Unspecified U-Flu Given 04/24/2018 Influenza,Unspecified 15057 Given 12/14/2010 Pneumovax 23 27230 Given 09/24/2010 Pneumovax 23 35174 Refused 06/18/2014 Influenza Virus Vaccine 58134 Refused 12/04/2013 Zoster Vaccine 57236 Refused 12/04/2013 Adacel- Tetanus Diphtheria P ertussis (Age64 & Under) 84102 Refused 03/11/2013 Influenza Virus Vaccine 50575 Refused 12/05/2011 Influenza Virus Vaccine 75908 Refused 04/16/2010 Influenza Virus Vaccine Vital Signs [...] Note Ua W/ Reflex To Culture 09/29/[address] [address] [phone] Appearance, Urine RFX CLEAR Normal Clear Color, Urine RFX YELLOW Normal Yellow PH,Urine RFX 7.0 units Normal 5.0-9.0 Specific [place] Ur Auto RFX 1.005 Normal 1.002-1.035 Protein, [...] 0-1 Influenza A&B RFX Giovana Naso 09/29/[address] [address] [phone] Influenza A Amplification NEGATIVE Normal Negati ve 1 Influenza B Amplification NEGATIVE Normal Negative 2 Laboratory test finding 09/29/2020 [address] [place] [address] [phone] RSV Dna Amplification NEGATIVE Normal Negative 3 Sars Covid-19 Amplification NEGATIVE Normal Negative 4 CBC With Differential 09/29/2020 [facility] [address] [place] [address] [phone] White Blood Count 7.0 10 Normal 4.0-10.0 [...] 36.0-66.0 Lymph % 19.4 % Low 24.0-44.0 Lea % 11.5 % High 2.0-8.0 Eos % 4.4 % High 0.0-3.0 Baso % 0.6 % Normal 0.0-1.0 Immature Granulocyte % 0.3 % Normal 0-3.0 Nucleated Red Blood Cell % 0.0 % Normal 0-0 Neutrophils # 4.5 10 Normal 1.5-8.5 Lymph # 1.4 10 Low 1.5-5.0 Lea # 0.8 10 Normal 0.0-0.8 Eos # 0.3 10 Normal 0.0-0.5 Baso # 0.0 10 Normal 0.0-0.2 Prothrombin Time/Inr 09/29/2020 [facility] enter [address] [place] [address] [phone] Prothrombin Time 14.1 seconds High 12.5-14.3 Inr 1.07 Normal 5 Laboratory test finding 09/29/2020 [facility] [address] [place] [address] [phone] Partial Thromboplastin Time 26.2 seconds Normal 24 .2-38.5 Cardiac Marker Panel 09/29/2020 [facility] enter [address] [place] [address] [phone] CPK Creatine Phosphokinase 44 U/L Normal 26-19 2 CK-MB Value Mass 1.2 NG/ML Normal <3.6 MB/CK Relative Index 2.73 Normal < Or =4 6 Troponin I < 0.02 NG/ML Normal < 0.10 7 Liver Profile 09/29/2020 [facility] nter [address] [place], [place] [id number] [phone] Ast/Sgot 14 U/L Normal 7-37 Alt/SGPT 22 U/L Normal 12-78 Alkaline Phosphatase 73 U/L Normal 45-117 Bilirubin,Total 0.7 mg/dL Normal 0.2-1.0 Bilirubin,Direct 0.3 mg/dL High 0.0-0.2 Total Protein 6.5 GM/DL Normal 6.4-8.2 Albumin 3.5 GM/DL Normal 3.2-5.2 Albumin/Globulin Ratio 1.2 Normal 1.2-2.2 Basic Metabolic Profile 09/29/[address] [address] [phone] Glucose, Fasting 86 mg/dL Normal 70-100 Blood [...] mg/dL Normal 8.8-10.2 Laboratory test finding 09/29/[address] [address] [phone] Magnesium Level 2.2 mg/dL Normal 1.8-2.4 1 [...] pathogens. DISCLAIMER: Testing was performed using the [employer] SARS-CoV-2 test. This test was developed and its performance characteristics determined by [employer]. This test has not been FDA cleared [...] 7 Troponin I Reference Interva l for [employer] [place] LOCI: 99th Percentile= 0.00-0.045 ng/ml Risk Stratification: [...] Little GFR Left ESRD GFR <15 on EDGE TRIMMER Procedures Date Code Description Status 01/27/2021 01748 Office/Outpatient Established Mo d MDM 30-39 Min Completed 12/21/2020 50286 Office/Outpatient Established Mo d MDM 30-39 Min Completed 10/14/2020 58055 Trans Care SRV W/I 14D Of DC, Co mm W/I 2 Dys Med Rec Completed Medical Devices Description No Information Available Encounters Type Date Location Provider Dx Diagnosis Office Visit 01/27/2021 1:00p [facility] I10 Essential (primary) hyperten gary E78.5 Hyperlipidemia, unspecified G45.9 Transient cerebral ischemic attack, unspecified 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, as defined in [place] 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 F41.9 Anxiety disorder, unspecifie d E78.5 Hyperlipidemia, unspecified R42 Dizziness and giddiness R60.9 Edema, unspecified Assessments Date Code Description Provider 01/27/2021 I10 Essential (primary) hypertension MACARENA Cavazos JR 01/27/2021 E78.5 Hyperlipidemia, unspecified Robe rt Daniel Tyler JR, PA 01/27/2021 G45.9 Transient cerebral ischemic shonda ck, unspecified Isaiah Daniel Jayson BRUNSON, PA 01/27/2021 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, as defined in [facility] Isaiah Tyler JR, PA 01/27/2021 Z85.840 Personal [...] 12/21/2020 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, as defined in [facility] Jose Buck M.D. 12/21/2020 Z85.840 [...] 10/14/2020 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, as defined in [facility] Jose Buck M.D. 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 10/14/2020 F41.9 Anxiety disorder, unspecified José Manuel Buck M.D. 10/14/2020 E78.5 Hyperlipidemia, unspecified Loan Buck M.D. 10/14/2020 R42 Dizziness and giddiness Jose Buck M.D. 10/14/2020 R60.9 Edema, unspecified Jose camarillo M.D. Plan of Treatment Future Appointment(s):* 08/02/2021 11:00 am - MACARENA Cavazos JR at [facility] * 05/20/2021 10:40 am - Nurse #2 at [facility] * 05/20/2021 11:00 am - [facility] 03/25/2021 - MACARENA Cavazos JR* All * New Medication:* Clobetasol Propionate E 0.05 % - apply to affected area twice a day * Benadryl Allergy 25 mg - Take one by mouth QHS prn Functional Status Description No Information Available Mental Status Description No Information Available Referrals Refer to Dr Reason for Referral Status Appt Date Ruthann Manzanares MD CONSULT FOR CVA CALL ADWOA VELIZ TO SCHEDULE APPT [phone] Scheduled 11/16/2020 [facility] Neurology [address] [place], [place] [address] [phone]
--- OUTSIDE RECORDS SUMMARY | 2021-05-16 11:11 | CCD ---
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 Name Role Phone Lucie SALMON, ELSY, Bob Jeronimo Unavailable [phone] Jose Buck MD PP [phone] Reason for Referral No Reason for Referral Recorded Problems Includes: Active, inactive, and resolved Problems All Visits Onset Date - Time Resolved Date - Time Provider Co ndition Status Pseudophakia 01/07/2020 - 12:00AM Bob Faulkner MD, FACS Active Macular Degeneration Nonexudative 06/04/2019 - 12:00AM Bob Faulkner MD, FACS Active Refractive Error - Myopia 11/13/2018 - 12:00AM Bob Faulkner MD, FACS Active Macular Degeneration Nonexudative Right Eye Intermedia te Dry Stage 12/27/2016 - 12:00AM Bob Faulkner MD, FACS Inactive Conjunctival Adhesions Extensive 01/12/2015 - 12:00AM Bob Faulkner MD, FACS Active Note: Unchanged Cataract Senile Total 05/14/2014 - 12:00AM Bob Jimenez MD, FACS Active Note: Unchanged - of the lef t eye Strabismus Non-paralytic Exotropia Monocular Left Eye 05/14/2014 - 12:00AM Bob Faulkner MD, FACS Active Note: Unchanged Posterior Capsule Opacification Not Obscuring Vision 05/14/2014 - 12:00AM Bob Faulkner MD, FACS Inactive Note: Unchanged Posterior Capsule Opacification Right Eye 03/21/2013 - 12:00AM Bob Abbott MD, FACS Inactive Note: Unchanged Cataract - Left Eye 03/21/2013 - 12:00AM Bob Taylor MD, FACS Inactive Note: Unchanged - Advanced Dermatochalasis Both Eyelids 03/21/2013 - 12:00AM Bob Faulkner MD, FACS Active Note: Unchanged Macular Degeneration Nonexudative Dry 03/21/2013 - 12:00AM Bob Faulkner MD, FACS Inactive Note: Unchanged - right eye Dry Eye Syndrome Both Eyes 03/21/2013 - 12:00AM Bob Faulkner MD, FACS Active Note: Worsening Vitreous Floaters Right Eye 03/21/2013 - 12:00AM Bob Faulkner MD, FACS Active Note: Unchanged Plan of Treatment Future Appointments Date Time Location Provider 1 Year Follow-Up 01/03/2022 2:35PM Bob Faulkner MD [facility] Bob Faulkner MD, FACS Assessments Includes: Assessments for all patient encounters Findings Encounter Date Nonexudative macular degeneration 1 Year Follow-Up wit h Bob Faulkner MD, FACS 01/01/2021 Posterior capsule opacification of eccentric capsule i n the right eye 1 Year Follow-Up with Bob Faulkner MD, FACS 01/01/2021 Pseudophakia 1 Year Follow-Up with Bob valadez MD, FACS 01/01/2021 Total senile cataract 1 Year Follow-Up with Bob wade MD, FACS 01/01/2021 Nonexudative macular degeneration 7 Month Follow-Up wi th Bob Faulkner MD, FACS 01/07/2020 Posterior capsule opacification of eccentric capsule i n the right eye 7 Month Follow-Up with Bob Faulkner MD, FACS 01/07/2020 Pseudophakia 7 Month Follow-Up with Bob renee MD, FACS 01/07/2020 Total senile cataract 7 Month Follow-Up with Bob Abbott MD, FACS 01/07/2020 Essential hypertension 7 Month Follow-Up with Bob Hutchinson MD, FACS 06/04/2019 Extensive conjunctival adhesions 7 Month Follow-Up wit h Bob Faulkner MD, FACS 06/04/2019 History of nicotine dependence 7 Month Follow-Up with Bob Faulkner MD, FACS 06/04/2019 Nonexudative macular degeneration 7 Month Follow-Up wi th Bob Faulkner MD, FACS 06/04/2019 Total senile cataract 7 Month Follow-Up with Bob Abbott MD, FACS 06/04/2019 Essential hypertension 10 Month Follow-Up with Bob Taylor MD, FACS 11/13/2018 Extensive conjunctival adhesions 10 Month Follow-Up [facility] Bob Faulkner MD, FACS 11/13/2018 Intermediate dry stage nonexudative macular degenerati on of right eye 10 Month Follow-Up with Bob Faulkner MD, FACS 11/13/2018 Myopia 10 Month Follow-Up with Bob wade MD, FACS 11/13/2018 Total senile cataract 10 Month Follow-Up with Bob Hutchinson MD, FACS 11/13/2018 Extensive conjunctival adhesions 1 Year Follow-Up with Bob Faulkner MD, FACS 01/02/2018 Extensive conjunctival adhesions TRIAGE NON URGENT wit h Bob Faulkner MD, FACS 04/11/2017 Dry eye syndrome of both eyes 1 Year Follow-Up with Esequiel Faulkner MD, FACS 12/27/2016 Essential hypertension 1 Year Follow-Up with Bob Abbott MD, FACS 12/27/2016 Intermediate dry stage nonexudative macular degenerati on of right eye 1 Year Follow-Up with Bob Faulkner MD, FACS 12/27/2016 Other age-related cataract - Hypermature left eye 1 Y ear Follow-Up with Bob Faulkner MD, FACS 12/27/2016 Posterior capsule opacification of eccentric capsule i n the right eye 1 Year Follow-Up with Bob Faulkner MD, FACS 12/27/2016 Pseudophakia in the right eye 1 Year Follow-Up with Esequiel Faulkner MD, FACS 12/27/2016 Dry eye syndrome of both eyes 11 Month Follow-Up with Bob Faulkner MD, FACS 12/23/2015 Essential hypertension 11 Month Follow-Up with Bob Taylor MD, FACS 12/23/2015 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 11 Month Follow- Up with Bob Faulkner MD, FACS 12/23/2015 Other age-related cataract - hypermature cataract lef t eye 11 Month Follow-Up with Bob Faulkner MD, FACS 12/23/2015 Posterior capsule opacification of eccentric capsule i n the right eye 11 Month Follow-Up with Bob Faulkner MD, FACS 12/23/2015 Pseudophakia 11 Month Follow-Up with Bob wade MD, FACS 12/23/2015 Dermatochalasis of both eyes upper and lower lids 9 M onth Follow-Up with Bob Faulkner MD, FACS 01/12/2015 Dry eye syndrome of both eyes 9 Month Follow-Up with Tana Faulkner MD, FACS 01/12/2015 Dry nonexudative macular degeneration of the right ey e 9 Month Follow-Up with Bob Faulkner MD, FACS 01/12/2015 Extensive conjunctival adhesions right eye 9 Month Fo llow-Up with Bob Faulkner MD, FACS 01/12/2015 Monocular exotropia of the left eye 9 Month Follow-Up with Bob Faulkner MD, FACS 01/12/2015 Posterior capsule opacification in the right eye 9 Mon th Follow-Up with Bob Faulkner MD, FACS 01/12/2015 Posterior capsule opacification not obscuring vision 9 Month Follow-Up with Bob Faulkner MD, FACS 01/12/2015 Total senile cataract of the left eye 9 Month Follow- Up with Bob Abbott MD, FACS 01/12/2015 Vitreous floaters in the right eye 9 Month Follow-Up w ith Bob Faulkner MD, FACS 01/12/2015 Dermatochalasis of both eyes 6 Month Follw-Up (Level 1 ) with Bob Faulkner MD, FACS 05/14/2014 Dry eye syndrome of both eyes 6 Month Follw-Up (Level 1) with Bob Abbott MD, FACS 05/14/2014 Dry nonexudative macular degeneration of the right ey e 6 Month Follw-Up (Level 1) with Bob Faulkner MD, FACS 05/14/2014 Monocular exotropia of the left eye 6 Month Follw-Up ( Level 1) with Bob Faulkner MD, FACS 05/14/2014 Posterior capsule opacification in the right eye 6 Mon th Follw-Up (Level 1) with Bob Faulkner MD, FACS 05/14/2014 Posterior capsule opacification not obscuring vision 6 Month Follw-Up (Level 1) with Bob Faulkner MD, FACS 05/14/2014 Total senile cataract of the left eye 6 Month Follw-U p (Level 1) with Bob Faulkner MD, FACS 05/14/2014 Vitreous floaters in the right eye 6 Month Follw-Up (L evel 1) with Bob Faulkner MD, FACS 05/14/2014 Cataract in the left eye 6 Month Follow-Up with Bob Byers MD, FACS 09/18/2013 Dermatochalasis of both eyes 6 Month Follow-Up with Esequiel Faulkner MD, FACS 09/18/2013 Dry eye syndrome of both eyes 6 Month Follow-Up with Tana Faulkner MD, FACS 09/18/2013 Dry nonexudative macular degeneration of the right ey e 6 Month Follow-Up with Bob Faulkner MD, FACS 09/18/2013 Posterior capsule opacification in the right eye 6 Mon th Follow-Up with Bob Faulkner MD, FACS 09/18/2013 Vitreous floaters in the right eye 6 Month Follow-Up w [facility] Bob Faulkner MD, FACS 09/18/2013 Cataract in the left eye - Advanced 6 Month Follow-Up with Bob Faulkner MD, FACS 03/21/2013 Dermatochalasis of both eyes 6 Month Follow-Up with Esequiel Faulkner MD, FACS 03/21/2013 Dry eye syndrome of both eyes 6 Month Follow-Up with Tana Faulkner MD, FACS 03/21/2013 Dry nonexudative macular degeneration right eye 6 Mon th Follow-Up with Bob Faulkner MD, FACS 03/21/2013 Posterior capsule opacification in the right eye 6 Mon th Follow-Up with Bob Faulkner MD, FACS 03/21/2013 Vitreous floaters in the right eye 6 Month Follow-Up w [facility] Bob Faulkner MD, FACS 03/21/2013 Instructions Instructions not supported for this document typeNo Instructions Recorded Medical Equipment - Implanted Devices Includes: Current and historical DevicesNo Medical Equipment Recorded Medications Includes: Current and historical Medications Current Medications (continue as prescribed) Plavix 75 MG Oral Tablet 01/01/2021 Provider: Diagnosis: Atenolol 25 MG Oral Tablet 01/01/2021 Provider: Diagnosis: Colace 100 MG Oral Capsule 01/01/2021 Provider: Diagnosis: Lasix 20 MG Oral Tablet 01/01/2021 Provider: Diagnosis: Adult Aspirin Regimen 81 MG Oral Tablet Delayed Release 12/15 Provider: Diagnosis: GNP Loratadine 10 MG Oral Tablet 01/01/2021 Provide r: Diagnosis: Pantoprazole 40 MG Oral Tablet 01/01/2021 Provider: Diagnosis: Sodium Chloride 0.65% . Nasal Solution 01/01/2021 P rovider: Diagnosis: Atorvastatin 40 MG Oral Tablet 01/01/2021 Provider: Diagnosis: Voltaren 1% External Gel 01/01/2021 Provider: Diagnosis: CVS Melatonin 3 MG Oral Tablet 01/01/2021 Provider: Diagnosis: Systane Ultra 0.4-0.3% Ophthalmic Solution 08/18/2020 Provider: Bob Faulkner MD, FACS Diagnosis: Dry eye syndrome of bilateral lacrimal glands One drop four times a day in both eyes Ocuvite Adult 50+ Oral Capsule 08/18/2020 Provider: Bob Faulkner MD, FACS Diagnosis: Nexdtve age-related mclr degn, right eye, intermed dry stage once a day Multivitamin Oral Tablet 01/07/2020 Provider: Diagnosis: Airborne Oral Lozenge 01/07/2020 Provider: Diagnosis: 2 in the morning Vitamin D3 125 MCG (5000 UT) Oral Capsule 01/07/2020 Provider: Diagnosis: Aspirin 81 MG Oral Tablet Delayed Release 01/07/2020 Provider: Diagnosis: traZODone HCl 50 MG Oral Tablet 01/07/2020 Provider : Diagnosis: 1/2 tablet at bed time Ventolin HFA 108 (90 Base) MCG/ACT Inhalation Aerosol Soluti on 01/07/2020 Provider: Diagnosis: Furosemide 20 MG Oral Tablet 01/07/2020 Provider: Diagnosis: Past Medications on file Nicolette Low Dose 81MG Oral Tablet Delayed Release 01/02/2018 - 01/07/2020 Provider: Diagnosis: CVS Vitamin C 250MG Oral Tablet 01/02/2018 - 01/07/2020 Prov ider: Diagnosis: Caltrate 600+D3 Soft [id number] Oral Tablet Chewab le 01/02/2018 - 01/07/2020 Provider: Diagnosis: Multi Complete Oral Capsule 01/02/2018 - 01/07/2020 Provider : Diagnosis: Ocuvite Adult 50+ Oral Capsule, conventional 12/19/2017 - Provider: Bob Faulkner MD, FACS Diagnosis: Nexdtve age-related mclr degn, right eye, intermed dry stage once a day Systane Ultra 0.4-0.3% Ophthalmic Solution 12/19/2017 - 08/2020 Provider: Bob Faulkner MD, FACS Diagnosis: Dry eye syndrome of bilateral lacrimal glands as needed Ocutabs-Lutein Tablet 01/12/2015 - 01/07/2020 Provider: Diagnosis: Systane Ultra 0.4-0.3% OP SOLN 03/21/2013 - 12/19/2017 Provi ciarra: Diagnosis: Ocuvite OR TABS 03/21/2013 - 01/07/2020 Provider: Diagnosis: Atenolol 50 MG OR TABS 03/21/2013 - 01/01/2021 Provider: Diagnosis: Evista 60 MG OR TABS 03/21/2013 - 01/07/2020 Provider: Diagnosis: Furosemide 20 MG OR TABS 03/21/2013 - 01/07/2020 Provider: Diagnosis: One-A-Day Womens Formula OR TABS 03/21/2013 - 01/07/2020 Pro vider: Diagnosis: Calcium 500/D 500-200 MG-UNIT OR TABS 03/21/2013 - 0 Provider: Diagnosis: Aleve 220 MG OR CAPS 03/21/2013 - 12/23/2015 Provider: Diagnosis: Medications Administered Includes: Administered Medications in patient's chartNo Administered Medications Recorded Vital Signs Includes: Vital Signs from 03/19/2020 through 03/19/2021No Vital Signs Recorded For Specified Dates Results Includes: Results from 03/19/2020 through 03/19/2021No Results Recorded For Specified Dates History of Present Illness History of Present Illness not supported for this document typeNo History of Present Illness Recorded Social History Description Last Updated Tobacco non-user 01/01/2021 No consumption of alcohol 01/01/2021 No tobacco use 01/01/2021 Not using drugs 01/01/2021 Smoking status : Former smoker 01/01/2021 Previous smoking history 09/18/2013 Procedures and Surgical History Includes: Procedures from 03/19/2020 through 03/19/2021 Procedures Code Diagnosis Performing Provider Service Location Service Date Intermediate Eye Exam Established Patient [id number] Nexdtve age-rel mclr degn, r eye, adv atrpc w/o sbfvl involv, Other age-related cataract, Other secondary cataract, right eye Bob Faulkner MD, FACS Bob Faulkner MD [facility] 01/01/2021 Surgical History Last Updated History of cataract surgery : PCIOLOD by Dr. 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, Knee Replacement 05/14/2014 Medical History Includes: Medical History in patient's chart Description Last Updated Recent change in medical history 01/01/2021 Reported medical history TIA 06/202001/01/2021 Currently wearing eyeglasses 03/21/2013 History of arthritis 03/21/2013 History of hypertension 03/21/2013 Family History Includes: Family History in patient's chart Description Last Updated Daughter's history of arthritis 01/01/2021 Daughter's history of family history of cancer 021 Daughter's history of hypertension 01/01/2021 Daughter's history of thyroid disorder 01/01/2021 Fraternal history of arthritis 01/01/2021 Fraternal history of hypertension 01/01/2021 Maternal history of arthritis 01/01/2021 Maternal history of cataract 01/01/2021 Maternal history of diabetes mellitus 01/01/2021 Maternal history of hypertension 01/01/2021 Maternal history of multiple sclerosis 01/01/2021 Son's history of family history of cancer 01/01/2021 Son's history of hypertension 01/01/2021 Son's history of macular degeneration 01/01/2021 Fraternal history of family history of cancer 12/23/19 16 Son's history of arthritis 12/23/2015 Family history of cataract 07/27/2014 Family history of diabetes mellitus 07/27/2014 Family history of hypertension 07/27/2014 Review of Systems Review of Systems not supported for this document typeNo Review of Systems Recorded Mental Status Mental Status not supported for this document type Description Oriented to time, place, and person Functional Status Functional Status not supported for this document typeNo Functional Status Recorded Physical Exam Physical Exam not supported for this document typeNo Physical Exam Recorded Immunizations Includes: Immunizations in patient's chartNo Immunizations Recorded Allergies Includes: Active, inactive, and resolved Allergies Substance Type Reaction Onset Date - Time Resolved Date - Ti me Status Morphine Derivatives Allergy 03/21/2013 - 12:00AM Active Encounters Includes: Encounters from 03/19/2020 through 03/19/2021 Encounter Provider Location Date Check-In Time Check-Out Time D iagnosis 1 Year Follow-Up Bob Faulkner MD, FACS Bob Fajardo [facility] 01/01/2021 11:56AM 12:43PM Macular Degeneration Nonexudative, Cataract Senile Total, Pseudophakia, Posterior Capsule Opacification Eccentric Capsule Right Eye Rx Refills/Changes Bob Faulkner MD, FACS 08/18/2020 06/04/2019 10:29AM 01/07/2020 11:59PM Insurance Includes: Active Insurance Policies Plan Name Member ID Group # Subscriber Relationship Effective Da se 1 - Medicare Part B [facility] ([facility] [id number] Yodit Kate 04/16/1997 - Unknown 2 - [employer]/BS [id number] Yodit Kate Advance Directives Includes: Current Advance DirectivesNo Advance Directives Recorded Health Concerns Includes: Active Health ConcernsNo Active Health Concerns Recorded Goals Includes: Active GoalsNo Active Goals Recorded Interventions Includes: Interventions for active GoalsNo Interventions Recorded Evaluations & Outcomes Includes: Evaluations & Outcomes for active GoalsNo Outcomes Recorded
--- OUTSIDE RECORDS SUMMARY | 2021-05-16 11:12 | CCD ---
Author Author [facility] Organization [facility] Address Unknown Phone Unavailable Care Team Providers Care Track Repairer Helper Name Role Phone Hafsa Buck MD Unavailable Unavailable Hafsa Buck MD Unavailable Unavailable Hafsa Buck MD Unavailable Unavailable Hafsa Buck MD Unavailable Unavailable Hafsa Buck MD Unavailable Unavailable Hafsa Buck MD Unavailable Unavailable Hafsa Buck MD Unavailable Unavailable Hafsa Buck MD Unavailable Unavailable Hafsa Buck MD Unavailable Unavailable Hafsa Buck MD Unavailable Unavailable Hafsa Buck MD Unavailable Unavailable Hafsa Buck MD Unavailable Unavailable Hafsa Buck MD Unavailable Unavailable Hafsa Buck MD Unavailable Unavailable Hafsa Buck MD Unavailable Unavailable Hafsa Buck MD Unavailable Unavailable Hafsa Buck MD Unavailable Unavailable Hafsa Buck MD Unavailable Unavailable Hafsa Buck MD Unavailable Unavailable Hafsa Buck MD Unavailable Unavailable Hafsa Buck MD Unavailable Unavailable Hafsa Buck MD Unavailable Unavailable Hafsa Buck MD Unavailable Unavailable Hafsa Buck MD Unavailable Unavailable Hafsa Buck MD Unavailable Unavailable Hafsa Buck MD Unavailable Unavailable Hafsa Buck MD Unavailable Unavailable Hafsa Buck MD Unavailable Unavailable Hafsa Buck MD Unavailable Unavailable Hafsa Buck MD Unavailable Unavailable Hafsa Buck MD Unavailable Unavailable Hafsa Buck MD Unavailable Unavailable Hafsa Buck MD Unavailable Unavailable Hafsa Buck MD Unavailable Unavailable Hafsa Buck MD Unavailable Unavailable Hafsa Buck MD Unavailable Unavailable Hafsa Buck MD Unavailable Unavailable Hafsa Buck MD Unavailable Unavailable Hafsa Buck MD Unavailable Unavailable Hafsa Buck MD Unavailable Unavailable Hafsa Buck MD Unavailable Unavailable Hafsa Buck MD Unavailable Unavailable Hafsa Buck MD Unavailable Unavailable Hafsa Buck MD Unavailable Unavailable Hafsa Buck MD Unavailable Unavailable Hafsa Buck MD Unavailable Unavailable Hafsa Buck MD Unavailable Unavailable Hafsa Buck MD Unavailable Unavailable Hafsa Buck MD Unavailable Unavailable Hafsa Buck MD Unavailable Unavailable Hafsa Buck MD Unavailable Unavailable Hafsa Buck MD Unavailable Unavailable Hafsa Buck MD Unavailable Unavailable Hafsa Buck MD Unavailable Unavailable Hafsa Buck MD Unavailable Unavailable Hafsa Buck MD Unavailable Unavailable Hafsa Buck MD Unavailable Unavailable Hafsa Buck MD Unavailable Unavailable Hafsa Buck MD Unavailable Unavailable Hafsa Buck MD Unavailable Unavailable Hafsa Buck MD Unavailable Unavailable Hafsa Buck MD Unavailable Unavailable Hafsa Buck MD Unavailable Unavailable Hafsa Buck MD Unavailable Unavailable Hafsa Buck MD Unavailable Unavailable Hafsa Buck MD Unavailable Unavailable Hafsa Buck MD Unavailable Unavailable Hafsa Buck MD Unavailable Unavailable Hafsa Buck MD Unavailable Unavailable Hafsa Buck MD Unavailable Unavailable Hafsa Buck MD Unavailable Unavailable Hafsa Buck MD Unavailable Unavailable Hafsa Buck MD Unavailable Unavailable Hafsa Buck MD Unavailable Unavailable Hafsa Buck MD Unavailable Unavailable Hafsa Buck MD Unavailable Unavailable Hafsa Buck MD Unavailable Unavailable PICKERAL JR, J MATTHIAS PA-C Unavailable Unavailable PICKERAL JR, J MATTHIAS PA-C Unavailable Unavailable PICKERAL JR, J MATTHIAS PA-C Unavailable Unavailable PICKERAL JR, J MATTHIAS PA-C Unavailable Unavailable PICKERAL JR, J MATTHIAS PA-C Unavailable Unavailable PICKERAL JR, J MATTHIAS PA-C Unavailable Unavailable PICKERAL JR, J MATTHIAS PA-C Unavailable Unavailable PICKERAL JR, J MATTHIAS PA-C Unavailable Unavailable PICKERAL JR, J MATTHIAS PA-C Unavailable Unavailable PICKERAL JR, J MATTHIAS PA-C Unavailable Unavailable PICKERAL JR, J MATTHIAS PA-C Unavailable Unavailable PICKERAL JR, J MATTHIAS PA-C Unavailable Unavailable PICKERAL JR, J MATTHIAS PA-C Unavailable Unavailable PICKERAL JR, J MATTHIAS PA-C Unavailable Unavailable PICKERAL JR, J MATTHIAS PA-C Unavailable Unavailable PICKERAL JR, J MATTHIAS PA-C Unavailable Unavailable PICKERAL JR, J MATTHIAS PA-C Unavailable Unavailable PICKERAL JR, J MATTHIAS PA-C Unavailable Unavailable PICKERAL JR, J MATTHIAS PA-C Unavailable Unavailable PICKERAL JR, J MATTHIAS PA-C Unavailable Unavailable PICKERAL JR, J MATTHIAS PA-C Unavailable Unavailable PICKERAL JR, J MATTHIAS PA-C Unavailable Unavailable PICKERAL JR, J MATTHIAS PA-C Unavailable Unavailable PICKERAL JR, J MATTHIAS PA-C Unavailable Unavailable PICKERAL JR, J MATTHIAS PA-C Unavailable Unavailable PICKERAL JR, J MATTHIAS PA-C Unavailable Unavailable PICKERAL JR, J MATTHIAS PA-C Unavailable Unavailable Nakul Mccarthy MD Unavailable Unavailable [place] MD Unavailable Unavailable Nakul Mccarthy MD Unavailable Unavailable Nakul Mccarthy MD Unavailable Unavailable Nakul Mccarthy MD Unavailable Unavailable [place] MD Unavailable Unavailable Nakul Mccarthy MD Unavailable Unavailable Nakul Mccarthy MD Unavailable Unavailable [place] MD Unavailable Unavailable [place] MD Unavailable Unavailable [place] MD Unavailable Unavailable [place] MD Unavailable Unavailable [place] MD Unavailable Unavailable [place] MD Unavailable Unavailable [place] MD Unavailable Unavailable [place] MD Unavailable Unavailable [place] MD Unavailable Unavailable [place] MD Unavailable Unavailable [place] MD Unavailable Unavailable [place] deutsch MD Unavailable Unavailable [place] MD Unavailable Unavailable [place] deutsch MD Unavailable Unavailable [place] deutsch MD Unavailable Unavailable [place] MD Unavailable Unavailable Nakul Mccarthy MD Unavailable Unavailable Nakul Mccarthy MD Unavailable Unavailable [place] MD Unavailable Unavailable Nakul Mccarthy MD Unavailable Unavailable Nakul Mccarthy MD Unavailable Unavailable Nakul Mccarthy MD Unavailable Unavailable Nakul Mccarthy MD Unavailable Unavailable Becki Bradley MD, FACS Unavailable Unavailable Becki Bradley MD, FACS Unavailable Unavailable Becki Bradley MD, FACS Unavailable Unavailable Becki Bradley MD, FACS Unavailable Unavailable Becki Bradley MD, FACS Unavailable Unavailable Becki Bradley MD, FACS Unavailable Unavailable Becki Bradley MD, FACS Unavailable Unavailable Becki Bradley MD, FACS Unavailable Unavailable Becki Bradley MD, FACS Unavailable Unavailable Chang Abbott, Becki Rojas MD, FACS Unavailable Unavailable Chang Abbott, Becki Rojas MD, FACS Unavailable Unavailable Chang Abbott, Becki Rojas MD, FACS Unavailable Unavailable Chang Abbott, Becki Rojas MD, FACS Unavailable Unavailable Chang Abbott, Becki Rojas MD, FACS Unavailable Unavailable Chang Abbott, Becki Rojas MD, FACS Unavailable Unavailable Chang Abbott, Becki Rojas MD, FACS Unavailable Unavailable Chang Abbott, Becki Rojas MD, FACS Unavailable Unavailable Chang Abbott, Becki Rojas MD, FACS Unavailable Unavailable Chang Abbott, Becki Rojas MD, FACS Unavailable Unavailable Chang Abbott, Becki Rojas MD, FACS Unavailable Unavailable Chang Abbott, Becki Rojas MD, FACS Unavailable Unavailable Chang Abbott, Becki Rojas MD, FACS Unavailable Unavailable Chang Abbott, Becki Rojas MD, FACS Unavailable Unavailable Chang Abbott, Becki Rojas MD, FACS Unavailable Unavailable Chang Abbott, Becki Rojas MD, FACS Unavailable Unavailable Chang Abbott, Becki Rojas MD, FACS Unavailable Unavailable Chang Abbott, Becki Rojas MD, FACS Unavailable Unavailable Chang Abbott, Becki Rojas MD, FACS Unavailable Unavailable Chang Abbott, Becki Rojas MD, FACS Unavailable Unavailable Chang Abbott, Becki Rojas MD, FACS Unavailable Unavailable Chang Abbott, Becki Rojas MD, FACS Unavailable Unavailable Chang Abbott, Becki Rojas MD, FACS Unavailable Unavailable Chang Abbott, Becki Rojas MD, FACS Unavailable Unavailable Chang Abbott, Becki Rojas MD, FACS Unavailable Unavailable Chang Abbott, Becki Rojas MD, FACS Unavailable Unavailable Chang Abbott, Bceki Rojas MD, FACS Unavailable Unavailable Chang Abbott, Becki Rojas MD, FACS Unavailable Unavailable Cahng Abbott, Becki Rojas MD, FACS Unavailable Unavailable Chang Abbott, Becki Rojas MD, FACS Unavailable Unavailable Zaria Manzanares MD Unavailable Unavailable Zaria Manzanares MD Unavailable Unavailable Zaria Manzaanres MD Unavailable Unavailable Zaria Manzanares MD Unavailable Unavailable Zaria Manzanares MD Unavailable Unavailable Zaria Manzanares MD Unavailable Unavailable GlennaZaria pandya MD Unavailable Unavailable Zaria Manzanares MD Unavailable Unavailable Zaria Manzanares MD Unavailable Unavailable Zaria Manzanares MD Unavailable Unavailable Zaria Manzanares MD Unavailable Unavailable Zaria Manzanares MD Unavailable Unavailable Zaria Manzanares MD Unavailable Unavailable Zaria Manzanares MD Unavailable Unavailable Zaria Manzanares MD Unavailable Unavailable Zaria Manzanares MD Unavailable Unavailable Zaria Manzanares MD Unavailable Unavailable Zaria Manzanares MD Unavailable Unavailable Zaria Manzanares MD Unavailable Unavailable Zaria Manzanares MD Unavailable Unavailable Zaria Manzanares MD Unavailable Unavailable Zaria Manzanares MD Unavailable Unavailable Zaria Manzanares MD Unavailable Unavailable Zaria Manzanares MD Unavailable Unavailable Zaria Manzanares MD Unavailable Unavailable Zaria Manzanares MD Unavailable Unavailable Zaria Manzanares MD Unavailable Unavailable Zaria Manzanares MD Unavailable Unavailable Zaria Manzanares MD Unavailable Unavailable Zaria Manzanares MD Unavailable Unavailable Zaria Manzanares MD Unavailable Unavailable Zaria Manzanares MD Unavailable Unavailable Zaria Manzanares MD Unavailable Unavailable Zaria Manzanares MD Unavailable Unavailable Zaria Manzanares MD Unavailable Unavailable Zaria Manzanares MD Unavailable Unavailable Zaria Manzanares MD Unavailable Unavailable Zaria Manzanares MD Unavailable Unavailable Zaria Manzanares MD Unavailable Unavailable Zaria Manzanares MD Unavailable Unavailable Zaria Manzanares MD Unavailable Unavailable Zaria Manzanares MD Unavailable Unavailable Zaria Manzanares MD Unavailable Unavailable Zaria Manzanares MD Unavailable Unavailable Zaria Manzanares MD Unavailable Unavailable Zaria Manzanares MD Unavailable Unavailable Zaria Manzanares MD Unavailable Unavailable Zaria Manzanares MD Unavailable Unavailable Zaria Manzanares MD Unavailable Unavailable Zaria Manzanares MD Unavailable Unavailable Zaria Manzanares MD Unavailable Unavailable Zaria Manzanares MD Unavailable Unavailable Zaria Manzanares MD Unavailable Unavailable Zaria Manzanares MD Unavailable Unavailable Zaria Manzanares MD Unavailable Unavailable Zaria Manzanares MD Unavailable Unavailable Zaria Manzanares MD Unavailable Unavailable Zaria Manzanares MD Unavailable Unavailable Zaria Manzanares MD Unavailable Unavailable Zaria Manzanares MD Unavailable Unavailable Zaria Manzanares MD Unavailable Unavailable Zaria Manzanares MD Unavailable Unavailable Zaria Manzanares MD Unavailable Unavailable Glenna, O Samah MD Unavailable Unavailable Glenna, O Samah MD Unavailable Unavailable Glenna, O Samah MD Unavailable Unavailable Glenna, O Samah MD Unavailable Unavailable Glenna, O Samah MD Unavailable Unavailable Glenna, O Samah MD Unavailable Unavailable Glenna, O Samah MD Unavailable Unavailable Glenna, O Samah MD Unavailable Unavailable Glenna, O Samah MD Unavailable Unavailable Glenna, O Samah MD Unavailable Unavailable Glenna, O Samah MD Unavailable Unavailable Glenna, O Samah MD Unavailable Unavailable Glenna, O Samah MD Unavailable Unavailable Glenna, O Samah MD Unavailable Unavailable Glenna, O Samah MD Unavailable Unavailable Glenna, O Samah MD Unavailable Unavailable Re-disclosure Warning The records that you are about to access may contain information from federally-assisted alcohol or drug abuse programs. If such information is present, then the following federally mandated warning applies: This information has been disclosed to you from records protected by federal confidentiality rules (42 CFR part 2). The federal rules prohibit you from making any further disclosure of this information unless further disclosure is expressly permitted by the written consent of the person to whom it pertains or as otherwise permitted by 42 CFR part 2. A general authorization for the release of medical or other information is NOT sufficient for this purpose. The Federal rules restrict any use of the information to criminally investigate or prosecute any alcohol or drug abuse patient.The records that you are about to access may contain highly sensitive health information, the redisclosure of which is protected by Article 27-F of the [facility] Public Health law. If you continue you may have access to information: Regarding HIV / AIDS; Provided by facilities licensed or operated by the [facility] Office of Mental Health; or Provided by the [facility] Office for People With Developmental Disabilities. If such information is present, then the following [facility] mandated warning applies: This information has been disclosed to you from confidential records which are protected by state law. State law prohibits you from making any further disclosure of this information without the specific written consent of the person to whom it pertains, or as otherwise permitted by law. Any unauthorized further disclosure in violation of state law may result in a fine or residential sentence or both. A general authorization for the release of medical or other information is NOT sufficient authorization for further disc losure. Family History Family Member Name Family Member Gender Family Member Status Date o f Status Description Data Source(s) Unknown Unknown Problem [facility] ([facility]) Unknown Male Problem [facility] ([facility]) Unknown Female Problem [facility] ([facility]) Unknown Female Problem [facility] ([facility]) Encounters Encounter Providers Location Date Indications Data Source(s ) Outpatient Attender: MATTHIAS Lovell 0 04/14/2021 01:20:00 PM EDT [facility] ([facility] ) Outpatient Attender: MATTHIAS Lovell 0 03/25/2021 09:20:00 AM EDT [facility] ([facility] ) Outpatient Attender: Ruthann Manzanares MD Main office - [facility] 03/01/2021 11:45:00 AM EDT [facility] ([facility]) Outpatient Attender: MATTHIAS Lovell 0 01/27/2021 01:00:00 PM EDT [facility] ([facility] ) <td ID="encounterTypeDescriptionID0">1 Y ear Follow-Up</td><td>Bob Abbott MD, FACS</td><td>Bob Faulkner MD [facility]</td><td>01/01/2021</td><td>11:56AM</td><td>12:43PM</td><td><content ID="encounterDiagnosisID0-0">Macular Degeneration Nonexudative</content>, <content ID="encounterDiagnosisID0-1">Cataract Senile Total</content>, <content ID="encounterDiagnosisID0-2">Pseudophakia</content>, <content ID="encounterDiagnosisID0-3">Posterior Capsule Opacification Eccentric Capsule Right Eye</content></td>Outpatient Attender: Bob Abbott MD, FACS Bob Faulkner MD [facility] 01/01/2021 11:56:00 AM EDT - 01/01/2021 12:43:00 PM ED T Posterior Capsule Opacification Eccentric Capsule Right EyePseudophakiaMacular Degeneration NonexudativeCataract Senile Total JACEK (Bob Abbott MD [facility]) Posterior Capsule Opacification Eccentri c Capsule Right Eye 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 Outpatient Attender: Jose Lovell 12/21 03:30:00 PM EDT [facility] ([facility] ) Outpatient Attender: Ruthann Manzanares MD Main office [facility] 11/16/2020 11:30:00 AM EDT [facility] ([facility] Outpatient Attender: Jose Lovell 10/14 10:00:00 AM EDT [facility] ([facility] ) Outpatient Attender: Jose Lovell 08/19 09:30:00 AM EST [facility] ([facility] ) Unknown [address] [facility] [address] 08/18/2020 12:00:00 AM EST eCW1 ([facility]) Outpatient Attender: Nakul Milner/Shari/Dain/Meghann castro 07/21/2020 10:45:00 AM EST [facility] ([facility] Outpatient Attender: MATTHIAS Lovell 1 08/19/2019 01:20:00 PM EST [facility] ([facility] ) Immunizations Vaccine Date Status Description Data Source(s) Influenza, injectable, MDCK, preservative free, kiko valent 04/14/2021 02:02:00 PM EDT completed [facility] COVID-19 VACCINE Unknown 09/02/2020 12:00:00 AM EST completed [facility] Vaccine Series Complete: YESThis Data wa s Submitted to [facility] Via [employer]. COVID-19 VACCINE Pfizer 08/11/2020 12:00:00 AM EST completed [facility] Vaccine Series Complete: NOThis Data was Submitted to [facility] [employer]. INFLUENZA VACCINE QUADRIVALENT (65 YR UP)/MF59 C.1/PF 05/21/2020 12:00:00 AM EST completed [facility] Medications Medication Brand Name Start Date Product Form Dose Route Admi nistrative Instructions Pharmacy Instructions Status Indications Reaction Description Data Source(s) Administration Of Flu Vaccine 04/14/2021 12:00:00 AM EDT completed [facility] ([facility]) Medication administered onsite Sertraline 25 MG Oral Tablet Sertraline HCL 04/14/2021 12:00:00 AM EDT ORAL active [facility] ([facility]) Diphenhydramine Hydrochloride 25 MG Oral Capsule [Benadryl] Benadryl Allergy 03/25/2021 12:00:00 AM EDT ORAL active [facility] ([facility]) Clobetasol Propionate E Clobetasol Propionate E 03/25/2021 12:00:00 A M EDT active [facility] ([facility]) Acetaminophen 32 MG/ML Oral Solution Acetaminophen 03/16/2021 12:00 :00 AM EDT active [facility] ([facility]) Melatonin 10 MG Oral Tablet Melatonin 03/05/2021 12:00:00 AM EDT active [facility] ([facility]) Diclofenac Sodium 0.01 MG/MG Topical Gel Diclofenac Sodium 02/15/2021 12:00:00 AM EDT active [facility] ([facility]) Polyvinyl Alcohol 0.014 ML/ML Ophthalmic Solution Artificial Tears 01/19/2021 12:00:00 AM EDT OPHTHALMIC active [facility] ([facility]) Glycerin 2 MG/ML / hypromellose 2 MG/ML / Polyethylene Glycol 400 10 MG/ML Ophthalmic Solution Artificial Tears 01/15/2021 12:00:00 AM EDT OPHTHALMIC completed [facility] ([facility]) Sodium Chloride 0.65% . Nasal Solution Sodium Chloride 0.65% . Nasal Solution 01/01/2021 12:00:00 AM EDT 1 active Sodium Chloride JACEK (Bob Abbott MD [facility]) Furosemide 20 MG Oral Tablet [Lasix] Lasix 20 MG Oral Tablet Lasix 20 MG Oral Tablet 01/01/2021 12:00:00 AM EDT 1 active furosemide 20 MG Oral Tablet [Lasix] JACEK (Bob Abbott MD [facility]) Aspirin 81 MG Delayed Release Oral Table t Adult Aspirin Regimen 81 MG Oral Tablet Delayed Release Adult Aspirin Regimen 81 MG Oral Tablet Delayed Releas e 01/01/2021 12:00:00 AM EDT 1 active aspirin 81 MG Delayed Release Oral Tablet JACEK (Bob Abbott MD [facility]) Docusate Sodium 100 MG Oral Capsule [Colace] Colace 10 0 MG Oral Capsule Colace 100 MG Oral Capsule 01/01/2021 12:00:00 AM EDT 1 active docusate sodium 100 MG Oral Capsule [Colace] JACEK (Bob Abbott MD [facility]) Atorvastatin 40 MG Oral Tablet Atorvastatin 40 MG Oral Table t 01/01/2021 12:00:00 AM EDT 1 active Atorvast atin JACEK (Bob Abbott MD [facility]) [facility] Melatonin 3 MG Oral Tablet [facility] Melatonin 3 MG Oral Table t 01/01/2021 12:00:00 AM EDT 1 active [facility] Nicole tonin JACEK (Bob Abbott MD [facility]) Diclofenac Sodium 0.01 MG/MG Topical Gel [Voltaren] Vo ltaren 1% External Gel Voltaren 1% External Gel 01/01/2021 12:00:00 AM EDT 1 active diclofenac sodium 0.01 MG/MG Topical Gel [Voltaren] JACEK (Bob Abbott MD [facility]) Atenolol 25 MG Oral Tablet Atenolol 25 MG Oral Tablet 2020 12:00:00 AM EDT 1 active atenolol 25 MG Or al Tablet JACEK (Bob Abbott MD [facility]) clopidogrel 75 MG Oral Tablet [Plavix] Plavix 75 MG Or al Tablet Plavix 75 MG Oral Tablet 01/01/2021 12:00:00 AM EDT 1 active clopidogrel 75 MG Oral Tablet [Plavix] JACEK (Bob Abbott MD [facility]) GNP Loratadine 10 MG Oral Tablet GNP Loratadine 10 MG Oral T ablet 01/01/2021 12:00:00 AM EDT 1 active GNP Anny tadine JACEK (Bob Abbott MD [facility]) Pantoprazole 40 MG Oral Tablet Pantoprazole 40 MG Oral Table t 01/01/2021 12:00:00 AM EDT 1 active Pantopra zole JACEK (Bob Abbott MD [facility]) Acetaminophen 32 MG/ML Oral Solution Acetaminophen 12/09/2020 12:00 :00 AM EDT active [facility] ([facility]) Melatonin 3 MG Oral Capsule Melatonin 09/24/2020 12:00:00 AM EST completed [facility] ([facility]) Covid-19 vaccine, Unspecified 09/02/2020 12:00:00 AM EST completed [facility]) Medication administered onsite pantoprazole 40 MG Delayed Release Oral Tablet [Protonix] Pr otonix 08/19/2020 12:00:00 AM EST ORAL active M EDENT ([facility]) Atenolol 25 MG Oral Tablet Atenolol 08/19/2020 12:00:00 AM EST ORAL active [facility] ([facility]) Loratadine 10 MG Oral Capsule Loratadine 08/19/2020 12:00:00 AM EST ORAL active [facility] ([facility]) atorvastatin 40 MG Oral Tablet [Lipitor] Lipitor 08/19/2020 12:00: 00 AM EST ORAL active [facility] ([facility]) 60 ACTUAT Albuterol 0.09 MG/ACTUAT Metered Dose Inhaler Albu terol Sulfate HFA 08/19/2020 12:00:00 AM EST ORAL completed [facility] ([facility]) Acetaminophen 32 MG/ML Oral Solution Acetaminophen 08/19/2020 12:00 :00 AM EST ORAL completed [facility] ([facility]) Aspirin 81 MG Delayed Release Oral Tablet Aspirin Ente lino Coated Adult Low Strength 08/19/2020 12:00:00 AM EST active [facility] ([facility]) clopidogrel 75 MG Oral Tablet [Plavix] Plavix 08/19/2020 12:00:00 AM EST ORAL active [facility] ([facility]) Sodium Chloride 0.111 MEQ/ML Nasal Solution Saline Mist Spra y 08/19/2020 12:00:00 AM EST active M EDENT ([facility]) Magnesium Hydroxide 80 MG/ML Oral Suspension Milk Of Magnesi a 08/19/2020 12:00:00 AM EST ORAL active M [facility]ENT ([facility]) Docusate Sodium 100 MG Oral Capsule [Colace] Colace 09/2020 12:00:00 AM EST ORAL active [facility] ( [facility]) Polyethylene Glycol 400 4 MG/ML / Propyl meet glycol 3 MG/ML Ophthalmic Solution [Systane] Systane Ultra 0.4-0.3% Ophthalmic Solution Systane Ultra 0.4-0.3% Ophthalmic Solution 08/18/2020 12:00:00 AM EST active polyethylene glycol 400 4 MG/ML / propylene glycol 3 MG/ML Ophthalmic Solution [Systane] JACEK (Bob Abbott MD [facility]) Docusate Sodium 50 MG / sennosides, HALFWAY 8.6 MG Oral Tablet S nicanor Plus 08/18/2020 12:00:00 AM EST ORAL active [facility] ([facility]) Ocuvite Adult 50+ Oral Capsule Ocuvite Adult 50+ Oral Capsul e 08/18/2020 12:00:00 AM EST 1 active Ocuvite Adult 50+ JACEK (Bob Abbott MD [facility]) 8 HR Acetaminophen 650 MG Extended Release Oral Tablet Aceta minophen ER 08/18/2020 12:00:00 AM EST ORAL completed [facility] ([facility]) 1 % 08/16/2020 12:00:00 AM EST gel 100 APPLY 2 GRAMS TOPICALLY TO NECK AREA TWO TIMES A DAY AND EVERY 6 HOURS NEEDED FOR PAIN APPLY 2 GRAMS TOPICALLY TO NECK AREA TWO TIMES A DAY AND EVERY 6 HOURS NEEDED FOR PAIN SOLD: 08/17/2020 [facility] Diclofenac Sodium 0.01 MG/MG Topical Gel [Voltaren] Voltaren 08/14/2020 12:00:00 AM EST completed [facility] ([facility]) 25 mg 06/18/2020 12:00:00 AM EST tablet 30 TAKE 1/2 TABLET BY MOUTH EVERY MORNING TAKE 1/2 TABLET BY MOUTH EVERY MORNING SOLD: 06/18/2020 [facility] Sertraline 25 MG Oral Tablet [Zoloft] Zoloft 06/18/2020 12:00:00 AM EST completed [facility] ([facility]) Amoxicillin 500 MG Oral Capsule Amoxicillin 06/18/2020 12:00:00 AM EST ORAL completed [facility] ([facility]) 500 mg 06/18/2020 12:00:00 AM EST capsule 6 TAKE ONE CAPSULE BY MOUTH TWICE A DAY FOR 3 DAYS TAKE ONE CAPSULE BY MOUTH TWICE A DAY FOR 3 DAYS SOLD: 06/18/2020 [facility] 20 mg 04/09/2020 12:00:00 AM EDT tablet 90 TAKE ONE TABLET BY MOUTH EVERY DAY TAKE ONE TABLET BY MOUTH EVERY DAY SOLD: 04/09/2020 [facility] 50 mg 01/30/2020 12:00:00 AM EDT tablet 60 TAKE ONE AND ONE-HALF TABLETS BY MOUTH AT BEDTIME TAKE ONE AND ONE-HALF TABLETS BY MOUTH AT BEDTIME SOLD : 05/28/2020 [facility] 50 mg 01/30/2020 12:00:00 AM EDT tablet 60 TAKE ONE AND ONE-HALF TABLETS BY MOUTH AT BEDTIME TAKE ONE AND ONE-HALF TABLETS BY MOUTH AT BEDTIME SOLD : 04/20/2020 [facility] Atenolol 50 MG Oral Tablet ATENOLOL 07/29/2019 12:00:00 AM EST tablet 90 TAKE ONE TABLET BY MOUTH EVERY DAY TAKE ONE TABLET BY MOUTH EVERY DAY SOLD: 04/13/2020 [facility] Polyethylene Glycol 400 4 MG/ML / Propyl meet glycol 3 MG/ML Ophthalmic Solution [Systane] Systane Ultra 0.4-0.3% Ophthalmic Solution Systane Ultra 0.4-0.3% Ophthalmic Solution 12/19/2017 12:00:00 AM EDT 1 aborted polyethylene glycol 400 4 MG/ML / propylene glycol 3 MG/ML Ophthalmic Solution [Systane] JACEK (Bob Abbott MD [facility]) Ocuvite Adult 50+ Oral Capsule, conventional Ocuvite A dult 50+ Oral Capsule, conventional 12/19/2017 12:00:00 AM EDT 1 aborted Ocuvite Adult 50+ JACEK (Bob Abbott MD [facility]) Atenolol 50 MG Oral Tablet Atenolol 50 MG OR TABS Atenolol 5 0 MG OR TABS 03/21/2013 12:00:00 AM EDT 1 aborted atenolol 50 MG Oral Tablet JACEK (Bob Abbott MD [facility]) Insurance Providers Payer name Policy type / Coverage type Policy ID Covered alliance party ID Covered alliance party's relationship to mcclellan Policy Mcclellan Plan Information Medicare Natl Govt Servic Medicare Primary [id number] Self [id number] Medicare Part B [facility] 0 [id number] S elf 0 Medicare Natl Govt Servic Medicare Primary [id number] Self [id number] Medicare Part B of [facility] Other 0 [id number] S elf 0 Medicare Natl Govt Servic Medicare Primary [id number] Self [id number] Medicare Natl Govt Servic Medicare Primary [id number] Self [id number] Medicare Natl Govt Servic Medicare Primary [id number] Self [id number] Medicare Natl Govt Servic Medicare Primary [id number] Self [id number] Medicare Part B of [facility] Other 0 [id number] Self 0 Medicare Natl Govt Serv Medicare Primary [id number] Self Medicare Part B of [facility] Other 0 [id number] S elf [address] [facility] Part B [id number] Self [id number] [place] Primary [id number] Self [id number] Medicare [place] Medicare Primary [id number] Self [id number] Medicare [place] Medicare Primary [id number] Self [id number] Medicare [place] Medicare Primary [id number] Self [id number] Medicare [place] Medicare Primary [id number] Self [id number] ANSI-Commercial [id number] ANSI-Medicare Part B [id number] BS [place] Medigap Part B [id number] Self [id number] BCBS of [facility] Other 0 [id number] Self 0 BCBS of [facility] Other 0 [id number] Self 0 MEDICARE [id number] SP [id number] D BCBS OD [place] 210/710 [id number] SP [id number] BCBS/Blue Card Medigap Part B [id number] Self [id number] Medicare Natl Gov't Serv Medicare Primary [id number] Self [id number] BS [place] Trad/[place] Commercial [id number] [place] [id number] SP [id number] K [id number] D MEDICARE [id number] SP [id number] BCBS [place] PPO 302/307 [id number] SP [id number] BCBS of [facility] Other 0 [id number] Self 0 [place] [id number] SP [id number] BCBS [place] 210/710 [id number] SP [id number] BCBS [place] PPO 302/307 [id number] SP [id number] EXCELLUS BCBS B [id number] S UFL [id number] MEDICARE C [id number] S [id number] BCBS [place] [id number] S UFL [id number] [facility] MEDICARE DIVISION [id number] S [id number] MEDICARE - [place] [id number] S [id number] BCBS EX[place] [id number] S UFL [id number] [facility] MEDICARE DIVISION [id number] S [id number] MEDICARE - [place] [id number] S [id number] BCBS of [place] Other 0 [id number] Self 0 BS Ray Trad/[place] Medigap Part B [id number] Self [id number] Problems, Conditions, and Diagnoses Code Display Name Description Problem Type Effective Dates Data Source(s) 648461420 Ischemic stroke Ischemic stroke Problem 11/16/2020 12:0 0:00 AM EDT MEDMARYJNAE ([facility], ) [id number] Essential hypertension Essential hypertension Problem 07/21/2020 12:00:00 AM EST MED[facility]JANE ([facility]) Surgeries/Procedures Procedure Description Date Indications Data Source(s) OFFICE OUTPATIENT VISIT 25 MINUTES 04/14/2021 12:00:00 AM EDT MED[facility]JANE ([facility]) OFFICE OUTPATIENT VISIT 25 MINUTES 03/25/2021 12:00:00 AM EDT MEDMARYJANE ([facility]) OFFICE OUTPATIENT VISIT 25 MINUTES 03/01/2021 12:00:00 AM EDT MEDMARYJANE ([facility], ) OFFICE OUTPATIENT VISIT 25 MINUTES 01/27/2021 12:00:00 AM EDT MEDMARYJANE ([facility]) ELECTROENCEPHALOGRAM W/REC AWAKE&ASLEEP 01/05/2021 12: 00:00 AM EDT MEDMARYJANE ([facility], ) ELECTROENCEPHALOGRAM W/REC AWAKE&ASLEEP 01/05/2021 12: 00:00 AM EDT MEDENT ([facility], ) Intermediate Eye Exam Established Patient Intermediate Eye Exam Established Patient 01/01/2021 12:00:00 AM EDT JACEK (Brooks Abbott MD [facility]) OFFICE OUTPATIENT VISIT 25 MINUTES 12/21/2020 12:00:00 AM EDT MEDENT ([facility]) NON-INVASIVE PHYSIOLOGIC STUDY EXTREMITY 3 LEVLS 11/27 12:00:00 AM EDT MED[facility] ([facility], ) TSTG ANS FUNCJ CARDIOVAGAL INNERVAJ PARASYMP 12:00:00 AM EDT [facility] ([facility], ) TESTING AUTONOMIC NERVOUS SYSTEM FUNCTION 11/27/2020 1 2:00:00 AM EDT [facility] ([facility], ) OFFICE OUTPATIENT NEW 60 MINUTES 11/16/2020 12:00:00 A M EDT [facility] ([facility] ) Trans Care SRV W/I 14D Of DC, Comm W/I 2 Dys Med Rec 10/14/2020 12:00:00 AM EDT [facility] ([facility] ) Mukherjee Cre SRV W/I 7 Days Of DC, Comm W/I 2 Dys Med Rec 08/19/2020 12:00:00 AM EST [facility] ([facility] ) Control Nosebleed Anterior Simple 08/07/2020 12:00:00 AM EST [facility] ([facility] ) Results ID Date Data Source [id number] 04/28/2021 08:50:00 PM EDT [facility] Name Value Range Interpretation Code Description Data Medina rce(s) Supporting Document(s) SARS coronavirus 2 RNA [Presence] in Res piratory specimen by ZAYDA with probe detection NEGATIVE [facility] This lab was ordered by [facility] a nd reported by [facility]. ID Date Data Source [id number] 04/26/2021 09:18:00 AM EDT [facility] Name Value Range Interpretation Code Description Data Medina rce(s) Supporting Document(s) SARS coronavirus 2 RNA [Presence] in Res piratory specimen by ZAYDA with probe detection NEGATIVE [facility] This lab was ordered by [facility] a nd reported by [facility]. ID Date Data Source [id number] 09/29/2020 11:01:00 AM EDT MED[facility] ([facility]) Name Value Range Interpretation Code Description Data Medina rce(s) Supporting Document(s) Appearance, Urine RFX Laboratory test result [facility] PH,Urine RFX 7.0 units 5.0-9.0 [facility] ([facility]) Color, Urine RFX Laboratory test result [facility] ([facility] Specific [place] Ur Auto RFX 1.005 1.002-1.035 [facility] ([facility] Protein, Urine Auto RFX Laboratory test result [facility] ([facility]) Glucose, Urine (Ua) Auto RFX Laboratory test result [facility] ([facility]) Urobilinogen, Urine Auto RFX 0.2 mg/dL 0.0-2.0 [facility] Ketone, Urine Auto RFX Laboratory test result [facility] ([facility]) Bilirubin, Urine Auto RFX Laboratory test result [facility] ([facility]) Leukocyte Esterase Ur Auto RFX Laboratory test result [facility] ([facility]) Nitrite, Urine Auto RFX Laboratory test result [facility] ([facility]) WBC, Urine Auto RFX 0 /HPF 0-3 [facility] ([facility]) RBC, Urine Auto RFX 0 /HPF 0-3 [facility] ([facility]) Blood, Urine Blood RFX Laboratory test result [facility] ([facility] Squam Epithelial Cell Ur Aurfx 0 /HPF 0-6 [facility] ([facility]) Bacteria, Urine Auto RFX Laboratory test result [facility] ([facility]) Hyaline Cast, Urine Auto RFX 0 /LPF 0-1 M EDENT ([facility]) ID Date Data Source [id number] 09/29/2020 09:54:00 AM EDT [facility]) Name Value Range Interpretation Code Description Data Medina rce(s) Supporting Document(s) Laboratory test finding (navigational concept) Laboratory test result [facility] ([facility] A false negative result may occur if a s pecimen is improperly collected, transported or handled. False [...] pathogens. DISCLAIMER: Testing was performed using the [employer] SARS-CoV-2 test. This test was developed and its performance characteristics determined by [employer]. This test has not been FDA cleared [...] the authorization is terminated or revoked sooner. Respiratory syncytial virus RNA [Presenc e] in Unspecified specimen by Probe and target amplification method Laboratory test result [facility] ([facility] Negative results do not preclude influen za or RSV virus infection and should not be used as the sole basis for treatment or other patient management decisions. ID Date Data Source [id number] 09/29/2020 09:54:00 AM EDT [facility] Name Value Range Interpretation Code Description Data Medina rce(s) Supporting Document(s) Influenza A Amplification Laboratory test result [facility] ([facility] Negative results do not preclude influen za or RSV virus infection and should not be used as the sole basis for treatment or other patient management decisions. Influenza B Amplification Laboratory test result [facility] ([facility]) Negative results do not preclude influen za or RSV virus infection and should not be used as the sole basis for treatment or other patient management decisions. ID Date Data Source [id number] 09/29/2020 09:54:00 AM EDT [facility] Name Value Range Interpretation Code Description Data Medina rce(s) Supporting Document(s) SARS coronavirus 2 RNA [Presence] in Res piratory specimen by ZAYDA with probe detection NEGATIVE [facility] This lab was ordered by [facility] a nd reported by [facility]. ID Date Data Source [id number] 09/29/2020 09:27:00 AM EDT [facility] ([facility]) Name Value Range Interpretation Code Description Data Medina rce(s) Supporting Document(s) Magnesium [Moles/volume] in Serum or Plasma 2.2 mg/dL 1.8-2.4 [facility] ([facility]) ID Date Data Source [id number] 09/29/2020 09:27:00 AM EDT [facility] ([facility]) Name Value Range Interpretation Code Description Data Medina rce(s) Supporting Document(s) Glucose, Fasting 86 mg/dL 70-100 [facility] ([facility]) Creatinine For GFR 0.60 mg/dL 0.55-1.30 [facility] ([facility]) Blood Urea Nitrogen 13 mg/dL 7-18 [facility] ([facility]) Sodium Level 141 meq/L 136-145 [facility] ([facility]) Glomerular Filtration Rate Laboratory test result [facility] ([facility]) <content>Units are mL/min/1.73 m2</content>
<content></content>
<content>Chronic Kidney Disease Staging per NKF:</content>
<content></content>
<content>Stage I & II GFR >=60 Normal to Mildly Decreased</content>
<content>Stage III GFR 30- 59 Moderately Decreased</content>
<content>Stage IV GFR 15-29 Severely Decreased</content>
<content>Stage V GFR <15 Very Little GFR Left</content>
<content>ESRD GFR <15 on SAFETY AIDE</content>
<content></content> Potassium Serum 3.9 meq/L 3.5-5.1 [facility] ([facility]) Chloride Level 104 meq/L 98-107 [facility] ([facility]) Carbon Dioxide Level 31 meq/L 21-32 [facility] ([facility]) Anion Gap 6 meq/L 8-16 [facility] [facility] Calcium Level 9.1 mg/dL 8.8-10.2 [facility] ([facility]) ID Date Data Source [id number] 09/29/2020 09:27:00 AM EDT [facility] ([facility]) Name Value Range Interpretation Code Description Data Medina rce(s) Supporting Document(s) Ast/Sgot 14 U/L 7-37 [facility] ([facility]) Alt/SGPT 22 U/L 12-78 [facility] ([facility]) Bilirubin,Total 0.7 mg/dL 0.2-1.0 [facility] ([facility]) Alkaline Phosphatase 73 U/L 45-117 [facility] ([facility]) Total Protein 6.5 GM/DL 6.4-8.2 [facility] ([facility]) Bilirubin,Direct 0.3 mg/dL 0.0-0.2 [facility] ([facility]) Albumin 3.5 [facility] Albumin/Globulin Ratio 1.2 1.2-2.2 [facility] ([facility]) ID Date Data Source [id number] 09/29/2020 09:27:00 AM EDT [facility] ([facility]) Name Value Range Interpretation Code Description Data Medina rce(s) Supporting Document(s) CPK Creatine Phosphokinase 44 U/L 26-192 [facility] E[facility] ([facility]) CK-MB Value Mass 1.2 ng/mL [facility] ([facility]) MB/CK Relative Index 2.73 [facility] ([facility]) <content>DIAGNOSIS CRITERIA</content>
<content>MMB ng/ml Relative Index (RI)</content>
<content>NON-AMI < or = 5 N/A</content>
<content>COLÓN ZONE > 5 < or = 4</content>
<content>AMI > 5 > 4</content>
<content></content> Troponin I Laboratory test result MEDENT ([facility]) <content>Troponin I Reference Interval f or Siemens [place] LOCI:</content>
<content></content>
<content>99th Percentile= 0.00-0.045 ng/ml</content>
<content></content>
<content>Risk Stratification:</content>
<content><= 0.10 ng/ml Decreased Risk for Adverse Clinical</content>
<content>Events.</content>
<content>0.10-1.50 ng/ml Increased Risk for Adverse Clinical</content>
<content>Events. Evaluation of additional</content>
<content>criterion and/or repeat testing in 2-6</content>
<content>hours is suggested to rule out myocardial</content>
<content>damage.</content>
<content>>= 1.50 ng/ml Indicative of Myocardial Injury.</content>
<content></content> ID Date Data Source [id number] 09/29/2020 09:27:00 AM EDT [facility] ([facility]) Name Value Range Interpretation Code Description Data Medina rce(s) Supporting Document(s) aPTT in Blood by Coagulation assay 26.2 s 24.2-38.5 [facility] ([facility]) ID Date Data Source [id number] 09/29/2020 09:27:00 AM EDT [facility] ([facility]) Name Value Range Interpretation Code Description Data Medina rce(s) Supporting Document(s) Prothrombin Time 14.1 s 12.5-14.3 [facility] Inr 1.07 [facility] [facility] THERAPUTIC HUMAN INR VALUES INDICATIONS NORMAL RANGES PROPHYLAXIS/TREATMENT OF: VENOUS THROMBOSIS 2.0-3.0 PULMONARY EMBOLISM 2.0-3.0 PREVENTION OF SYSTEMIC EMBOLISM FROM: TISSUE HEART VALVES 2.0-3.0 ACUTE MYOCARDIAL INFARCTION 2.0-3.0 VALVULAR HEART DISEASE 2.0-3.0 ATRIAL FIBRILLATION 2.0-3.0 MECHANICAL VALVES(HIGH RISK) 2.5-3.5 RECURRENT MYOCARDIAL INFARCTION 2.5-3.5 ID Date Data Source [id number] 09/29/2020 09:27:00 AM EDT [facility] ([facility]) Name Value Range Interpretation Code Description Data Medina rce(s) Supporting Document(s) White Blood Count 7.0 10 4.0-10.0 [facility] ([facility]) Hemoglobin 13.4 g/dL 12.0-15.5 [facility] [facility] Red Blood Count 4.12 10 4.00-5.40 [facility] ([facility]) Hematocrit 40.2 % 36.0-47.0 [facility] [facility] Mean Corpuscular Volume 97.6 fl 80.0-96.0 [facility] ([facility]) Mean Corpuscular HGB Conc 33.3 g/dL 32.0-36.5 MEDE NT ([facility]) Mean Corpuscular Hemoglobin 32.5 pg 27.0-33.0 ME DENT ([facility]) Red Cell Distribution Width 12.2 % 11.5-14.5 ME [facility] ([facility]) Neutrophils % 63.8 % 36.0-66.0 [facility] ([facility]) Platelet Count, Automated 173 10 150-450 MEDE NT ([facility]) Lymph % 19.4 % 24.0-44.0 [facility] [facility]) [place] % 11.5 % 2.0-8.0 [facility] [facility]) Immature Granulocyte % 0.3 % 0-3.0 [facility] ([facility]) Eos % 4.4 % 0.0-3.0 [facility] [facility]) Baso % 0.6 % 0.0-1.0 [facility] [facility]) Neutrophils # 4.5 10 1.5-8.5 [facility] ([facility]) Nucleated Red Blood Cell % 0.0 % 0-0 MED ENT ([facility]) Eos # 0.3 10 0.0-0.5 [facility] [facility]) [place] # 0.8 10 0.0-0.8 [facility] [facility] Lymph # 1.4 10 1.5-5.0 [facility] [facility]) Baso # 0.0 10 0.0-0.2 [facility] [facility]) ID Date Data Source [id number] 09/07/2020 09:00:00 AM EST [facility] Name Value Range Interpretation Code Description Data Medina rce(s) Supporting Document(s) SARS coronavirus 2 RNA Not Detected [facility] [place] This lab was ordered by [facility] and reported by [facility]. ID Date Data Source [id number] 08/31/2020 10:00:00 AM EST [facility] Name Value Range Interpretation Code Description Data Medina rce(s) Supporting Document(s) SARS coronavirus 2 RNA Not Detected [facility] [place] This lab was ordered by [facility] and reported by [facility]. ID Date Data Source [id number] 08/24/2020 06:30:00 AM EST [facility] Name Value Range Interpretation Code Description Data Medina rce(s) Supporting Document(s) SARS coronavirus 2 RNA Not Detected [facility] [place] This lab was ordered by [facility] and reported by [facility]. ID Date Data Source [id number] 08/17/2020 08:00:00 AM EST [facility] Name Value Range Interpretation Code Description Data Medina rce(s) Supporting Document(s) SARS coronavirus 2 RNA Not Detected [facility] [place] This lab was ordered by [facility] and reported by [facility]. ID Date Data Source [id number] 08/13/2020 01:09:00 PM EST [facility] Name Value Range Interpretation Code Description Data Medina rce(s) Supporting Document(s) SARS coronavirus 2 RNA [Presence] in Res piratory specimen by ZAYDA with probe detection NEGATIVE [facility] This lab was ordered by [facility] a nd reported by [facility]. ID Date Data Source [id number] 08/12/2020 07:19:00 AM EST [facility] Name Value Range Interpretation Code Description Data Medina rce(s) Supporting Document(s) SARS coronavirus 2 RNA Not Detected [facility] [place] This lab was ordered by [facility] and reported by [facility]. ID Date Data Source [id number] 08/05/2020 08:00:00 AM EST [facility] Name Value Range Interpretation Code Description Data Medina rce(s) Supporting Document(s) SARS coronavirus 2 RNA Not Detected [facility] [place] This lab was ordered by [facility] and reported by [facility]. ID Date Data Source [id number] 07/29/2020 06:00:00 AM EST [facility] Name Value Range Interpretation Code Description Data Medina rce(s) Supporting Document(s) SARS coronavirus 2 RNA Not Detected [facility] [place] This lab was ordered by [facility] and reported by [facility]. ID Date Data Source [id number] 07/23/2020 10:08:00 AM EST [facility] Name Value Range Interpretation Code Description Data Medina rce(s) Supporting Document(s) SARS coronavirus 2 RNA [Presence] in Res piratory specimen by ZAYDA with probe detection NEGATIVE [facility] This lab was ordered by [facility] a nd reported by [facility]. ID Date Data Source [id number] 07/01/2020 01:24:00 PM EST [facility] Name Value Range Interpretation Code Description Data Medina rce(s) Supporting Document(s) SARS coronavirus 2 RNA [Presence] in Res piratory specimen by ZAYDA with probe detection [facility] This lab was ordered by [facility] a nd reported by [facility]. ID Date Data Source [id number] 07/01/2020 12:11:00 PM EST [facility] ([facility]) Name Value Range Interpretation Code Description Data Medina rce(s) Supporting Document(s) Thyrotropin [Units/volume] in Serum or Plasma by Detec tion limit <= 0.05 mIU/L 0.726 uIU/ML 0.358-3.740 [facility] ([facility] ) ID Date Data Source [id number] 07/01/2020 12:11:00 PM EST [facility] ([facility]) Name Value Range Interpretation Code Description Data Medina rce(s) Supporting Document(s) Glucose, Fasting 93 mg/dL 70-100 [facility] ([facility]) Blood Urea Nitrogen 10 mg/dL 7-18 [facility] ([facility]) Creatinine For GFR 0.69 mg/dL 0.55-1.30 [facility] ([facility]) Glomerular Filtration Rate Laboratory test result [facility]) <content>Units are mL/min/1.73 m2</content>
<content></content>
<content>Chronic Kidney Disease Staging per NKF:</content>
<content></content>
<content>Stage I & II GFR >=60 Normal to Mildly Decreased</content>
<content>Stage III GFR 30- 59 Moderately Decreased</content>
<content>Stage IV GFR 15-29 Severely Decreased</content>
<content>Stage V GFR <15 Very Little GFR Left</content>
<content>ESRD GFR <15 on SAFETY AIDE</content>
<content></content> Sodium Level 140 meq/L 136-145 [facility] ([facility]) Potassium Serum 3.9 meq/L 3.5-5.1 [facility] ([facility]) Chloride Level 104 meq/L 98-107 [facility] ([facility]) Carbon Dioxide Level 32 meq/L 21-32 [facility] ([facility]) Calcium Level 10.0 mg/dL 8.8-10.2 [facility] ([facility]) Anion Gap 4 meq/L 8-16 [facility] ([facility]) ID Date Data Source [id number] 07/01/2020 12:11:00 PM EST [facility] ([facility]) Name Value Range Interpretation Code Description Data Medina rce(s) Supporting Document(s) Ast/Sgot 11 U/L 7-37 [facility] ([place] [facility]) Alkaline Phosphatase 49 U/L 45-117 [facility] ([facility]) Alt/SGPT 20 U/L 12-78 [facility] ([place] [facility]) Bilirubin,Total 1.3 mg/dL 0.2-1.0 [facility] ([facility]) Bilirubin,Direct 0.3 mg/dL 0.0-0.2 [facility] ([facility]) Total Protein 6.8 GM/DL 6.4-8.2 [facility] ([place] [facility]) Albumin/Globulin Ratio 1.3 1.2-2.2 [facility] ([place] [facility]) Albumin 3.8 GM/DL 3.2-5.2 [facility] ([place] [facility]) ID Date Data Source [id number] 07/01/2020 12:11:00 PM EST [facility] Name Value Range Interpretation Code Description Data Medina rce(s) Supporting Document(s) CPK Creatine Phosphokinase 74 U/L 26-192 [facility] ([place] [facility]) MB/CK Relative Index 2.70 [facility] ([facility]) <content>DIAGNOSIS CRITERIA</content>
<content>MMB ng/ml Relative Index (RI)</content>
<content>NON-AMI < or = 5 N/A</content>
<content>COLÓN ZONE > 5 < or = 4</content>
<content>AMI > 5 > 4</content>
<content></content> CK-MB Value Mass 2.0 ng/mL [facility] ([facility]) Troponin I Laboratory test result [facility] ([place] [facility]) <content>Troponin I Reference Interval f or Siemens [place] LOCI:</content>
<content></content>
<content>99th Percentile= 0.00-0.045 ng/ml</content>
<content></content>
<content>Risk Stratification:</content>
<content><= 0.10 ng/ml Decreased Risk for Adverse Clinical</content>
<content>Events.</content>
<content>0.10-1.50 ng/ml Increased Risk for Adverse Clinical</content>
<content>Events. Evaluation of additional</content>
<content>criterion and/or repeat testing in 2-6</content>
<content>hours is suggested to rule out myocardial</content>
<content>damage.</content>
<content>>= 1.50 ng/ml Indicative of Myocardial Injury.</content>
<content></content> ID Date Data Source [id number] 07/01/2020 12:11:00 PM EST [facility] ([facility]) Name Value Range Interpretation Code Description Data Medina rce(s) Supporting Document(s) Ammonia [Mass/volume] in Blood 11 uMOL/L [facility] ([place] [facility]) ID Date Data Source [id number] 07/01/2020 12:11:00 PM EST [facility] ([facility]) Name Value Range Interpretation Code Description Data Medina rce(s) Supporting Document(s) White Blood Count 6.4 10 4.0-10.0 [facility] ([facility]) Red Blood Count 4.18 10 4.00-5.40 [facility] ([facility]) Hematocrit 40.7 % 36.0-47.0 [facility] [facility] Hemoglobin 13.6 g/dL 12.0-15.5 [facility] ([place] [facility] Mean Corpuscular Volume 97.4 fl 80.0-96.0 [facility] ([facility] [facility]) Mean Corpuscular HGB Conc 33.4 g/dL 32.0-36.5 MED[facility] NT ([place] [facility]) Mean Corpuscular Hemoglobin 32.5 pg 27.0-33.0 ME [facility] ([place] [facility]) Platelet Count, Automated 220 10 150-450 [facility] NT ([place] [facility]) Red Cell Distribution Width 12.5 % 11.5-14.5 [facility] ([place] [facility]) Neutrophils % 67.2 % 36.0-66.0 [facility] ([facility]) Lymph % 20.1 % 24.0-44.0 [facility] ([place] [facility]) Eos % 2.0 % 0.0-3.0 [facility] ([place] [facility]) [place] % 10.1 % 0.0-5.0 [facility] ([place] [facility]) Immature Granulocyte % 0.3 % 0-3.0 [facility] ([place] [facility]) Baso % 0.3 % 0.0-1.0 [facility] ([place] [facility]) Neutrophils # 4.3 10 1.5-8.5 [facility] ([facility]) Nucleated Red Blood Cell % 0.0 % 0-0 [facility] ([place] [facility]) Lymph # 1.3 10 1.5-5.0 [facility] ([place] [facility]) [place] # 0.6 10 0.0-0.8 [facility] ([place] [facility]) Eos # 0.1 10 0.0-0.5 [facility] ([place] [facility]) Baso # 0.0 10 0.0-0.2 [facility] ([place] [facility]) Procedure Social History Code Duration Value Status Description Data Source(s ) Smoking 03/19/2021 02:41:42 PM EDT Ex-smoker (finding) [facility] Ex-[place] (finding) [place] (Bob Abbott [facility]) Vital Signs ID Date Data Source UNK Name Value Range Interpretation Code Description Data Source(s) Systolic blood pressure 122 mm[Hg] 122 mm[Hg] [facility] ([place] [facility]) Diastolic blood pressure 78 mm[Hg] 78 mm[Hg] [facility] ([place] [facility]) Body height 62 [in_i] 62 [in_i] [facility] ([facility]) 5'2" Body weight 167.00 [lb_av] 167.00 [lb_av] [facility] T ([place] [facility]) Body mass index (BMI) [Ratio] 30.5 kg/m2 30.5 k g/m2 [facility] ([place] [facility]) Diastolic blood pressure 68 mm[Hg] 68 mm[Hg] [facility] ([place] [facility]) Heart rate 83 /min 83 /min [facility] ([facility]) Systolic blood pressure 116 mm[Hg] 116 mm[Hg] [facility] ([place] [facility]) Body height 62 [in_i] 62 [in_i] [facility] ([facility]) 5'2" Body weight 164.00 [lb_av] 164.00 [lb_av] [facility] T ([place] [facility]) Oxygen saturation in Arterial blood by Pulse oximetry 96 % 96 % [facility] ([place] [facility]) Body mass index (BMI) [Ratio] 30.0 kg/m2 30.0 k g/m2 [facility] ([place] [facility]) Respiratory rate 12 /min 12 /min [facility] ( [facility]) Body height 62 [in_i] 62 [in_i] [facility] ([facility]) 5'2" Body weight 136.00 [lb_av] 136.00 [lb_av] MEDEN T ([facility]) [place] body weight 110 [lb_av] 110 [lb_av] [facility] T ([facility]) Body mass index (BMI) [Ratio] 24.9 kg/m2 24.9 k g/m2 [facility] ([facility]) Systolic blood pressure 118 mm[Hg] 118 mm[Hg] [facility] [facility] Diastolic blood pressure 81 mm[Hg] 81 mm[Hg] [facility] ([place] [facility]) Heart rate 75 /min 75 /min [facility] ([facility]) Body height 62 [in_i] 62 [in_i] [facility] ([facility]) 5'2" Body weight 158.00 [lb_av] 158.00 [lb_av] MEDEN T ([place] [facility]) Body mass index (BMI) [Ratio] 28.9 kg/m2 28.9 k g/m2 [facility] ([place] [facility]) Body mass index (BMI) [Ratio] 28.2 kg/m2 28.2 k g/m2 [facility] ([place] [facility]) Heart rate 78 /min 78 /min [facility] ([facility]) Body weight 154.00 [lb_av] 154.00 [lb_av] [facility] T ([place] [facility]) Systolic blood pressure 120 mm[Hg] 120 mm[Hg] M EDENT ([place] [facility]) Diastolic blood pressure 62 mm[Hg] 62 mm[Hg] [facility] ([place] [facility]) Body height 62 [in_i] 62 [in_i] [facility] ([facility]) 5'2" Body weight 136.00 [lb_av] 136.00 [lb_av] MEDEN T ([facility]) [place] body weight 110 [lb_av] 110 [lb_av] MED[facility] T ([facility], ) Respiratory rate 12 /min 12 /min [facility] ( [facility], ) Body height 62 [in_i] 62 [in_i] [facility] 5'2" Body mass index (BMI) [Ratio] 24.9 kg/m2 24.9 k g/m2 [facility] ([facility], ) Body height 62 [in_i] 62 [in_i] [facility] ([facility]) 5'2" Body weight 143.00 [lb_av] 143.00 [lb_av] MED[facility] T ([place] [facility]) Systolic blood pressure 120 mm[Hg] 120 mm[Hg] [facility] [facility] Diastolic blood pressure 80 mm[Hg] 80 mm[Hg] [facility] [facility] Heart rate 78 /min 78 /min [facility] ([facility]) Body mass index (BMI) [Ratio] 26.2 kg/m2 26.2 k g/m2 [facility] ([place] [facility]) Body mass index (BMI) [Ratio] 25.6 kg/m2 25.6 k g/m2 [facility] ([place] [facility]) Heart rate 80 /min 80 /min [facility] ([facility]) Body height 62 [in_i] 62 [in_i] [facility] ([facility]) 5'2" Body weight 140.00 [lb_av] 140.00 [lb_av] MEDEN T ([place] [facility]) Systolic blood pressure 110 mm[Hg] 110 mm[Hg] [facility] [facility] Diastolic blood pressure 72 mm[Hg] 72 mm[Hg] [facility] ([place] [facility]) Systolic blood pressure 126 mm[Hg] 126 mm[Hg] [facility] [facility] Oxygen saturation in Arterial blood by Pulse oximetry 95 % 95 % [facility] [facility] Air Diastolic blood pressure 70 mm[Hg] 70 mm[Hg] [facility] ([place] [facility]) Heart rate 84 /min 84 /min [facility] ([facility]) Body weight 136.00 [lb_av] 136.00 [lb_av] MEDEN T ([place] [facility]) Body mass index (BMI) [Ratio] 24.9 kg/m2 24.9 k g/m2 [facility] ([place] [facility]) Body height 62 [in_i] 62 [in_i] [facility] ([facility]) 5'2" Patient Treatment Plan of Care Planned Activity Planned Date Details Description Data Source (s) Ocuvite Adult 50+ Oral Capsule 08/18/2020 12:00:00 AM EST [place] ([facility]) Polyethylene Glycol 400 4 MG/ML / Propyl meet glycol 3 MG/ML Ophthalmic Solution [Systane] 08/18/2020 12:00:[address] ([facility] Abbott [facility]) Polyethylene Glycol 400 4 MG/ML / Propyl meet glycol 3 MG/ML Ophthalmic Solution [Systane] 12/19/2017 12:00:[address] ([facility] Abbott [facility]) Ocuvite Adult 50+ Oral Capsule, conventional 12/19/2017 12:00:00 AM EDT [facility] ([facility])
[2021-05-16 11:52] LABS: BASO % 0.4 % (0.0-1.0); EOS # 0.4 10^3/uL (0.0-0.5); EOS % 4.6 % (0.0-3.0); HEMATOCRIT 36.6 % (36.0-47.0); HEMOGLOBIN 12.6 g/dl (12.0-15.5); LYMPH # 1.1 10^3/uL (1.5-5.0); LYMPH % 13.8 % (24.0-44.0); MEAN CORPUSCULAR HEMOGLOBIN 33.2 pg (27.0-33.0); MEAN CORPUSCULAR HGB CONC 34.4 g/dl (32.0-36.5); MEAN CORPUSCULAR VOLUME 96.6 fl (80.0-96.0); MONO # 0.8 10^3/uL (0.0-0.8); MONO % 9.3 % (2.0-8.0); NEUTROPHILS # 5.8 10^3/uL (1.5-8.5); NEUTROPHILS % 71.8 % (36.0-66.0); PLATELET COUNT, AUTOMATED 207 10^3/uL (150-450); RED BLOOD COUNT 3.79 10^6/uL (4.00-5.40)
--- NOTE | 2021-05-16 11:52 | REP ---
INDICATION: TIA. COMPARISON: 04/26/2021 also portable TECHNIQUE: Portable FINDINGS: The technique utilized in obtaining the radiograph has magnified the cardiac silhouette and attenuated the interstitial markings. The cardiomediastinal silhouette lung casey are unchanged. No acute patchy parenchymal opacities or pleural effusions have developed. There is no change in the osseous structures. IMPRESSION: There is no evidence of acute cardiopulmonary disease. <Electronically signed by Randy Pedraza > 05/16/21 1141
[2021-05-16 12:22] LABS: RSV AMPLIFICATION NEGATIVE (NEGATIVE)
[2021-05-16 12:28] LABS: BLOOD UREA NITROGEN 7 MG/DL (7-18); CARBON DIOXIDE LEVEL 31 MEQ/L (21-32); CHLORIDE LEVEL 107 MEQ/L (98-107); CREATININE FOR GFR 0.64 MG/DL (0.55-1.30); GLOMERULAR FILTRATION RATE > 60.0 (>32); GLUCOSE, FASTING 99 MG/DL (70-100); POTASSIUM SERUM 2.7 MEQ/L (3.5-5.1); SODIUM LEVEL 143 MEQ/L (136-145)
[2021-05-16] MEDS ORDERED: CLOBETASOL PROPIONATE EMOLLIENT 0.05% CR 60 GM TOP PRN (13:45)
[2021-05-16] MEDS ORDERED: SODIUM CHLORIDE NASAL 0.65% SPRAY BTL (OCEAN) PRN (13:45)
[2021-05-16] MEDS ORDERED: POLYVINYL ALCOHOL OPHTH SOLN 15 ML(LIQUITEARS) OU PRN (13:45)
--- OUTSIDE RECORDS SUMMARY | 2021-05-16 14:00 | CCD ---
Author Author [facility] Organization [facility] Address Unknown Phone Unavailable Care Team Providers Care Media Strategist Name Role Phone Hafsa Buck MD Unavailable [...] Unavailable Unavailable Nakul Mccarthy MD Unavailable Unavailable Ford CliffNakul MD Unavailable Unavailable Nakul Mccarthy MD Unavailable Unavailable Naukl Mccarthy MD Unavailable Unavailable Nakul Mccarthy MD Unavailable Unavailable Ford CliffNakul MD Unavailable Unavailable Nakul Mccarthy MD Unavailable Unavailable Nakul Mccarthy MD Unavailable Unavailable Ford CliffNakul MD Unavailable Unavailable Ford CliffNakul MD Unavailable Unavailable Ford CliffNakul MD Unavailable Unavailable Ford CliffNakul MD Unavailable Unavailable Ford CliffNakul MD Unavailable Unavailable Ford CliffNakul MD Unavailable Unavailable Ford CliffNakul MD Unavailable Unavailable Ford CliffNakul MD Unavailable Unavailable Ford CliffNakul MD Unavailable Unavailable Ford CliffNakul MD Unavailable Unavailable Ford CliffNakul MD Unavailable Unavailable Ford CliffNakul deutsch MD Unavailable Unavailable Ford CliffNakul MD Unavailable Unavailable Ford CliffNakul deutsch MD Unavailable Unavailable Ford CliffNkaul deutsch MD Unavailable Unavailable Ford CliffNakul MD Unavailable Unavailable Nakul Mccarthy MD Unavailable Unavailable Nakul Mccarthy MD Unavailable Unavailable Ford CliffNakul MD Unavailable Unavailable Nakul Mccarthy MD Unavailable [...] Unavailable Zaria Manzanares MD Unavailable Unavailable Zaria Maznanares MD Unavailable Unavailable Zaria Manzanares MD Unavailable [...] is protected by Article 27-F of the [facility] Public Health law. If you continue you may have access to information: Regarding HIV / AIDS; Provided by facilities licensed or operated by the [facility] Office of Mental Health; or Provided by the [facility] Office for People With Developmental Disabilities. If such information is present, then the following [facility] mandated warning applies: This information has been [...] law may result in a fine or usp sentence or both. A general authorization for the release of medical or other information is NOT sufficient authorization for further disc losure. Family History Family Member Name Family Member Gender Family Member Status Date o f Status Description Data Source(s) Unknown Unknown Problem [facility] ([facility]) Unknown Male Problem MED[facility] ([facility]) Unknown Female Problem [facility] ([facility]) Unknown Female Problem [facility] ([facility]) Encounters Encounter Providers Location Date Indications Data Source(s ) Outpatient Attender: MATTHIAS Lovell 0 04/14/2021 01:20:00 PM EDT MED[facility] ([facility] ) Outpatient Attender: MATTHIAS Lovell 0 03/25/2021 09:20:00 AM EDT MED[facility] ([facility] ) Outpatient Attender: Ruthann Manzanares MD Main office - [facility] 03/01/2021 11:45:00 AM EDT MED[facility] ([facility]) Outpatient Attender: MATTHIAS Lovell 0 01/27/2021 01:00:00 PM EDT MED[facility] ([facility] ) Outpatient<td ID="encounterTypeDescripti onID0">1 Year Follow-Up</td><td>Bob Faulkner MD, FACS</td><td>Bob Faulkner MD [facility]</td><td>01/01/2021</td><td>11:56AM</td><td>12:43PM</td><td><content ID="encounterDiagnosisID0-0">Macular Degeneration Nonexudative</content>, <content ID="encounterDiagnosisID0-1">Cataract Senile Total</content>, <content ID="encounterDiagnosisID0-2">Pseudophakia</content>, <content ID="encounterDiagnosisID0-3">Posterior Capsule Opacification Eccentric Capsule Right Eye</content></td> Attender: Bob Abbott MD, FACS Bob Fajardo [facility] 01/01/2021 11:56:00 AM EDT - 01/01/2021 12:43:00 PM ED T Posterior Capsule Opacification Eccentric Capsule Right EyePseudophakiaMacular Degeneration NonexudativeCataract Senile Total JACEK (Bob Abbott MD [facility]) Posterior Capsule Opacification Eccentri c Capsule Right Eye 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 Outpatient Attender: Jose Lovell 12/21 03:30:00 PM EDT MED[facility] ([facility] ) Outpatient Attender: Ruthann Manzanares MD Main office [facility] 11/16/2020 11:30:00 AM EDT MED[facility] ([facility] ) Outpatient Attender: Jose Lovell 10/14 10:00:00 AM EDT MED[facility] ([facility] ) Outpatient Attender: Jose Lovell 08/19 09:30:00 AM EST [facility] ([facility] ) Unknown [address] [facility] [facility] [address] 08/18/2020 12:00:00 AM EST eCW1 (Critical access hospital) Outpatient Attender: Nakul Milner/Shari/Dain/Meghann castro 07/21/2020 10:45:00 AM EST MED[facility] ([facility] ) Outpatient Attender: MATTHIAS Lovell 1 08/19/2019 01:20:00 PM EST MED[facility] ([facility] ) Immunizations Vaccine Date Status Description Data Source(s) Influenza, injectable, MDCK, preservative free, kiko valent 04/14/2021 02:02:00 PM EDT completed [facility] COVID-19 VACCINE Unknown 09/02/2020 12:00:00 AM EST completed [facility] Vaccine Series Complete: YESThis Data wa s Submitted to [facility] Via [employer]. COVID-19 VACCINE Pfizer 08/11/2020 12:00:00 AM EST completed [facility] Vaccine Series Complete: NOThis Data was Submitted to [facility] Via [employer]. INFLUENZA VACCINE QUADRIVALENT (65 YR UP)/MF59 C.1/PF 05/21/2020 12:00:00 AM EST completed [facility] Medications Medication Brand Name Start Date Product Form Dose Route Admi nistrative Instructions Pharmacy Instructions Status Indications Reaction Description Data Source(s) Administration Of Flu Vaccine 04/14/2021 12:00:00 AM EDT completed [facility] ([facility]) Medication administered onsite Sertraline 25 MG Oral Tablet Sertraline HCL 04/14/2021 12:00:00 AM EDT ORAL active MED[facility] ([facility]) Diphenhydramine Hydrochloride 25 MG Oral Capsule [Benadryl] Benadryl Allergy 03/25/2021 12:00:00 AM EDT ORAL active MED[facility] ([facility]) Clobetasol Propionate E Clobetasol Propionate E 03/25/2021 12:00:00 A M EDT active MED[facility] ([facility]) Acetaminophen 32 MG/ML Oral Solution Acetaminophen 03/16/2021 12:00 :00 AM EDT active MED[facility] ([facility]) Melatonin 10 MG Oral Tablet Melatonin 03/05/2021 12:00:00 AM EDT active MED[facility] ([facility]) Diclofenac Sodium 0.01 MG/MG Topical Gel Diclofenac Sodium 02/15/2021 12:00:00 AM EDT active MED[facility] ([facility]) Polyvinyl Alcohol 0.014 ML/ML Ophthalmic Solution Artificial Tears 01/19/2021 12:00:00 AM EDT OPHTHALMIC active MED[facility] ([facility]) Glycerin 2 MG/ML / hypromellose 2 MG/ML / Polyethylene Glycol 400 10 MG/ML Ophthalmic Solution Artificial Tears 01/15/2021 12:00:00 AM EDT OPHTHALMIC completed [facility] ([facility]) Sodium Chloride 0.65% . Nasal Solution Sodium Chloride 0.65% . Nasal Solution 01/01/2021 12:00:00 AM EDT 1 active Sodium Chloride JACEK (Bob Abbott MD [facility]) Furosemide 20 MG Oral Tablet [Lasix] Lasix 20 MG Oral Tablet Lasix 20 MG Oral Tablet 01/01/2021 12:00:00 AM EDT 1 active furosemide 20 MG Oral Tablet [Lasix] JACEK (Bob Abbott MD [facility]) Aspirin 81 MG Delayed Release Oral Table t Adult Aspirin Regimen 81 MG Oral Tablet Delayed Release Adult Aspirin Regimen 81 MG Oral Tablet Delayed Releas e 01/01/2021 12:00:00 AM EDT 1 active aspirin 81 MG Delayed Release Oral Tablet JACEK (Bob Abbott MD [facility]) Docusate Sodium 100 MG Oral Capsule [Colace] Colace 10 0 MG Oral Capsule Colace 100 MG Oral Capsule 01/01/2021 12:00:00 AM EDT 1 active docusate sodium 100 MG Oral Capsule [Colace] JACEK (Bob Abbott MD [facility]) Atorvastatin 40 MG Oral Tablet Atorvastatin 40 MG Oral Table t 01/01/2021 12:00:00 AM EDT 1 active Atorvast atin JACEK (Bob Abbott MD [facility]) [facility] Melatonin 3 MG Oral Tablet [facility] Melatonin 3 MG Oral Table t 01/01/2021 12:00:00 AM EDT 1 active [facility] Nicole tonin JACEK (Bob Abbott MD [facility]) Diclofenac Sodium 0.01 MG/MG Topical Gel [Voltaren] Vo ltaren 1% External Gel Voltaren 1% External Gel 01/01/2021 12:00:00 AM EDT 1 active diclofenac sodium 0.01 MG/MG Topical Gel [Voltaren] JACEK (Bob Abbott MD [facility]) Atenolol 25 MG Oral Tablet Atenolol 25 MG Oral Tablet 2020 12:00:00 AM EDT 1 active atenolol 25 MG Or al Tablet JACEK (Bob Abbott MD [facility]) clopidogrel 75 MG Oral Tablet [Plavix] Plavix 75 MG Or al Tablet Plavix 75 MG Oral Tablet 01/01/2021 12:00:00 AM EDT 1 active clopidogrel 75 MG Oral Tablet [Plavix] JACEK (Bob Abbott MD [facility]) GNP Loratadine 10 MG Oral Tablet GNP Loratadine 10 MG Oral T ablet 01/01/2021 12:00:00 AM EDT 1 active GNP Anny tadine JACEK (Bob Abbtot MD [facility]) Pantoprazole 40 MG Oral Tablet Pantoprazole 40 MG Oral Table t 01/01/2021 12:00:00 AM EDT 1 active Pantopra zole JACEK (Bob Abbott MD [facility]) Acetaminophen 32 MG/ML Oral Solution Acetaminophen 12/09/2020 12:00 :00 AM EDT active MED[facility] ([facility]) Melatonin 3 MG Oral Capsule Melatonin 09/24/2020 12:00:00 AM EST completed [facility] ([facility]) Covid-19 vaccine, Unspecified 09/02/2020 12:00:00 AM EST completed [facility]) Medication administered onsite pantoprazole 40 MG Delayed Release Oral Tablet [Protonix] Pr otonix 08/19/2020 12:00:00 AM EST ORAL active M EDENT ([facility]) Atenolol 25 MG Oral Tablet Atenolol 08/19/2020 12:00:00 AM EST ORAL active MED[facility] ([facility]) Loratadine 10 MG Oral Capsule Loratadine 08/19/2020 12:00:00 AM EST ORAL active [facility] ([facility]) atorvastatin 40 MG Oral Tablet [Lipitor] Lipitor 08/19/2020 12:00: 00 AM EST ORAL active MED[facility] ([facility]) 60 ACTUAT Albuterol 0.09 MG/ACTUAT Metered Dose Inhaler Albu terol Sulfate HFA 08/19/2020 12:00:00 AM EST ORAL completed [facility] ([facility]) Acetaminophen 32 MG/ML Oral Solution Acetaminophen 08/19/2020 12:00 :00 AM EST ORAL completed [facility] ([facility]) Aspirin 81 MG Delayed Release Oral Tablet Aspirin Ente lino Coated Adult Low Strength 08/19/2020 12:00:00 AM EST active [facility] ([facility]) clopidogrel 75 MG Oral Tablet [Plavix] Plavix 08/19/2020 12:00:00 AM EST ORAL active [facility] ([facility]) Sodium Chloride 0.111 MEQ/ML Nasal Solution Saline Mist Spra y 08/19/2020 12:00:00 AM EST active M EDENT ([facility]) Magnesium Hydroxide 80 MG/ML Oral Suspension Milk Of Magnesi a 08/19/2020 12:00:00 AM EST ORAL active M EDENT ([facility]) Docusate Sodium 100 MG Oral Capsule [Colace] Colace 09/2020 12:00:00 AM EST ORAL active MED[facility] ( [facility]) Polyethylene Glycol 400 4 MG/ML / Propyl meet glycol 3 MG/ML Ophthalmic Solution [Systane] Systane Ultra 0.4-0.3% Ophthalmic Solution Systane Ultra 0.4-0.3% Ophthalmic Solution 08/18/2020 12:00:00 AM EST active polyethylene glycol 400 4 MG/ML / propylene glycol 3 MG/ML Ophthalmic Solution [Systane] JACEK (Bob Abbott MD [facility]) Docusate Sodium 50 MG / sennosides, RESIDENTIAL 8.6 MG Oral Tablet S nicanor Plus 08/18/2020 12:00:00 AM EST ORAL active MED[facility] ([facility]) Ocuvite Adult 50+ Oral Capsule Ocuvite Adult 50+ Oral Capsul e 08/18/2020 12:00:00 AM EST 1 active Ocuvite Adult 50+ JACEK (Bob Abbott MD [facility]) 8 HR Acetaminophen 650 MG Extended Release Oral Tablet Aceta minophen ER 08/18/2020 12:00:00 AM EST ORAL completed [facility] ([facility]) 1 % 08/16/2020 12:00:00 AM EST gel 100 APPLY 2 GRAMS TOPICALLY TO NECK AREA TWO TIMES A DAY AND EVERY 6 HOURS NEEDED FOR PAIN APPLY 2 GRAMS TOPICALLY TO NECK AREA TWO TIMES A DAY AND EVERY 6 HOURS NEEDED FOR PAIN SOLD: 08/17/2020 [facility] Diclofenac Sodium 0.01 MG/MG Topical Gel [Voltaren] Voltaren 08/14/2020 12:00:00 AM EST completed [facility] ([facility]) 25 mg 06/18/2020 12:00:00 AM EST tablet 30 TAKE 1/2 TABLET BY MOUTH EVERY MORNING TAKE 1/2 TABLET BY MOUTH EVERY MORNING SOLD: 06/18/2020 [facility] Sertraline 25 MG Oral Tablet [Zoloft] Zoloft 06/18/2020 12:00:00 AM EST completed [facility] ([facility]) Amoxicillin 500 MG Oral Capsule Amoxicillin 06/18/2020 12:00:00 AM EST ORAL completed [facility] ([facility]) 500 mg 06/18/2020 12:00:00 AM EST [...] Ophthalmic Solution [Systane] JACEK (Bob Abbott MD [facility]) Ocuvite Adult 50+ Oral Capsule, conventional Ocuvite A dult 50+ Oral Capsule, conventional 12/19/2017 12:00:00 AM EDT 1 aborted Ocuvite Adult 50+ JACEK (Bob Abbott MD [facility]) Atenolol 50 MG Oral Tablet Atenolol 50 MG OR TABS Atenolol 5 0 MG OR TABS 03/21/2013 12:00:00 AM EDT 1 aborted atenolol 50 MG Oral Tablet JACEK (Bob Abbott MD [facility]) Insurance Providers Payer name Policy type / Coverage type Policy ID Covered constitution party ID Covered constitution party's relationship to mcclellan Policy Mcclellan Plan Information Medicare Natl Govt Servic Medicare Primary [id number] Self [id number] Medicare Part B [facility] 0 [id number] S elf 0 Medicare Natl Govt Servic Medicare Primary [id number] Self [id number] Medicare Part B of [facility] Other 0 [id number] S elf 0 Medicare Natl Govt Servic Medicare Primary [id number] Self [id number] Medicare Natl Govt Servic Medicare Primary [id number] Self [id number] Medicare Natl Govt Servic Medicare Primary [id number] Self [id number] Medicare Natl Govt Servic Medicare Primary [id number] Self [id number] Medicare Part B of [facility] Other 0 [id number] Self 0 Medicare Natl Govt Serv Medicare Primary [id number] Self Medicare Part B of [facility] Other 0 [id number] S elf 0 [facility] Part B [id number] Self [id number] [place] [id number] Self [id number] [place] Medicare Primary [id number] Self [id number] [place] Medicare Primary [id number] Self [id number] [place] Medicare Primary [id number] Self [id number] Medicare [facility] Primary [id number] Self [id number] ANSI-Commercial [id number] ANSI-Medicare Part B [id number] BS [facility] [facility] Part B [id number] Self [id number] BCBS of [facility] Other 0 [id number] Self 0 BCBS of [facility] Other 0 [id number] Self 0 MEDICARE [id number] SP [id number] D BCBS OD [place] 210/710 [id number] SP [id number] BCBS/Blue Card Medigap Part B [id number] Self [id number] Medicare Natl Gov't Serv Medicare Primary [id number] Self [id number] BS [place] Trad/MX Commercial [id number] Self [place] [id number] SP [id number] K [id number] D MEDICARE [id number] SP [id number] BCBS [place] PPO 302/307 [id number] SP [id number] BCBS of [facility] Other 0 [id number] Self 0 [place] [id number] SP [id number] BCBS [place] 210/710 [id number] SP [id number] BCBS [place] PPO 302/307 [id number] SP [id number] EXCE[place] BCBS B [id number] S [id number] [id number] MEDICARE C [id number] S [id number] BCBS [place] [id number] S UFL [id number] [facility] MEDICARE DIVISION [id number] S [id number] MEDICARE - [place] [id number] S [id number] BCBS EX[place] [id number] S UFL [id number] [facility] MEDICARE DIVISION [id number] S [id number] MEDICARE - [place] [id number] S [id number] BCBS of [facility] Other 0 [id number] Self 0 BS Ray Trad/[place] Medigap Part B [id number] Self [id number] Problems, Conditions, and Diagnoses Code Display Name Description Problem Type Effective Dates Data Source(s) 067453347 Ischemic stroke Ischemic stroke Problem 11/16/2020 12:0 0:00 AM EDT MEDMARYJANE ([facility] ) [id number] Essential hypertension Essential hypertension Problem 07/21/2020 12:00:00 AM EST [facility] ([facility]) Surgeries/Procedures Procedure Description Date Indications Data Source(s) OFFICE OUTPATIENT VISIT 25 MINUTES 04/14/2021 12:00:00 AM EDT [facility] ([facility]) OFFICE OUTPATIENT VISIT 25 MINUTES 03/25/2021 12:00:00 AM EDT [facility] ([facility]) OFFICE OUTPATIENT VISIT 25 MINUTES 03/01/2021 12:00:00 AM EDT [facility] ([facility] ) OFFICE OUTPATIENT VISIT 25 MINUTES 01/27/2021 12:00:00 AM EDT MED[facility] ([facility]) ELECTROENCEPHALOGRAM W/REC AWAKE&ASLEEP 01/05/2021 12: 00:00 AM EDT [facility] ([facility], ) ELECTROENCEPHALOGRAM W/REC AWAKE&ASLEEP 01/05/2021 12: 00:00 AM EDT MED[facility] ([facility] ) Intermediate Eye Exam Established Patient Intermediate Eye Exam Established Patient 01/01/2021 12:00:00 AM EDT JACEK (Brooks Abbott MD [facility]) OFFICE OUTPATIENT VISIT 25 MINUTES 12/21/2020 12:00:00 AM EDT MED[facility] ([facility]) NON-INVASIVE PHYSIOLOGIC STUDY EXTREMITY 3 LEVLS 11/27 12:00:00 AM EDT MED[facility] ([facility] ) TSTG ANS FUNCJ CARDIOVAGAL INNERVAJ PARASYMP 12:00:00 AM EDT MED[facility] ([facility] ) TESTING AUTONOMIC NERVOUS SYSTEM FUNCTION 11/27/2020 1 2:00:00 AM EDT MED[facility] ([facility], ) OFFICE OUTPATIENT NEW 60 MINUTES 11/16/2020 12:00:00 A M EDT MED[facility] ([facility] ) Trans Care SRV W/I 14D Of DC, Comm W/I 2 Dys Med Rec 10/14/2020 12:00:00 AM EDT MED[facility] ([facility] ) Mukherjee Cre SRV W/I 7 Days Of DC, Comm W/I 2 Dys Med Rec 08/19/2020 12:00:00 AM EST [facility] ([facility] ) Control Nosebleed Anterior Simple 08/07/2020 12:00:00 AM EST [facility] ([facility], ) Results ID Date Data Source [id number] 04/28/2021 08:50:00 PM EDT [facility] Name Value Range Interpretation Code Description Data Medina rce(s) Supporting Document(s) SARS coronavirus 2 RNA [Presence] in Res piratory specimen by ZAYDA with probe detection NEGATIVE [facility] This lab was ordered by [facility] a nd reported by [facility]. ID Date Data Source [id number] 04/26/2021 09:18:00 AM EDT [facility] Name Value Range Interpretation Code Description Data Medina rce(s) Supporting Document(s) SARS coronavirus 2 RNA [Presence] in Res piratory specimen by ZAYDA with probe detection NEGATIVE [facility] This lab was ordered by [facility] a nd reported by [facility]. ID Date Data Source [id number] 09/29/2020 11:01:00 AM EDT MED[facility] ([facility]) Name Value Range Interpretation Code Description Data Medina rce(s) Supporting Document(s) Appearance, Urine RFX Laboratory test result [facility] PH,Urine RFX 7.0 units 5.0-9.0 [facility] ([facility]) Color, Urine RFX Laboratory test result [facility] Specific Cantril Ur Auto RFX 1.005 1.002-1.035 [facility] Protein, Urine Auto RFX Laboratory test result [facility] Glucose, Urine (Ua) Auto RFX Laboratory test result [facility] Urobilinogen, Urine Auto RFX 0.2 mg/dL 0.0-2.0 [facility] Ketone, Urine Auto RFX Laboratory test result [facility] Bilirubin, Urine Auto RFX Laboratory test result [facility] Leukocyte Esterase Ur Auto RFX Laboratory test result [facility] Nitrite, Urine Auto RFX Laboratory test result [facility] WBC, Urine Auto RFX 0 /HPF 0-3 [facility] ([facility]) RBC, Urine Auto RFX 0 /HPF 0-3 [facility] ([facility]) Blood, Urine Blood RFX Laboratory test result [facility] Squam Epithelial Cell Ur Aurfx 0 /HPF 0-6 [facility] Bacteria, Urine Auto RFX Laboratory test result [facility] Hyaline Cast, Urine Auto RFX 0 /LPF 0-1 M [facility]ENT ([facility] ID Date Data Source [id number] 09/29/2020 09:54:00 AM EDT [facility] Name Value Range Interpretation Code Description Data Medina rce(s) Supporting Document(s) Laboratory test finding (navigational concept) Laboratory test result [facility] A false negative result may [...] pathogens. DISCLAIMER: Testing was performed using the [facility] SARS-CoV-2 test. This test was developed and its performance characteristics determined by [employer]. This test has not been FDA cleared [...] target amplification method Laboratory test result [facility] Negative results do not preclude influen za or RSV virus infection and should not be used as the sole basis for treatment or other patient management decisions. ID Date Data Source [id number] 09/29/2020 09:54:00 AM EDT [facility] Name Value Range Interpretation Code Description Data Medina rce(s) Supporting Document(s) Influenza A Amplification Laboratory test result [facility] Negative results do not preclude influen za or RSV virus infection and should not be used as the sole basis for treatment or other patient management decisions. Influenza B Amplification Laboratory test result [facility] ([facility]) Negative results do not preclude influen za or RSV virus infection and should not be used as the sole basis for treatment or other patient management decisions. ID Date Data Source [id number] 09/29/2020 09:54:00 AM EDT [facility] Name Value Range Interpretation Code Description Data Medina rce(s) Supporting Document(s) SARS coronavirus 2 RNA [Presence] in Res piratory specimen by ZAYDA with probe detection NEGATIVE [facility] This lab was ordered by [facility] a nd reported by [facility]. ID Date Data Source [id number] 09/29/2020 09:27:00 AM EDT [facility] ([facility]) Name Value Range Interpretation Code Description Data Medina rce(s) Supporting Document(s) Magnesium [Moles/volume] in Serum or Plasma 2.2 mg/dL 1.8-2.4 [facility] ([facility]) ID Date Data Source [id number] 09/29/2020 09:27:00 AM EDT [facility] ([facility]) Name Value Range Interpretation Code Description Data Medina rce(s) Supporting Document(s) Glucose, Fasting 86 mg/dL 70-100 MED[facility] ([facility]) Creatinine For GFR 0.60 mg/dL 0.55-1.30 [facility] ([facility]) Blood Urea Nitrogen 13 mg/dL 7-18 [facility] ([facility]) Sodium Level 141 meq/L 136-145 [facility] ([facility]) Glomerular Filtration Rate Laboratory test result [facility] ([facility]) <content>Units are mL/min/1.73 m2</content>
<content></content>
<content>Chronic Kidney Disease Staging per NKF:</content>
<content></content>
<content>Stage I & II GFR >=60 Normal to Mildly Decreased</content>
<content>Stage III GFR 30- 59 Moderately Decreased</content>
<content>Stage IV GFR 15-29 Severely Decreased</content>
<content>Stage V GFR <15 Very Little GFR Left</content>
<content>ESRD GFR <15 on SPORTS MEDICINE PHYSICIAN</content>
<content></content> Potassium Serum 3.9 meq/L 3.5-5.1 [facility] ([facility]) Chloride Level 104 meq/L 98-107 [facility] ([facility]) Carbon Dioxide Level 31 meq/L 21-32 [facility] ([facility]) Anion Gap 6 meq/L 8-16 [facility] Calcium Level 9.1 mg/dL 8.8-10.2 [facility] ([facility]) ID Date Data Source [id number] 09/29/2020 09:27:00 AM EDT [facility] ([facility]) Name Value Range Interpretation Code Description Data Medina rce(s) Supporting Document(s) Ast/Sgot 14 U/L 7-37 [facility] ([facility]) Alt/SGPT 22 U/L 12-78 [facility] ([facility]) Bilirubin,Total 0.7 mg/dL 0.2-1.0 [facility] ([facility]) Alkaline Phosphatase 73 U/L 45-117 [facility] ([facility]) Total Protein 6.5 GM/DL 6.4-8.2 [facility] ([facility]) Bilirubin,Direct 0.3 mg/dL 0.0-0.2 [facility] ([facility]) Albumin 3.5 GM/DL 3.2-5.2 [facility] ([facility]) Albumin/Globulin Ratio 1.2 1.2-2.2 [facility] ([facility]) ID Date Data Source [id number] 09/29/2020 09:27:00 AM EDT [facility] ([facility]) Name Value Range Interpretation Code Description Data Medina rce(s) Supporting Document(s) CPK Creatine Phosphokinase 44 U/L 26-192 [facility] ([facility]) CK-MB Value Mass 1.2 ng/mL [facility] ([facility]) MB/CK Relative Index 2.73 [facility] ([facility]) <content>DIAGNOSIS CRITERIA</content>
<content>MMB ng/ml Relative Index (RI)</content>
<content>NON-AMI < or = 5 N/A</content>
<content>COLÓN ZONE > 5 < or = 4</content>
<content>AMI > 5 > 4</content>
<content></content> Troponin I Laboratory test result [facility] ([facility]) <content>Troponin I Reference Interval f or Siemens [place] LOCI:</content>
<content></content>
<content>99th Percentile= 0.00-0.045 ng/ml</content>
<content></content>
<content>Risk Stratification:</content>
<content><= 0.10 ng/ml Decreased Risk for Adverse Clinical</content>
<content>Events.</content>
<content>0.10-1.50 ng/ml Increased Risk for Adverse Clinical</content>
<content>Events. Evaluation of additional</content>
<content>criterion and/or repeat testing in 2-6</content>
<content>hours is suggested to rule out myocardial</content>
<content>damage.</content>
<content>>= 1.50 ng/ml Indicative of Myocardial Injury.</content>
<content></content> ID Date Data Source [id number] 09/29/2020 09:27:00 AM EDT [facility] ([facility]) Name Value Range Interpretation Code Description Data Medina rce(s) Supporting Document(s) aPTT in Blood by Coagulation assay 26.2 s 24.2-38.5 [facility] ([facility]) ID Date Data Source [id number] 09/29/2020 09:27:00 AM EDT [facility] ([facility]) Name Value Range Interpretation Code Description Data Medina rce(s) Supporting Document(s) Prothrombin Time 14.1 s 12.5-14.3 [facility] ([facility]) Inr 1.07 [facility] THERAPUTIC HUMAN INR VALUES INDICATIONS NORMAL RANGES PROPHYLAXIS/TREATMENT OF: VENOUS THROMBOSIS 2.0-3.0 PULMONARY EMBOLISM 2.0-3.0 PREVENTION OF SYSTEMIC EMBOLISM FROM: TISSUE HEART VALVES 2.0-3.0 ACUTE MYOCARDIAL INFARCTION 2.0-3.0 VALVULAR HEART DISEASE 2.0-3.0 ATRIAL FIBRILLATION 2.0-3.0 MECHANICAL VALVES(HIGH RISK) 2.5-3.5 RECURRENT MYOCARDIAL INFARCTION 2.5-3.5 ID Date Data Source [id number] 09/29/2020 09:27:00 AM EDT MED[facility] ([facility]) Name Value Range Interpretation Code Description Data Medina rce(s) Supporting Document(s) White Blood Count 7.0 10 4.0-10.0 [facility] ([facility]) Hemoglobin 13.4 g/dL 12.0-15.5 [facility] [facility] Red Blood Count 4.12 10 4.00-5.40 [facility] ([facility]) Hematocrit 40.2 % 36.0-47.0 [facility] Mean Corpuscular Volume 97.6 fl 80.0-96.0 [facility] ([facility]) Mean Corpuscular HGB Conc 33.3 g/dL 32.0-36.5 [facility] NT ([facility]) Mean Corpuscular Hemoglobin 32.5 pg 27.0-33.0 [facility] ([facility]) Red Cell Distribution Width 12.2 % 11.5-14.5 [facility] ([facility]) Neutrophils % 63.8 % 36.0-66.0 [facility] ([facility]) Platelet Count, Automated 173 10 150-450 MEDE NT ([facility]) Lymph % 19.4 % 24.0-44.0 [facility] ([facility]) [place] % 11.5 % 2.0-8.0 [facility]) Immature Granulocyte % 0.3 % 0-3.0 [facility] ([facility]) Eos % 4.4 % 0.0-3.0 [facility]) Baso % 0.6 % 0.0-1.0 [facility]) Neutrophils # 4.5 10 1.5-8.5 [facility] ([facility]) Nucleated Red Blood Cell % 0.0 % 0-0 MED E[facility] ([facility]) Eos # 0.3 10 0.0-0.5 [facility]) [place] # 0.8 10 0.0-0.8 [facility]) Lymph # 1.4 10 1.5-5.0 [facility]) Baso # 0.0 10 0.0-0.2 [facility]) ID Date Data Source [id number] 09/07/2020 09:00:00 AM EST [facility] Name Value Range Interpretation Code Description Data Medina rce(s) Supporting Document(s) SARS coronavirus 2 RNA Not Detected [facility] [place] This lab was ordered by [facility] and reported by [facility]. ID Date Data Source [id number] 08/31/2020 10:00:00 AM EST [facility] Name Value Range Interpretation Code Description Data Medina rce(s) Supporting Document(s) SARS coronavirus 2 RNA Not Detected [facility] [place] This lab was ordered by [facility] and reported by [facility]. ID Date Data Source [id number] 08/24/2020 06:30:00 AM EST [facility] Name Value Range Interpretation Code Description Data Medina rce(s) Supporting Document(s) SARS coronavirus 2 RNA Not Detected [facility] [place] This lab was ordered by [facility] and reported by [facility]. ID Date Data Source [id number] 08/17/2020 08:00:00 AM EST [facility] Name Value Range Interpretation Code Description Data Medina rce(s) Supporting Document(s) SARS coronavirus 2 RNA Not Detected [facility] [place] This lab was ordered by [facility] and reported by [facility]. ID Date Data Source [id number] 08/13/2020 01:09:00 PM EST [facility] Name Value Range Interpretation Code Description Data Medina rce(s) Supporting Document(s) SARS coronavirus 2 RNA [Presence] in Res piratory specimen by ZAYDA with probe detection NEGATIVE [facility] This lab was ordered by [facility] a nd reported by [facility]. ID Date Data Source [id number] 08/12/2020 07:19:00 AM EST [facility] Name Value Range Interpretation Code Description Data Medina rce(s) Supporting Document(s) SARS coronavirus 2 RNA Not Detected [facility] [place] This lab was ordered by [facility] and reported by [facility]. ID Date Data Source [id number] 08/05/2020 08:00:00 AM EST [facility] Name Value Range Interpretation Code Description Data Medina rce(s) Supporting Document(s) SARS coronavirus 2 RNA Not Detected [facility] [place] This lab was ordered by [facility] and reported by [facility]. ID Date Data Source [id number] 07/29/2020 06:00:00 AM EST [facility] Name Value Range Interpretation Code Description Data Medina rce(s) Supporting Document(s) SARS coronavirus 2 RNA Not Detected [facility] [place] This lab was ordered by [facility] and reported by [facility]. ID Date Data Source [id number] 07/23/2020 10:08:00 AM EST [facility] Name Value Range Interpretation Code Description Data Medina rce(s) Supporting Document(s) SARS coronavirus 2 RNA [Presence] in Res piratory specimen by ZAYDA with probe detection NEGATIVE [facility] This lab was ordered by [facility] a nd reported by [facility]. ID Date Data Source [id number] 07/01/2020 01:24:00 PM EST [facility] Name Value Range Interpretation Code Description Data Medina rce(s) Supporting Document(s) SARS coronavirus 2 RNA [Presence] in Res piratory specimen by ZAYDA with probe detection [facility] This lab was ordered by [facility] a nd reported by [facility]. ID Date Data Source [id number] 07/01/2020 12:11:00 PM EST [facility] ([facility]) Name Value Range Interpretation Code Description Data Medina rce(s) Supporting Document(s) Thyrotropin [Units/volume] in Serum or Plasma by Detec tion limit <= 0.05 mIU/L 0.726 uIU/ML 0.358-3.740 [facility] ([facility] ) ID Date Data Source [id number] 07/01/2020 12:11:00 PM EST [facility] ([facility]) Name Value Range Interpretation Code Description Data Medina rce(s) Supporting Document(s) Glucose, Fasting 93 mg/dL 70-100 [facility] ([facility]) Blood Urea Nitrogen 10 mg/dL 7-18 [facility] ([facility]) Creatinine For GFR 0.69 mg/dL 0.55-1.30 [facility] ([facility]) Glomerular Filtration Rate Laboratory test result [facility] ([facility]) <content>Units are mL/min/1.73 m2</content>
<content></content>
<content>Chronic Kidney Disease Staging per NKF:</content>
<content></content>
<content>Stage I & II GFR >=60 Normal to Mildly Decreased</content>
<content>Stage III GFR 30- 59 Moderately Decreased</content>
<content>Stage IV GFR 15-29 Severely Decreased</content>
<content>Stage V GFR <15 Very Little GFR Left</content>
<content>ESRD GFR <15 on SPORTS MEDICINE PHYSICIAN</content>
<content></content> Sodium Level 140 meq/L 136-145 [facility] ([facility]) Potassium Serum 3.9 meq/L 3.5-5.1 [facility] ([facility]) Chloride Level 104 meq/L 98-107 [facility] ([facility]) Carbon Dioxide Level 32 meq/L 21-32 [facility] ([facility]) Calcium Level 10.0 mg/dL 8.8-10.2 [facility] ([facility]) Anion Gap 4 meq/L 8-16 [facility] ([facility]) ID Date Data Source [id number] 07/01/2020 12:11:00 PM EST [facility] ([facility]) Name Value Range Interpretation Code Description Data Medina rce(s) Supporting Document(s) Ast/Sgot 11 U/L 7-37 [facility] ([place] [facility]) Alkaline Phosphatase 49 U/L 45-117 [facility] ([facility]) Alt/SGPT 20 U/L 12-78 [facility] ([place] [facility]) Bilirubin,Total 1.3 mg/dL 0.2-1.0 [facility] ([facility]) Bilirubin,Direct 0.3 mg/dL 0.0-0.2 [facility] ([facility]) Total Protein 6.8 GM/DL 6.4-8.2 [facility] [facility]) Albumin/Globulin Ratio 1.3 1.2-2.2 [facility] ([facility]) Albumin 3.8 GM/DL 3.2-5.2 [facility] ([facility]) ID Date Data Source [id number] 07/01/2020 12:11:00 PM EST [facility]) Name Value Range Interpretation Code Description Data Medina rce(s) Supporting Document(s) CPK Creatine Phosphokinase 74 U/L 26-192 [facility] ([facility]) MB/CK Relative Index 2.70 [facility] ([facility]) <content>DIAGNOSIS CRITERIA</content>
<content>MMB ng/ml Relative Index (RI)</content>
<content>NON-AMI < or = 5 N/A</content>
<content>COLÓN ZONE > 5 < or = 4</content>
<content>AMI > 5 > 4</content>
<content></content> CK-MB Value Mass 2.0 ng/mL [facility] ([facility]) Troponin I Laboratory test result [facility] ([facility]) <content>Troponin I Reference Interval f or Siemens [place] LOCI:</content>
<content></content>
<content>99th Percentile= 0.00-0.045 ng/ml</content>
<content></content>
<content>Risk Stratification:</content>
<content><= 0.10 ng/ml Decreased Risk for Adverse Clinical</content>
<content>Events.</content>
<content>0.10-1.50 ng/ml Increased Risk for Adverse Clinical</content>
<content>Events. Evaluation of additional</content>
<content>criterion and/or repeat testing in 2-6</content>
<content>hours is suggested to rule out myocardial</content>
<content>damage.</content>
<content>>= 1.50 ng/ml Indicative of Myocardial Injury.</content>
<content></content> ID Date Data Source [id number] 07/01/2020 12:11:00 PM EST [facility] ([facility]) Name Value Range Interpretation Code Description Data Medina rce(s) Supporting Document(s) Ammonia [Mass/volume] in Blood 11 uMOL/L [facility] ([facility]) ID Date Data Source [id number] 07/01/2020 12:11:00 PM EST [facility] ([facility]) Name Value Range Interpretation Code Description Data Medina rce(s) Supporting Document(s) White Blood Count 6.4 10 4.0-10.0 [facility] ([facility]) Red Blood Count 4.18 10 4.00-5.40 [facility] ([facility]) Hematocrit 40.7 % 36.0-47.0 [facility] [facility] Hemoglobin 13.6 g/dL 12.0-15.5 [facility] [facility] Mean Corpuscular Volume 97.4 fl 80.0-96.0 [facility] ([facility]) Mean Corpuscular HGB Conc 33.4 g/dL 32.0-36.5 [facility] NT ([facility]) Mean Corpuscular Hemoglobin 32.5 pg 27.0-33.0 [facility] ([facility]) Platelet Count, Automated 220 10 150-450 [facility] NT ([facility]) Red Cell Distribution Width 12.5 % 11.5-14.5 [facility] ([facility]) Neutrophils % 67.2 % 36.0-66.0 [facility] ([facility]) Lymph % 20.1 % 24.0-44.0 [facility] [facility]) Eos % 2.0 % 0.0-3.0 [facility] ([facility]) [place] % 10.1 % 0.0-5.0 [facility] ([facility]) Immature Granulocyte % 0.3 % 0-3.0 [facility] ([facility]) Baso % 0.3 % 0.0-1.0 [facility] [facility]) Neutrophils # 4.3 10 1.5-8.5 [facility] ([facility]) Nucleated Red Blood Cell % 0.0 % 0-0 [facility] ([facility]) Lymph # 1.3 10 1.5-5.0 [facility] [facility]) [place] # 0.6 10 0.0-0.8 [facility] ([place] [facility]) Eos # 0.1 10 0.0-0.5 [facility] ([place] [facility]) Baso # 0.0 10 0.0-0.2 [facility] ([place] [facility]) Procedure Social History Code Duration Value Status Description Data Source(s ) Smoking 03/19/2021 02:41:42 PM EDT Ex-smoker (finding) [facility] Ex-[facility]oker (finding) [place] (Bob Abbott [facility]) Vital Signs ID Date Data Source UNK Name Value Range Interpretation Code Description Data Source(s) Systolic blood pressure 122 mm[Hg] 122 mm[Hg] M [facility] ([facility]) Diastolic blood pressure 78 mm[Hg] 78 mm[Hg] [facility] ([facility]) Body height 62 [in_i] 62 [in_i] [facility] ([facility]) 5'2" Body weight 167.00 [lb_av] 167.00 [lb_av] [facility] ([facility]) Body mass index (BMI) [Ratio] 30.5 kg/m2 30.5 k g/m2 [facility] ([facility]) Diastolic blood pressure 68 mm[Hg] 68 mm[Hg] [facility] ([facility]) Heart rate 83 /min 83 /min [facility] ([facility]) Systolic blood pressure 116 mm[Hg] 116 mm[Hg] M [facility] ([facility]) Body height 62 [in_i] 62 [in_i] [facility] ([facility]) 5'2" Body weight 164.00 [lb_av] 164.00 [lb_av] [facility] T ([facility]) Oxygen saturation in Arterial blood by Pulse oximetry 96 % 96 % [facility] ([facility]) Body mass index (BMI) [Ratio] 30.0 kg/m2 30.0 k g/m2 [facility] ([facility]) Respiratory rate 12 /min 12 /min [facility] ( [facility], ) Body height 62 [in_i] 62 [in_i] [facility] ([facility], ) 5'2" Body weight 136.00 [lb_av] 136.00 [lb_av] MEDEN T ([facility], ) Body mass index (BMI) [Ratio] 24.9 kg/m2 24.9 k g/m2 [facility] ([facility]) [place] body weight 110 [lb_av] 110 [lb_av] MED[facility] T ([facility], ) Systolic blood pressure 118 mm[Hg] 118 mm[Hg] [facility] Diastolic blood pressure 81 mm[Hg] 81 mm[Hg] [facility] ([facility]) Heart rate 75 /min 75 /min [facility] ([facility]) Body height 62 [in_i] 62 [in_i] [facility] ([facility]) 5'2" Body weight 158.00 [lb_av] 158.00 [lb_av] [facility] T ([facility]) Body mass index (BMI) [Ratio] 28.9 kg/m2 28.9 k g/m2 [facility] ([facility]) Body mass index (BMI) [Ratio] 28.2 kg/m2 28.2 k g/m2 [facility] ([facility]) Heart rate 78 /min 78 /min [facility] ([facility]) Body weight 154.00 [lb_av] 154.00 [lb_av] [facility] T ([facility]) Systolic blood pressure 120 mm[Hg] 120 mm[Hg] M [facility]ENT ([facility]) Diastolic blood pressure 62 mm[Hg] 62 mm[Hg] [facility] ([facility]) Body height 62 [in_i] 62 [in_i] [facility] ([facility]) 5'2" Body weight 136.00 [lb_av] 136.00 [lb_av] MEDEN T ([facility], ) [place] body weight 110 [lb_av] 110 [lb_av] MEDEN T ([facility], ) Respiratory rate 12 /min 12 /min MED[facility] ( [facility], ) Body height 62 [in_i] 62 [in_i] [facility] ([facility], ) 5'2" Body mass index (BMI) [Ratio] 24.9 kg/m2 24.9 k g/m2 [facility] ([facility], ) Body height 62 [in_i] 62 [in_i] [facility] ([facility]) 5'2" Body weight 143.00 [lb_av] 143.00 [lb_av] [facility] T ([facility]) Systolic blood pressure 120 mm[Hg] 120 mm[Hg] [facility] Diastolic blood pressure 80 mm[Hg] 80 mm[Hg] [facility] ([facility]) Heart rate 78 /min 78 /min [facility] ([facility]) Body mass index (BMI) [Ratio] 26.2 kg/m2 26.2 k g/m2 [facility] ([facility]) Body mass index (BMI) [Ratio] 25.6 kg/m2 25.6 k g/m2 [facility] ([facility]) Heart rate 80 /min 80 /min [facility] ([facility]) Body height 62 [in_i] 62 [in_i] [facility]) 5'2" Body weight 140.00 [lb_av] 140.00 [lb_av] MED[facility] T ([facility]) Systolic blood pressure 110 mm[Hg] 110 mm[Hg] ED[facility] ([facility]) Diastolic blood pressure 72 mm[Hg] 72 mm[Hg] [facility] ([facility]) Systolic blood pressure 126 mm[Hg] 126 mm[Hg] [facility] Oxygen saturation in Arterial blood by Pulse oximetry 95 % 95 % [facility] ([facility]) RM Air Diastolic blood pressure 70 mm[Hg] 70 mm[Hg] [facility] ([facility]) Heart rate 84 /min 84 /min [facility] ([facility]) Body height 62 [in_i] 62 [in_i] [facility] ([facility]) 5'2" Body weight 136.00 [lb_av] 136.00 [lb_av] [facility] T ([facility]) Body mass index (BMI) [Ratio] 24.9 kg/m2 24.9 k g/m2 [facility] ([facility]) Patient Treatment Plan of Care Planned Activity Planned Date Details Description Data Source (s) Ocuvite Adult 50+ Oral Capsule 08/18/2020 12:00:00 AM EST [place] ([facility] Abbott [facility]) Polyethylene Glycol 400 4 MG/ML / Propyl meet glycol 3 MG/ML Ophthalmic Solution [Systane] 08/18/2020 12:00:[address] (Bob Abbott MD [facility]) Polyethylene Glycol 400 4 MG/ML / Propyl meet glycol 3 MG/ML Ophthalmic Solution [Systane] 12/19/2017 12:00:[address] (Bob Abbott MD [facility]) Ocuvite Adult 50+ Oral Capsule, conventional 12/19/2017 12:00:00 AM ED[place]va [place] ([facility] Abbott [facility])
[2021-05-16] MEDS ORDERED: LORazepam 2 MG/ML VIAL IV ONE (14:45)
--- NOTE | 2021-05-16 15:28 | HPEPDOC ---
[facility] Medical History & Physical Date of Admission May 16, 2021 Date of Service: May 16, 2021 Attending Physician: TERRY FERNANDEZ MD History and Physical CHIEF COMPLAINT: AMS c/f CVA HISTORY OF PRESENT ILLNESS: 89 yo W with a history of prior CVA's with chronic L hemiparesis, who was rec ently admitted on 04/26 for a CVA w/ AMS and found to have a small L frontal lacunar infarct, and also newly noted Afib and was switched from ASA/plavix to ASA/eliquis who now returns to the ED from [facility] with acute AMS with c/f CVA. 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 Her daughter is at bedside and gave most of the history and is very anxious and worried about her mother. ms. Shannon herself was able to tell me a bit of her strokes history quite accurately actually and also told me that last night she felt like her R eyelid was heavy and falling against her will. She did not think much of it and so did not report it. This morning she was confused, unable to articulate herself well and on nursing evaluation was brought to the ED after repeatedly saying "its going to be ok" to her daughter on the phone and to nursing repeated her name "Yodit." In the ED, she was hypertensive, in Afib with a normal ventricular rate and breathing comfortably on room air. She did not complain of any pain, headache, nausea, emesis, vision changes outside of her status quo minimal vision, chest pain, palpitations, SOB. She complained of her feet/toes feeling numb and was quite anxious. Work up was notable for a CT head that showed no acute intracranial hemorrhagic or non hemorrhagic events with deep white matter ischemic change status quo and no extra-axial fluid collections or shift of the midline structures, WBC was 8, Hgb 12.6, platelets 207, na 143, K 2.7, Cr 0.64 and respiratory panel was negative for covid-19. She is now being admitted for stroke workup with high suspicion. REVIEW OF SYSTEMS: 10 point ROS was otherwise negative, except as noted in the HPI. 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 at 82 y/o due to old age Mother: Healthy. at 83 y/o due to old age Social History Smoking: Denies Alcohol: Denies Drugs: denies ALLERGIES: Please see below. HOME MEDICATIONS: Please see below. PHYSICAL EXAMINATION: VITAL SIGNS: see below GENERAL APPEARANCE: NAD, AOx3 HEENT: NCAT, has L sided mild droop, EOMI, dry MM CARDIOVASCULAR: irregularly irregular, normal rate, no noted murmurs LUNGS: CTAB, without crackles or wheezing, breathing comfortably on room air ABDOMEN: Normoactive bowel sounds, soft, NTND NEURO: 4/5 on L throughout, 5/5 R in both upper and lower extremities, speech is clear without dysarthria at this time. Has a noted mild L sided facial drop, CN3-12 are otherwise intact EXTREMITIES: WWP, has non-pitting bilateral ankle edema, otherwise warm with good DP pulses. PSYCHIATRIC: AOx3 at this time LABORATORY DATA and IMAGING: Reviewed above. See below for full details MICROBIOLOGY: Please see below. ASSESSMENT: 89 yo W with a history of prior CVA's with chronic L hemiparesis, who was recently admitted on 04/26 for a CVA w/ AMS and found to have a small L frontal lacunar infarct, and also newly noted Afib and was switched from ASA/plavix to ASA/eliquis who now returns to the ED from [facility] with acute AMS and now being admitted for stroke workup with high suspicion. PLAN: Altered mental status, with high risk for CVA -CT head was negative for acute infarct or hemorrhage -Ordered MRI brain, MRA brain and neck ultrasound. -Had a recent lacunar infarct for which she presented with AMS and also has a history of prior CVAs with L sided deficits. Will continue home ASA/eliquis -telemetry -Q4H neuro checks -PT/OT -ARU screen -bedside swallow eval for dysphagia before PO -NPO for now -will give [id number] at 100cc/hr to 1L -Hypertensive, with goal <180 without aggressive treatment. To allow some permissive hypertension -Fall risk -Ativan pre-MRI ordered, has high anxiety and claustrophobia -continue lipitor -DNR/trial intubation HTN: allowing some permissive hypertension up to SBP<180 -to continue daily atenolol 25 History of CHF: -euvolemic on exam, to continue daily lasix 20 PO GERD: -continue home pantoprazole Depression: -continue home buspirone, setraline, mirtazapine Chronic Afib: -continue atenolol and eliquis Dry eyes: -continue artificial tears PRN DVT ppx: on eliquis Dispo: Inpatient, pendign stroke workup, PT/OT eval, patient of [facility] Vital Signs Vital Signs Date Time Temp Pulse Resp B/P (MAP) Pulse Ox O2 Delivery O2 Flow Rate FiO2 05/16/21 12:10 71 92 05/16/21 12:00 155/74 (101) 05/16/21 09:51 97.0 16 Room Air Laboratory Data Labs 24H Laboratory Tests 2 05/16/21 11:04: Coronavirus (COVID-19)(PCR) NEGATIVE, Influenza Type A (RT-PCR) NEGATIVE, Influenza Type B (RT-PCR) NEGATIVE, Respiratory Syncytial Virus (PCR) NEGATIVE 05/16/21 11:34: Immature Granulocyte % (Auto) 0.1, Neutrophils (%) (Auto) 71.8H, Lymphocytes (%) (Auto) 13.8L, Monocytes (%) (Auto) 9.3H, Eosinophils (%) (Auto) 4.6H, Basophils (%) (Auto) 0.4, Neutrophils # (Auto) 5.8, Lymphocytes # (Auto) 1.1L, Monocytes # (Auto) 0.8, Eosinophils # (Auto) 0.4, Basophils # (Auto) 0.0, Nucleated Red Blood Cells % (auto) 0.0, Anion Gap 5L, Glomerular Filtration Rate > 60.0, Calcium Level 9.0 CBC/BMP Laboratory Tests 05/16/21 11:34 Home Medications Scheduled Apixaban (Eliquis) 5 Mg Tablet, 5 MG PO BID 2nd @ 1700 Aspirin (Aspirin EC) 81 Mg Tablet.dr, 81 MG PO DAILY Atenolol (Atenolol) 25 Mg Tablet, 25 MG PO DAILY Atorvastatin Calcium (Atorvastatin Calcium) 40 Mg Tablet, 40 MG PO QHS Docusate Sodium (Colace) 100 Mg Capsule, 100 MG PO DAILY Furosemide (Lasix) 20 Mg Tablet, 20 MG PO DAILY Loratadine (Loratadine) 10 Mg Tablet, 10 MG PO DAILY Melatonin (Melatonin) 10 Mg Capsule, 10 MG PO QHS Mirtazapine (Remeron) 15 Mg Tablet, 15 MG PO QHS Pantoprazole Sodium (Pantoprazole Sodium) 40 Mg Tablet.dr, 40 MG PO DAILY Sennosides/Docusate Sodium (Senna Plus Tablet) 1 Each Tablet, 1 TAB PO DAILY Sertraline Hcl (Sertraline HCl) 25 Mg Tablet, 25 MG PO QHS Scheduled PRN Acetaminophen (Acetaminophen) 160 Mg/5 Ml Oral.susp, 20 ML PO BID PRN for PAIN LEVEL 1-4 Buspirone HCl (Buspirone HCl) 5 Mg Tablet, 5 MG PO QID PRN for ANXIETY Clobetasol Propionate/Emoll (Clobetasol Emollient 0.05% Crm) 0.05% 15GM Cream..g., 1 APLCT TOP BID PRN for ITCHING WRIST Diclofenac Sodium (Voltaren Arthritis Pain) 1 % Gel..gram., 1 GM TP for PAIN LEVEL 1-4 RIGHT KNEE Diphenhydramine HCl (Benadryl) 25 Mg Capsule, 25 MG PO BID PRN for ITCHING Polyvinyl Alcohol (Artificial Tears) 15 Ml Drops, 2 DROP OU QID PRN for DRY EYES Sodium Chloride (Saline Nasal [place]) 44 Ml [place], 1 SPRAY NARES QID PRN for NASAL DRYNESS 0800,1200,1600,2000 Allergies Coded Allergies: morphine (Verified Adverse Reaction, Mild, N/V, 09/29/20) A-FIB/CHADSVASC A-FIB History Current/History of A-Fib/PAF?: Yes Current PO Anticoag Therapy: Yes Treatment Treatment ordered: Apixaban TERRY FERNANDEZ MD May 16, 2021 15:28
--- NOTE | 2021-05-16 15:33 | REP ---
INDICATION: Assess stenosis TECHNIQUE: Carotid ultrasonography was performed bilaterally FINDINGS: Right: CCA systolic: 95.7 centimeters/second CCA diastolic: 19.9 centimeters/second ICA systolic: 77.7 centimeters/second ICA diastolic: 14.9 centimeters/second ICA CCA ratio: 0.81 Left: CCA systolic: 139 centimeters/second CCA diastolic: 25.2 centimeters/second ICA systolic: 91.1 centimeters/second ICA diastolic: 21.7 centimeters/second ICA CCA ratio: 0.66 Vertebral artery: Right: Antegrade flow left: Antegrade flow Mild echogenic material is seen along the carotid arterial combs some of which casts and acoustic shadow IMPRESSION: According to the SRU criteria there is less than 50% stenosis of the internal carotid artery bilaterally. <Electronically signed by Randy Pedraza > 05/16/21 [id number]
[2021-05-16] MEDS: KCL 10MEQ/100ML SWI (KRUN) 10 MEQ in IV 1 EA IV SCH ×6 (16:05→22:07)
[2021-05-16] MEDS ORDERED: LORazepam 2 MG/ML VIAL As Ordered ONE (17:47)
--- NOTE | 2021-05-16 18:55 | REPVR ---
PROCEDURE INFORMATION: Exam: MR Head Without Contrast Exam date and time: 05/16/2021 6:05 PM Age: 89 years old Clinical indication: Altered mental status/memory loss; Additional info: AMS, R/O CVA TECHNIQUE: Imaging protocol: MR of the head without contrast. COMPARISON: CT Head without contrast 05/16/2021 10:09 AM FINDINGS: Brain: Small foci of restricted diffusion in a gyrus in the right posterior parietal lobe near the vertex consistent with small focus of acute ischemia not visible on the other sequences. Confluent foci T2 lengthening demonstrated in the periventricular white matter. There is moderate parenchymal atrophy consistent with advanced patient age. Cerebral ventricles: The degree of ventricular dilatation is normal for age and/or degree of atrophy present. Bones/joints: Unremarkable. Paranasal sinuses: Normal as visualized. No acute sinusitis. Mastoid air cells: Normal as visualized. No mastoid effusion. Orbital cavity: Unremarkable. Soft tissues: Unremarkable. IMPRESSION: 1. Moderate age related parenchymal atrophy. The degree of ventricular dilatation is normal for age and/or degree of atrophy present. 2. Small focus of ischemia in the right posterior parietal lobe near the vertex. 3. Mild white matter changes in the periventricular white matter as described above. Electronically signed by: Efra Sanchez On 05/16/2021 18:54:54 PM
[2021-05-16] MEDS: DOCUSATE SODIUM 100MG CAPSULE PO SCH (18:57)
[2021-05-16] MEDS: ASPIRIN 81MG ENTERIC TABLET PO SCH (18:57)
[2021-05-16] MEDS: SENOKOT S TAB PO SCH (18:57)
[2021-05-16] MEDS: PANTOPRAZOLE 40MG TAB (PROTONIX) PO SCH (18:57)
[2021-05-16] MEDS: LORATADINE 10 MG TAB PO SCH (18:57)
[2021-05-16] MEDS: atenoloL 25 MG TAB PO SCH (18:58)
--- NOTE | 2021-05-16 18:59 | REPVR ---
PROCEDURE INFORMATION: Exam: MRA Head Without Contrast; Arteriography Exam date and time: 05/16/2021 6:05 PM Age: 89 years old Clinical indication: Other: AMS; Additional info: AMS, R/O CVA TECHNIQUE: Imaging protocol: Magnetic resonance angiography head without contrast. Exam focused on the arteries. COMPARISON: CT ANGIO HEAD 04/26/2021 9:47 AM FINDINGS: ANTERIOR CIRCULATION: Right internal carotid artery: Mild atherosclerotic changes demonstrated in the petrous and cavernous segments of the right carotid artery. No significant stenosis. Right middle cerebral artery: No occlusion or significant stenosis. No aneurysm. Right anterior cerebral artery: No occlusion or significant stenosis. No aneurysm. Left internal carotid artery: Mild atherosclerotic changes demonstrated in the petrous segment of the left internal carotid artery without significant stenosis. Left middle cerebral artery: No occlusion or significant stenosis. No aneurysm. Left anterior cerebral artery: No occlusion or significant stenosis. No aneurysm. POSTERIOR CIRCULATION: Right vertebral artery: Hypoplastic distal V4 segment right vertebral artery. Left vertebral artery: Dominant distal left vertebral artery. Basilar artery: No occlusion or significant stenosis. No aneurysm. Right posterior cerebral artery: Mild atherosclerotic changes in the P1 and P2 segments of the right posterior cerebral artery. No significant stenosis. Left posterior cerebral artery: Mild atherosclerotic changes in the P1 segment of the left posterior cerebral artery. No significant stenosis. IMPRESSION: 1. Mild atherosclerotic changes in the anterior posterior circulations as described above. 2. No large vessel occlusion. Electronically signed by: Efra Sanchez On 05/16/2021 18:59:21 PM
[2021-05-16] MEDS: APIXABAN 5 MG TAB (ELIQUIS) PO SCH (22:07)
[2021-05-16] MEDS: ATORVASTATIN 20 MG TAB PO SCH (22:07)
[2021-05-16] MEDS: KCL 20MEQ IN D5/NS 1000ML 1,000 ML IV SCH ×2 (22:07→23:40)
[2021-05-16] MEDS: SERTRALINE HCL 25 MG TABLET PO SCH (22:07)
[2021-05-16] MEDS: MIRTAZAPINE 15 MG TAB PO SCH (22:07)
[2021-05-16] MEDS ORDERED: KCL 10MEQ/100ML SWI (KRUN) 10 MEQ in IV 1 EA IV SCH (23:40)
--- NOTE | 2021-05-17 05:46 | ECGEPIP ---
[facility] - ED Test Date: 2021-05-16 Pat Name: RADHA LUTHER Department: Room: - Gender: Female Legal Summer Intern: MAGED : 1930 Requested By: Jesse Bryan Order Number: [id number] Reading MD: Marv Summers Measurements Intervals [place] Rate: 66 P: -56 NV: 166 QRS: 0 QRSD: 94 T: 85 QT: 428 QTc: 448 Interpretive Statements Sinus rhythm with frequent supraventricular premature complexes Nonspecific ST and T wave abnormality BASELINE ARTIFACT AFFECTS INTERPRETATION Electronically Signed on 05-17-2021 5:46:24 EDT by Marv Summers
[2021-05-17 08:00] VITALS: BP 142/72
[2021-05-17 08:43] LABS: HEMATOCRIT 36.6 % (36.0-47.0); HEMOGLOBIN 12.4 g/dl (12.0-15.5); MEAN CORPUSCULAR HEMOGLOBIN 33.5 pg (27.0-33.0); MEAN CORPUSCULAR HGB CONC 33.9 g/dl (32.0-36.5); MEAN CORPUSCULAR VOLUME 98.9 fl (80.0-96.0); PLATELET COUNT, AUTOMATED 210 10^3/uL (150-450); WHITE BLOOD COUNT 7.4 10^3/uL (4.0-10.0)
[2021-05-17 09:09] LABS: ALT/SGPT 17 U/L (12-78); BILIRUBIN,TOTAL 1.1 MG/DL (0.2-1.0); BLOOD UREA NITROGEN 7 MG/DL (7-18); CALCIUM LEVEL 8.7 MG/DL (8.8-10.2); CARBON DIOXIDE LEVEL 30 MEQ/L (21-32); CHLORIDE LEVEL 110 MEQ/L (98-107); CREATININE FOR GFR 0.64 MG/DL (0.55-1.30); GLOMERULAR FILTRATION RATE > 60.0 (>32); GLUCOSE, FASTING 89 MG/DL (70-100); POTASSIUM SERUM 3.5 MEQ/L (3.5-5.1); SODIUM LEVEL 143 MEQ/L (136-145); TOTAL PROTEIN 6.6 GM/DL (6.4-8.2)
[2021-05-17] MEDS: LORATADINE 10 MG TAB PO SCH (10:13)
[2021-05-17] MEDS: APIXABAN 5 MG TAB (ELIQUIS) PO SCH ×2 (10:14→20:28)
[2021-05-17] MEDS: PANTOPRAZOLE 40MG TAB (PROTONIX) PO SCH (10:14)
[2021-05-17] MEDS: SENOKOT S TAB PO SCH (10:14)
[2021-05-17] MEDS: atenoloL 25 MG TAB PO SCH (10:15)
[2021-05-17] MEDS: ASPIRIN 81MG ENTERIC TABLET PO SCH (10:15)
[2021-05-17] MEDS: DOCUSATE SODIUM 100MG CAPSULE PO SCH (10:15)
[2021-05-17 11:05] LABS: HEMOGLOBIN A1c 5.1 %
[2021-05-17] MEDS ORDERED: ACETAMINOPHEN TAB 650MG DOSE (2X325MG) PO PRN (11:35)
[2021-05-17 12:00] VITALS: BP 160/72
[2021-05-17] MEDS: KCL 20MEQ IN D5/NS 1000ML 1,000 ML IV SCH (12:16)
[2021-05-17] MEDS: lisinopriL 5 MG TAB PO SCH (14:36)
[2021-05-17 16:00] VITALS: BP 142/62
--- NOTE | 2021-05-17 16:51 | IPNPDOC ---
Text Note Date of Service The patient was seen on 05/17/21. NOTE SUBJECTIVE: Patient was seen and examined this morning at bedside. She reports feeling well without any current concerns. She denies any pain anywhere. She sometimes has trouble with word finding but otherwise is able to answer questions appropriately. Patient was evaluated again later in the afternoon and noted to be repeating herself about not being able to see in speaking when no one was in the room. On conversing with the patient she initially continue to repeat herself about not being able to see but was able to respond appropriately to questions after a minute or so. She does states she has had trouble with her vision for a long time. She has blindness in the left eye since . She also notes a history of macular degeneration for which she has seen Dr. Abbott. She states that there is nothing that can be done per Dr. Abbott. She feels like her vision gets a little bit worse each day over the past month. She is concerned about going home given her level of blindness. She lives at [facility] [place]. OBJECTIVE: VITAL SIGNS: See below GENERAL: Alert, comfortable, in no acute distress HEENT: Normocephalic, atraumatic, moist mucous membranes NECK: Supple, trachea midline, no lymphadenopathy CARDIOVASCULAR: Normal rate with irregularly irregular rhythm, normal S1 and S2 RESPIRATORY: Clear to auscultation bilaterally with equal air entry bilaterally. No wheezing, rhonchi, or rales. ABDOMEN: Soft, nontender, nondistended, bowel sounds present EXTREMITIES: No cyanosis or edema. NEUROLOGIC: 4/5 on L in upper and lower extremities, 5/5 R in upper and lower extremities, speech is clear without dysarthria. Has a noted mild L sided facial drop, difficulty with tracking, and decreased vision in all casey. Intermittent difficulty with word finding. PSYCHIATRIC: Alert and oriented x3 to person place and time, although she has difficulty with some word finding. 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 #Small acute CVA with history of prior CVAs 1 new area of small acute ischemia noted on brain MRI. Otherwise, imaging similar to recent admission for acute CVA on 04/[address] Phillips who suggests continuing with Eliquis and aspirin, follow-up outpatient Continue with permissive hypertension with systolic blood pressure maintained between 140 and 180 until 05/18 at 10 AM PT/OT eval. Speech therapy eval for diet recommendations. ARU screen. Monitor on telemetry. Every 4 hours neuro checks. Fall risk precautions. Continue statin #Atrial fibrillation, rate controlled, chronic Continue home atenolol and Eliquis #Hypertension On atenolol for rate control We have added lisinopril 5 mg daily Permissive hypertension for now given acute CVA, goal blood pressure systolic 140-180 #History of CHF, unspecified type Continue home furosemide #GERD Continue home pantoprazole #Depression Continue home buspirone, sertraline, mirtazapine Possible that polypharmacy contributes to her mental status, PCP to review medications if she continues to have symptoms #Dry eyes Continue home eyedrops as needed DVT prophylaxis: On full anticoagulation with Eliquis CODE STATUS: DNR with trial of intubation Disposition: Pending clinical improvement, PT OT eval, nares screen, may benefit from consideration for fci placement instead of assisted living given her progressive blindness VS,Sherita, I+O VS, Sherita, I+O Laboratory Tests 05/17/21 08:30 Vital Signs Date Time Temp Pulse Resp B/P (MAP) Pulse Ox O2 Delivery O2 Flow Rate FiO2 05/17/21 14:36 160/72 05/17/21 12:00 98.0 81 18 97 Room Air I&O- Last 24 Hours up to 6 AM 05/17/21 06:00 Intake Total 500 ml Balance 500 ml GME ATTESTATION GME ATTESTATION My faculty preceptor for this patient encounter was physically present during the encounter and was fully available. All aspects of the patient interview, examination, medical decision making process, and medical care plan development were reviewed and approved by the faculty preceptor. The faculty preceptor is aware and concurs with the plan as stated in the body of this note and will attest to such by his/her cosignature. ATTENDING NOTE I, Luis Burrell MD, have independently examined this patient and performed my own physical exam, as well as reviewed the documentation and edited where necessary. I have discussed in detail with the resident the findings and plan of treatment as documented by the resident and edited their note. I agree with their findings and treatment plan and have edited their documentation. NATHAN COOPER D.O. May 17, 2021 16:51 LUIS BURRELL MD May 20, 2021 13:43
[2021-05-17 20:00] VITALS: BP 141/74
[2021-05-17] MEDS: MIRTAZAPINE 15 MG TAB PO SCH (20:27)
[2021-05-17] MEDS: ATORVASTATIN 20 MG TAB PO SCH (20:28)
[2021-05-17] MEDS: SERTRALINE HCL 25 MG TABLET PO SCH (20:28)
[2021-05-17] MEDS: diphenhydrAMINE 25MG CAP PO PRN (20:31)
[2021-05-18] VITALS: BP 134/79
[2021-05-18 04:00] VITALS: BP 150/68
[2021-05-18 05:33] LABS: HEMATOCRIT 36.1 % (36.0-47.0); MEAN CORPUSCULAR HEMOGLOBIN 33.2 pg (27.0-33.0); MEAN CORPUSCULAR HGB CONC 33.2 g/dl (32.0-36.5); PLATELET COUNT, AUTOMATED 204 10^3/uL (150-450); RED BLOOD COUNT 3.61 10^6/uL (4.00-5.40); WHITE BLOOD COUNT 8.3 10^3/uL (4.0-10.0)
[2021-05-18 05:52] LABS: BLOOD UREA NITROGEN 7 MG/DL (7-18); CALCIUM LEVEL 8.9 MG/DL (8.8-10.2); CARBON DIOXIDE LEVEL 28 MEQ/L (21-32); CHLORIDE LEVEL 111 MEQ/L (98-107); CREATININE FOR GFR 0.68 MG/DL (0.55-1.30); GLOMERULAR FILTRATION RATE > 60.0 (>32); GLUCOSE, FASTING 95 MG/DL (70-100); MAGNESIUM LEVEL 1.9 MG/DL (1.8-2.4); POTASSIUM SERUM 3.4 MEQ/L (3.5-5.1); SODIUM LEVEL 143 MEQ/L (136-145)
[2021-05-18 08:00] VITALS: BP 153/74
[2021-05-18] MEDS ORDERED: POTASSIUM CHLORIDE 10MEQ SR TABLET PO ONE (08:00)
[2021-05-18] MEDS: diphenhydrAMINE 25MG CAP PO PRN (09:12)
[2021-05-18] MEDS: APIXABAN 5 MG TAB (ELIQUIS) PO SCH (09:12)
[2021-05-18] MEDS: PANTOPRAZOLE 40MG TAB (PROTONIX) PO SCH (09:12)
[2021-05-18] MEDS: LORATADINE 10 MG TAB PO SCH (09:12)
[2021-05-18] MEDS: SENOKOT S TAB PO SCH (09:12)
[2021-05-18 09:13] VITALS: BP 153/74
[2021-05-18] MEDS: ASPIRIN 81MG ENTERIC TABLET PO SCH (09:13)
[2021-05-18] MEDS: lisinopriL 5 MG TAB PO SCH (09:13)
[2021-05-18] MEDS: DOCUSATE SODIUM 100MG CAPSULE PO SCH (09:13)
[2021-05-18] MEDS: atenoloL 25 MG TAB PO SCH (09:13)
[2021-05-18] MEDS: busPIRone 5 MG TAB PO PRN ×2 (11:47→16:18)
[2021-05-18 12:00] VITALS: BP 162/80
[2021-05-18] MEDS ORDERED: FURO20TA2 PO (14:50)
[2021-05-18] MEDS ORDERED: LISI-898 PO (14:50)
[2021-05-18 16:00] VITALS: BP 147/80
--- NOTE | 2021-05-18 19:06 | DS.PDOC ---
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 Shannon is a 89 year old female who presented to the emergency department from [facility] for altered mental status cecille rning for CVA. Patient was recently admitted to [facility] for a CVA with altered mental status and was found to have a small left frontal lacunar infarct. She was diagnosed with atrial fibrillation at her last admission and started on aspirin and eliquis. The patient states that she felt like her right eyelid was heavy and falling against her will last night. The next morning she felt confused and was not able to articulate herself well. While in the ED, she was hypertensive, in rate controlled atrial fibrillation, and breathing comfortably on room air. The patient denied pain, headache, nausea, emesis, or new vision changes. A head CT was negative for acute intracranial pathologies. She was admitted for further stroke workup with high suspicion. HOSPITAL COURSE: Small acute CVA with history of prior CVA 1 new area of small acute ischemia noted on brain MRI We spoke to Dr. Phillips who suggested continuing with Eliquis and aspirin with follow-up outpatient Patient blood pressure was maintained under 180 as permissive hypertension after stroke. Patient was monitored on telemetry, with neuro checks every 4 hours, and placed on fall risk precautions Patient was continued on statin -Patient was screened for ARU admission and decided to continue with rehabilitation at ARU following medical clearance. Hypokalemia -This may have contributed to altered mental status. -patient presented to ED with potassium of 2.7. It was replaced with oral potassium chloride and increased to 3.5 with repeat BMP. -Her repeat potassium this AM was 3.4 and again she was given oral potassium. -may be secondary to furosemide. Patient's prescription was changed to every 3 days. -She is advised to discuss this with PCP, she may need oral supplementation. Deconditioning -patient was evaluated by PT and it was recommended she would benefit from skilled PT intervention during acute hospitalization. Atrial fibrillation -patient was rate controlled during hospitalization and continued on atenolol and eliquis Hypertension Permissive hypertension was continued for 48 hours after admission secondary to CVA. -She was continued on atenolol and started on lisinopril 5mg daily. History of CHF, unspecified type Continued home furosemide, upon discharge her furosemide was changed to q 3 da ys to help with potassium levels. GERD Continued home pantoprazole Depression Continued home buspirone, sertraline, mirtazapine This may have contributed to altered mental status, patient is advised to discuss this with PCP upon discharge. Dry eyes Continued home eyedrops as needed DISCHARGE MEDICATIONS: Please see below. ALLERGIES: Please see below. PHYSICAL EXAMINATION ON DISCHARGE: VITAL SIGNS: Please see below. GENERAL: An elderly female sitting in bed in no acute distress HEENT: mucous membranes moist and pink, normocephalic, atraumatic, EOMI not intact, no lymphadenopathy. Left pupil in nonreactive. NECK: supple CARDIOVASCULAR EXAMINATION: irregularly irregular rhythm that is rate controlled, no murmurs appreciated RESPIRATORY EXAMINATION: clear to auscultation bilaterally, no wheezing, rhonchi, or rales ABDOMINAL EXAMINATION: soft, positive bowel sounds, nontender to palpation in all four quadrants, no organomegaly EXTREMITIES: no edema or cyanosis NEUROLOGICAL EXAMINATION: Diminished strength on left (4/5 left upper and lower extremities, 5/5 right upper and lower extremities). Patient is able to speak clearly but sometime mumbles to herself and finds it difficult to find the right words. Mild left sided facial droop noted. EOMI not intact as patient is blind i n left eye with decreased vision in right eye. PSYCHIATRIC EXAMINATION: alert and oriented to person, place, and date of . LABORATORY DATA: Please see below. IMAGING: Head CT: IMPRESSION: Stable appearing chronic changes Chest x-ray: There is no evidence of acute cardiopulmonary disease. Vascular ultrasound: According to the SRU criteria there is less than 50% stenosis of the internal carotid artery bilaterally Brain MRI: Moderate age related parenchymal atrophy. The degree of ventricular dilatation is normal for age and/or degree of atrophy present. Small focus of ischemia in the right posterior parietal lobe near the vertex. Mild white matter changes in the periventricular white matter as described above. Brain MRA: Mild atherosclerotic changes in the anterior posterior circulations as described above. No large vessel occlusion. PROGNOSIS: Fair ACTIVITY: Ambulation with assistance DIET: High calorie/pro hot cereal DISCHARGE PLAN: Discharge to ARU DISPOSITION: 62 D/T Rehab Facility. DISCHARGE INSTRUCTIONS: 1. Once discharged from ARU, follow up with PCP within 7-10 days. ITEMS TO FOLLOWUP ON ON OUTPATIENT: 1. Need to follow up on macular degeneration in right eye 2. Follow up on low potassium levels with PCP 3. Discuss polypharmacy with PCP, patient is currently on sertraline, buspirone, and mirtazapine. May need to discontinue one of these medications to decrease likelihood of further episode of altered mental status. 4. Start taking furosemide every 3 days. 5. Start taking lisinopril daily. DISCHARGE CONDITION: Stable TIME SPENT ON DISCHARGE: 25 minutes. Vital Signs/I&Os Vital Signs Date Time Temp Pulse Resp B/P (MAP) Pulse Ox O2 Delivery O2 Flow Rate FiO2 05/18/21 16:00 98.2 74 19 147/80 (102) 97 Room Air I&O- Last 24 Hours up to 6 AM 05/18/21 06:00 Intake Total 1720 ml Output Total 300 ml Balance 1420 ml Laboratory Data Labs 24H Laboratory Tests 2 05/18/21 04:58: Nucleated Red Blood Cells % (auto) 0.0, Anion Gap 4L, Glomerular Filtration Rate > 60.0, Calcium Level 8.9, Magnesium Level 1.9 CBC/BMP Laboratory Tests 05/18/21 04:58 Discharge Medications Scheduled Apixaban (Eliquis) 5 Mg Tablet, 5 MG PO BID, (Reported) 2nd @ 1700 Aspirin (Aspirin EC) 81 Mg Tablet.dr, 81 MG PO DAILY, (Reported) Atenolol (Atenolol) 25 Mg Tablet, 25 MG PO DAILY, (Reported) Atorvastatin Calcium (Atorvastatin Calcium) 40 Mg Tablet, 40 MG PO QHS, (Reported) Docusate Sodium (Colace) 100 Mg Capsule, 100 MG PO DAILY, (Reported) Furosemide (Furosemide) 20 Mg Tablet, 1 TAB PO Q3D Lisinopril (Lisinopril) 5 Mg Tablet, 5 MG PO DAILY Loratadine (Loratadine) 10 Mg Tablet, 10 MG PO DAILY, (Reported) Melatonin (Melatonin) 10 Mg Capsule, 10 MG PO QHS, (Reported) Mirtazapine (Remeron) 15 Mg Tablet, 15 MG PO QHS, (Reported) Pantoprazole Sodium (Pantoprazole Sodium) 40 Mg Tablet.dr, 40 MG PO DAILY, (Reported) Sennosides/Docusate Sodium (Senna Plus Tablet) 1 Each Tablet, 1 TAB PO DAILY, (Reported) Sertraline Hcl (Sertraline HCl) 25 Mg Tablet, 25 MG PO QHS, (Reported) Scheduled PRN Acetaminophen (Acetaminophen) 160 Mg/5 Ml Oral.susp, 20 ML PO BID PRN for PAIN LEVEL 1-4, (Reported) Buspirone HCl (Buspirone HCl) 5 Mg Tablet, 5 MG PO QID PRN for ANXIETY, (Reported) Clobetasol Propionate/Emoll (Clobetasol Emollient 0.05% Crm) 0.05% 15GM Cream..g., 1 APLCT TOP BID PRN for ITCHING, (Reported) WRIST Diclofenac Sodium (Voltaren Arthritis Pain) 1 % Gel..gram., 1 GM TP for PAIN LEVEL 1-4, (Reported) RIGHT KNEE Diphenhydramine HCl (Benadryl) 25 Mg Capsule, 25 MG PO BID PRN for ITCHING, (Reported) Polyvinyl Alcohol (Artificial Tears) 15 Ml Drops, 2 DROP OU QID PRN for DRY EY ES, (Reported) Sodium Chloride (Saline Nasal [place]) 44 Ml [place], 1 SPRAY NARES QID PRN for NASAL DRYNESS, (Reported) 0800,1200,1600,2000 Allergies Coded Allergies: morphine (Verified Adverse Reaction, Mild, N/V, 09/29/20) GME ATTESTATION GME ATTESTATION My faculty preceptor for this patient encounter was physically present during the encounter and was fully available. All aspects of the patient interview, examination, medical decision making process, and medical care plan development were reviewed and approved by the faculty preceptor. The faculty preceptor is aware and concurs with the plan as stated in the body of this note and will attest to such by his/her cosignature. ATTENDING NOTE I, Luis Burrell MD, have independently examined this patient and performed my own physical exam with the student and the resident in the room with me, as well as reviewed the documentation and edited where necessary. I have discussed in detail with the resident and the student the findings and plan of treatment as documented by the resident and edited their note. I agree with their findings and treatment plan and have edited their documentation. Total time spent on this discharge including coordination of care review of chart actual patient contact and documentation is around 35 minutes ANTONIETA CHILDRESS DO May 18, 2021 19:06 LUIS BURRELL MD May 20, 2021 14:00
== END 2021-05-18 17:47 | DRG 65 ==
LOC: M ED 09:40 → EDBD 09:40 → M ED INP 13:44 → ENRESERV 05-17 06:52 → M PCU 05-17 08:07
PROVIDERS: ADMIT Internal Medicine; ATTEND Internal Medicine
DX: I63.9 Cerebral infarction, unspecified (principal); I48.20 Chronic atrial fibrillation, unspecified; I69.354 Hemiplegia and hemiparesis following cerebral infarction affecting left non-dominant side; E87.6 Hypokalemia; I11.0 Hypertensive heart disease with heart failure; F41.9 Anxiety disorder, unspecified; F32.9 Major depressive disorder, single episode, unspecified; F40.240 Claustrophobia; H35.30 Unspecified macular degeneration; H54.40 Blindness, one eye, unspecified eye; I95.1 Orthostatic hypotension; I50.9 Heart failure, unspecified; K21.9 Gastro-esophageal reflux disease without esophagitis; Z79.82 Long term (current) use of aspirin; Z79.899 Other long term (current) drug therapy; Z88.5 Allergy status to narcotic agent; Z96.651 Presence of right artificial knee joint; Z98.41 Cataract extraction status, right eye; Z66 Do not resuscitate

== ENCOUNTER 2021-05-18 15:13 | Inpatient (IN) | payer MEDICARE, BC, MEDICAID ==
[~2021-05-18] VITALS: Ht 157.5 cm; Wt 74.2 kg
[~2021-05-18 15:13] MED LIST changes: +BUSP5TA PO; -FUROSEMIDE 20 MG TAB PO SCH; +LISI-898 PO; +TGTSUS2 PO
[2021-05-18] MEDS ORDERED: ACETAMINOPHEN TAB 650MG DOSE (2X325MG) PO PRN (15:35)
[2021-05-18 18:00] VITALS: BP 143/93
--- OUTSIDE RECORDS SUMMARY | 2021-05-18 18:13 | CCD | Continuity of Care Document ---
Author Author Yodit BUCK M.D. Organization Unknown Address [address] [place] [address] [address] [place] [address] Phone [phone] Care Team Providers Care Experimental Electronics Developer Name Role Phone Jose Buck MD AUTM [phone] Bob Faulkner MD AUTM [phone] Mansoor Rosado MD AUTM [phone] [facility] - Radiology AUTM Unavailable [facility] AUTM [phone] [facility] AUTM [phone] [facility] Shah[facility]ar AUTM [phone] [facility] 2[facility] Shahriar AUTM [phone] [facility] AUTM [phone] Problems Active Problems Provider Date Anxiety Onset: 03/11/2011 Hyperlipidemia Onset: 11/30/2010 Osteoarthritis Onset: 07/21/2010 Mixed hyperlipidemia Onset: 04/10/2010 Benign essential hypertension Onset: 09/2009 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 Onset: [...] SIG Qnty Indications Ordering Provide r Date Eliquis 5mg Tablets take two tablets by mouth twice a day 180tabs Bonifacio Ferreira, 2020 Buspirone HCL 5mg Tablets Take 1 tablet by mouth 3 times per day for anxiety disorder 90tabs Josep Ferreira, DO 05/05/2021 Sertraline HCL 25mg Tablets 1 by mouth every day at night 30tabs Jose Buck M.D. 04/14/20 21 Clobetasol Propionate E 0.05% Crea m apply [...] as directed 200units Jose Buck M.D. 08/2020 Acetaminophen 160mg/5ML Solution 20ml q10stbux scheduled 500ml Jose Buck M.D. 12/10/19 21 Loratadine 10mg Capsules 1 by mouth once a day 30caps Jose Buck M.D. 08/19/2020 Saline Mist [place] 0.65% Solution 3-4x/d prn 44ml Jose Buck M.D. 08/19/2020 Milk Of Magnesia 1200mg/15ML Suspe nsion 30ml every day by mouth as needed constipation 355ml Daniel Buck M.D. 08/19/2020 Aspirin Enteric Coated Adult Low Strengt h 81mg Tablets DR 1 every day 30tabs Jose Buck M.D. 08/[address] 1 by mouth every morning 30tabs Jose Steel White, M.D. 08/19/2020 Atenolol 25mg Tablets 1 by mouth every day 90tajacquelin Buck M.D. 08/19/2020 Lipitor 40mg Tablets 1 by mouth every day 30tajacquelin Buck M.D. 08/19/2020 Colace 100mg Capsules 1 by mouth twice a day 60angy Buck M.D. 08/19/2020 Senna Plus 8.6-50mg Tablets 1 by mouth every day 30tajacquelin Buck M.D. 08/18/2020 Tylenol PM Extra Strength 500-25mg Tablets 1-2 by mouth every night at bedtime as needed MAACRENA Cavazos JR 01/02/2020 Carpal Tunnel Wrist Stabilizer/Large/X-L [...] M.D. 0 000 History Medications Artificial Tears 1.4% Solution 2 drop into both eyes qid 30ml Jose Buck M.D. 01/19/2021 - 04/30/2021 Artificial Tears 0.2-0.2-1% Soluti on 1 drop both eyes at bedtime 15ml Jose Buck M.D. 0 01/15/2021 - 01/19/2021 Medications Administered in Office Medication SIG Qnty Indications Ordering Provider Date Administration Of Flu Vaccine Inj ection MACARENA Cavazos JR 021 Covid-19 vaccine, Unspecified Inj ection Unknown 09/02/2020 Covid-19 vaccine, Unspecified Inj ection Unknown 08/11/2020 Immunizations CPT Code Status Date Vaccine Lot # [id number] Given 04/14/2021 Influenza Vaccin e Quadrivalent Preser/Antibiotic Free Im Use [id number] U-Flu Given 06/04/2019 Influenza,Unspecified U-Flu Given 04/24/2018 Influenza,Unspecified 56513 Given 04/10/2018 Prevnar 13 43288 Given 12/14/2010 Pneumovax 23 27684 Given 09/24/2010 Pneumovax 23 35795 Refused 06/18/2014 Influenza Virus Vaccine 88612 Refused 12/04/2013 Zoster Vaccine 12660 Refused 12/04/2013 Adacel- Tetanus Diphtheria P ertussis 02015 Refused 03/11/2013 Influenza Virus Vaccine 80248 Refused 12/05/2011 Influenza Virus Vaccine 91007 Refused 04/16/2010 Influenza Virus Vaccine Vital Signs Date Vital Result Comment 05/05/2021 2:04pm BP Systolic 110 mmHg BP Diastolic 68 mmHg Heart Rate 84 /min Height 62 inches 5'2" Weight 160.00 lb BMI (Body Mass Index) 29.3 kg/m2 04/14/2021 1:27pm BP Systolic 122 mmHg BP Diastolic 78 mmHg Height 62 inches 5'2" Weight 167.00 lb BMI (Body Mass Index) 30.5 kg/m2 Results Test Acquired Date Facility Test Result H/L Range Note CBC With Differential 05/16/[address] [id number] [phone] White Blood Count 8.0 10 Normal 4.0-10.0 Red Blood Count 3.79 10 Low 4.00-5.40 Hemoglobin 12.6 g/dL Normal 12.0-15.5 Hematocrit 36.6 % Normal 36.0-47.0 Mean Corpuscular Volume 96.6 fl High 80.0-96.0 Mean Corpuscular Hemoglobin 33.2 pg High 27.0-33.0 Mean Corpuscular HGB Conc 34.4 g/dL Normal 32.0-36.5 Red Cell Distribution Width 12.7 % Normal 11.5-14.5 Platelet Count, Automated 207 10 Normal 150-450 Neutrophils % 71.8 % High 36.0-66.0 Lymph % 13.8 % Low 24.0-44.0 [place] % 9.3 % High 2.0-8.0 Eos % 4.6 % High 0.0-3.0 Baso % 0.4 % Normal 0.0-1.0 Immature Granulocyte % 0.1 % Normal 0-3.0 Nucleated Red Blood Cell % 0.0 % Normal 0-0 Neutrophils # 5.8 10 Normal 1.5-8.5 Lymph # 1.1 10 Low 1.5-5.0 [place] # 0.8 10 Normal 0.0-0.8 Eos # 0.4 10 Normal 0.0-0.5 Baso # 0.0 10 Normal 0.0-0.2 Basic Metabolic Profile 05/16/2021 [facility] [address] [place] [address] [phone] Glucose, Fasting 99 mg/dL Normal 70-100 Blood Urea Nitrogen 7 mg/dL Normal 7-18 Creatinine For GFR 0.64 mg/dL Normal 0.55-1.30 Glomerular Filtration Rate > 60.0 Normal >32 1 Sodium Level 143 mEq/L Normal 136-145 Potassium Serum 2.7 mEq/L Critical low 3.5-5.1 Chloride Level 107 mEq/L Normal 98-107 Carbon Dioxide Level 31 mEq/L Normal 21-32 Anion Gap 5 mEq/L Low 8-16 Calcium Level 9.0 mg/dL Normal 8.8-10.2 Influenza A/B RSV Covid Amp 05/16/2021 [facility] [address] [place] [address] [phone] Influenza A Amplification NEGATIVE Normal Negati ve 2 Influenza B Amplification NEGATIVE Normal Negative 3 RSV Amplification NEGATIVE Normal Negative 4 Sars Covid-19 Amplification NEGATIVE Normal Negative 5 Istat Chem8+ Panel 04/26/2021 [facility] [address] [place] [address] [phone] iSTAT HCT 37.0 % Low 38.0-51.0 iSTAT Glucose 102 mg/dL Normal 70-105 iSTAT Sodium 143 mEq/L Normal 136-145 iSTAT Potassium 3.2 mEq/L Low 3.5-5.1 iSTAT CA++ 4.7 mg/dL Normal 4.5-5.3 iSTAT Chloride 103 mEq/L Normal 98-109 iSTAT Co2 28.0 MM/L High 23.0-27.0 iSTAT BUN 8 mg/dL Normal 8-26 iSTAT Creatinine 0.6 mg/dL Normal 0.6-1.3 CBC With Differential 04/26/[address] [address] [phone] White Blood Count 8.4 10 Normal 4.0-10.0 Red Blood Count 4.01 10 Normal 4.00-5.40 Hemoglobin 13.5 g/dL Normal 12.0-15.5 Hematocrit 38.2 % Normal 36.0-47.0 Mean Corpuscular Volume 95.3 fl Normal 80.0-96.0 Mean Corpuscular Hemoglobin 33.7 pg High 27.0-33.0 Mean Corpuscular HGB Conc 35.3 g/dL Normal 32.0-36.5 Red Cell Distribution Width 12.5 % Normal 11.5-14.5 Platelet Count, Automated 203 10 Normal 150-450 Neutrophils % 71.4 % High 36.0-66.0 Lymph % 15.2 % Low 24.0-44.0 [place] % 9.5 % High 2.0-8.0 Eos % 3.0 % Normal 0.0-3.0 Baso % 0.4 % Normal 0.0-1.0 Immature Granulocyte % 0.5 % Normal 0-3.0 Nucleated Red Blood Cell % 0.0 % Normal 0-0 Neutrophils # 6.0 10 Normal 1.5-8.5 Lymph # 1.3 10 Low 1.5-5.0 [place] # 0.8 10 Normal 0.0-0.8 Eos # 0.3 10 Normal 0.0-0.5 Baso # 0.0 10 Normal 0.0-0.2 Ua W/ Reflex To Culture 04/26/[address] [address] [phone] Appearance, Urine RFX CLEAR Normal Clear Color, Urine RFX YELLOW Normal Yellow PH,Urine RFX 6.0 units Normal 5.0-9.0 Specific Cunningham Ur Auto RFX 1.008 Normal 1.002-1.035 Protein, Urine Auto RFX NEGATIVE [...] NEGATIVE Normal Negative WBC, Urine Auto RFX 1 /HPF Normal 0-3 RBC, Urine Auto RFX 0 /HPF Normal 0-3 Bacteria, Urine Auto RFX NEGATIVE Normal Negative Squam Epithelial Cell Ur Aurfx 0 /HPF Normal 0-6 Hyaline Cast, Urine Auto RFX 0 /LPF Normal 0-1 Prothrombin Time/Inr 04/26/2021 [facility] [address] [place] [address] [phone] Prothrombin Time 14.8 seconds High 12.7-14.5 Inr 1.11 Normal 6 Laboratory test finding 04/26/2021 [facility] [address] [place] [address] [phone] Partial Thromboplastin Time 26.1 seconds Normal 25 .9-37.0 Ammonia 18 uMOL/L Normal <32 Lactic Acid Sepsis Protocol 1.0 mmol/L Normal 0.4-2.0 7 Cardiac Marker Panel 04/26/2021 [facility] [address] [place] [address] [phone] CPK Creatine Phosphokinase 62 U/L Normal 26-19 2 CK-MB Value Mass 1.4 NG/ML Normal <3.6 MB/CK Relative Index 2.26 Normal < Or =4 8 Troponin I < 0.02 NG/ML Normal < 0.10 9 Liver Profile 04/26/2021 [facility] [address] [place] [address] [phone] Ast/Sgot 16 U/L Normal 7-37 Alt/SGPT 19 U/L Normal 12-78 Alkaline Phosphatase 80 U/L Normal 45-117 Bilirubin,Total 0.9 mg/dL Normal 0.2-1.0 Bilirubin,Direct 0.3 mg/dL High 0.0-0.2 Total Protein 6.6 GM/DL Normal 6.4-8.2 Albumin 3.5 GM/DL Normal 3.2-5.2 Albumin/Globulin Ratio 1.1 Low 1.2-2.2 Laboratory test finding 04/26/[address] [address] [phone] Ethyl Alcohol (Ethanol) < 0.003 % Normal 0.000-0. 010 Salicylate Level < 1.7 mg/dL Low 5.0-30.0 Acetaminophen Level < 2.0 UG/ML Low 10.0-30.0 Thyroid Stimulating Hormone 0.829 uIU/ML Normal 0.358-3.740 Type & Screen -Incl Blood Type,[place],AB SC 04/26/[address] [address] [phone] Blood Type AB NEGATIVE Normal AB Screen (Indirect Aracely)Vis NEGATIVE Normal Influenza A/B RSV Covid Amp 04/26/[address] [address] [phone] Influenza A Amplification NEGATIVE Normal Negati ve 10 Influenza B Amplification NEGATIVE Normal Negative 11 RSV Amplification NEGATIVE Normal Negative 12 Sars Covid-19 Amplification NEGATIVE Normal Negative 13 Drug Eval Toxicology ED Only 04/26/[address] [address] [phone] Amphetamines Level Urine NEGATIVE Normal Negativ e Barbiturates Urine NEGATIVE Normal Negative Benzodiazepines Urine NEGATIVE Normal Negative Cannabinoids Urine NEGATIVE Normal Negative Cocaine Metabolite Urine NEGATIVE Normal Negative Methadone Urine NEGATIVE Normal Negative Opiates Urine NEGATIVE Normal Negative Phencyclidine Urine NEGATIVE Normal Negative 14 1 Units are mL/min/1.73 m2 Chronic Kidney Disease Staging per NKF: Stage I & II GFR >=60 Normal to Mildly Decreased Stage III GFR 30-59 Moderately Decreased Stage IV GFR 15-29 Severely Decreased Stage V GFR <15 Very Little GFR Left ESRD GFR <15 on [employer] 2 Negative results do not prec lude influenza or RSV virus infection and should not be used as the sole basis for treatment or other patient management decisions. 3 Negative results do not prec lude influenza or RSV virus infection and should not be used as the sole basis for treatment or other patient management decisions. 4 Negative results do not prec lude influenza or RSV virus infection and should not be used as the sole basis for treatment or other patient management decisions. 5 A false negative result may occur if [...] pathogens. DISCLAIMER: Testing was performed using the [employer] SARS-CoV-2 test. This test was developed and its performance characteristics determined by [employer]. This test has not been FDA cleared [...] the authorization is terminated or revoked sooner. 6 THERAPUTIC HUMAN INR VALUES INDICATIONS NORMAL RANGES PROPHYLAXIS/TREATMENT OF: VENOUS THROMBOSIS 2.0-3.0 PULMONARY EMBOLISM 2.0-3.0 PREVENTION OF SYSTEMIC EMBOLISM FROM: TISSUE HEART VALVES 2.0-3.0 ACUTE MYOCARDIAL INFARCTION 2.0-3.0 VALVULAR HEART DISEASE 2.0-3.0 ATRIAL FIBRILLATION 2.0-3.0 MECHANICAL VALVES(HIGH RISK) 2.5-3.5 RECURRENT MYOCARDIAL INFARCTION 2.5-3.5 7 Y/N query for Sepsis Lactate Rule: Y 8 DIAGNOSIS CRITERIA MMB ng/ml Relative Index (RI) NON-AMI < or = 5 N/A COLÓN ZONE > 5 < or = 4 AMI > 5 > 4 9 Troponin I Reference Interva l for [employer] [place] LOCI: 99th Percentile= 0.00-0.045 ng/ml Risk Stratification: <= 0.10 ng/ml Decreased Risk for Adverse Clinical Events. 0.10-1.50 ng/ml Increased Risk for Adv erse Clinical Events. Evaluation of additional criterion and/or repeat testing in 2-6 hours is suggested to rule out myocardial damage. >= 1.50 ng/ml Indicative of Myocardial Injury. 10 Negative results do not prec lude influenza or RSV virus infection and should not be used as the sole basis for treatment or other patient management decisions. 11 Negative results do not prec lude influenza or RSV virus infection and should not be used as the sole basis for treatment or other patient management decisions. 12 Negative results do not prec lude influenza or RSV virus infection and should not be used as the sole basis for treatment or other patient management decisions. 13 A false negative result may occur if [...] pathogens. DISCLAIMER: Testing was performed using the [employer] SARS-CoV-2 test. This test was developed and its performance characteristics determined by [employer]. This test has not been FDA cleared [...] the authorization is terminated or revoked sooner. 14 ALL PRESUMPTIVE POSITIVE FINDINGS ARE UNCONFIRMED THRESHOLD IN NG/ML AMPHETAMINES/METHAMPHET 1000 BARBITURATES 200 BENZODIAZEPINES 200 CANNABINOIDS (THC) 50 COCAINE METABOLITE 300 METHADONE 300 OPIATES 300 PHENCYCLIDINE 25 RESULTS ARE FOR MEDICAL PURPOSES ONLY. ALL URINE SPECIMENS WILL BE SAVED FOR 3 DAYS. IF CONFIRMATION OF A PRESUMPTIVE POSITIVE SCREEN RESULT IS DESIRED, CALL CHEMISTRY ([phone]) AND REQUEST URINE TO BE SENT TO REFERENCE LAB. FOR A LIST OF CLOSELY RELATED COMPOUNDS PLEASE CALL THE LAB. Procedures Date Code Description Status 04/14/2021 22339 Office/Outpatient Established Mo d MDM 30-39 Min Completed 03/25/2021 33298 Office/Outpatient Established Mo d MDM 30-39 Min Completed 01/27/2021 03763 Office/Outpatient Established Mo d MDM 30-39 Min Completed 12/21/2020 01408 Office/Outpatient Established Mo d MDM 30-39 Min Completed 07/04/2006 [id number] Mammogram Completed 05/31/2005 [id number] Bone Mineral Density Test Comple [email or web address] Description No Information Available Encounters Type Date Location Provider Dx Diagnosis Office Visit 04/14/2021 1:20p [facility] PMACARENA Acosta JR F32.9 Major depressive disorder, s brian episode, unspecified F41.9 Anxiety disorder, unspecifie d I10 Essential (primary) hyperten gary R21 Rash and other nonspecific s kin eruption G45.9 Transient cerebral ischemic attack, unspecified 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, as defined in [place] Z23 Encounter for immunization Office Visit 03/25/2021 9:20a [facility] PMACARENA Acosta JR G45.9 Transient cerebral ischemic attack, unspecified 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, as defined in [place] 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 F41.9 Anxiety disorder, unspecifie d R60.9 Edema, unspecified G47.00 Insomnia, unspecified Assessments Date Code Description Provider 05/05/2021 I63.9 Cerebral infarction, unspecified Bonifacio Ferreira DO 05/05/2021 I48.0 Paroxysmal atrial fibrillation C hrmiguel angel Ferreira, DO 05/05/2021 I10 Essential (primary) hypertension Bonifacio Ferreira, DO 05/05/2021 F41.9 Anxiety disorder, unspecified Ch johntopher Ferreira, DO 05/05/2021 E78.5 Hyperlipidemia, unspecified Chri stopher Lodnonologg, DO 04/14/2021 F32.9 Major depressive disorder, singl e episode, unspecified Isaiah Tyler JR, PA 04/14/2021 F41.9 Anxiety disorder, unspecified Ro wolfgang Daniel Tyler JR, PA 04/14/2021 I10 Essential (primary) hypertension Isaiah Tyler JR, PA 04/14/2021 R21 Rash and other nonspecific skin eruption Isaiah Tyler JR, PA 04/14/2021 G45.9 Transient cerebral ischemic shonda ck, unspecified Isaiah Tyler JR, PA 04/14/2021 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, as defined in [facility] MACARENA Cavazos JR 04/14/2021 Z23 Encounter for immunization Daquan Tyler JR, PA 03/25/2021 G45.9 Transient cerebral ischemic shonda ck, unspecified Isaiah Tyler JR, PA 03/25/2021 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, as defined in [facility] Isaiah Tyler JR, PA 03/25/2021 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 Isaiah Tyler JR, MACARENA 03/25/2021 R21 Rash and other nonspecific skin eruption Isaiah Tyler JR, PA 03/25/2021 I10 Essential (primary) hypertension Isaiah Tyler JR, PA 03/25/2021 F41.9 Anxiety disorder, unspecified Ro wolfgang Tyler JR, PA 01/27/2021 I10 Essential (primary) hypertension Isaiah Tyler JR, PA 01/27/2021 E78.5 Hyperlipidemia, unspecified Dree rt Daniel Tyler JR, PA 01/27/2021 G45.9 Transient cerebral ischemic shonda ck, unspecified Isaiah Tyler JR, PA 01/27/2021 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 12/21/2020 I10 Essential (primary) hypertension Jose Buck M.D. 12/21/2020 G45.9 Transient cerebral ischemic shonda ck, unspecified Jose Buck M.D. 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 12/21/2020 F41.9 Anxiety disorder, unspecified José Manuel Buck M.D. 12/21/2020 R60.9 Edema, unspecified Jose camarillo M.D. 12/21/2020 G47.00 Insomnia, unspecified Jose phelan M.D. Plan of Treatment Future Appointment(s):* 08/02/2021 11:00 am - MACARENA Cavazos JR at [facility] * 05/20/2021 10:40 am - Nurse #2 at [facility] * 05/20/2021 11:00 am - Jose Buck M.D. at [facility] 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 Anxiety disorder: Doing well on Mirtazapine [...]
[2021-05-18] MEDS ORDERED: CLOBETASOL PROPIONATE EMOLLIENT 0.05% CR 60 GM TOP PRN (18:15)
[2021-05-18] MEDS ORDERED: DICLOFENAC EPOLAMINE 1.3 % PATCH TOP PRN (18:15)
[2021-05-18] MEDS ORDERED: SODIUM CHLORIDE NASAL 0.65% SPRAY BTL (OCEAN) PRN (18:15)
--- OUTSIDE RECORDS SUMMARY | 2021-05-18 18:15 | CCD ---
Author Author [facility] Organization [facility] Address Unknown Phone Unavailable Care Team Providers Care Makeup Sales Consultant Name Role Phone Hafsa Buck MD Unavailable [...] MATTHIAS PA-C Unavailable Unavailable PICKERAL JR, J MATTIHAS PA-C Unavailable Unavailable PICKERAL JR, J MATTHIAS [...] Unavailable Unavailable Nakul Mccarthy MD Unavailable Unavailable SpartaNakul MD Unavailable Unavailable SpartaNakul MD Unavailable Unavailable Nakul Mccarthy MD Unavailable Unavailable SpartaNakul MD Unavailable Unavailable SpartaNakul MD Unavailable Unavailable SpartaNakul MD Unavailable Unavailable SpartaNakul MD Unavailable Unavailable SpartaNakul MD Unavailable Unavailable SpartaNakul MD Unavailable Unavailable SpartaNakul MD Unavailable Unavailable SpartaNakul MD Unavailable Unavailable SpartaNakul MD Unavailable Unavailable SpartaNakul MD Unavailable Unavailable SpartaNakul MD Unavailable Unavailable SpartaNakul MD Unavailable Unavailable SpartaNakul MD Unavailable Unavailable SpartaNakul MD Unavailable Unavailable SpartaNakul MD Unavailable Unavailable SpartaNakul MD Unavailable Unavailable SpartaNakul MD Unavailable Unavailable SpartaNakul MD Unavailable Unavailable SpartaNakul MD Unavailable Unavailable SpartaNakul MD Unavailable Unavailable SpartaNakul MD Unavailable Unavailable SpartaNakul MD Unavailable Unavailable SpartaNakul MD Unavailable Unavailable Nakul Mccarthy MD Unavailable Unavailable SpartaNakul deutsch MD Unavailable Unavailable Nakul Mccarthy MD Unavailable [...] Becki Rojas MD, FACS Unavailable Unavailable Chang Babott, Becki Rojas MD, FACS Unavailable Unavailable Chang Abbott, Becki Rojas MD, FACS Unavailable Unavailable Zaria Mnazanares MD Unavailable Unavailable Zaria Manzanares MD Unavailable [...] is protected by Article 27-F of the [facility] Public Health law. If you continue you may have access to information: Regarding HIV / AIDS; Provided by facilities licensed or operated by the [facility] Office of Mental Health; or Provided by the [facility] Office for People With Developmental Disabilities. If such information is present, then the following [facility] mandated warning applies: This information has been [...] law may result in a fine or senior living sentence or both. A general authorization for the release of medical or other information is NOT sufficient authorization for further disc losure. Family History Family Member Name Family Member Gender Family Member Status Date o f Status Description Data Source(s) Unknown Unknown Problem [facility] ([facility]) Unknown Male Problem [facility] ([facility]) Unknown Female Problem [facility] ([facility]) Unknown Female Problem [facility] ([facility]) Encounters Encounter Providers Location Date Indications Data Source(s ) Outpatient Attender: MATTHIAS Lovell 0 04/14/2021 01:20:00 PM EDT MEDENT ([facility] ) Outpatient Attender: MATTHIAS Lovell 0 03/25/2021 09:20:00 AM EDT MEDENT ([facility] ) Outpatient Attender: Ruthann Manzanares MD Main office - [facility] 03/01/2021 11:45:00 AM EDT MEDENT ([facility]) Outpatient Attender: MATTHIAS Lovell 0 01/27/2021 01:00:00 PM EDT MEDENT ([facility] ) Outpatient<td ID="encounterTypeDescripti onID0">1 Year Follow-Up</td><td>Bob Faulkner MD, FACS</td><td>Bob Faulkner MD [facility]</td><td>01/01/2021</td><td>11:56AM</td><td>12:43PM</td><td><content ID="encounterDiagnosisID0-0">Macular Degeneration Nonexudative</content>, <content ID="encounterDiagnosisID0-1">Cataract Senile Total</content>, <content ID="encounterDiagnosisID0-2">Pseudophakia</content>, <content ID="encounterDiagnosisID0-3">Posterior Capsule Opacification Eccentric Capsule Right Eye</content></td> Attender: Bob Abbott MD, FACS Bob Fajardo [facility] 01/01/2021 11:56:00 AM EDT - 01/01/2021 12:43:00 PM ED T Posterior Capsule Opacification Eccentric Capsule Right EyePseudophakiaMacular Degeneration NonexudativeCataract Senile Total JACEK (Bob Abbott MD [facility]) Posterior Capsule Opacification Eccentri c Capsule Right Eye 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 Outpatient Attender: Jose Lovell 12/21 03:30:00 PM EDT MEDENT ([facility] ) Outpatient Attender: Ruthann Manzanares MD Main office [facility] 11/16/2020 11:30:00 AM EDT MEDENT ([facility]) Outpatient Attender: Jose Lovell 10/14 10:00:00 AM EDT MEDENT ([facility] ) Outpatient Attender: Jose Lovell 08/19 09:30:00 AM EST MED[facility] ([facility] ) Unknown [address] [address] 08/18/2020 12:00:00 AM EST eCW1 ([facility]) Outpatient Attender: Nakul Milner/Shari/Dain/Meghann castro 07/21/2020 10:45:00 AM EST [facility] ([facility] Outpatient Attender: MATTHIAS Lovell 1 08/19/2019 01:20:00 PM EST MEDENT ([facility] ) Immunizations Vaccine Date Status Description Data Source(s) Influenza, injectable, MDCK, preservative free, kiko valent 04/14/2021 02:02:00 PM EDT completed [facility] COVID-19 VACCINE Unknown 09/02/2020 12:00:00 AM EST completed [facility] Vaccine Series Complete: YESThis Data wa s Submitted to [facility] Via [facility]. COVID-19 VACCINE Pfizer 08/11/2020 12:00:00 AM EST completed [facility] Vaccine Series Complete: NOThis Data was Submitted to [facility] Via [facility]. INFLUENZA VACCINE QUADRIVALENT (65 YR UP)/MF59 C.1/PF 05/21/2020 12:00:00 AM EST completed [facility] Medications Medication Brand Name Start Date Product Form Dose Route Admi nistrative Instructions Pharmacy Instructions Status Indications Reaction Description Data Source(s) apixaban 5 MG Oral Tablet [Eliquis] Eliquis 05/05/2021 12:00:00 AM E DT ORAL active MEDENT ([facility]) buspirone hydrochloride 5 MG Oral Tablet Buspirone HCL 05/05/2021 12:00:00 AM EDT ORAL active MED[facility] ([facility]) Administration Of Flu Vaccine 04/14/2021 12:00:00 AM EDT completed [facility] Medication administered onsite Sertraline 25 MG Oral Tablet Sertraline HCL 04/14/2021 12:00:00 AM EDT ORAL active MED[facility] ([facility]) Diphenhydramine Hydrochloride 25 MG Oral Capsule [Benadryl] Benadryl Allergy 03/25/2021 12:00:00 AM EDT ORAL active MEDENT ([facility]) Clobetasol Propionate E Clobetasol Propionate E 03/25/2021 12:00:00 A M EDT active MED[facility] ([facility]) Acetaminophen 32 MG/ML Oral Solution Acetaminophen 03/16/2021 12:00 :00 AM EDT active MEDENT ([facility]) Melatonin 10 MG Oral Tablet Melatonin 03/05/2021 12:00:00 AM EDT active MED[facility] ([facility]) Diclofenac Sodium 0.01 MG/MG Topical Gel Diclofenac Sodium 02/15/2021 12:00:00 AM EDT active MED[facility] ([facility]) Polyvinyl Alcohol 0.014 ML/ML Ophthalmic Solution Artificial Tears 01/19/2021 12:00:00 AM EDT OPHTHALMIC completed MED[facility] ([facility]) Glycerin 2 MG/ML / hypromellose 2 MG/ML / Polyethylene Glycol 400 10 MG/ML Ophthalmic Solution Artificial Tears 01/15/2021 12:00:00 AM EDT OPHTHALMIC completed MED[facility] ([facility]) Sodium Chloride 0.65% . Nasal Solution Sodium Chloride 0.65% . Nasal Solution 01/01/2021 12:00:00 AM EDT 1 active Sodium Chloride HANCOCK (Bob Abbott MD [facility]) Furosemide 20 MG Oral Tablet [Lasix] Lasix 20 MG Oral Tablet Lasix 20 MG Oral Tablet 01/01/2021 12:00:00 AM EDT 1 active furosemide 20 MG Oral Tablet [Lasix] JACEK (Bob Abbott MD [facility]) Aspirin 81 MG Delayed Release Oral Table t Adult Aspirin Regimen 81 MG Oral Tablet Delayed Release Adult Aspirin Regimen 81 MG Oral Tablet Delayed Releas e 01/01/2021 12:00:00 AM EDT 1 active aspirin 81 MG Delayed Release Oral Tablet JACEK (Bob Abbott MD [facility]) Docusate Sodium 100 MG Oral Capsule [Colace] Colace 10 0 MG Oral Capsule Colace 100 MG Oral Capsule 01/01/2021 12:00:00 AM EDT 1 active docusate sodium 100 MG Oral Capsule [Colace] JACEK (Bob Abbott MD [facility]) Atorvastatin 40 MG Oral Tablet Atorvastatin 40 MG Oral Table t 01/01/2021 12:00:00 AM EDT 1 active Atorvast atin JACEK (Bob Abbott MD [facility]) [facility] Melatonin 3 MG Oral Tablet [facility] Melatonin 3 MG Oral Table t 01/01/2021 12:00:00 AM EDT 1 active [facility] Nicole tonin JACEK (Bob Abbott MD [facility]) Diclofenac Sodium 0.01 MG/MG Topical Gel [Voltaren] Vo ltaren 1% External Gel Voltaren 1% External Gel 01/01/2021 12:00:00 AM EDT 1 active diclofenac sodium 0.01 MG/MG Topical Gel [Voltaren] JACEK (Bob Abbott MD [facility]) Atenolol 25 MG Oral Tablet Atenolol 25 MG Oral Tablet 2020 12:00:00 AM EDT 1 active atenolol 25 MG Or al Tablet JACEK (Bob Abbott MD [facility]) clopidogrel 75 MG Oral Tablet [Plavix] Plavix 75 MG Or al Tablet Plavix 75 MG Oral Tablet 01/01/2021 12:00:00 AM EDT 1 active clopidogrel 75 MG Oral Tablet [Plavix] JACEK (Bob Abbott MD [facility]) GNP Loratadine 10 MG Oral Tablet GNP Loratadine 10 MG Oral T ablet 01/01/2021 12:00:00 AM EDT 1 active GNP Anny tadine JACEK (Bob Abbott MD [facility]) Pantoprazole 40 MG Oral Tablet Pantoprazole 40 MG Oral Table t 01/01/2021 12:00:00 AM EDT 1 active Pantopra joshua [place] (Bob Abbott MD [facility]) Acetaminophen 32 MG/ML Oral Solution Acetaminophen 12/09/2020 12:00 :00 AM EDT active MEDENT ([facility]) Melatonin 3 MG Oral Capsule Melatonin 09/24/2020 12:00:00 AM EST completed [facility] ([facility]) Covid-19 vaccine, Unspecified 09/02/2020 12:00:00 AM EST completed [facility]) Medication administered onsite pantoprazole 40 MG Delayed Release Oral Tablet [Protonix] Pr otonix 08/19/2020 12:00:00 AM EST ORAL active EDENT ([facility]) Atenolol 25 MG Oral Tablet Atenolol 08/19/2020 12:00:00 AM EST ORAL active MED[facility] ([facility]) Loratadine 10 MG Oral Capsule Loratadine 08/19/2020 12:00:00 AM EST ORAL active MED[facility] ([facility]) atorvastatin 40 MG Oral Tablet [Lipitor] Lipitor 08/19/2020 12:00: 00 AM EST ORAL active MEDENT ([facility]) 60 ACTUAT Albuterol 0.09 MG/ACTUAT Metered Dose Inhaler Albu terol Sulfate HFA 08/19/2020 12:00:00 AM EST ORAL completed [facility] ([facility]) Acetaminophen 32 MG/ML Oral Solution Acetaminophen 08/19/2020 12:00 :00 AM EST ORAL completed [facility] ([facility]) Aspirin 81 MG Delayed Release Oral Tablet Aspirin Ente lino Coated Adult Low Strength 08/19/2020 12:00:00 AM EST active MED[facility] ([facility]) clopidogrel 75 MG Oral Tablet [Plavix] Plavix 08/19/2020 12:00:00 AM EST ORAL active MED[facility] ([facility]) Sodium Chloride 0.111 MEQ/ML Nasal Solution Saline Mist Spra y 08/19/2020 12:00:00 AM EST active M EDENT ([facility]) Magnesium Hydroxide 80 MG/ML Oral Suspension Milk Of Magnesi a 08/19/2020 12:00:00 AM EST ORAL active M EDENT ([facility]) Docusate Sodium 100 MG Oral Capsule [Colace] Colace 09/2020 12:00:00 AM EST ORAL active MEDENT ( [facility]) Polyethylene Glycol 400 4 MG/ML / Propyl meet glycol 3 MG/ML Ophthalmic Solution [Systane] Systane Ultra 0.4-0.3% Ophthalmic Solution Systane Ultra 0.4-0.3% Ophthalmic Solution 08/18/2020 12:00:00 AM EST active polyethylene glycol 400 4 MG/ML / propylene glycol 3 MG/ML Ophthalmic Solution [Systane] JACEK (Bob Abbott MD [facility]) Docusate Sodium 50 MG / sennosides, SKILLED NURSING 8.6 MG Oral Tablet S nicanor Plus 08/18/2020 12:00:00 AM EST ORAL active MEDENT ([facility]) Ocuvite Adult 50+ Oral Capsule Ocuvite Adult 50+ Oral Capsul e 08/18/2020 12:00:00 AM EST 1 active Ocuvite Adult 50+ JACEK (Bob Abbott MD [facility]) 8 HR Acetaminophen 650 MG Extended Release Oral Tablet Aceta minophen ER 08/18/2020 12:00:00 AM EST ORAL completed MED[facility] ([facility]) 1 % 08/16/2020 12:00:00 AM EST gel 100 APPLY 2 GRAMS TOPICALLY TO NECK AREA TWO TIMES A DAY AND EVERY 6 HOURS NEEDED FOR PAIN APPLY 2 GRAMS TOPICALLY TO NECK AREA TWO TIMES A DAY AND EVERY 6 HOURS NEEDED FOR PAIN SOLD: 08/17/2020 [facility] Diclofenac Sodium 0.01 MG/MG Topical Gel [Voltaren] Voltaren 08/14/2020 12:00:00 AM EST completed MEDENT ([facility]) Covid-19 vaccine, Unspecified 08/11/2020 12:00:00 AM EST completed [facility]) Medication administered onsite 25 mg 06/18/2020 12:00:00 AM EST tablet 30 TAKE 1/2 TABLET BY MOUTH EVERY MORNING TAKE 1/2 TABLET BY MOUTH EVERY MORNING SOLD: 06/18/2020 [facility] Sertraline 25 MG Oral Tablet [Zoloft] Zoloft 06/18/2020 12:00:00 AM EST completed [facility]) Amoxicillin 500 MG Oral Capsule Amoxicillin 06/18/2020 12:00:00 AM EST ORAL completed [facility] ([facility]) 500 mg 06/18/2020 12:00:00 AM EST [...] BY MOUTH AT BEDTIME SOLD : 04/20/2020 [facility] Atenolol 50 MG Oral Tablet ATENOLOL [...] Ophthalmic Solution [Systane] JACEK (Bob Abbott MD [facility]) Ocuvite Adult 50+ Oral Capsule, conventional Ocuvite A dult 50+ Oral Capsule, conventional 12/19/2017 12:00:00 AM EDT 1 aborted Ocuvite Adult 50+ JACEK (Bob Abbott MD [facility]) Atenolol 50 MG Oral Tablet Atenolol 50 MG OR TABS Atenolol 5 0 MG OR TABS 03/21/2013 12:00:00 AM EDT 1 aborted atenolol 50 MG Oral Tablet JACEK (Bob Abbott MD [facility]) Insurance Providers Payer name Policy type / Coverage type Policy ID Covered libertarian ID Covered libertarian's relationship to mcclellan Policy Mcclellan Plan Information Medicare Natl Govt Servic Medicare Primary [id number] Self [id number] Medicare Part B [facility] Other 0 [id number] S elf 0 Medicare Natl Govt Servic Medicare Primary [id number] Self [id number] Medicare Part B [facility] Other 0 [id number] S elf 0 Medicare Natl Govt Servic Medicare Primary [id number] Self [id number] Medicare Natl Govt Servic Medicare Primary [id number] Self [id number] Medicare Natl Govt Serv Medicare Primary [id number] Self [id number] Medicare Natl Govt Servic Medicare Primary [id number] Self [id number] Medicare Part B [facility] Other 0 [id number] Self 0 Medicare Natl Govt Servic Medicare Primary [id number] Self Medicare Part B [facility] Other 0 [id number] S elf 0 [facility] Part B [id number] Self [id number] Medicare [place] Primary [id number] Self [id number] Medicare [place] Medicare Primary [id number] Self [id number] Medicare [place] Medicare Primary [id number] Self [id number] Medicare [place] Medicare Primary [id number] Self [id number] Medicare [place] Medicare Primary [id number] Self [id number] ANSI-Commercial [id number] ANSI-Medicare Part B [id number] BS [place] [facility] Part B [id number] Self [id number] BCBS of [facility] Other 0 [id number] Self 0 BCBS of [facility] Other 0 [id number] Self 0 MEDICARE [id number] SP [id number] D BCBS OD [place] 210/710 [id number] SP [id number] BCBS/Blue Card Medigap Part B [id number] Self [id number] Medicare Natl Gov't Servi Medicare Primary [id number] Self [id number] BS Ray Trad/MX Commercial [id number] Self [place] [id number] SP [id number] K [id number] D MEDICARE [id number] SP [id number] BCBS [place] PPO 302/307 [id number] SP [id number] BCBS of [facility] Other 0 [id number] Self 0 [place] [id number] SP [id number] BCBS [place] 210/710 [id number] SP [id number] BCBS [place] PPO 302/307 [id number] SP [id number] [place] BCBS B [id number] S UFL [id number] MEDICARE C [id number] S [id number] BCBS [place] [id number] S [id number] [facility] MEDICARE DIVISION [id number] S [id number] MEDICARE - [place] [id number] S [id number] BCBS EX[place] [id number] S [id number] [id number] [facility] MEDICARE DIVISION [id number] S [id number] MEDICARE - [place] [id number] S [id number] BCBS of [facility] Other 0 [id number] Self 0 [facility] Trad/[place] Medigap Part B [id number] Self [id number] Problems, Conditions, and Diagnoses Code Display Name Description Problem Type Effective Dates Data Source(s) 011998318 Ischemic stroke Ischemic stroke Problem 11/16/2020 12:0 0:00 AM EDGenoveva RUIZ ([facility] ) [id number] Essential hypertension Essential hypertension Problem 07/21/2020 12:00:00 AM EST SARA ([facility], ) Surgeries/Procedures Procedure Description Date Indications Data Source(s) OFFICE OUTPATIENT VISIT 25 MINUTES 04/14/2021 12:00:00 AM EDGenoveva RUIZ ([facility]) OFFICE OUTPATIENT VISIT 25 MINUTES 03/25/2021 12:00:00 AM EDT MEDENT ([facility]) OFFICE OUTPATIENT VISIT 25 MINUTES 03/01/2021 12:00:00 AM EDT MED[facility] ([facility] ) OFFICE OUTPATIENT VISIT 25 MINUTES 01/27/2021 12:00:00 AM EDT MED[facility] ([facility]) ELECTROENCEPHALOGRAM W/REC AWAKE&ASLEEP 01/05/2021 12: 00:00 AM EDT MED[facility] ([facility] ) ELECTROENCEPHALOGRAM W/REC AWAKE&ASLEEP 01/05/2021 12: 00:00 AM EDT MED[facility] ([facility] ) Intermediate Eye Exam Established Patient Intermediate Eye Exam Established Patient 01/01/2021 12:00:00 AM EDT JACEK (Brooks Abbott MD [facility]) OFFICE OUTPATIENT VISIT 25 MINUTES 12/21/2020 12:00:00 AM EDT [facility] NON-INVASIVE PHYSIOLOGIC STUDY EXTREMITY 3 LEVLS 11/27 12:00:00 AM EDT MEDENT ([facility], ) TSTG ANS FUNCJ CARDIOVAGAL INNERVAJ PARASYMP 12:00:00 AM EDT MEDENT ([facility], ) TESTING AUTONOMIC NERVOUS SYSTEM FUNCTION 11/27/2020 1 2:00:00 AM EDT MED[facility] ([facility], ) OFFICE OUTPATIENT NEW 60 MINUTES 11/16/2020 12:00:00 A M EDT MEDENT ([facility], ) Trans Care SRV W/I 14D Of DC, Comm W/I 2 Dys Med Rec 10/14/2020 12:00:00 AM EDT MEDENT ([facility] ) Mukherjee Cre SRV W/I 7 Days Of DC, Comm W/I 2 Dys Med Rec 08/19/2020 12:00:00 AM EST [facility] Control Nosebleed Anterior Simple 08/07/2020 12:00:00 AM EST MEDENT ([facility], ) Results ID Date Data Source [id number] 05/16/2021 11:34:00 AM EDT MEDENT ([facility]) Name Value Range Interpretation Code Description Data Medina rce(s) Supporting Document(s) Glucose, Fasting 99 mg/dL 70-100 MED[facility] ([facility]) Blood Urea Nitrogen 7 mg/dL 7-18 MED[facility] ([facility]) Creatinine For GFR 0.64 mg/dL 0.55-1.30 MED[facility] ([facility]) Glomerular Filtration Rate Laboratory test result MEDENT ([facility]) <content>Units are mL/min/1.73 m2</content>
<content></content>
<content>Chronic Kidney Disease Staging per NKF:</content>
<content></content>
<content>Stage I & II GFR >=60 Normal to Mildly Decreased</content>
<content>Stage III GFR 30- 59 Moderately Decreased</content>
<content>Stage IV GFR 15-29 Severely Decreased</content>
<content>Stage V GFR <15 Very Little GFR Left</content>
<content>ESRD GFR <15 on WAX COATING MACHINE TENDER</content>
<content></content> Sodium Level 143 meq/L 136-145 MED[facility] ([facility]) Chloride Level 107 meq/L 98-107 MED[facility] ([facility]) Carbon Dioxide Level 31 meq/L 21-32 MED[facility] ([facility]) Potassium Serum 2.7 meq/L 3.5-5.1 Below lower panic limits MEDENT ([facility]) Calcium Level 9.0 mg/dL 8.8-10.2 MED[facility] ([facility]) Anion Gap 5 meq/L 8-16 [facility] ID Date Data Source [id number] 05/16/2021 11:34:00 AM EDT MEDENT ([facility]) Name Value Range Interpretation Code Description Data Medina rce(s) Supporting Document(s) White Blood Count 8.0 10 4.0-10.0 MED[facility] ([facility]) Hemoglobin 12.6 g/dL 12.0-15.5 [facility] Red Blood Count 3.79 10 4.00-5.40 [facility] ([facility]) Hematocrit 36.6 % 36.0-47.0 [facility] Mean Corpuscular Hemoglobin 33.2 pg 27.0-33.0 ME DENT ([facility]) Mean Corpuscular Volume 96.6 fl 80.0-96.0 MED[facility] ([facility]) Red Cell Distribution Width 12.7 % 11.5-14.5 ME DENT ([facility]) Platelet Count, Automated 207 10 150-450 MEDE NT ([facility]) Mean Corpuscular HGB Conc 34.4 g/dL 32.0-36.5 MEDE NT ([facility]) Lymph % 13.8 % 24.0-44.0 [facility] ([facility]) Neutrophils % 71.8 % 36.0-66.0 [facility] ([facility]) Eos % 4.6 % 0.0-3.0 [facility]) Delta % 9.3 % 2.0-8.0 [facility]) Baso % 0.4 % 0.0-1.0 [facility]) Immature Granulocyte % 0.1 % 0-3.0 MED[facility] ([facility]) Nucleated Red Blood Cell % 0.0 % 0-0 MED ENT ([facility]) Neutrophils # 5.8 10 1.5-8.5 [facility] ([facility]) Lymph # 1.1 10 1.5-5.0 [facility] Eos # 0.4 10 0.0-0.5 [facility] Delta # 0.8 10 0.0-0.8 [facility] Baso # 0.0 10 0.0-0.2 [facility]) ID Date Data Source [id number] 05/16/2021 11:04:00 AM [facility]T [facility] Name Value Range Interpretation Code Description Data Medina rce(s) Supporting Document(s) SARS coronavirus 2 RNA [Presence] in Res piratory specimen by ZAYDA with probe detection NEGATIVE [place]SDOH This lab was ordered by [facility] a nd reported by [facility]. ID Date Data Source [id number] 05/16/2021 11:04:00 AM EDT MEDENT ([facility]) Name Value Range Interpretation Code Description Data Medina rce(s) Supporting Document(s) Influenza A Amplification Laboratory test result [facility] Negative results do not preclude influen za or RSV virus infection and should not be used as the sole basis for treatment or other patient management decisions. Influenza B Amplification Laboratory test result [facility] Negative results do not preclude influen za or RSV virus infection and should not be used as the sole basis for treatment or other patient management decisions. RSV Amplification Laboratory test result MED[facility] ([facility]) Negative results do not preclude influen za or RSV virus infection and should not be used as the sole basis for treatment or other patient management decisions. Laboratory test finding (navigational concept) Laboratory test result MEDENT ([facility]) A false negative result may occur if [...] pathogens. DISCLAIMER: Testing was performed using the [employer] SARS-CoV-2 test. This test was developed and its performance characteristics determined by [employer]. This test has not been FDA cleared [...] the authorization is terminated or revoked sooner. ID Date Data Source [id number] 04/28/2021 08:50:00 PM EDT [facility] Name Value Range Interpretation Code Description Data Medina rce(s) Supporting Document(s) SARS coronavirus 2 RNA [Presence] in Res piratory specimen by ZAYDA with probe detection NEGATIVE [facility] This lab was ordered by [facility] a nd reported by [facility]. ID Date Data Source [id number] 04/26/2021 09:35:00 AM EDT [facility] ([facility]) Name Value Range Interpretation Code Description Data Medina rce(s) Supporting Document(s) Laboratory test finding (navigational concept) 37.0 % 38.0-51.0 [facility] ([facility]) Laboratory test finding (navigational concept) 102 mg/dL 70-105 [facility] ([facility]) Laboratory test finding (navigational concept) 143 meq/L 136-145 [facility] ([facility]) Laboratory test finding (navigational concept) 3.2 meq/L 3.5-5.1 [facility] ([facility]) Laboratory test finding (navigational concept) 4.7 mg/dL 4.5-5.3 [facility] ([facility]) Laboratory test finding (navigational concept) 28.0 MM/L 23.0-27.0 [facility] ([facility]) Laboratory test finding (navigational concept) 103 meq/L 98-109 [facility] ([facility]) Laboratory test finding (navigational concept) 8 mg/dL 8-26 [facility] ([facility]) Laboratory test finding (navigational concept) 0.6 mg/dL 0.6-1.3 [facility] ([facility]) ID Date Data Source [id number] 04/26/2021 09:18:00 AM EDT [facility] ([facility]) Name Value Range Interpretation Code Description Data Medina rce(s) Supporting Document(s) Benzodiazepines Urine Laboratory test result [facility] ([facility]) Barbiturates Urine Laboratory test result [facility] ([facility]) Amphetamines Level Urine Laboratory test result [facility] ([facility]) Cannabinoids Urine Laboratory test result [facility] ([facility]) Methadone Urine Laboratory test result [facility] Cocaine Metabolite Urine Laboratory test result [facility] ([facility]) Opiates Urine Laboratory test result [facility] ([facility]) Phencyclidine Urine [facility] ALL PRESUMPTIVE POSITIVE FINDINGS AR E UNCONFIRMED THRESHOLD IN NG/ML AMPHETAMINES/METHAMPHET 1000 BARBITURATES [...] CLOSELY RELATED COMPOUNDS PLEASE CALL THE LAB. ID Date Data Source [id number] 04/26/2021 09:18:00 AM EDT [facility] Name Value Range Interpretation Code Description Data Medina rce(s) Supporting Document(s) Influenza A Amplification Laboratory test result [facility] Negative results do not preclude influen za or RSV virus infection and should not be used as the sole basis for treatment or other patient management decisions. Influenza B Amplification Laboratory test result [facility] Negative results do not preclude influen za or RSV virus infection and should not be used as the sole basis for treatment or other patient management decisions. RSV Amplification Laboratory test result [facility] Negative results do not preclude influen za or RSV virus infection and should not be used as the sole basis for treatment or other patient management decisions. Laboratory test finding (navigational concept) Laboratory test result [facility] A false negative result may occur [...] pathogens. DISCLAIMER: Testing was performed using the [employer] SARS-CoV-2 test. This test was developed and its performance characteristics determined by [employer]. This test has not been FDA cleared [...] the authorization is terminated or revoked sooner. ID Date Data Source [id number] 04/26/2021 09:18:00 AM EDT [facility] ([facility]) Name Value Range Interpretation Code Description Data Medina rce(s) Supporting Document(s) AB Screen (Indirect Aracely)Vis Laboratory test result [facility] ([facility]) Blood Type Laboratory test result [facility] ID Date Data Source [id number] 04/26/2021 09:18:00 AM EDT [facility] ([facility] Name Value Range Interpretation Code Description Data Medina rce(s) Supporting Document(s) Ethanol [Mass/volume] in Serum or Plasma Laboratory test result 0.000 -0.010 [facility] ([facility]) Salicylates [Mass/volume] in Serum or Plasma Laboratory test result 5.0-30.0 [facility] ([facility]) Acetaminophen [Mass/volume] in Serum or Plasma Laboratory test r esult 10.0-30.0 [facility] Thyrotropin [Units/volume] in Serum or Plasma by Detec tion limit <= 0.05 mIU/L 0.829 uIU/ML 0.358-3.740 [facility] ID Date Data Source [id number] 04/26/2021 09:18:00 AM EDT [facility] ([facility] Name Value Range Interpretation Code Description Data Medina rce(s) Supporting Document(s) Ast/Sgot 16 U/L 7-37 [facility]) Alkaline Phosphatase 80 U/L 45-117 [facility] ([facility]) Alt/SGPT 19 U/L 12-78 [facility]) Bilirubin,Direct 0.3 mg/dL 0.0-0.2 [facility]) Bilirubin,Total 0.9 mg/dL 0.2-1.0 [facility] ([facility]) Albumin 3.5 GM/DL 3.2-5.2 [facility] Total Protein 6.6 GM/DL 6.4-8.2 [facility] ([facility]) Albumin/Globulin Ratio 1.1 1.2-2.2 [facility] ([facility]) ID Date Data Source [id number] 04/26/2021 09:18:00 AM EDT [facility] ([facility]) Name Value Range Interpretation Code Description Data Medina rce(s) Supporting Document(s) CPK Creatine Phosphokinase 62 U/L 26-192 [facility] ([facility]) CK-MB Value Mass 1.4 ng/mL [facility] ([facility]) Troponin I Laboratory test result [facility] ([facility]) <content>Troponin I Reference Interval f or Siemens [place] LOCI:</content>
<content></content>
<content>99th Percentile= 0.00-0.045 ng/ml</content>
<content></content>
<content>Risk Stratification:</content>
<content><= 0.10 ng/ml Decreased Risk for Adverse Clinical</content>
<content>Events.</content>
<content>0.10-1.50 ng/ml Increased Risk for Adverse Clinical</content>
<content>Events. Evaluation of additional</content>
<content>criterion and/or repeat testing in 2-6</content>
<content>hours is suggested to rule out myocardial</content>
<content>damage.</content>
<content>>= 1.50 ng/ml Indicative of Myocardial Injury.</content>
<content></content> MB/CK Relative Index 2.26 [facility] ([facility]) <content>DIAGNOSIS CRITERIA</content>
<content>MMB ng/ml Relative Index (RI)</content>
<content>NON-AMI < or = 5 N/A</content>
<content>COLÓN ZONE > 5 < or = 4</content>
<content>AMI > 5 > 4</content>
<content></content> ID Date Data Source [id number] 04/26/2021 09:18:00 AM EDT [facility] ([facility] Name Value Range Interpretation Code Description Data Medina rce(s) Supporting Document(s) aPTT in Blood by Coagulation assay 26.1 s 25.9-37.0 [facility] ([facility]) Ammonia [Mass/volume] in Blood 18 uMOL/L [facility] ([facility]) Lactate [Mass/volume] in Serum or Plasma 1.0 mmol/L 0.4-2.0 [facility] ([facility]) Y/N query for Sepsis Lactate Rule: Y ID Date Data Source [id number] 04/26/2021 09:18:00 AM EDT [facility] ([facility] Name Value Range Interpretation Code Description Data Medina rce(s) Supporting Document(s) Inr 1.11 [facility] THERAPUTIC HUMAN INR VALUES INDICATIONS NORMAL RANGES PROPHYLAXIS/TREATMENT OF: VENOUS THROMBOSIS 2.0-3.0 PULMONARY EMBOLISM 2.0-3.0 PREVENTION OF SYSTEMIC EMBOLISM FROM: TISSUE HEART VALVES 2.0-3.0 ACUTE MYOCARDIAL INFARCTION 2.0-3.0 VALVULAR HEART DISEASE 2.0-3.0 ATRIAL FIBRILLATION 2.0-3.0 MECHANICAL VALVES(HIGH RISK) 2.5-3.5 RECURRENT MYOCARDIAL INFARCTION 2.5-3.5 Prothrombin Time 14.8 s 12.7-14.5 [facility] ID Date Data Source [id number] 04/26/2021 09:18:00 AM EDT [facility] Name Value Range Interpretation Code Description Data Medina rce(s) Supporting Document(s) Appearance, Urine RFX Laboratory test result [facility] ([facility]) Color, Urine RFX Laboratory test result [facility] ([facility]) PH,Urine RFX 6.0 units 5.0-9.0 [facility] ([facility]) Protein, Urine Auto RFX Laboratory test result [facility] ([facility]) Specific [place] Ur Auto RFX 1.008 1.002-1.035 [facility] Glucose, Urine (Ua) Auto RFX Laboratory test result [facility] ([facility]) Ketone, Urine Auto RFX Laboratory test result [facility] ([facility]) Urobilinogen, Urine Auto RFX 0.2 mg/dL 0.0-2.0 [facility] ([facility]) Nitrite, Urine Auto RFX Laboratory test result [facility] ([facility]) Bilirubin, Urine Auto RFX Laboratory test result [facility] ([facility]) Blood, Urine Blood RFX Laboratory test result [facility] Leukocyte Esterase Ur Auto RFX Laboratory test result [facility] ([facility]) Bacteria, Urine Auto RFX Laboratory test result [facility] ([facility]) WBC, Urine Auto RFX 1 /HPF 0-3 [facility]) RBC, Urine Auto RFX 0 /HPF 0-3 [facility] ([facility]) Squam Epithelial Cell Ur Aurfx 0 /HPF 0-6 [facility] ([facility]) Hyaline Cast, Urine Auto RFX 0 /LPF 0-1 [facility] ([facility]) ID Date Data Source [id number] 04/26/2021 09:18:00 AM EDT [facility] ([facility]) Name Value Range Interpretation Code Description Data Medina rce(s) Supporting Document(s) Red Blood Count 4.01 10 4.00-5.40 [facility] ([facility]) White Blood Count 8.4 10 4.0-10.0 [facility] ([facility]) Hemoglobin 13.5 g/dL 12.0-15.5 [facility] ([facility]) Hematocrit 38.2 % 36.0-47.0 [facility] ([facility]) Mean Corpuscular Volume 95.3 fl 80.0-96.0 [facility] ([facility]) Mean Corpuscular HGB Conc 35.3 g/dL 32.0-36.5 [facility] ([facility]) Mean Corpuscular Hemoglobin 33.7 pg 27.0-33.0 [facility] ([facility]) Red Cell Distribution Width 12.5 % 11.5-14.5 [facility] ([facility]) Platelet Count, Automated 203 10 150-450 [facility] ([facility]) Lymph % 15.2 % 24.0-44.0 [facility]) Neutrophils % 71.4 % 36.0-66.0 [facility] ([facility]) Baso % 0.4 % 0.0-1.0 [facility]) Delta % 9.5 % 2.0-8.0 [facility]) Eos % 3.0 % 0.0-3.0 [facility]) Nucleated Red Blood Cell % 0.0 % 0-0 [facility] ([facility]) Immature Granulocyte % 0.5 % 0-3.0 [facility] ([facility]) Neutrophils # 6.0 10 1.5-8.5 [facility] Lymph # 1.3 10 1.5-5.0 [facility]) Delta # 0.8 10 0.0-0.8 [facility]) Baso # 0.0 10 0.0-0.2 [facility]) Eos # 0.3 10 0.0-0.5 [facility]) ID Date Data Source [id number] 04/26/2021 09:18:00 AM EDT [facility] Name Value Range Interpretation Code Description Data Medina rce(s) Supporting Document(s) SARS coronavirus 2 RNA [Presence] in Res piratory specimen by ZAYDA with probe detection NEGATIVE [facility] This lab was ordered by [facility] a nd reported by [facility]. ID Date Data Source [id number] 09/29/2020 11:01:00 AM EDT [facility] Name Value Range Interpretation Code Description Data Medina rce(s) Supporting Document(s) Appearance, Urine RFX Laboratory test result [facility] ([facility]) PH,Urine RFX 7.0 units 5.0-9.0 [facility] Color, Urine RFX Laboratory test result [facility] ([facility]) Specific [place] Ur Auto RFX 1.005 1.002-1.035 [facility] Protein, Urine Auto RFX Laboratory test result [facility] ([facility]) Glucose, Urine (Ua) Auto RFX Laboratory test result [facility] ([facility]) Urobilinogen, Urine Auto RFX 0.2 mg/dL 0.0-2.0 [facility] Ketone, Urine Auto RFX Laboratory test result [facility] Bilirubin, Urine Auto RFX Laboratory test result [facility] ([facility]) Leukocyte Esterase Ur Auto RFX Laboratory test result [facility] ([facility]) Nitrite, Urine Auto RFX Laboratory test result [facility] ([facility]) WBC, Urine Auto RFX 0 /HPF 0-3 [facility] ([facility]) RBC, Urine Auto RFX 0 /HPF 0-3 [facility] Blood, Urine Blood RFX Laboratory test result [facility] ([facility]) Squam Epithelial Cell Ur Aurfx 0 /HPF 0-6 [facility] Bacteria, Urine Auto RFX Laboratory test result [facility] Hyaline Cast, Urine Auto RFX 0 /LPF 0-1 [facility] ([facility]) ID Date Data Source [id number] [facility] Name Value Range Interpretation Code Description Data Medina rce(s) Supporting Document(s) Laboratory test finding (navigational concept) Laboratory test result [facility] ([facility]) A false negative result may occur if [...] pathogens. DISCLAIMER: Testing was performed using the [employer] SARS-CoV-2 test. This test was developed and its performance characteristics determined by [employer]. This test has not been FDA cleared [...] target amplification method Laboratory test result [facility] ([facility]) Negative results do not preclude influen za or RSV virus infection and should not be used as the sole basis for treatment or other patient management decisions. ID Date Data Source [id number] 09/29/2020 09:54:00 AM EDT [facility] ([facility]) Name Value Range Interpretation Code Description Data Medina rce(s) Supporting Document(s) Influenza A Amplification Laboratory test result [facility] Negative results do not preclude influen za or RSV virus infection and should not be used as the sole basis for treatment or other patient management decisions. Influenza B Amplification Laboratory test result [facility] ([facility]) Negative results do not preclude influen za or RSV virus infection and should not be used as the sole basis for treatment or other patient management decisions. ID Date Data Source [id number] 09/29/2020 09:54:00 AM EDT [facility] Name Value Range Interpretation Code Description Data Medina rce(s) Supporting Document(s) SARS coronavirus 2 RNA [Presence] in Res piratory specimen by ZAYDA with probe detection NEGATIVE [facility] This lab was ordered by [facility] a nd reported by [facility]. ID Date Data Source [id number] 09/29/2020 09:27:00 AM EDT [facility] ([facility]) Name Value Range Interpretation Code Description Data Medina rce(s) Supporting Document(s) Magnesium [Moles/volume] in Serum or Plasma 2.2 mg/dL 1.8-2.4 [facility] ([facility]) ID Date Data Source [id number] 09/29/2020 09:27:00 AM EDT [facility] ([facility]) Name Value Range Interpretation Code Description Data Medina rce(s) Supporting Document(s) Glucose, Fasting 86 mg/dL 70-100 [facility] ([facility]) Creatinine For GFR 0.60 mg/dL 0.55-1.30 [facility] ([facility]) Blood Urea Nitrogen 13 mg/dL 7-18 [facility] ([facility]) Sodium Level 141 meq/L 136-145 [facility] ([facility]) Glomerular Filtration Rate Laboratory test result [facility] ([facility]) <content>Units are mL/min/1.73 m2</content>
<content></content>
<content>Chronic Kidney Disease Staging per NKF:</content>
<content></content>
<content>Stage I & II GFR >=60 Normal to Mildly Decreased</content>
<content>Stage III GFR 30- 59 Moderately Decreased</content>
<content>Stage IV GFR 15-29 Severely Decreased</content>
<content>Stage V GFR <15 Very Little GFR Left</content>
<content>ESRD GFR <15 on [employer]ACH[employer]ENDER</content>
<content></content> Potassium Serum 3.9 meq/L 3.5-5.1 [facility] ([facility]) Chloride Level 104 meq/L 98-107 [facility] ([facility]) Carbon Dioxide Level 31 meq/L 21-32 [facility] ([facility]) Anion Gap 6 meq/L 8-16 [facility]) Calcium Level 9.1 mg/dL 8.8-10.2 [facility] ([facility]) ID Date Data Source [id number] 09/29/2020 09:27:00 AM EDT [facility] ([facility]) Name Value Range Interpretation Code Description Data Medina rce(s) Supporting Document(s) Ast/Sgot 14 U/L 7-37 [facility] Alt/SGPT 22 U/L 12-78 [facility] ([facility]) Bilirubin,Total 0.7 mg/dL 0.2-1.0 [facility] ([facility]) Alkaline Phosphatase 73 U/L 45-117 [facility] ([facility]) Total Protein 6.5 GM/DL 6.4-8.2 [facility] ([facility]) Bilirubin,Direct 0.3 mg/dL 0.0-0.2 [facility] ([facility]) Albumin 3.5 GM/DL 3.2-5.2 [facility] ([facility]) Albumin/Globulin Ratio 1.2 1.2-2.2 [facility] ([facility]) ID Date Data Source [id number] 09/29/2020 09:27:00 AM EDT [facility] ([facility]) Name Value Range Interpretation Code Description Data Medina rce(s) Supporting Document(s) CPK Creatine Phosphokinase 44 U/L 26-192 [facility] ([facility]) CK-MB Value Mass 1.2 ng/mL [facility] ([facility]) MB/CK Relative Index 2.73 [facility] ([facility]) <content>DIAGNOSIS CRITERIA</content>
<content>MMB ng/ml Relative Index (RI)</content>
<content>NON-AMI < or = 5 N/A</content>
<content>COLÓN ZONE > 5 < or = 4</content>
<content>AMI > 5 > 4</content>
<content></content> Troponin I Laboratory test result [facility] ([facility]) <content>Troponin I Reference Interval f or Siemens [place] LOCI:</content>
<content></content>
<content>99th Percentile= 0.00-0.045 ng/ml</content>
<content></content>
<content>Risk Stratification:</content>
<content><= 0.10 ng/ml Decreased Risk for Adverse Clinical</content>
<content>Events.</content>
<content>0.10-1.50 ng/ml Increased Risk for Adverse Clinical</content>
<content>Events. Evaluation of additional</content>
<content>criterion and/or repeat testing in 2-6</content>
<content>hours is suggested to rule out myocardial</content>
<content>damage.</content>
<content>>= 1.50 ng/ml Indicative of Myocardial Injury.</content>
<content></content> ID Date Data Source [id number] 09/29/2020 09:27:00 AM EDT [facility] ([facility]) Name Value Range Interpretation Code Description Data Medina rce(s) Supporting Document(s) aPTT in Blood by Coagulation assay 26.2 s 24.2-38.5 [facility] ID Date Data Source [id number] 09/29/2020 09:27:00 AM EDT [facility] ([facility]) Name Value Range Interpretation Code Description Data Medina rce(s) Supporting Document(s) Prothrombin Time 14.1 s 12.5-14.3 [facility]) Inr 1.07 [facility] THERAPUTIC HUMAN INR VALUES INDICATIONS NORMAL RANGES PROPHYLAXIS/TREATMENT OF: VENOUS THROMBOSIS 2.0-3.0 PULMONARY EMBOLISM 2.0-3.0 PREVENTION OF SYSTEMIC EMBOLISM FROM: TISSUE HEART VALVES 2.0-3.0 ACUTE MYOCARDIAL INFARCTION 2.0-3.0 VALVULAR HEART DISEASE 2.0-3.0 ATRIAL FIBRILLATION 2.0-3.0 MECHANICAL VALVES(HIGH RISK) 2.5-3.5 RECURRENT MYOCARDIAL INFARCTION 2.5-3.5 ID Date Data Source [id number] 09/29/2020 09:27:00 AM EDT [facility] ([facility]) Name Value Range Interpretation Code Description Data Medina rce(s) Supporting Document(s) White Blood Count 7.0 10 4.0-10.0 [facility] ([facility]) Hemoglobin 13.4 g/dL 12.0-15.5 [facility] Red Blood Count 4.12 10 4.00-5.40 [facility] ([facility]) Hematocrit 40.2 % 36.0-47.0 [facility] Mean Corpuscular Volume 97.6 fl 80.0-96.0 [facility] ([facility]) Mean Corpuscular HGB Conc 33.3 g/dL 32.0-36.5 [facility] ([facility]) Mean Corpuscular Hemoglobin 32.5 pg 27.0-33.0 [facility] ([facility]) Red Cell Distribution Width 12.2 % 11.5-14.5 [facility] ([facility]) Neutrophils % 63.8 % 36.0-66.0 [facility] ([facility]) Platelet Count, Automated 173 10 150-450 [facility] ([facility]) Lymph % 19.4 % 24.0-44.0 [facility]) Delta % 11.5 % 2.0-8.0 [facility]) Immature Granulocyte % 0.3 % 0-3.0 [facility] ([facility]) Eos % 4.4 % 0.0-3.0 [facility]) Baso % 0.6 % 0.0-1.0 [facility]) Neutrophils # 4.5 10 1.5-8.5 [facility] Nucleated Red Blood Cell % 0.0 % 0-0 [facility] ([facility]) Eos # 0.3 10 0.0-0.5 [facility]) Delta # 0.8 10 0.0-0.8 [facility] Lymph # 1.4 10 1.5-5.0 [facility] Baso # 0.0 10 0.0-0.2 [facility]) ID Date Data Source [id number] 09/07/2020 09:00:00 AM EST [facility] Name Value Range Interpretation Code Description Data Medina rce(s) Supporting Document(s) SARS coronavirus 2 RNA Not Detected [facility] This lab was ordered by [facility] and reported by [facility]. ID Date Data Source [id number] 08/31/2020 10:00:00 AM EST [facility] Name Value Range Interpretation Code Description Data Medina rce(s) Supporting Document(s) SARS coronavirus 2 RNA Not Detected [facility] [place] This lab was ordered by [facility] and reported by [facility]. ID Date Data Source [id number] 08/24/2020 06:30:00 AM EST [facility] Name Value Range Interpretation Code Description Data Medina rce(s) Supporting Document(s) SARS coronavirus 2 RNA Not Detected [facility] [place] This lab was ordered by [facility] and reported by [facility]. ID Date Data Source [id number] 08/17/2020 08:00:00 AM EST [facility] Name Value Range Interpretation Code Description Data Medina rce(s) Supporting Document(s) SARS coronavirus 2 RNA Not Detected [facility] [place] This lab was ordered by [facility] and reported by [facility]. ID Date Data Source [id number] 08/13/2020 01:09:00 PM EST [facility] Name Value Range Interpretation Code Description Data Medina rce(s) Supporting Document(s) SARS coronavirus 2 RNA [Presence] in Res piratory specimen by ZAYDA with probe detection NEGATIVE [facility] This lab was ordered by [facility] a nd reported by [facility]. ID Date Data Source [id number] 08/12/2020 07:19:00 AM EST [facility] Name Value Range Interpretation Code Description Data Medina rce(s) Supporting Document(s) SARS coronavirus 2 RNA Not Detected [facility] [place] This lab was ordered by [facility] and reported by [facility]. ID Date Data Source [id number] 08/05/2020 08:00:00 AM EST [facility] Name Value Range Interpretation Code Description Data Medina rce(s) Supporting Document(s) SARS coronavirus 2 RNA Not Detected [facility] [place] This lab was ordered by [facility] and reported by [facility]. ID Date Data Source [id number] 07/29/2020 06:00:00 AM EST [facility] Name Value Range Interpretation Code Description Data Medina rce(s) Supporting Document(s) SARS coronavirus 2 RNA Not Detected [facility] [place] This lab was ordered by [facility] and reported by [facility]. ID Date Data Source [id number] 07/23/2020 10:08:00 AM EST [facility] Name Value Range Interpretation Code Description Data Medina rce(s) Supporting Document(s) SARS coronavirus 2 RNA [Presence] in Res piratory specimen by ZAYDA with probe detection NEGATIVE [facility] This lab was ordered by [facility] a nd reported by [facility]. ID Date Data Source [id number] 07/01/2020 01:24:00 PM EST [facility] Name Value Range Interpretation Code Description Data Medina rce(s) Supporting Document(s) SARS coronavirus 2 RNA [Presence] in Res piratory specimen by ZAYDA with probe detection [facility] This lab was ordered by [facility] a nd reported by [facility]. ID Date Data Source [id number] 07/01/2020 12:11:00 PM EST [facility] ([facility]) Name Value Range Interpretation Code Description Data Medina rce(s) Supporting Document(s) Thyrotropin [Units/volume] in Serum or Plasma by Detec tion limit <= 0.05 mIU/L 0.726 uIU/ML 0.358-3.740 [facility] ([facility] ) ID Date Data Source [id number] 07/01/2020 12:11:00 PM EST [facility] ([facility]) Name Value Range Interpretation Code Description Data Medina rce(s) Supporting Document(s) Glucose, Fasting 93 mg/dL 70-100 [facility] ([facility]) Blood Urea Nitrogen 10 mg/dL 7-18 [facility] ([facility]) Creatinine For GFR 0.69 mg/dL 0.55-1.30 [facility] ([facility]) Glomerular Filtration [facility] <content>Units are mL/min/1.73 m2</content>
<content></content>
<content>Chronic Kidney Disease Staging per NKF:</content>
<content></content>
<content>Stage I & II GFR >=60 Normal to Mildly Decreased</content>
<content>Stage III GFR 30- 59 Moderately Decreased</content>
<content>Stage IV GFR 15-29 Severely Decreased</content>
<content>Stage V GFR <15 Very Little GFR Left</content>
<content>ESRD GFR <15 on [employer]</content>
<content></content> Sodium Level 140 meq/L 136-145 [facility] ([facility]) Potassium Serum 3.9 meq/L 3.5-5.1 [facility] ([facility]) Chloride Level 104 meq/L 98-107 [facility] ([facility]) Carbon Dioxide Level 32 meq/L 21-32 [facility] ([facility]) Calcium Level 10.0 mg/dL 8.8-10.2 [facility] ([facility]) Anion Gap 4 meq/L 8-16 [facility] ([facility]) ID Date Data Source [id number] 07/01/2020 12:11:00 PM EST [facility] ([facility]) Name Value Range Interpretation Code Description Data Medina rce(s) Supporting Document(s) Ast/Sgot 11 U/L 7-37 [facility] Alkaline Phosphatase 49 U/L 45-117 [facility] ([facility]) Alt/SGPT 20 U/L 12-78 [facility] ([facility]) Bilirubin,Total 1.3 mg/dL 0.2-1.0 [facility] ([facility]) Bilirubin,Direct 0.3 mg/dL 0.0-0.2 [facility] ([facility]) Total Protein 6.8 GM/DL 6.4-8.2 [facility] ([facility]) Albumin/Globulin Ratio 1.3 1.2-2.2 [facility] ([facility]) Albumin 3.8 GM/DL 3.2-5.2 [facility] ID Date Data Source [id number] 07/01/2020 12:11:00 PM EST [facility] Name Value Range Interpretation Code Description Data Medina rce(s) Supporting Document(s) CPK Creatine Phosphokinase 74 U/L 26-192 [facility] ([facility]) MB/CK Relative Index 2.70 [facility] ([facility]) <content>DIAGNOSIS CRITERIA</content>
<content>MMB ng/ml Relative Index (RI)</content>
<content>NON-AMI < or = 5 N/A</content>
<content>COLÓN ZONE > 5 < or = 4</content>
<content>AMI > 5 > 4</content>
<content></content> CK-MB Value Mass 2.0 ng/mL [facility] ([facility]) Troponin I Laboratory test result [facility] <content>Troponin I Reference Interval f or [employer] [place] LOCI:</content>
<content></content>
<content>99th Percentile= 0.00-0.045 ng/ml</content>
<content></content>
<content>Risk Stratification:</content>
<content><= 0.10 ng/ml Decreased Risk for Adverse Clinical</content>
<content>Events.</content>
<content>0.10-1.50 ng/ml Increased Risk for Adverse Clinical</content>
<content>Events. Evaluation of additional</content>
<content>criterion and/or repeat testing in 2-6</content>
<content>hours is suggested to rule out myocardial</content>
<content>damage.</content>
<content>>= 1.50 ng/ml Indicative of Myocardial Injury.</content>
<content></content> ID Date Data Source [id number] 07/01/2020 12:11:00 PM EST [facility] ([facility]) Name Value Range Interpretation Code Description Data Medina rce(s) Supporting Document(s) Ammonia [Mass/volume] in Blood 11 uMOL/L [facility] ([facility]) ID Date Data Source [id number] 07/01/2020 12:11:00 PM EST [facility] ([facility]) Name Value Range Interpretation Code Description Data Medina rce(s) Supporting Document(s) White Blood Count 6.4 10 4.0-10.0 [facility] ([facility]) Red Blood Count 4.18 10 4.00-5.40 [facility] ([facility]) Hematocrit 40.7 % 36.0-47.0 [facility] Hemoglobin 13.6 g/dL 12.0-15.5 [facility] Mean Corpuscular Volume 97.4 fl 80.0-96.0 [facility] ([facility]) Mean Corpuscular HGB Conc 33.4 g/dL 32.0-36.5 [facility] ([facility]) Mean Corpuscular Hemoglobin 32.5 pg 27.0-33.0 [facility] ([facility]) Platelet Count, Automated 220 10 150-450 [facility] ([facility]) Red Cell Distribution Width 12.5 % 11.5-14.5 [facility] ([facility]) Neutrophils % 67.2 % 36.0-66.0 [facility] ([facility]) Lymph % 20.1 % 24.0-44.0 [facility]) Eos % 2.0 % 0.0-3.0 [facility]) Delta % 10.1 % 0.0-5.0 [facility]) Immature Granulocyte % 0.3 % 0-3.0 [facility] ([facility]) Baso % 0.3 % 0.0-1.0 [facility]) Neutrophils # 4.3 10 1.5-8.5 [facility] ([facility]) Nucleated Red Blood Cell % 0.0 % 0-0 [facility] ([facility]) Lymph # 1.3 10 1.5-5.0 [facility] Delta # 0.6 10 0.0-0.8 [facility] Eos # 0.1 10 0.0-0.5 [facility] Baso # 0.0 10 0.0-0.2 [facility] ([facility]) Procedure Social History Code Duration Value Status Description Data Source(s ) Smoking 03/19/2021 02:41:42 PM EDT Ex-smoker (finding) [facility] ed Ex-smoker (finding) [place] (Bob Abbott [facility]) Vital Signs ID Date Data Source UNK Name Value Range Interpretation Code Description Data Source(s) Systolic blood pressure 110 mm[Hg] 110 mm[Hg] [facility] ([facility]) Diastolic blood pressure 68 mm[Hg] 68 mm[Hg] [facility] ([facility]) Heart rate 84 /min 84 /min [facility] ([facility]) Body height 62 [in_i] 62 [in_i] [facility] ([facility]) 5'2" Body weight 160.00 [lb_av] 160.00 [lb_av] [facility] ([facility]) Body mass index (BMI) [Ratio] 29.3 kg/m2 29.3 k g/m2 [facility] ([facility]) Systolic blood pressure 122 mm[Hg] 122 mm[Hg] [facility] ([facility]) Diastolic blood pressure 78 mm[Hg] 78 mm[Hg] [facility] ([facility]) Body height 62 [in_i] 62 [in_i] [facility] ([facility]) 5'2" Body weight 167.00 [lb_av] 167.00 [lb_av] [facility] ([facility]) Body mass index (BMI) [Ratio] 30.5 kg/m2 30.5 k g/m2 [facility] Diastolic blood pressure 68 mm[Hg] 68 mm[Hg] [facility] ([facility]) Heart rate 83 /min 83 /min [facility] ([facility]) Systolic blood pressure 116 mm[Hg] 116 mm[Hg] [facility] Body height 62 [in_i] 62 [in_i] [facility] ([facility]) 5'2" Body weight 164.00 [lb_av] 164.00 [lb_av] [facility] ([facility]) Oxygen saturation in Arterial blood by Pulse oximetry 96 % 96 % [facility] Body mass index (BMI) [Ratio] 30.0 kg/m2 30.0 k g/m2 [facility] ([facility]) Goldvein body weight 110 [lb_av] 110 [lb_av] [facility] ([facility], ) Respiratory rate 12 /min 12 /min [facility] ( [facility], ) Body height 62 [in_i] 62 [in_i] [facility] 5'2" Body weight 136.00 [lb_av] 136.00 [lb_av] [facility] ([facility], ) Body mass index (BMI) [Ratio] 24.9 kg/m2 24.9 k g/m2 [facility] ([facility], ) Systolic blood pressure 118 mm[Hg] 118 mm[Hg] M [facility] ([facility]) Diastolic blood pressure 81 mm[Hg] 81 mm[Hg] [facility] Heart rate 75 /min 75 /min [facility]) Body height 62 [in_i] 62 [in_i] [facility] 5'2" Body weight 158.00 [lb_av] 158.00 [lb_av] [facility] ([facility]) Body mass index (BMI) [Ratio] 28.9 kg/m2 28.9 k g/m2 [facility] ([facility]) Body mass index (BMI) [Ratio] 28.2 kg/m2 28.2 k g/m2 [facility] ([facility]) Heart rate 78 /min 78 /min [facility] ([facility]) Body weight 154.00 [lb_av] 154.00 [lb_av] [facility] ([facility]) Systolic blood pressure 120 mm[Hg] 120 mm[Hg] [facility] Diastolic blood pressure 62 mm[Hg] 62 mm[Hg] [facility] ([facility]) Body height 62 [in_i] 62 [in_i] [facility] ([facility]) 5'2" Body weight 136.00 [lb_av] 136.00 [lb_av] [facility] ([facility], ) Respiratory rate 12 /min 12 /min [facility] ( [facility], ) Goldvein body weight 110 [lb_av] 110 [lb_av] [facility] ([facility], ) Body height 62 [in_i] 62 [in_i] [facility] ([facility], ) 5'2" Body mass index (BMI) [Ratio] 24.9 kg/m2 24.9 k g/m2 [facility] ([facility], ) Body height 62 [in_i] 62 [in_i] [facility] ([facility]) 5'2" Body weight 143.00 [lb_av] 143.00 [lb_av] [facility] ([facility]) Systolic blood pressure 120 mm[Hg] 120 mm[Hg] [facility] ([facility]) Diastolic blood pressure 80 mm[Hg] 80 mm[Hg] [facility] ([facility]) Heart rate 78 /min 78 /min [facility] ([facility]) Body mass index (BMI) [Ratio] 26.2 kg/m2 26.2 k g/m2 [facility] ([facility]) Body mass index (BMI) [Ratio] 25.6 kg/m2 25.6 k g/m2 [facility] ([facility]) Heart rate 80 /min 80 /min [facility] ([facility]) Body height 62 [in_i] 62 [in_i] [facility] ([facility]) 5'2" Body weight 140.00 [lb_av] 140.00 [lb_av] [facility] ([facility]) Systolic blood pressure 110 mm[Hg] 110 mm[Hg] [facility] Diastolic blood pressure 72 mm[Hg] 72 mm[Hg] [facility] ([facility]) Systolic blood pressure 126 mm[Hg] 126 mm[Hg] [facility] Oxygen saturation in Arterial blood by Pulse oximetry 95 % 95 % [facility] ([facility]) RM Air Diastolic blood pressure 70 mm[Hg] 70 mm[Hg] [facility] ([facility]) Body weight 136.00 [lb_av] 136.00 [lb_av] [facility] ([facility]) Body mass index (BMI) [Ratio] 24.9 kg/m2 24.9 k g/m2 [facility] ([facility]) Heart rate 84 /min 84 /min [facility] ([facility] Body height 62 [in_i] 62 [in_i] [facility] ([facility]) 5'2" Patient Treatment Plan of Care Planned Activity Planned Date Details Description Data Source (s) Ocuvite Adult 50+ Oral Capsule 08/18/2020 12:00:00 AM EST [facility] (Bob Abbott [facility]) Polyethylene Glycol 400 4 MG/ML / Propyl meet glycol 3 MG/ML Ophthalmic Solution [Systane] 08/18/2020 12:00:[address] ([facility] Abbott [facility]) Polyethylene Glycol 400 4 MG/ML / Propyl meet glycol 3 MG/ML Ophthalmic Solution [Systane] 12/19/2017 12:00:[address] ([facility] Abbott [facility]) Ocuvite Adult 50+ Oral Capsule, conventional 12/19/2017 12:00:00 AM EDT [facility] ([facility])
[2021-05-18] MEDS ORDERED: HOME MED LIST COMPLETE! XX SCH (18:25)
--- NOTE | 2021-05-18 18:37 | HPEPDOC ---
[employer] Note DATE OF ADMISSION: [05.18.2021] DATE OF SERVICE: [05.18.2021] SOURCE OF ADMISSION INFORMATION: Medical Records and Patient ADMITTING DIAGNOSES: Metabolic encephalopathy. Severe visual impairment. Chronic left hemiparesis Status post prior CVA. New Onset A. fib. Hypertension. Hyperlipidemia. Anxiety. Depression. Paresthesias Adhesive capsulitis CHIEF COMPLAINT: . Debility Confusion Swelling RUE, weakness left tremor HISTORY OF PRESENT ILLNESS: This is an 89 yo W with a history of prior CVA's with chronic L hemiparesis, who had previously been on ARU for rehab of R CVA and Left mitchel. She was admitted on 04/26 for a CVA w/ AMS found to have a small L frontal lacunar infarct, and newly noted Afib , was switched from ASA/plavix to ASA/eliquis who returned to the ED from [facility] with acute AMS with possible CVA. 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 She had some transient right facial weakness. In the ED, she was hypertensive, in Afib with a normal ventricular rate and breathing comfortably on room air. She did not complain of any pain, headache, nausea, emesis, vision changes outside of her status quo minimal vision, chest pain, palpitations, SOB. She complained of her feet/toes feeling numb and was quite anxious. Work up was notable for a CT head that showed no acute intracranial hemorrhagic or non hemorrhagic events with deep white matter ischemic change status quo and no extra-axial fluid collections or shift of the midline structures, WBC was 8, Hgb 12.6, platelets 207, na 143, K 2.7, Cr 0.64 and respiratory panel was negative for covid-19. She was admitted for stroke workup with high suspicion, and now is felt stable for full comprehensive rehabilitation. REVIEW OF SYSTEMS: The following is a completed review of systems and has been reviewed. Review of systems otherwise unremarkable. PAIN: Patient self reports no pain. EYES: declining vision right eye, blind on left. EARS, NOSE, & THROAT: No throat pain, or dysphagia, or rhinorrhea. CARDIOVASCULAR: Denies chest pain or palpitations. PULMONARY: Denies shortness of breath. GASTROINTESTINAL: Admits diarrhea. GENITOURINARY: .No new complaints MUSCULOSKELETAL: .Arthritic pain at times NEUROLOGICAL:.Visual challenges left sided weakness and tremor, worse when anxious HEMATOLOGICAL: .negative SKIN: .recurrent psoriatic like rashes over trunk PSYCHIATRIC: Increasing anxiety related to deteriorating visual compromise All other review of systems found to be negative. 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 at 82 y/o due to old age Mother: Healthy. at 83 y/o due to old age ALLERGIES: Please see below. MEDICATIONS: Please see below. SOCIAL HISTORY: Non Smoker, No EtOH, lives in an accessible assisted living facility. DIET: .Regular PHYSICAL EXAMINATION: VITAL SIGNS: Please see below. GENERAL: Pleasant and cooperative. No acute distress. Alert and oriented times three. HEENT: Right PRL, left facial droop and sunken eye, decreased Extraocular movement on the left. Clear conjunctiva, no adenopathy or thyromegaly. Full cervical range of motion without tenderness or spasm. CARDIOVASCULAR: S1 S2 occasional extra beats. LUNGS: Clear to auscultation bilaterally. No wheezes. No rhonchi. ABDOMEN: Soft, nontender, nondistended. Positive normal active bowel sounds, no organomegaly. NEUROLOGICAL: Alert and oriented times three. Cranial nerves II through XII noted for Visual confrontation able to see 2 fingers and read large 95 20/800. Sensation intact all 4 extremities. Reflexes 2 + and symmetric bilater al biceps, triceps, tendon jerks. 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 Mild residual fullness right forearm, possibly post IV site, no nodularity or pain. Intentional tremor left worse than right hand. OA changes bilateral fingers. Unable to abduct or forward flex over 45 degrees with generalized tendernes bilateral shoulder girdles, left worse than right. SKIN: .rashes over trunk LABORATORY DATA: Please see below. IMAGING:Imaging documentation personally reviewed by record. 05.16.2021 CT Head A deep cerebral white matter is unchanged. No acute intracranial hemorrhagic or non hemorrhagic event has developed. There is deep white matter ischemic change status quo. There are no extra-axial fluid collections. There is no shift of the midline structures. Multiple unchanged lucencies are seen in the occipital bone status quo MRA-no occlusive disease MRI Brain-no masses, shift or acute changes FUNCTIONAL STATUS: Premorbid: Independent with all activities of daily life as well as mobility. On Admission: -Moderate to maximal assistance for lower body dressing, shower transfers, stairs. -Moderate assistance for bathing, upper body dressing, bed chair and wheelchair transfers, toilet transfers, ambulation. Modified independence for social interaction, expression, comprehension, bowel and bladder. GOALS: Religion of optimal function, anxiety reduction with effective compensatory strategies to overcome visual impairments. ASSESSMENT:- This is an 89 yo lady who had been doing well in assisted living despite a history of prior CVA's with chronic L hemiparesis, who had previously been on ARU for rehab of R CVA and Left mitchel. She was admitted on 04/26 for a CVA w/ AMS found to have a small L frontal lacunar infarct, and newly noted Afib , was switched from ASA/plavix to ASA/eliquis who returned to the ED from [facility] with acute AMS with possible CVA. 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 She had some transient right facial weakness. In the ED, she was hypertensive, in Afib with a normal ventricular rate and breathing comfortably on room air. She did not complain of any pain, headache, nausea, emesis, vision changes outside of her status quo minimal vision, chest pain, palpitations, SOB. She complained of her feet/toes feeling numb and was quite anxious. PLAN: 1. Rehab- PT/OT advance gait and ADls, strengthen/stretch/maintain ROM all 4 limbs, use of modalities for UE strengthening and pain reduction with increased range of motion. Trial pendulum exercises along with usual program. 2. Neuro- altered mental status, tremor most likely related to metabolic encephalopathy aggravated by sensory integration challenges from visual impairment. Well monitor closely for recurrent TIA or further CVAs. Emphasize therapeutic interventions for compensatory strategies for visual impairment, will engage SL for creative augmented communication interventions, visual magnification devices or programs that may be helpful for reading and other activities. 3. Ortho- no specific musculoskeletal complaints at this time. Well proceed with usual strengthening and joint protective maneuvers 4. Cardiac- history of recent onset A. fib, CHF, currently stable on atenolol, Eliquis, Lasix -HTN -HLD- -DVT PPX Eliquis 5. Resp -incentive spirometry, monitor for infection 6. - Enter Frequency in Direction field Bladder scan [id number] and catheterize for >400 cc if Pt unable to void on own, check PVRs and catheterize for >300cc, may stop all scans if PVRs are <200 cc on 3 consecutive occasions. 7. GI ppx-omeprazole. Hold laxatives due to recent bout of electrolyte disturbances and diarrhea. Add fiber. POST ADMISSION PHYSICIAN EVALUATION: Medical and functional status: Description of medical status, medical assessment: As above. Rehabilitation diagnosis and current and prior co- morbid medical conditions as above. Risk of complications and plans to mitigate them as above. Description of functional status current status is as above. Prior status as above. Status compared to preadmission: There are no clinically significant differences between the patient's current status and the information described on the preadmission screening document. Treatment plan anticipated: Treatment plan is as described above. Required disciplines including physical therapy, occupational therapy, others as noted above]. Intensity of services: 3 hours a day, 6-7 days a week. Special considerations: There are no specific special or safety considerations that would likely preclude immediate implementation of an intensive rehabilitation program or subsequently influence the plan of care. ATTESTATION: Considering all the information above, it is my best judgment that this patient requires intensive rehabilitation therapy as described above and an inpatient hospital environment due to the complexity of nursing, medical, and re habilitation needs required by the patient. Furthermore, this patient can reasonably be expected to participate in an benefit from an inpatient rehabilitation stay with an interdisciplinary team approach to the delivery of rehabilitation care under the direction and supervision of rehabilitation physician. PROGNOSIS: Excellent. ESTIMATED LENGTH OF STAY:7-10 days. PROJECTED DISCHARGE DESTINATION: Home with family support and any durable medical equipment required to increase functional safety and mobility. TIME SPENT COUNSELING AND COORDINATING INITIAL CARE: Greater than 60 minutes. This document is generated using speech recognition software which may result in grammatical, typographical and individual word errors. Vital Signs Vital Sign - Last 24 Hours 05/18/21 18:00 Temp 97.6 Pulse 80 Resp 20 B/P (MAP) 143/93 (110) Pulse Ox 97 O2 Delivery Room Air Laboratory Data Labs 24H Vital Signs Date Time Temp Pulse Resp B/P (MAP) Pulse Ox O2 Delivery O2 Flow Rate FiO2 05/18/21 18:00 97.6 80 20 143/93 (110) 97 Room Air FSBS Current Medications Medications (Trade) Dose Ordered Sig/Gayathri Route PRN Reason Start Time Stop Time Status Last Admin Dose Admin Acetaminophen (Tylenol Tab) 325 mg Q8HP PRN PO MILD PAIN (PS 1-4) 05/18/21 18:15 Acetaminophen (Tylenol Tab) 650 mg Q4HP PRN PO MILD PAIN (PS 1-4) 05/18/21 15:35 Apixaban (Eliquis) 5 mg BID PO 05/18/21 21:00 Artificial Tears (Akwa Tears) 2 drop QIDP PRN OU DRY EYES 05/18/21 18:15 Aspirin (Ecotrin) 81 mg DAILY PO 05/19/21 09:00 Atenolol (Tenormin) 25 mg DAILY PO 05/19/21 09:00 Atorvastatin Calcium (Lipitor) 40 mg QHS PO 05/18/21 21:00 Buspirone HCl (Buspar) 5 mg BID PRN PO ANXIETY 05/18/21 18:15 Clobetasol Propionate (Temovate Emollient 0.05%) APPLY TO AFFECTED AREA(s... BIDP PRN TOP ITCHING 05/18/21 18:15 Diclofenac Epolamine (Flector 1.3%) 1 patch Q12HP PRN TOP PAIN 05/18/21 18:15 Diphenhydramine HCl (Benadryl) 25 mg DAILYPRN PRN PO ITCHING 05/18/21 18:15 Docusate Sodium (Colace) 100 mg BID PO 05/18/21 21:00 Cancel Furosemide (Lasix) 20 mg Q3D PO 05/19/21 09:00 Home Med (Home Med List Complete!) ASDIRECTED XX 05/18/21 18:25 11/2/21 18:26 DC Lisinopril (Prinivil) 5 mg DAILY PO 05/19/21 09:00 Loratadine (Claritin) 10 mg DAILY PO 05/19/21 09:00 Mirtazapine (Remeron) 15 mg QHS PO 05/18/21 21:00 Omeprazole (PriLOSEC) 20 mg DAILY PO 05/19/21 09:00 Pantoprazole Sodium (Protonix) 40 mg DAILY PO 05/19/21 09:00 Psyllium Hydrophilic Mucilloid (Metamucil) 1 pkt DAILY PO 05/19/21 09:00 Sertraline HCl (Zoloft) 25 mg QHS PO 05/18/21 21:00 Sodium Chloride ([place] Nasal [place]) 1 spray QIDP PRN NA NASAL DRYNESS 05/18/21 18:15 Microbiology Allergies Coded Allergies morphine (Verified Adverse Reaction, Mild, N/V, 09/29/20) Home Medications Scheduled Apixaban (Eliquis) 5 Mg Tablet, 5 MG PO BID, (Reported) 2nd @ 1700 Aspirin (Aspirin EC) 81 Mg Tablet.dr, 81 MG PO DAILY, (Reported) Atenolol (Atenolol) 25 Mg Tablet, 25 MG PO DAILY, (Reported) Atorvastatin Calcium (Atorvastatin Calcium) 40 Mg Tablet, 40 MG PO QHS, (Reported) Docusate Sodium (Colace) 100 Mg Capsule, 100 MG PO DAILY, (Reported) Furosemide (Furosemide) 20 Mg Tablet, 1 TAB PO Q3D Lisinopril (Lisinopril) 5 Mg Tablet, 5 MG PO DAILY Loratadine (Loratadine) 10 Mg Tablet, 10 MG PO DAILY, (Reported) Melatonin (Melatonin) 10 Mg Capsule, 10 MG PO QHS, (Reported) Mirtazapine (Remeron) 15 Mg Tablet, 15 MG PO QHS, (Reported) Pantoprazole Sodium (Pantoprazole Sodium) 40 Mg Tablet.dr, 40 MG PO DAILY, (Reported) Sennosides/Docusate Sodium (Senna Plus Tablet) 1 Each Tablet, 1 TAB PO DAILY, (Reported) Sertraline Hcl (Sertraline HCl) 25 Mg Tablet, 25 MG PO QHS, (Reported) Scheduled PRN Acetaminophen (Acetaminophen) 160 Mg/5 Ml Oral.susp, 20 ML PO BID PRN for PAIN LEVEL 1-4, (Reported) Buspirone HCl (Buspirone HCl) 5 Mg Tablet, 5 MG PO QID PRN for ANXIETY, (Reported) Clobetasol Propionate/Emoll (Clobetasol Emollient 0.05% Crm) 0.05% 15GM Cream..g., 1 APLCT TOP BID PRN for ITCHING, (Reported) WRIST Diclofenac Sodium (Voltaren Arthritis Pain) 1 % Gel..gram., 1 GM TP for PAIN LEVEL 1-4, (Reported) RIGHT KNEE Diphenhydramine HCl (Benadryl) 25 Mg Capsule, 25 MG PO BID PRN for ITCHING, (Reported) Polyvinyl Alcohol (Artificial Tears) 15 Ml Drops, 2 DROP OU QID PRN for DRY EYES, (Reported) Sodium Chloride (Saline Nasal [place]) 44 Ml Orrum, 1 SPRAY NARES QID PRN for NASAL DRYNESS, (Reported) 0800,1200,1600,2000 Allergies Coded Allergies: morphine (Verified Adverse Reaction, Mild, N/V, 09/29/20) A-FIB/CHADSVASC A-FIB History Current/History of A-Fib/PAF?: Yes Current PO Anticoag Therapy: Yes Age/Risk Factor Scoring CHADSVASC: CHADSVASC Response (Comments) Value Age Risk Factor Age >/= 75 years old 2 Total 2 Treatment Treatment ordered: Apixaban BAILEY REYNOSO MD May 18, 2021 18:37
[2021-05-18 20:00] VITALS: BP 156/71
[2021-05-18] MEDS: APIXABAN 5 MG TAB (ELIQUIS) PO SCH (20:21)
[2021-05-18] MEDS: diphenhydrAMINE 25MG CAP PO PRN (20:21)
[2021-05-18] MEDS: MIRTAZAPINE 15 MG TAB PO SCH (20:21)
[2021-05-18] MEDS: SERTRALINE HCL 25 MG TABLET PO SCH (20:22)
[2021-05-18] MEDS: ATORVASTATIN 20 MG TAB PO SCH (20:22)
[2021-05-18] MEDS: ACETAMINOPHEN 325 MG TAB PO PRN (20:32)
[2021-05-18] MEDS ORDERED: DOCUSATE SODIUM 100MG CAPSULE PO SCH (21:00)
[2021-05-18] MEDS ORDERED: LOPERAMIDE 2 MG CAPLET PO ONE (23:10)
[2021-05-18] MEDS ORDERED: ACETAMINOPHEN TAB 650MG DOSE (2X325MG) PO ONE (23:10)
[2021-05-18 23:15] VITALS: BP 152/80
[2021-05-19 00:20] VITALS: BP 130/80
[2021-05-19 06:00] VITALS: BP 164/78
[2021-05-19 06:13] LABS: BASO % 0.5 % (0.0-1.0); EOS # 0.4 10^3/uL (0.0-0.5); EOS % 6.7 % (0.0-3.0); HEMATOCRIT 37.1 % (36.0-47.0); HEMOGLOBIN 12.5 g/dl (12.0-15.5); LYMPH % 15.1 % (24.0-44.0); MEAN CORPUSCULAR HEMOGLOBIN 33.2 pg (27.0-33.0); MEAN CORPUSCULAR HGB CONC 33.7 g/dl (32.0-36.5); MEAN CORPUSCULAR VOLUME 98.4 fl (80.0-96.0); MONO # 0.8 10^3/uL (0.0-0.8); MONO % 11.8 % (2.0-8.0); NEUTROPHILS # 4.2 10^3/uL (1.5-8.5); NEUTROPHILS % 65.6 % (36.0-66.0); PLATELET COUNT, AUTOMATED 191 10^3/uL (150-450); RED BLOOD COUNT 3.77 10^6/uL (4.00-5.40); WHITE BLOOD COUNT 6.4 10^3/uL (4.0-10.0)
[2021-05-19] MEDS: busPIRone 5 MG TAB PO PRN ×2 (06:16→21:14)
[2021-05-19] MEDS: ACETAMINOPHEN 325 MG TAB PO PRN ×2 (06:17→21:15)
[2021-05-19 06:37] LABS: ALT/SGPT 18 U/L (12-78); BILIRUBIN,TOTAL 0.9 MG/DL (0.2-1.0); BLOOD UREA NITROGEN 6 MG/DL (7-18); CALCIUM LEVEL 9.1 MG/DL (8.8-10.2); CARBON DIOXIDE LEVEL 28 MEQ/L (21-32); CHLORIDE LEVEL 110 MEQ/L (98-107); CREATININE FOR GFR 0.63 MG/DL (0.55-1.30); GLOMERULAR FILTRATION RATE > 60.0 (>32); GLUCOSE, FASTING 94 MG/DL (70-100); POTASSIUM SERUM 3.6 MEQ/L (3.5-5.1); SODIUM LEVEL 142 MEQ/L (136-145); TOTAL PROTEIN 6.6 GM/DL (6.4-8.2)
[2021-05-19] MEDS: METAMUCIL (PSYLLIUM) PACKET PO SCH (08:45)
[2021-05-19] MEDS: lisinopriL 5 MG TAB PO SCH (08:46)
[2021-05-19] MEDS: FUROSEMIDE 20 MG TAB PO SCH (08:46)
[2021-05-19] MEDS: PANTOPRAZOLE 40MG TAB (PROTONIX) PO SCH (08:47)
[2021-05-19] MEDS: LORATADINE 10 MG TAB PO SCH (08:47)
[2021-05-19] MEDS: ASPIRIN 81MG ENTERIC TABLET PO SCH (08:47)
[2021-05-19] MEDS: OMEPRAZOLE 20 MG CAP PO SCH (08:47)
[2021-05-19] MEDS: APIXABAN 5 MG TAB (ELIQUIS) PO SCH ×2 (08:47→21:14)
[2021-05-19] MEDS: atenoloL 25 MG TAB PO SCH (08:47)
--- NOTE | 2021-05-19 08:58 | IPNPDOC ---
PM&R Progress Note DATE OF SERVICE: May 19, 2021 [employer] Progress Note DATE OF ADMISSION: May 18, 2021 at 18:09 INPATIENT REHABILITATION ADMISSION DAY: # 1 CHIEF COMPLAINT: Anxiety Paresthesias Visual impairment worsening SUBJECTIVE: This is an 89 yo W with a history of prior CVA's with chronic L hemiparesis, who had previously been on ARU for rehab of R CVA and Left mitchel. She was admitted on 04/26 for a CVA w/ AMS found to have a small L frontal lacunar infarct, and newly noted Afib , was switched from ASA/plavix to ASA/eliquis who returned to the ED from [facility] with acute AMS with possible CVA. 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 She had some transient right facial weakness. In the ED, she was hypertensive, in Afib with a normal ventricular rate and breathing comfortably on room air. She did not complain of any pain, headache, nausea, emesis, vision changes outside of her status quo minimal vision, chest pain, palpitations, SOB. She complained of her feet/toes feeling numb and was quite anxious. Work up was notable for a CT head that showed no acute intracranial hemorrhagic or non hemorrhagic events with deep white matter i schemic change status quo and no extra-axial fluid collections or shift of the midline structures, transferred 05.18.2021 once felt stable for full comprehensive rehabilitation. 05.19.2021 Nursing and patient no significant amount of anxiety, education and redirection given regarding ongoing grief and escalating anxiety related to progressive visual loss and uncertain prognosis. Practice deep breathing, visualization techniques with the patient and achieved. Calming effect. Well work on compensa tory strategies including magnifiers, auditory stimulation to books on tape, guided imagery and other options. The patient is open to this concept. REVIEW OF SYSTEMS: The following is a completed review of systems and has been reviewed. Review of systems otherwise unremarkable. PAIN: Patient self reports no pain. EYES: declining vision right eye, blind on left. EARS, NOSE, & THROAT: No throat pain, or dysphagia, or rhinorrhea. CARDIOVASCULAR: Denies chest pain or palpitations. PULMONARY: Denies shortness of breath. GASTROINTESTINAL: Admits diarrhea. GENITOURINARY: .No new complaints MUSCULOSKELETAL: .Arthritic pain at times NEUROLOGICAL:.Visual challenges left sided weakness and tremor, worse when anxious HEMATOLOGICAL: .negative SKIN: .recurrent psoriatic like rashes over trunk PSYCHIATRIC: Increasing anxiety related to deteriorating visual compromise All other review of systems found to be negative. ALLERGIES: See Below MEDICATIONS: Reviewed, see below. OBJECTIVE: VITAL SIGNS: Please see below. GENERAL: Pleasant and cooperative. No acute distress. Alert and oriented times three. HEENT: left facial droop and sunken eye, decreased Extraocular movement on the left. Clear conjunctiva, no adenopathy or thyromegaly. Full cervical range of motion without adenopathy,tenderness or spasm. CARDIOVASCULAR: S1 S2 I. SM occasional extra beats. LUNGS: Clear to auscultation bilaterally. No wheezes. No rhonchi. ABDOMEN: Soft, nontender, nondistended. Positive normal active bowel sounds, no organomegaly. NEUROLOGICAL: Alert and oriented times three. Cranial nerves II through XII not ed for Visual confrontation on admission able to see 2 fingers and read large 95 20/800. Sensation intact all 4 extremities. EXTREMITIES: 4+ /5 right 4/5 left tourist escort, elbow flexion, elbow extension, knee extension, foot dorsiflexion, plantar flexion. SKIN: .rashes over trunk FUNCTIONAL STATUS: On Admission: -Moderate to maximal assistance for lower body dressing, shower transfers, stairs. -Moderate assistance for bathing, upper body dressing, bed chair and wheelchair transfers, toilet transfers, ambulation. Modified independence for social interaction, expression, comprehension, bowel and bladder. LABORATORY DATA: Reviewed. Please see below. MICROBIOLOGY: See below ASSESSMENT AND PLAN: DIAGNOSES: ADMITTING DIAGNOSES: Metabolic encephalopathy. Severe visual impairment. Chronic left hemiparesis Status post prior CVA. New Onset A. fib. Hypertension. Hyperlipidemia. Anxiety. Depression. Paresthesias ASSESSMENT: This is an 89 yo lady who had been doing well in assisted living despite a history of prior CVA's with chronic L hemiparesis, who had previously been on ARU for rehab of R CVA and Left mitchel. She was admitted on 04/26 for a CVA w/ AMS found to have a small L frontal lacunar infarct, and newly noted Afib , was switched from ASA/plavix to ASA/eliquis who returned to the ED from [facility] with acute AMS with possible CVA. 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 She had some transient right facial weakness. In the ED, she was hypertensive, in Afib with a normal ventricular rate and breathing comfortably on room air. She did not complain of any pain, headache, nausea, emesis, vision changes outsi de of her status quo minimal vision, chest pain, palpitations, SOB. She complained of her feet/toes feeling numb and was quite anxious. PLAN: 1. Rehab- PT/OT advance gait and ADls, strengthen/stretch/maintain ROM all 4 limbs. 2. Neuro- altered mental status, most likely related to metabolic encephalopathy aggravated by sensory integration challenges from visual impairment. Well monitor closely for recurrent TIA or further CVAs. Emphasize therapeutic interventions for compensatory strategies for visual impairment, will engage SL for creative augmented communication interventions, visual magnification devices or programs that may be helpful for reading and other activities. Adjust polyph armacy where possible. 3. Ortho- no specific musculoskeletal complaints at this time. Well proceed with usual strengthening and joint protective maneuvers 4. Cardiac- history of recent onset A. fib, CHF, currently stable on atenolol, Eliquis, Lasix -HTN -stable, expected fluctuations as she adjusts and in dealing with anxiety -HLD- statin -DVT PPX Eliquis 5. Resp -incentive spirometry, monitor for infection 6. -usual bladder protocol DISPOSITION Return to her Assisted living with eventual transition to Skilled services anticipated TIME SPENT: Chart Review, examination and documentation 35 minutes. Allergies Coded Allergies: morphine (Verified Adverse Reaction, Mild, N/V, 09/29/20) Vital Signs Vital Signs Date Time Temp Pulse Resp B/P (MAP) Pulse Ox O2 Delivery O2 Flow Rate FiO2 05/19/21 08:47 80 05/19/21 08:46 138/75 05/19/21 06:00 97.4 18 96 Room Air Laboratory Data CBC/BMP Laboratory Tests 05/19/21 06:02 Labs 24H Laboratory Tests 2 05/19/21 06:02: Immature Granulocyte % (Auto) 0.3, Neutrophils (%) (Auto) 65.6, Lymphocytes (%) (Auto) 15.1L, Monocytes (%) (Auto) 11.8H, Eosinophils (%) (Auto) 6.7H, Basophils (%) (Auto) 0.5, Neutrophils # (Auto) 4.2, Lymphocytes # (Auto) 1.0L, Monocytes # (Auto) 0.8, Eosinophils # (Auto) 0.4, Basophils # (Auto) 0.0, Nucleated Red Blood Cells % (auto) 0.0, Anion Gap 4L, Glomerular Filtration Rate > 60.0, Calcium Level 9.1, Total Bilirubin 0.9, Aspartate Amino Transf (AST/SGOT) 17, Alanine Aminotransferase (ALT/SGPT) 18, Alkaline Phosphatase 80, Total Protein 6.6, Albumin 3.0L, Albumin/Globulin Ratio 0.8L Current Medications Current Medications Current Medications Medications (Trade) Dose Ordered Sig/Gayathri Route PRN Reason Start Time Stop Time Status Last Admin Dose Admin Acetaminophen (Tylenol Tab) 325 mg Q8HP PRN PO MILD PAIN (PS 1-4) 05/18/21 18:15 05/19/21 06:17 Acetaminophen (Tylenol Tab) 650 mg Q4HP PRN PO MILD PAIN (PS 1-4) 05/18/21 15:35 05/18/21 18:34 DC Apixaban (Eliquis) 5 mg BID PO 05/18/21 21:00 05/19/21 08:47 Artificial Tears (Akwa Tears) 2 drop QIDP PRN OU DRY EYES 05/18/21 18:15 Aspirin (Ecotrin) 81 mg DAILY PO 05/19/21 09:00 05/19/21 08:47 Atenolol (Tenormin) 25 mg DAILY PO 05/19/21 09:00 05/19/21 08:47 Atorvastatin Calcium (Lipitor) 40 mg QHS PO 05/18/21 21:00 05/18/21 20:22 Buspirone HCl (Buspar) 5 mg BID PRN PO ANXIETY 05/18/21 18:15 05/19/21 06:16 Clobetasol Propionate (Temovate Emollient 0.05%) APPLY TO AFFECTED AREA(s... BIDP PRN TOP ITCHING 05/18/21 18:15 Diclofenac Epolamine (Flector 1.3%) 1 patch Q12HP PRN TOP PAIN 05/18/21 18:15 Diphenhydramine HCl (Benadryl) 25 mg DAILYPRN PRN PO ITCHING 05/18/21 18:15 05/18/21 20:21 Docusate Sodium (Colace) 100 mg BID PO 05/18/21 21:00 Cancel Furosemide (Lasix) 20 mg Q3D PO 05/19/21 09:00 05/19/21 08:46 Home Med (Home Med List Complete!) ASDIRECTED XX 05/18/21 18:25 05/18/21 18:26 DC Lisinopril (Prinivil) 5 mg DAILY PO 05/19/21 09:00 05/19/21 08:46 Loratadine (Claritin) 10 mg DAILY PO 05/19/21 09:00 05/19/21 08:47 Mirtazapine (Remeron) 15 mg QHS PO 05/18/21 21:00 05/18/21 20:21 Omeprazole (PriLOSEC) 20 mg DAILY PO 05/19/21 09:00 05/19/21 08:47 Pantoprazole Sodium (Protonix) 40 mg DAILY PO 05/19/21 09:00 05/19/21 08:47 Psyllium Hydrophilic Mucilloid (Metamucil) 1 pkt DAILY PO 05/19/21 09:00 05/19/21 08:45 Sertraline HCl (Zoloft) 25 mg QHS PO 05/18/21 21:00 05/18/21 20:22 Sodium Chloride (Jessamine Nasal Flippin) 1 spray QIDP PRN NA NASAL DRYNESS 05/18/21 18:15 BAILEY REYNOSO MD May 19, 2021 08:58
[2021-05-19 09:52] LABS: APPEARANCE, URINE CLEAR (CLEAR); BACTERIA, URINE AUTO NEGATIVE (NEGATIVE); BILIRUBIN, URINE AUTO NEGATIVE (NEGATIVE); BLOOD, URINE BLOOD NEGATIVE (NEGATIVE); COLOR, URINE YELLOW (YELLOW); GLUCOSE, URINE (UA) AUTO NEGATIVE (NEGATIVE); KETONE, URINE AUTO NEGATIVE (NEGATIVE); LEUKOCYTE ESTERASE, URINE AUTO 3+ (NEGATIVE); NITRITE, URINE AUTO NEGATIVE (NEGATIVE); PROTEIN, URINE AUTO NEGATIVE (NEGATIVE); RBC, URINE AUTO 4 /HPF (0-3); SQUAMOUS EPITHELIAL CELL UR AU 1 /HPF (0-6); UROBILINOGEN, URINE AUTO 0.2 mg/dL (0.0-2.0); WBC, URINE AUTO 26 /HPF (0-3)
--- NOTE | 2021-05-19 13:09 | IPNPDOC ---
Text Note Date of Service The patient was seen on 05/19/21. NOTE Subjective: Patient is an 89-year-old female with a PMHx of CVA (L frontal lacunar infarct 04/26/2021; R parietal lobe 06/2020 w/ L sided residual hemiparesis), A fib (on Eliquis), HTN, Orthostatic hypotension, Total L eye blindness, Anxiety / Depression who presented to the ER on 05/16 with AMS. Patient was admitted to hospital service for further evaluation and treatment. Patient was found to have an acute CVA and she was subsequently transitioned to acute rehabilitation unit on 05/18. Patient was seen and examined at the bedside. Currently she denies any headache, nausea, vomiting, chest pain, shortness breath, palpitations, cough, pain, diar melvin, or urinary discomfort. Patient has been working with physical therapy while in the acute rehabilitation unit. Objective: Vitals (See below) General: Lying in bed, appears comfortable, AAOx3 HEENT: NC, AT CVS: +S1S2 Lungs: Fair air entry b/l, no wheezing, rales or rhonchi Abdomen: Soft, ND, NT Extremities: No pitting edema, - Calf tenderness Imaging: No new imaging Assessment and plan: Small acute CVA with history of prior CVA - MRI imaging consistent with acute infarct - c/w Atorvastatin / Eliquis / ASA 81 - Prior hospitalist team had discussed with neurology who had suggested continuing with aspirin and Eliquis - Will have outpatient follow-up with neurology on discharge Deconditioning - c/w PT and OT as per ARU s/p Hypokalemia Atrial fibrillation - c/w rate control with atenolol - c/w full anticoagulation with Eliquis Hypertension - BP well controlled; no longer requires permissive HTN at this point - c/w Atenolol / Lisinopril / Furosemide Chronic Diastolic CHF - No evidence of exacerbation - ECHO 05/15/2021 preserved systolic function, grade 1 diastolic dysfunction, aortic sclerosis, no significant stenosis or insufficiency, mild mitral and tricuspid insufficiency, normal CVP, borderline pulmonary hypertension - c/w Furosemide q3d Depression / Anxiety - c/w Mirtazapine / Sertraline / Buspirone GERD - c/w Protonix DVT prophylaxis - c/w full anticoagulation with Eliquis Disposition: - As per ARU VS,Fishbone, I+O VS, Fishbone, I+O Laboratory Tests 05/19/21 06:02 Vital Signs Date Time Temp Pulse Resp B/P (MAP) Pulse Ox O2 Delivery O2 Flow Rate FiO2 05/19/21 08:47 80 05/19/21 08:46 138/75 05/19/21 06:00 97.4 18 96 Room Air I&O- Last 24 Hours up to 6 AM 05/19/21 05:59 Intake Total 0 ml Balance 0 ml TARAN GARAY MD May 19, 2021 13:09
[2021-05-19 14:09] VITALS: BP 154/78
[2021-05-19 14:37] LABS: C REACTIVE PROTEIN QUANTITATIV 0.74 MG/DL (0.00-0.30)
[2021-05-19 15:09] LABS: ERYTHROCYTE SEDIMENTATION RATE 26 mm/hr (0-30)
--- NOTE | 2021-05-19 15:12 | REPVR ---
PROCEDURE INFORMATION: Exam: CT Head Without Contrast Exam date and time: 05/19/2021 2:34 PM Age: 89 years old Clinical indication: Other: Vision changes TECHNIQUE: Imaging protocol: Computed tomography of the head without contrast. Radiation optimization: All CT scans at this facility use at least one of these dose optimization techniques: automated exposure control; mA and/or kV adjustment per patient size (includes targeted exams where dose is matched to clinical indication); or iterative reconstruction. COMPARISON: 1. MRI-Brain without Contrast 05/16/2021 5:[address] Head without contrast 05/16/2021 10:09:16 AM (report not provided) FINDINGS: Brain: Patchy lucencies in the white matter are nonspecific but most suggestive of chronic microvascular ischemic disease. These are fairly similar to the prior MRI. No intracranial hemorrhage or extraaxial collection is identified. There is no significant intracranial mass effect. Cerebral ventricles: The ventricles and sulci are stable in configuration. Paranasal sinuses: Visualized sinuses are unremarkable. No fluid levels. Mastoid air cells: Visualized mastoid air cells are well aerated. Bones/joints: Unremarkable. No acute fracture. Soft tissues: Unremarkable. IMPRESSION: No CT evidence for acute intracranial abnormality or significant change since 05/16/2021. MRI would be more sensitive to acute infarct if clinically indicated. Electronically signed by: Dilan Agudelo On 05/19/2021 15:12:07 PM
[2021-05-19] MEDS ORDERED: LORazepam 2 MG/ML VIAL IM ONE (15:55)
--- NOTE | 2021-05-19 19:46 | REPVR ---
PROCEDURE INFORMATION: Exam: MR Head Without Contrast Exam date and time: 05/19/2021 6:51 PM Age: 89 years old Clinical indication: Visual disturbance; Additional info: Vision changes TECHNIQUE: Imaging protocol: MR of the head without contrast. COMPARISON: 1. CT Head without contrast 05/19/2021 2:41 PM 2. MRI-Brain without Contrast 05/16/2021 5:56:28 PM 3. MRI-Brain without Contrast 04/26/2021 4:25:41 PM 4. MRI-Brain without Contrast 09/30/2020 12:09:05 AM FINDINGS: Brain: The brain demonstrates generalized volume loss. There are focal, chronic bilateral cerebellar infarcts. No new infarct identified on the diffusion-weighted imaging. Posterior right frontal high signal on the diffusion-weighted and T2 weighted sequences is similar dating back to 09/30/2020 in keeping with an area of chronic infarction with T2 shine through. No parenchymal hemorrhage. Cerebral ventricles: The ventricles are mildly enlarged in keeping with volume loss. Bones/joints: Unremarkable. Paranasal sinuses: A mild ethmoid mucosal thickening. Mastoid air cells: Normal as visualized. No mastoid effusion. Orbital cavity: Prior right lens surgery. Soft tissues: Unremarkable. IMPRESSION: No evidence of acute infarct. Electronically signed by: Cristiana Briceno On 05/19/2021 19:46:11 PM
[2021-05-19] MEDS: POLYVINYL ALCOHOL OPHTH SOLN 15 ML(LIQUITEARS) OU PRN (19:58)
[2021-05-19 20:00] VITALS: BP 167/88
[2021-05-19] MEDS: MIRTAZAPINE 15 MG TAB PO SCH (21:14)
[2021-05-19] MEDS: SERTRALINE HCL 25 MG TABLET PO SCH (21:14)
[2021-05-19] MEDS: diphenhydrAMINE 25MG CAP PO PRN (21:14)
[2021-05-19] MEDS: ATORVASTATIN 20 MG TAB PO SCH (21:14)
[2021-05-20] MEDS: POLYVINYL ALCOHOL OPHTH SOLN 15 ML(LIQUITEARS) OU PRN ×2 (05:58→21:28)
[2021-05-20 06:00] VITALS: BP 160/82
[2021-05-20] MEDS: OMEPRAZOLE 20 MG CAP PO SCH (08:19)
[2021-05-20] MEDS: busPIRone 5 MG TAB PO PRN (08:19)
[2021-05-20] MEDS: APIXABAN 5 MG TAB (ELIQUIS) PO SCH ×2 (08:19→21:28)
[2021-05-20] MEDS: LORATADINE 10 MG TAB PO SCH (08:19)
[2021-05-20] MEDS: PANTOPRAZOLE 40MG TAB (PROTONIX) PO SCH (08:19)
[2021-05-20] MEDS: ASPIRIN 81MG ENTERIC TABLET PO SCH (08:19)
[2021-05-20] MEDS: METAMUCIL (PSYLLIUM) PACKET PO SCH (08:19)
[2021-05-20] MEDS: ACETAMINOPHEN 325 MG TAB PO PRN ×2 (08:19→21:28)
[2021-05-20] MEDS: atenoloL 25 MG TAB PO SCH (08:20)
[2021-05-20] MEDS: lisinopriL 5 MG TAB PO SCH (08:20)
[2021-05-20] MEDS ORDERED: SERTRALINE HCL 25 MG TABLET PO SCH ×2 (09:00→11:52)
[2021-05-20] MEDS ORDERED: busPIRone 5 MG TAB PO SCH (09:00)
--- NOTE | 2021-05-20 11:42 | IPNPDOC ---
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 She was admitted on 04/26 for a CVA w/ AMS found to have a small L frontal lacunar infarct, and newly noted Afib , was switched from ASA/plavix to ASA/eliquis who returned to the ED from [facility] with acute AMS with possible CVA. 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 She had some transient right facial weakness. In the ED, she was hypertensive, in Afib with a normal ventricular rate and tamia thing comfortably on room air. She did not complain of any pain, headache, nausea, emesis, vision changes outside of her status quo minimal vision, chest pain, palpitations, SOB. She complained of her feet/toes feeling numb and was quite anxious. Work up was notable for a CT head that showed no acute intracranial hemorrhagic or non hemorrhagic events with deep white matter ischemic change status quo and no extra-axial fluid collections or shift of the midline structures, transferred 05.18.2021 once felt stable for full comprehensive rehabilitation. 05.19.2021 Nursing and patient no significant amount of anxiety, education and redirection given regarding ongoing grief and escalating anxiety related to progressive visual loss and uncertain prognosis. Practice deep breathing, visualization techniques with the patient and achieved. Calming effect. Well work on compensatory strategies including magnifiers, auditory stimulation to books on tape, guided imagery and other options. The patient is open to this concept. 05.20.[address]/MRI with IV Ativan to help allay escalated anxiety yesterday, no acute changes. Neuro/IM input appreciated. Redirection with radio, youtube/IPAD sensory interventions help somewhat. Discussed with Pharmacy and will resume Sertraline that somehow got Dcd between multiple admissions and continue redirection, reassurance to help her overcome understandable grief/anxiety over uncertain prognosis, recurrent and unpredictable neurological events. REVIEW OF SYSTEMS: The following is a completed review of systems and has been reviewed. Review of systems otherwise unremarkable. PAIN: Patient self reports no pain. EYES: declining vision right eye, blind on left. EARS, NOSE, & THROAT: No throat pain, or dysphagia, or rhinorrhea. CARDIOVASCULAR: Denies chest pain or palpitations. PULMONARY: Denies shortness of breath. GASTROINTESTINAL: Admits diarrhea. GENITOURINARY: .No new complaints MUSCULOSKELETAL: .Arthritic pain at times NEUROLOGICAL:.Visual challenges left sided weakness and tremor, worse when anxious HEMATOLOGICAL: .negative SKIN: .recurrent psoriatic like rashes over trunk PSYCHIATRIC: Increasing anxiety related to deteriorating visual compromise All other review of systems found to be negative. ALLERGIES: See Below MEDICATIONS: Reviewed, see below. OBJECTIVE: VITAL SIGNS: Please see below. GENERAL: Pleasant and cooperative. mild distress. Alert and anxious but able to participate. HEENT: left facial droop and sunken eye, decreased Extraocular movement on the left. Clear conjunctiva, no adenopathy or thyromegaly. Full cervical range of motion without adenopathy, tenderness or spasm. CARDIOVASCULAR: S1 S2 I. SM occasional extra beats. LUNGS: Clear to auscultation bilaterally. No wheezes. No rhonchi. ABDOMEN: Soft, nontender, nondistended. Positive normal active bowel sounds, no organomegaly. NEUROLOGICAL: Alert and oriented times three. Cranial nerves II through XII noted for Visual confrontation on admission able to see 2 fingers and read large 95 20/800, yesterday 20/400, today navigating ambulation in hallway, recognizes usual chairs and unchanged. Sensation intact all 4 extremities. EXTREMITIES: 4+ /5 right 4/5 left auditor internal, elbow flexion, elbow extension, knee extension, foot dorsiflexion, plantar flexion. SKIN: .rashes over trunk FUNCTIONAL STATUS: On Admission: Sit to Stand Contact Guard Assist Stand to Sit Contact Guard Assist Chair to Bed Contact Guard Assist Toilet/Commode Contact Guard Assist Sit-Static G- Sit-Dynamic G- Stand-Static F+ Stand-Dynamic F Balance Training Note sitting assessed in b/s chair, standing assessed with 4WW Ambulation Distance 50 Feet Ambulation Level of Assist Contact Guard Assist Gait Training Note Increased difficulty noted; continuously stating everything is blurry; reduced gait speed from previous session LABORATORY DATA: Reviewed. Please see below. MICROBIOLOGY: See below ASSESSMENT AND PLAN: DIAGNOSES: ADMITTING DIAGNOSES: Metabolic encephalopathy. Severe visual impairment. Chronic left hemiparesis Status post prior CVA. New Onset A. fib. Hypertension. Hyperlipidemia. Anxiety. Depression. Paresthesias ASSESSMENT: This is an 89 yo lady who had been doing well in assisted living despite a history of prior CVA's with chronic L hemiparesis, who had previously been on ARU for rehab of R CVA and Left mitchel. She was admitted on 04/26 for a CVA w/ AMS found to have a small L frontal lacunar infarct, and newly noted Afib , was switched from ASA/plavix to ASA/eliquis who returned to the ED from [facility] with acute AMS with possible CVA. 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 She had some transient right facial weakness. In the ED, she was hypertensive, in Afib with a normal ventricular rate and breathing comfortably on room air. She did not complain of any pain, headache, nausea, emesis, vision changes outside of her status quo minimal vision, chest pain, palpitations, SOB. She complained of her feet/toes feeling numb and was quite anxious. PLAN: 1. Rehab- PT/OT advance gait and ADls, strengthen/stretch/maintain ROM all 4 limbs. 2. Neuro- altered mental status, most likely related to metabolic encephalopathy aggravated by sensory integration challenges from visual impairment. Well monitor closely for recurrent TIA or further CVAs. Emphasize therapeutic interventions for compensatory strategies for visual impairment, will engage SL for creative augmented communication interventions, visual magnification devices or programs that may be helpful for reading and other activities. resuming sertraline, may need to DC remeron to reduce polypharmacy and continue to adjust where possible. Given varied and fluctuating visual/neurological symptoms, no evidence acute CVA, additional dx including MS, uveiitis might be considered. We look forward to Neurology input regarding this. Opthalmology consult is indicated, possibly steroids or steroid drops might also help. 3. Ortho- no specific musculoskeletal complaints at this time. Well proceed with usual strengthening and joint protective maneuvers 4. Cardiac- history of recent onset A. fib, CHF, currently stable on atenolol, Eliquis, Lasix -HTN -stable, expected fluctuations as she adjusts and in dealing with anxiety -HLD- statin -DVT PPX Eliquis 5. Resp -incentive spirometry, monitor for infection 6. -usual bladder protocol DISPOSITION Return to her Assisted living with eventual transition to Skilled services anticipated TIME SPENT: Chart Review, examination and documentation 35 minutes. Allergies Coded Allergies: morphine (Verified Adverse Reaction, Mild, N/V, 09/29/20) Vital Signs Vital Signs Date Time Temp Pulse Resp B/P (MAP) Pulse Ox O2 Delivery O2 Flow Rate FiO2 05/20/21 08:20 164/76 05/20/21 06:00 98.5 85 20 95 Room Air Current Medications Current Medications Current Medications Medications (Trade) Dose Ordered Sig/Gayathri Route PRN Reason Start Time Stop Time Status Last Admin Dose Admin Acetaminophen (Tylenol Tab) 325 mg Q8HP PRN PO MILD PAIN (PS 1-4) 05/18/21 18:15 05/20/21 08:19 Acetaminophen (Tylenol Tab) 650 mg Q4HP PRN PO MILD PAIN (PS 1-4) 05/18/21 15:35 05/18/21 18:34 DC Apixaban (Eliquis) 5 mg BID PO 05/18/21 21:00 05/20/21 08:19 Artificial Tears (Ak[place] Tears) 2 drop QIDP PRN OU DRY EYES 05/18/21 18:15 05/20/21 05:58 Aspirin (Ecotrin) 81 mg DAILY PO 05/19/21 09:00 05/20/21 08:19 Atenolol (Tenormin) 25 mg DAILY PO 05/19/21 09:00 05/20/21 08:20 Atorvastatin Calcium (Lipitor) 40 mg QHS PO 05/18/21 21:00 05/19/21 21:14 Buspirone HCl (Buspar) 5 mg BID PRN PO ANXIETY 05/18/21 18:15 05/20/21 09:19 DC 05/20/21 08:19 Buspirone HCl (Buspar) 10 mg BID PO 05/20/21 09:00 05/20/21 10:02 DC Buspirone HCl (Buspar) 10 mg BID@0600,1800 PO 05/20/21 10:02 Clobetasol Propionate (Temovate Emollient 0.05%) APPLY TO AFFECTED AREA(s... BIDP PRN TOP ITCHING 05/18/21 18:15 Diclofenac Epolamine (Flector 1.3%) 1 patch Q12HP PRN TOP PAIN 05/18/21 18:15 Diphenhydramine HCl (Benadryl) 25 mg DAILYPRN PRN PO ITCHING 05/18/21 18:15 05/19/21 21:14 Docusate Sodium (Colace) 100 mg BID PO 05/18/21 21:00 Cancel Furosemide (Lasix) 20 mg Q3D PO 05/19/21 09:00 05/19/21 08:46 Home Med (Home Med List Complete!) ASDIRECTED XX 05/18/21 18:25 05/18/21 18:26 DC Lisinopril (Prinivil) 5 mg DAILY PO 05/19/21 09:00 05/20/21 08:20 Loratadine (Claritin) 10 mg DAILY PO 05/19/21 09:00 05/20/21 08:19 Mirtazapine (Remeron) 15 mg QHS PO 05/18/21 21:00 05/19/21 21:14 Omeprazole (PriLOSEC) 20 mg DAILY PO 05/19/21 09:00 05/20/21 08:19 Pantoprazole Sodium (Protonix) 40 mg DAILY PO 05/19/21 09:00 05/20/21 08:19 Paroxetine HCl (PAXil) 5 mg QHS PO 05/20/21 21:00 UNV Psyllium Hydrophilic Mucilloid (Metamucil) 1 pkt DAILY PO 05/19/21 09:00 05/20/21 08:19 Sertraline HCl (Zoloft) 25 mg QHS PO 05/18/21 21:00 05/19/21 21:14 Sodium Chloride ([place] Nasal [place]) 1 spray QIDP PRN NA NASAL DRYNESS 05/18/21 18:15 BAILEY REYNOSO MD May 20, 2021 11:42
[2021-05-20] MEDS ORDERED: PILL CUTTER 1 EACH XX PRN (11:55)
[2021-05-20 14:34] VITALS: BP 148/72
[2021-05-20] MEDS: busPIRone 5 MG TAB PO SCH (17:38)
--- NOTE | 2021-05-20 19:19 | CR ---
CONSULTATION DATE: 05/19/2021 REFERRING PROVIDER: Dr. Huseyin Matthew CONSULTING PHYSICIAN: Dr. Ruthann Manzanares REASON FOR CONSULTATION: Rule out acute stroke. 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 The patient was noted to have new evidence of stroke in the right parietal region within the past few weeks. Neurology was consulted. The patient was complaining of worsening vision loss in the right eye. She is legally blind in the left eye. Repeat stat head CT was negative for a new stroke. MRI of the brain was completed which did not reveal any again, new stroke. Findings were consistent with past stroke within the past few weeks. The patient remains on Aspirin and Eliquis. Plavix was discontinued. The patient has an eye doctor who which she sees macular degeneration of the right eye. The patient has baseline left sided weakness. She denies any weakness in the right side of the body today. She complains of paresthesias in the feet. She denies any headache, shortness of breath, chest pain. ALLERGIES: Morphine. PRESENT MEDICATIONS: 1. Eliquis 5 mg twice daily. 2. Aspirin 81 mg daily. 3. Atenolol 25 mg daily. 4. Atorvastatin 40 mg q. h.s. 5. Furosemide 20 mg daily. 6. Lisinopril 5 mg daily. 7. Loratadine 10 mg daily. 8. Melatonin 10 mg q. h.s. 9. Mirtazapine 15 mg q. h.s. 10. Pantoprazole 40 mg daily. 11. Senna one tab daily. 12. Sertraline 25 mg q. h.s. 13. Acetaminophen p.r.n. 14. Buspirone 5 mg four times daily p.r.n. 15. Clobetasol Propionate Ointment. 16. Diclofenac 1% Gel as needed. 17. Diphenhydramine 25 mg twice daily p.r.n. for itching. SOCIAL HISTORY: The patient denies use of any tobacco, alcohol or illicit drugs. Her used to smoke in front of her. PAST MEDICAL HISTORY: The patient's past surgical history is significant for: 1. Hypertension. 2. Hyperlipidemia. 3. Ischemic stroke of the right parietal lobe with left sided hemiparesis. 4. Hypothyroidism. 5. Anemia. 6. Insomnia. 7. Depression. 8. Anxiety. 9. Legal blindness in the left eye. 10. Left eye ptosis. 11. Osteoarthritis. 12. Lower extremity edema. PAST SURGICAL HISTORY: The patient's past surgical history is significant for: 1. Hysterectomy in 1983. 2. Right knee replacement in 2008. 3. Carpal tunnel bilateral hands in 2018. 4. 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 FAMILY HISTORY: Noncontributory. PHYSICAL EXAMINATION: VITAL SIGNS: Current height 5 feet, 2 inches, current weight 74.2 kg. Blood pressure is 167/88, pulse rate 72, respiratory rate is 20, oxygenation 92% on room air. Temperature 99.2 degrees Fahrenheit. GENERAL APPEARANCE: The patient is oriented to person, place and time. Speech, language, comprehension and repetition are intact. HEENT: Pupils are 2 mm minimally reactive on the right. Left eye is opacified, non-reactive. Ptosis of the left eyelid is still present. Facial symmetry is preserved. Tongue is midline. NEUROLOGICAL: Hand dinkey operator slate are 4's bilaterally, are 4 minus bilaterally. Quadriceps are 5/5. are 5 minus bilaterally. Sensory is intact to light touch in all four extremities. Deep tendon reflexes are reduced throughout. Downgoing plantars. Romberg testing, gait deferred. Gait is appearing in the right side. ASSESSMENT: 1. History of right parietal ischemic stroke with left residual hemiparesis. 2. Recent right sided ischemic stroke. 3. impairment, baseline dementia. 4. Vision loss likely resulting from macular degeneration. 5. No MRI evidence of acute stroke. PLAN: 1. Continue Eliquis 5 mg twice daily. 2. Aspirin 81 mg daily. 3. Continue supportive care. 4. Continue rehab. No further recommendations for ongoing vision loss. Follow up with Ophthalmology as scheduled.
[2021-05-20 20:00] VITALS: BP 160/75
[2021-05-20] MEDS ORDERED: PARoxetine 10MG TABLET PO SCH (21:00)
[2021-05-20] MEDS: ATORVASTATIN 20 MG TAB PO SCH (21:28)
[2021-05-20] MEDS: diphenhydrAMINE 25MG CAP PO PRN (21:28)
[2021-05-20] MEDS: MIRTAZAPINE 15 MG TAB PO SCH (21:28)
[2021-05-20] MEDS: SERTRALINE HCL 25 MG TABLET PO SCH (21:28)
[2021-05-21] MEDS: busPIRone 5 MG TAB PO SCH ×2 (05:48→17:33)
[2021-05-21 06:00] VITALS: BP 139/76
[2021-05-21] MEDS: PANTOPRAZOLE 40MG TAB (PROTONIX) PO SCH (10:02)
[2021-05-21] MEDS: lisinopriL 5 MG TAB PO SCH (10:02)
[2021-05-21] MEDS: LORATADINE 10 MG TAB PO SCH (10:03)
[2021-05-21] MEDS: ASPIRIN 81MG ENTERIC TABLET PO SCH (10:03)
[2021-05-21] MEDS: OMEPRAZOLE 20 MG CAP PO SCH (10:03)
[2021-05-21] MEDS: APIXABAN 5 MG TAB (ELIQUIS) PO SCH ×2 (10:03→20:43)
[2021-05-21] MEDS: atenoloL 25 MG TAB PO SCH (10:06)
[2021-05-21] MEDS: METAMUCIL (PSYLLIUM) PACKET PO SCH (10:07)
--- NOTE | 2021-05-21 10:25 | IPNPDOC ---
PM&R Progress Note DATE OF SERVICE: May 21, 2021 [employer] Software Engineer Progress Note DATE OF ADMISSION: May 18, 2021 at 18:09 INPATIENT REHABILITATION ADMISSION DAY: # 3 CHIEF COMPLAINT: Anxiety Paresthesias Visual impairment worsening SUBJECTIVE: This is an 89 yo WF with a history of prior CVA's with chronic L hemiparesis, who had previously been on ARU for rehab of R CVA and Left mitchel. She was admitted on 04/26 for a CVA w/ AMS found to have a small L frontal lacunar infarct, and newly noted Afib , was switched from ASA/plavix to ASA/eliquis who returned to the ED from [facility] with acute AMS with possible CVA. 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 She had some transient right facial weakness. In the ED, she was hypertensive, in Afib with a normal ventricular rate and breathing comfortably on room air. She did not complain of any pain, headache, nausea, emesis, vision changes outside of her status quo minimal vision, chest pain, palpitations, SOB. She complained of her feet/toes feeling numb and was quite anxious. Work up was notable for a CT head that showed no acute intracranial hemorrhagic or non hemorrhagic events with deep white matter ischemic change status quo and no extra-axial fluid collections or shift of the midline structures, transferred 05.18.2021 once felt stable for full comprehensive rehabilitation. 05.19.2021 Nursing and patient no significant amount of anxiety, education and redirection given regarding ongoing grief and escalating anxiety related to progressive visual loss and uncertain prognosis. Practice deep breathing, visualization techniques with the patient and achieved. Calming effect. Well work on compensatory strategies including magnifiers, auditory stimulation to books on tape, guided imagery and other options. The patient is open to this concept. 05.20.[address]/MRI with IV Ativan to help allay escalated anxiety yesterday, no acute changes. Neuro/IM input appreciated. Redirection with radio, youtube/IPAD sensory interventions help somewhat. Discussed with Pharmacy and will resume Sertraline that somehow may have been Dcd between multiple admissions and continue redirection, reassurance to help her overcome understandable grief/anxiety over uncertain prognosis, recurrent and unpredictable neurological events. 05.21.2021 Patient is up early, notes continued anxiety is able to articulate main areas of concern are inability to handle being alone, tolerating sensation of completely losing her sight, lifelong fear coming to reality. She is grieving that she was told all options have been explored and no further options can be considered. She also notes of her 5 original children, one son of lymphoma, another is lost to follow up in [place], her 3 daughters are unable to have her live with them or provide regular assistance. She verbalizes understanding that people do learn to adjust living with profound visual loss and she has the potential to learn to do so, and will be in environments with some support, not totally left to fend for herself. She agrees to keep trying her best in Rehab. I offered to speak further with Dr. Abbott and to see if any remote possibility of getting her on a research protocol, for example, stem cell therapy, although with prior unclear history of eye cancer that may preclude eligibility. REVIEW OF SYSTEMS: The following is a completed review of systems and has been reviewed. Review of systems otherwise unremarkable. PAIN: Patient self reports no pain. EYES: declining vision right eye, blind on left. EARS, NOSE, & THROAT: No throat pain, or dysphagia, or rhinorrhea. CARDIOVASCULAR: Denies chest pain or palpitations. PULMONARY: Denies shortness of breath. GASTROINTESTINAL: Admits diarrhea, abating with fiber and med adjustments. GENITOURINARY: .No new complaints MUSCULOSKELETAL: .Arthritic pain at times NEUROLOGICAL:.Visual challenges left sided weakness and tremor, worse when anxious HEMATOLOGICAL: .negative SKIN: .recurrent psoriatic like rashes over trunk PSYCHIATRIC: Increasing anxiety related to deteriorating visual compromise All other review of systems found to be negative. ALLERGIES: See Below MEDICATIONS: Reviewed, see below. OBJECTIVE: VITAL SIGNS: Please see below. GENERAL: Pleasant and cooperative. mild distress. Alert and anxious but able to participate. HEENT: left facial droop and sunken eye, decreased Extraocular movement on the left. Clear conjunctiva, no adenopathy or thyromegaly. Full cervical range of motion without adenopathy, tenderness or spasm. CARDIOVASCULAR: S1 S2 I. SM occasional extra beats. LUNGS: Clear to auscultation bilaterally. No wheezes. No rhonchi. ABDOMEN: Soft, nontender, nondistended. Positive normal active bowel sounds, no organomegaly. NEUROLOGICAL: Alert and oriented times three. Cranial nerves II through XII noted for Visual confrontation on admission able to see 2 fingers and read large 20/800, 20/400. Sensation intact all 4 extremities. EXTREMITIES: 4+ /5 right 4/5 left soft top installer, elbow flexion, elbow extension, knee extension, foot dorsiflexion, plantar flexion. SKIN: .rashes over trunk FUNCTIONAL STATUS: Patient extremely anxious about being alone, safety issues with declining vision and fear of not being able to manage on her own without assistance. With encouragement, she is able to participate in therapies and makes continued progress with mobility; now ambulates 200ft SBA with 4ww; consistent cues required for safe brake management. Worked extensively on balance with focus on reduced CARLOS; noting increased instability with modified tandem and semi- tandem stance. Initiated trial with balance on foam as well, when demonstrates escalating anxiety and increased respiratory rate, provide education on pursed lip breathing and anxiety control techniques such as distraction with lists of unrelated items, singing etc.; with these techniques Pt. is able to control anxiety and continue with session. LABORATORY DATA: Reviewed. Please see below. MICROBIOLOGY: See below ASSESSMENT AND PLAN: DIAGNOSES: ADMITTING DIAGNOSES: Metabolic encephalopathy. Severe visual impairment. 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 New Onset A. fib. Hypertension. Hyperlipidemia. Anxiety. Depression. Paresthesias ASSESSMENT: This is an 89 yo lady who had been doing well in assisted living despite a history of prior CVA's with chronic L hemiparesis, who had previously been on ARU for rehab of R CVA and Left mitchel. She was admitted on 04/26 for a CVA w/ AMS found to have a small L frontal lacunar infarct, and newly noted Afib , was switched from ASA/plavix to ASA/eliquis who returned to the ED from [facility] with acute AMS with possible CVA. 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 She had some transient right facial weakness. In the ED, she was hypertensive, in Afib with a normal ventricular rate and breathing comfortably on room air. She did not complain of any pain, headache, nausea, emesis, vision changes outside of her status quo minimal vision, chest pain, palpitations, SOB. She complained of her feet/toes feeling numb and was quite anxious. PLAN: 1. Rehab- PT/OT advance gait and ADls, strengthen/stretch/maintain ROM all 4 limbs. Working on compensatory strategies to allay anxiety, bridge visual impairment/sensory integration issues. 2. Neuro- altered mental status, most likely related to metabolic encephalopathy aggravated by sensory integration challenges from visual impairment. Well monitor closely for recurrent TIA or further CVAs. Interim re-imaging negative. Emphasize therapeutic interventions for compensatory strategies for visual impairment, will engage SL for creative augmented communication interventions, visual magnification devices or programs that may be helpful for reading and other activities. resuming sertraline, may need to DC remeron to reduce polypharmacy and continue to adjust where possible. Given varied and fluctuating visual/neurological symptoms, no evidence acute CVA, additional dx including MS, uveiitis might be considered. We look forward to Neurology input regarding this. Opthalmology consult is indicated, possibly steroids or steroid drops might also help. Call out to longstanding grinding mill operator, Dr. Abbott/group [phone], awaiting response on remote chance stem cell therapy may be a consideration. [facility] support services [phone] contacted and left message for Luba to connect her with that community and possible supportive services. 3. Ortho- no specific musculoskeletal complaints at this time. Well proceed with usual strengthening and joint protective maneuvers 4. Cardiac- history of recent onset A. fib, CHF, currently stable on atenolol, Eliquis, Lasix -HTN -stable, expected fluctuations as she adjusts and in dealing with anxiety -HLD- statin -DVT PPX Eliquis 5. Resp -incentive spirometry, monitor for infection 6. -usual bladder protocol DISPOSITION Return to her Assisted living with eventual transition to Skilled services anticipated TIME SPENT: Chart Review, examination and documentation 35 minutes. Allergies Coded Allergies: morphine (Verified Adverse Reaction, Mild, N/V, 09/29/20) Vital Signs Vital Signs Date Time Temp Pulse Resp B/P (MAP) Pulse Ox O2 Delivery O2 Flow Rate FiO2 05/21/21 10:06 94 139/76 05/21/21 06:00 99.2 21 94 Room Air Current Medications Current Medications Current Medications Medications (Trade) Dose Ordered Sig/Gayathri Route PRN Reason Start Time Stop Time Status Last Admin Dose Admin Acetaminophen (Tylenol Tab) 325 mg Q8HP PRN PO MILD PAIN (PS 1-4) 05/18/21 18:15 05/20/21 21:28 Acetaminophen (Tylenol Tab) 650 mg Q4HP PRN PO MILD PAIN (PS 1-4) 05/18/21 15:35 05/18/21 18:34 DC Apixaban (Eliquis) 5 mg BID PO 05/18/21 21:00 05/21/21 10:03 Artificial Tears (Akwa Tears) 2 drop QIDP PRN OU DRY EYES 05/18/21 18:15 05/20/21 21:28 Aspirin (Ecotrin) 81 mg DAILY PO 05/19/21 09:00 05/21/21 10:03 Atenolol (Tenormin) 25 mg DAILY PO 05/19/21 09:00 05/21/21 10:06 Atorvastatin Calcium (Lipitor) 40 mg QHS PO 05/18/21 21:00 05/20/21 21:28 Buspirone HCl (Buspar) 5 mg BID PRN PO ANXIETY 05/18/21 18:15 05/20/21 09:19 DC 05/20/21 08:19 Buspirone HCl (Buspar) 10 mg BID PO 05/20/21 09:00 05/20/21 10:02 DC Buspirone HCl (Buspar) 10 mg BID@0600,1800 PO 05/20/21 10:02 05/21/21 05:48 Clobetasol Propionate (Temovate Emollient 0.05%) APPLY TO AFFECTED AREA(s... BIDP PRN TOP ITCHING 05/18/21 18:15 Diclofenac Epolamine (Flector 1.3%) 1 patch Q12HP PRN TOP PAIN 05/18/21 18:15 Diphenhydramine HCl (Benadryl) 25 mg DAILYPRN PRN PO ITCHING 05/18/21 18:15 05/20/21 21:28 Docusate Sodium (Colace) 100 mg BID PO 05/18/21 21:00 Cancel Furosemide (Lasix) 20 mg Q3D PO 05/19/21 09:00 05/19/21 08:46 Home Med (Home Med List Complete!) ASDIRECTED XX 05/18/21 18:25 05/18/21 18:26 DC Lisinopril (Prinivil) 5 mg DAILY PO 05/19/21 09:00 05/21/21 10:02 Loratadine (Claritin) 10 mg DAILY PO 05/19/21 09:00 05/21/21 10:03 Mirtazapine (Remeron) 15 mg QHS PO 05/18/21 21:00 05/20/21 21:28 Omeprazole (PriLOSEC) 20 mg DAILY PO 05/19/21 09:00 05/21/21 10:03 Pantoprazole Sodium (Protonix) 40 mg DAILY PO 05/19/21 09:00 05/21/21 10:02 Paroxetine HCl (PAXil) 5 mg QHS PO 05/20/21 21:00 05/20/21 11:51 DC Psyllium Hydrophilic Mucilloid (Metamucil) 1 pkt DAILY PO 05/19/21 09:00 05/21/21 10:07 Sertraline HCl (Zoloft) 12.5 mg DAILY PO 05/20/21 09:00 05/20/21 11:52 DC Sertraline HCl (Zoloft) 12.5 mg QHS PO 05/20/21 11:52 05/20/21 11:53 DC Sertraline HCl (Zoloft) 25 mg QHS PO 05/18/21 21:00 05/20/21 21:28 Sodium Chloride (Pierce Nasal [place]) 1 spray QIDP PRN NA NASAL DRYNESS 05/18/21 18:15 BAILEY REYNOSO MD May 21, 2021 10:25
[2021-05-21 14:00] VITALS: BP 139/84
[2021-05-21 20:00] VITALS: BP 156/77
[2021-05-21] MEDS: diphenhydrAMINE 25MG CAP PO PRN (20:41)
[2021-05-21] MEDS: ACETAMINOPHEN 325 MG TAB PO PRN (20:41)
[2021-05-21] MEDS: MIRTAZAPINE 15 MG TAB PO SCH (20:43)
[2021-05-21] MEDS: SERTRALINE HCL 25 MG TABLET PO SCH (20:43)
[2021-05-21] MEDS: ATORVASTATIN 20 MG TAB PO SCH (20:43)
[2021-05-22] MEDS: busPIRone 5 MG TAB PO SCH ×2 (05:52→17:08)
[2021-05-22 06:00] VITALS: BP 148/72
[2021-05-22] MEDS: OMEPRAZOLE 20 MG CAP PO SCH (09:24)
[2021-05-22] MEDS: FUROSEMIDE 20 MG TAB PO SCH (09:24)
[2021-05-22] MEDS: PANTOPRAZOLE 40MG TAB (PROTONIX) PO SCH (09:24)
[2021-05-22] MEDS: atenoloL 25 MG TAB PO SCH (09:24)
[2021-05-22] MEDS: LORATADINE 10 MG TAB PO SCH (09:24)
[2021-05-22] MEDS: ASPIRIN 81MG ENTERIC TABLET PO SCH (09:24)
[2021-05-22] MEDS: METAMUCIL (PSYLLIUM) PACKET PO SCH (09:24)
[2021-05-22] MEDS: lisinopriL 5 MG TAB PO SCH (09:24)
[2021-05-22] MEDS: APIXABAN 5 MG TAB (ELIQUIS) PO SCH ×2 (09:24→21:21)
[2021-05-22] MEDS: ACETAMINOPHEN 325 MG TAB PO PRN ×2 (13:31→21:21)
[2021-05-22 14:00] VITALS: BP 142/58
[2021-05-22 20:00] VITALS: BP 148/67
[2021-05-22] MEDS: ATORVASTATIN 20 MG TAB PO SCH (21:21)
[2021-05-22] MEDS: SERTRALINE HCL 25 MG TABLET PO SCH (21:21)
[2021-05-22] MEDS: diphenhydrAMINE 25MG CAP PO PRN (21:21)
[2021-05-22] MEDS: MIRTAZAPINE 15 MG TAB PO SCH (21:21)
[2021-05-23] MEDS: busPIRone 5 MG TAB PO SCH ×2 (05:30→17:12)
[2021-05-23 06:00] VITALS: BP 147/71
[2021-05-23] MEDS: ASPIRIN 81MG ENTERIC TABLET PO SCH (08:27)
[2021-05-23] MEDS: lisinopriL 5 MG TAB PO SCH (08:28)
[2021-05-23] MEDS: ACETAMINOPHEN 325 MG TAB PO PRN ×2 (08:28→20:07)
[2021-05-23] MEDS: LORATADINE 10 MG TAB PO SCH (08:28)
[2021-05-23] MEDS: APIXABAN 5 MG TAB (ELIQUIS) PO SCH ×2 (08:28→20:07)
[2021-05-23] MEDS: PANTOPRAZOLE 40MG TAB (PROTONIX) PO SCH (08:29)
[2021-05-23] MEDS: OMEPRAZOLE 20 MG CAP PO SCH (08:29)
[2021-05-23] MEDS: METAMUCIL (PSYLLIUM) PACKET PO SCH (08:29)
[2021-05-23] MEDS: atenoloL 25 MG TAB PO SCH (08:29)
[2021-05-23] MEDS: POLYVINYL ALCOHOL OPHTH SOLN 15 ML(LIQUITEARS) OU PRN (08:29)
[2021-05-23 11:08] LABS: MEAN CORPUSCULAR HGB CONC 34.3 g/dl (32.0-36.5); MEAN CORPUSCULAR VOLUME 96.2 fl (80.0-96.0); PLATELET COUNT, AUTOMATED 142 10^3/uL (150-450); RED BLOOD COUNT 3.64 10^6/uL (4.00-5.40); WHITE BLOOD COUNT 5.4 10^3/uL (4.0-10.0)
[2021-05-23 11:37] LABS: ATYPICAL LYMPH 6 % (0-5); EOSINOPHILS 1 % (0-3); LYMPHOCYTES 10 % (16-44); METAMYELOCYTES 1 % (0-0); MONOCYTES 14 % (0-5); NEUTROPHILS 58 % (28-66); PLATELET CLUMPS SMALL AMT; PLATELET ESTIMATE NORMAL (NORMAL)
[2021-05-23 11:39] LABS: BLOOD UREA NITROGEN 14 MG/DL (7-18); CALCIUM LEVEL 9.1 MG/DL (8.8-10.2); CARBON DIOXIDE LEVEL 29 MEQ/L (21-32); CHLORIDE LEVEL 103 MEQ/L (98-107); CREATININE FOR GFR 0.69 MG/DL (0.55-1.30); GLOMERULAR FILTRATION RATE > 60.0 (>32); GLUCOSE, FASTING 127 MG/DL (70-100); POTASSIUM SERUM 4.2 MEQ/L (3.5-5.1); SODIUM LEVEL 137 MEQ/L (136-145)
[2021-05-23 11:40] LABS: ALBUMIN 3.2 GM/DL (3.2-5.2); ALT/SGPT 31 U/L (12-78); BILIRUBIN,TOTAL 1.3 MG/DL (0.2-1.0); MAGNESIUM LEVEL 2.3 MG/DL (1.8-2.4); TOTAL PROTEIN 6.4 GM/DL (6.4-8.2)
[2021-05-23] MEDS: CEFTAROLINE FOSAMIL 600 MG in D5W MINI-BAG PLUS 50 ML IV SCH ×2 (11:48→23:43)
--- NOTE | 2021-05-23 13:31 | IPNPDOC ---
Text Note Date of Service The patient was seen on 05/23/21. NOTE Subjective: Patient is an 89-year-old female with a PMHx of CVA (L frontal lacunar infarct 04/26/2021; R parietal lobe 06/2020 w/ L sided residual hemiparesis), A fib (on Eliquis), HTN, Orthostatic hypotension, Total L eye blindness, Anxiety / Depression who presented to the ER on 05/16 with AMS. Patient was admitted to hospital service for further evaluation and treatment. Patient was found to have an acute CVA and she was subsequently transitioned to acute rehabilitation unit on 05/18. Patient was seen and examined at the bedside. Patient reports that her nose and left eye area are tender. She noted that she had scratched her nose with IV line a few days ago. She currently has a warm compress pushed against the high patient denies any headache, nausea, vomiting, abdominal pain, diarrhea, or urinary discomfort. Objective: Vitals (See below) General: Lying in bed, she does not appear to be in any acute distress. She is awake, alert, oriented HEENT: L eye with droop (chronic), chronic L eye blindness from (as per patient), erythema / warmth / tenderness / mild edema around L eye socket / small scabs notes around scalp / forehead CVS: +S1S2 Lungs: Appear to be fair air entry bilaterally without any auscultated evidence of crackles, wheezing or rhonchi Abdomen: Remains soft without any distention or tenderness Extremities: Lower extremities do not reveal any significant pitting edema Imaging: CT head 05/19: No CT evidence for acute intracranial abnormality or significant change since 05/16/2021. MRI would be more sensitive to acute infarct if clinically i ndicated. MRI 05/19: No evidence of acute infarct. Assessment and plan: Left orbital erythema / warmth / tenderness - possibly 2/2 cellulitis, possibly 2/2 herpes zoster ophthalmicus - Patient notes that she is blind in her L eye since and cannot see anything from it - Her R eye is unaffected and she notes that she was told she has macular degeneration of that eye - Physical reveal surrounding erythema / warmth / tenderness, no drainage noted, few scab like lesions noted around scalp around dermatomal distribution - Hemodynamically stable / Low grade temperatures noted - but no fevers - No leukocytosis - CRP slightly elevated from 5 days ago - Will check MRI orbit / VZV serology and PCR / MRSA screen - Will start Ceftaroline and Acyclovir for now (Day #1) - Will likely consult ID on Monday for further assistance Small acute CVA with history of prior CVA - MRI from prior admission was consistent with possible infarct - c/w Atorvastatin / Eliquis / ASA 81 - Neurology on consultation; appreciate their input Deconditioning - c/w PT and OT as per ARU s/p Hypokalemia Atrial fibrillation - c/w rate control with atenolol - c/w full anticoagulation with Eliquis Hypertension - BP well controlled - c/w Atenolol / Lisinopril / Furosemide Chronic Diastolic CHF - No evidence of exacerbation - ECHO 05/15/2021 preserved systolic function, grade 1 diastolic dysfunction, aortic sclerosis, no significant stenosis or insufficiency, mild mitral and tricuspid insufficiency, normal CVP, borderline pulmonary hypertension - Will hold Furosemide at this time (re; active infection / will avoid dehydration) Depression / Anxiety - c/w Mirtazapine / Sertraline / Buspirone GERD - c/w Protonix DVT prophylaxis - c/w full anticoagulation with Eliquis Disposition: - As per ARU VS,Románe, I+O VS, Sherita, I+O Laboratory Tests 05/23/21 10:51 Vital Signs Date Time Temp Pulse Resp B/P (MAP) Pulse Ox O2 Delivery O2 Flow Rate FiO2 05/23/21 08:29 80 147/71 05/23/21 06:00 99.4 17 92 Room Air I&O- Last 24 Hours up to 6 AM 05/23/21 06:00 Intake Total 1290 ml Balance 1290 ml TARAN GARAY MD May 23, 2021 13:31
[2021-05-23] MEDS ORDERED: LORazepam 2 MG/ML VIAL IV ONE (13:55)
[2021-05-23] MEDS: ACYCLOVIR IV SCH ×2 (15:22→20:06)
[2021-05-23] MEDS: NS IV SCH ×2 (15:22→20:06)
--- NOTE | 2021-05-23 16:56 | REPVR ---
PROCEDURE INFORMATION: Exam: MR Orbit Without and With Contrast Exam date and time: 05/23/2021 3:32 PM Age: 89 years old Clinical indication: Other: L eye erythema / warmth / tenderness TECHNIQUE: Imaging protocol: MR Orbit was performed without and with contrast. Contrast material: PROHANCE; Contrast volume: 14 ml; Contrast route: INTRAVENOUS (IV); COMPARISON: CT ANGIO NECK 04/26/2021 9:47 AM FINDINGS: Limitations: Patient motion which degrades the images obscuring detail. Orbital cavity: On the post gadolinium sequences patient motion limits evaluation. No definite enhancing lesion is seen in the posterolateral aspect of the right globe. On the axial post gadolinium series 701 image 1 frame 41 a small linear hyperintensity is seen posterolateral right globe superior to this site of the questioned nodule on the prior study. A linear hyperintensity is seen inferior posterolateral aspect of the right globe on the T2 weighted series 301, image 1 frame 7 that does not correlate with position of the linear hyperintensity seen on the post gadolinium image in the slightly different shape. Paranasal sinuses: No air-fluid levels. Soft tissues: There appears to be left periorbital soft tissue swelling which is preseptal. There is no intra or extraconal abnormality. The optic nerves appear relatively symmetric although evaluation is somewhat limited due to motion. The extraocular muscles appear relatively symmetric. IMPRESSION: 1. There is left periorbital soft tissue swelling which is preseptal and may be due to cellulitis. No obvious abnormality is seen in the orbit including the globe, intra or extraconal space. 2. No enhancing lesion is seen in the posterior margin of the right globe. On both the present study as well as the [facility] 10/03/2020 MRI there is a curvilinear hyperintensity posterolateral aspect of the right globe series 301, image 1 frame 7 and on the prior study series 501, image 1 frame 6. This could potentially represent retinal detachment among other etiologies. No further abnormalities are detected in the right globe however small lesions could be missed due to patient motion. Electronically signed by: Sarah Alvarez On 05/23/2021 16:56:01 PM
[2021-05-23 20:00] VITALS: BP 156/75
[2021-05-23] MEDS: SERTRALINE HCL 25 MG TABLET PO SCH (20:07)
[2021-05-23] MEDS: MIRTAZAPINE 15 MG TAB PO SCH (20:07)
[2021-05-23] MEDS: ATORVASTATIN 20 MG TAB PO SCH (20:07)
[2021-05-24] MEDS: busPIRone 5 MG TAB PO SCH ×2 (05:17→18:09)
[2021-05-24] MEDS: ACYCLOVIR IV SCH ×2 (05:18→12:51)
[2021-05-24] MEDS: NS IV SCH ×2 (05:18→12:51)
[2021-05-24] MEDS: ACETAMINOPHEN 325 MG TAB PO PRN (05:42)
[2021-05-24 06:00] VITALS: BP 161/72
[2021-05-24] MEDS: APIXABAN 5 MG TAB (ELIQUIS) PO SCH ×2 (08:45→20:47)
[2021-05-24] MEDS: LORATADINE 10 MG TAB PO SCH (08:45)
[2021-05-24] MEDS: OMEPRAZOLE 20 MG CAP PO SCH (08:45)
[2021-05-24] MEDS: METAMUCIL (PSYLLIUM) PACKET PO SCH (08:45)
[2021-05-24] MEDS: ASPIRIN 81MG ENTERIC TABLET PO SCH (08:45)
[2021-05-24] MEDS: PANTOPRAZOLE 40MG TAB (PROTONIX) PO SCH (08:45)
[2021-05-24] MEDS: lisinopriL 5 MG TAB PO SCH (08:46)
[2021-05-24] MEDS: atenoloL 25 MG TAB PO SCH (08:46)
[2021-05-24] MEDS: CEFTAROLINE FOSAMIL 600 MG in D5W MINI-BAG PLUS 50 ML IV SCH (11:19)
[2021-05-24 11:46] LABS: HEMATOCRIT 35.3 % (36.0-47.0); HEMOGLOBIN 11.8 g/dl (12.0-15.5); MEAN CORPUSCULAR HGB CONC 33.4 g/dl (32.0-36.5); MEAN CORPUSCULAR VOLUME 98.6 fl (80.0-96.0); PLATELET COUNT, AUTOMATED 143 10^3/uL (150-450); RED BLOOD COUNT 3.58 10^6/uL (4.00-5.40); WHITE BLOOD COUNT 6.7 10^3/uL (4.0-10.0)
[2021-05-24 12:21] LABS: BLOOD UREA NITROGEN 13 MG/DL (7-18); C REACTIVE PROTEIN QUANTITATIV 1.66 MG/DL (0.00-0.30); CALCIUM LEVEL 8.6 MG/DL (8.8-10.2); CARBON DIOXIDE LEVEL 26 MEQ/L (21-32); CHLORIDE LEVEL 106 MEQ/L (98-107); CREATININE FOR GFR 0.64 MG/DL (0.55-1.30); GLOMERULAR FILTRATION RATE > 60.0 (>32); GLUCOSE, FASTING 97 MG/DL (70-100); MAGNESIUM LEVEL 2.3 MG/DL (1.8-2.4); POTASSIUM SERUM 4.2 MEQ/L (3.5-5.1); SODIUM LEVEL 137 MEQ/L (136-145)
--- NOTE | 2021-05-24 12:37 | IPNPDOC ---
Text Note Date of Service The patient was seen on 05/24/21. NOTE Subjective: Patient is an 89-year-old female with a PMHx of CVA (L frontal lacunar infarct 04/26/2021; R parietal lobe 06/2020 w/ L sided residual hemiparesis), A fib (on Eliquis), HTN, Orthostatic hypotension, Total L eye blindness, Anxiety / Depression who presented to the ER on 05/16 with AMS. Patient was admitted to hospital service for further evaluation and treatment. Patient was found to have an acute CVA and she was subsequently transitioned to acute rehabilitation unit on 05/18. Patient was seen and examined at the bedside. Patient has had improvement of her left eye redness, warmth, swelling and drainage. Denies any nausea, vomiting, a bdominal pain, diarrhea, or urinary discomfort. Patient reports that the vision in her right eye has been poor for at least 2 months. Patient follows with Dr. 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 She also notes that she is chronically blind in her left eye since . Objective: Vitals (See below) General: Patient sitting up in bed, appears to be comfortable without any acute distress. Awake / Alert, she is oriented to person, place and time HEENT: L facial erythema / warmth / swelling have improved relative to yesterday; R eye reactive to light CVS: +S1S2 Lungs: There appears to be fair air entry bilaterally without any evidence of crackles, wheezing or rhonchi Abdomen: Soft without any distention or tenderness Extremities: No evidence of lower extremity edema Imaging: CT head 05/19: No CT evidence for acute intracranial abnormality or significant change since 05/16/2021. MRI would be more sensitive to acute infarct if clinically indicated. MRI 05/19: No evidence of acute infarct. MRI orbit face neck w/o foll w 05/23: 1. There is left periorbital soft tissue swelling which is preseptal and may be due to cellulitis. No obvious abnormality is seen in the orbit including the globe, intra or extraconal space. 2. No enhancing lesion is seen in the posterior margin of the right globe. On both the present study as well as the [facility] 10/03/2020 MRI there is a curvilinear hyperintensity posterolateral aspect of the right globe series 301, image 1 frame 7 and on the prior study series 501, image 1 frame 6. This could potentially represent retinal detachment among other etiologies. No further abnormalities are detected in the right globe however small lesions could be missed due to patient motion. Assessment and plan: Left orbital erythema / warmth / tenderness - possibly 2/2 cellulitis, possibly 2/2 herpes zoster ophthalmicus - Patient reports that she is chronically blind in her left eye from - There has been improvement relative to yesterday; decreased edema and erythema; there are a few scabs noted around the area - Hemodynamically stable / Low grade temperatures noted - but no fevers - No leukocytosis - CRP improving - Blood cultures 05/23: Pending - MRSA negative / ASO not significantly elevated - VZV serology / PCR pending - Imaging noted above - c/w Ceftaroline and Acyclovir for now (Day #2) - Consulted ID today; appreciate their input Questionable retinal detachment on imaging - Patient reports that her vision has been blurry for the last 2 months - Patient denies any "curtain like" black outs of her vision - She follows with Dr. Charlene Abbott locally of Ophthalmology; was told she had advanced macular degeneration and was treated for a R eye cancer - Imaging findings noted above - I have called and discussed the case with Dr. Maldonado Hatch; Ophthalmology; we have reviewed the case, including looking at recent imaging; he notes that this appears like severe macular degeneration and not retinal detachment and to follow up as an outpatient - She will need to follow up with the Director Of Analytics, Dr. Charlene Abbott on discharge Small acute CVA with history of prior CVA - MRI from prior admission was consistent with possible infarct - c/w Atorvastatin / Eliquis / ASA 81 - Neurology on consultation; appreciate their input Deconditioning - c/w PT and OT as per ARU s/p Hypokalemia Atrial fibrillation - c/w rate control with atenolol - c/w full anticoagulation with Eliquis Hypertension - BP well controlled - c/w Atenolol / Lisinopril / Furosemide Chronic Diastolic CHF - No evidence of exacerbation - ECHO 05/15/2021 preserved systolic function, grade 1 diastolic dysfunction, aortic sclerosis, no significant stenosis or insufficiency, mild mitral and tricuspid insufficiency, normal CVP, borderline pulmonary hypertension - Will hold Furosemide at this time (re; active infection / will avoid dehydration) Depression / Anxiety - c/w Mirtazapine / Sertraline / Buspirone GERD - c/w Protonix DVT prophylaxis - c/w full anticoagulation with Eliquis Disposition: - As per Sherita CHING, I+O Sherita CARLOS, I+O Laboratory Tests 05/24/21 11:42 Vital Signs Date Time Temp Pulse Resp B/P (MAP) Pulse Ox O2 Delivery O2 Flow Rate FiO2 05/24/21 08:46 154/64 05/24/21 06:00 99.5 86 20 93 Room Air I&O- Last 24 Hours up to 6 AM 05/24/21 06:00 Intake Total 1529.6 ml Balance 1529.6 ml TARAN GARAY MD May 24, 2021 12:37
[2021-05-24 12:47] LABS: ATYPICAL LYMPH 4 % (0-5); EOSINOPHILS 6 % (0-3); LYMPHOCYTES 17 % (16-44); MONOCYTES 4 % (0-5); NEUTROPHILS 69 % (28-66); PLATELET ESTIMATE DECREASED (NORMAL)
[2021-05-24 14:00] VITALS: BP 156/72
--- NOTE | 2021-05-24 19:42 | CR.PDOC ---
General Date of Consultation: May 24, 2021 Referring Provider: TARAN GARAY MD Attending Physician: Peri Baker MD Consultation REASON FOR INFECTIOUS DISEASE CONSULTATION/CHIEF COMPLAINT: Possible left facial cellulitis HISTORY OF PRESENT ILLNESS: Ms. 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 Over the weekend, the patient's left eyelids became swollen to the point she cannot open her eye. The left eye is draining with tears. She describes a pressure felt on her eye due to the swelling. She denies any shooting pain, burning, or pruritus at this time, but she did have an episode of burning, sharp pain over her left eye last evening, 05/20, that resolved overnight with a cold compress. She also has a scab along her the left side of her nose, which the patient attributes to a possible scratch from the IV on the dorsum of her hand. She denies any open lesions or rashes, falls, or trauma to her face. Over the weekend, she started running a low grade fever that eventually spike to 100.5 on Monday evening. She was started on Acyclovir 740mg IV Q8H and Ceftaroline 600mg Q12H. Blood cultures were negative. Face/neck/orbit MRI showed left periorbital soft tissue swelling and potential right retinal detachment. She denies any fever, chills, SOB, chest pain, palpitations, dysphagia, cold sores, vomiting, or blood in the stool. ALLERGIES: Morphine ACTIVE MEDICATIONS: Acyclovir 740mg IV Q8H Ceftaroline 600mg IV Q12H Eliquis 5mg PO BID Aspirin 81mg PO daily Atenolol 25mg PO daily Atorvastatin 40mg PO QHS Furosemide 20mg PO Q3D, currently held Lisinopril 5mg PO daily Loratadine 10mg PO daily Mirtazapine 15mg PO QHS Pantoprazole 40 mg daily. 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 New onset Afib HTN HLD Osteoarthritis LE edema Anxiety Depression PAST SURGICAL HISTORY: Hysterectomy in 1983 Right knee replacement in 2007 Carpal tunnel bilateral hands in 2018 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 Did not receive shingles vaccine. REVIEW OF SYSTEMS: CONSTITUTIONAL: Recent decrease in appetite. Denies fever, chills, night sweats. HEENT: Closed left eyelid with edema and excessive tearing. Right eye loss of peripheral vision. Scab on left nasal ridge over the weekend from possible scratch from IV in dorsum of left hand. Denies pain, burning, or pruritus in both eyes. Denies dysphagia. CARDIOVASCULAR: Denies chest pain or palpations RESPIRATORY: Denies dyspnea, cough, hemoptysis or pleuritic pain GENITOURINARY: Denies changes in urination, dysuria, pyuria. MUSCULOSKELETAL: Chronic right knee pain. GASTROINTESTINAL: Recent nausea and watery diarrhea. Denies abdominal pain, vomiting, or blood in the stool. SKIN: Scab on left nasal ridge from over the weekend. PHYSICAL EXAMINATION: VITAL SIGNS: T 99.3, P 84, R 20, BP 156/72, Pulse Ox 93% on room air GENERAL APPEARANCE: Patient is afebrile, appearing younger than stated age, and in no acute distress. HEENT: Normocephalic. There are mildly erythematous papules on the edge of her left frontal hairline and into the left scalp; it does not pass the coronal or sagittal midline. There is dried and crusted clumps of vesicles on the left nasal ridge. The left eyelids are edematous and warm to the touch. There is excessive tearing. With active eye-opening, the conjunctiva is red. The left pupil is unable to be visualized. The face is nontender to palpation at this time. There is peripheral vision loss in the right eye but nontender and nonin jected. Right pupil is reactive to light. Mucus membranes are moist. RESPIRATORY: Clear to auscultation bilaterally. No wheezing, rales or rhonchi appreciated. CARDIOVASCULAR: Irregular rate and rhythm at time of exam. Heart sounds were distant. No murmurs, rubs, or gallops appreciated. ABDOMEN: Soft, nontender to palpation. Hypoactive bowel sounds. EXTREMITIES: Edematous bilateral LE. Radial pulses irregular. LYMPH: No cervical adenopathy. 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 LE strength 4/5. UE strength 4/5. LABORATORY DATA: WBC 6.7, RBC 3.58, Hgb 11.8, Hct 35.3, Plt count 143, ESR 26 Na 137, K 4.2, Cl 106, CO2 26, BUN 13, Cr 0.64, Ca 8.6, Mg 2.3, CRP 1.66 MRSA PCR Negative VZV Antibody and PCR Pending MICROBIOLOGY: 05/23/21 Blood cultures X2 - no growth after 24hours IMAGIN05/23/21 Face/neck/orbit MRI: "1. There is left periorbital soft tissue swelling which is preseptal and may be due to cellulitis. No obvious abnormality is seen in the orbit including the gl obe, intra or extraconal space. 2. No enhancing lesion is seen in the posterior margin of the right globe. On both the present study as well as the vital 10/03/2020 MRI there is a curvilinear hyperintensity posterolateral aspect of the right globe series 301, image 1 frame 7 and on the prior study series 501, image 1 frame 6. This could potentially represent retinal detachment among other etiologies. No further abnormalities are detected in the right globe however small lesions could be missed due to patient motion." IMPRESSION: #Herpes zoster ophthalmicus -The patient presents with V1 distribution of shingles. She reports having chicken pox as a child. She has not received the shingles vaccination yet. She presents with ptosis, excessive tearing, periorbital edema, injected conjuncti va, and photophobia. On palpation, there are mild papules along her forehead and in her scalp. The dried and crusted vesicles on the left nasal ridge is indicative of [place] sign on the nose. Complications can include conjunctivitis, episcleritis, keratitis, and iritis that can lead to blindness, but the patient already has congenital blindness in her left eye. Acyclovir and Ceftaroline were discontinued. Valtrex 1gm PO TID was started. Will monitor for potential nephrotoxicity and neurotoxicity. -There was concern for retinal detachment in the patient's right eye on imaging. Per hospitalist who spoke with ophthalmology, the patient most likely has severe macular degeneration. The patient has a history of macular degeneration and she follows with Dr. Charlene Abbott outpatient. PLAN: -Discontinue Acyclovir and Ceftaroline -Start Valtrex 1gm PO TID for 7-10 days Vital Signs/I&O Vital Signs Date Time Temp Pulse Resp B/P (MAP) Pulse Ox O2 Delivery O2 Flow Rate FiO2 05/24/21 14:00 99.3 84 20 156/72 (100) 93 05/24/21 06:00 Room Air I&O- Last 24 Hours up to 6 AM 05/24/21 06:00 Intake Total 1529.6 ml Balance 1529.6 ml Laboratory Data Labs 24H Laboratory Tests 2 05/24/21 11:42: Neutrophils (%) (Auto) , Nucleated Red Blood Cells % (auto) 0.0, Neutrophils 69H, Lymphocytes (Manual) 17, Monocytes (Manual) 4, Eosinophils (Manual) 6H, Atypical Lymphocytes 4, Platelet Estimate DECREASED, Anion Gap 5L, Glomerular Filtration Rate > 60.0, Calcium Level 8.6L, Magnesium Level 2.3, C-Reactive Protein, Quantitative 1.66H CBC/BMP Laboratory Tests 05/24/21 11:42 Microbiology Microbiology 05/23/21 Blood Culture - Preliminary, Resulted No growth after 24 hours . All specim... 05/23/21 Blood Culture - Preliminary, Resulted No growth after 24 hours . All specim... Allergies Coded Allergies: morphine (Verified Adverse Reaction, Mild, N/V, 09/29/20) Home Medications Scheduled Apixaban (Eliquis) 5 Mg Tablet, 5 MG PO BID, (Reported) 2nd @ 1700 Aspirin (Aspirin EC) 81 Mg Tablet.dr, 81 MG PO DAILY, (Reported) Atenolol (Atenolol) 25 Mg Tablet, 25 MG PO DAILY, (Reported) Atorvastatin Calcium (Atorvastatin Calcium) 40 Mg Tablet, 40 MG PO QHS, (Reported) Docusate Sodium (Colace) 100 Mg Capsule, 100 MG PO DAILY, (Reported) Furosemide (Furosemide) 20 Mg Tablet, 1 TAB PO Q3D for 30 Days, #10 Lisinopril (Lisinopril) 5 Mg Tablet, 5 MG PO DAILY for 30 Days, #30 Loratadine (Loratadine) 10 Mg Tablet, 10 MG PO DAILY, (Reported) Melatonin (Melatonin) 10 Mg Capsule, 10 MG PO QHS, (Reported) Mirtazapine (Remeron) 15 Mg Tablet, 15 MG PO QHS, (Reported) Pantoprazole Sodium (Pantoprazole Sodium) 40 Mg Tablet.dr, 40 MG PO DAILY, (Reported) Sennosides/Docusate Sodium (Senna Plus Tablet) 1 Each Tablet, 1 TAB PO DAILY, (Reported) Sertraline Hcl (Sertraline HCl) 25 Mg Tablet, 25 MG PO QHS, (Reported) Scheduled PRN Acetaminophen (Acetaminophen) 160 Mg/5 Ml Oral.susp, 20 ML PO BID PRN for PAIN LEVEL 1-4, (Reported) Buspirone HCl (Buspirone HCl) 5 Mg Tablet, 5 MG PO QID PRN for ANXIETY, (Reported) Clobetasol Propionate/Emoll (Clobetasol Emollient 0.05% Crm) 0.05% 15GM Cream..g., 1 APLCT TOP BID PRN for ITCHING, (Reported) WRIST Diclofenac Sodium (Voltaren Arthritis Pain) 1 % Gel..gram., 1 GM TP for PAIN LEVEL 1-4, (Reported) RIGHT KNEE Diphenhydramine HCl (Benadryl) 25 Mg Capsule, 25 MG PO BID PRN for ITCHING, (Reported) Polyvinyl Alcohol (Artificial Tears) 15 Ml Drops, 2 DROP OU QID PRN for DRY EYES, (Reported) Sodium Chloride (Saline Nasal [place]) 44 Ml [place], 1 SPRAY NARES QID PRN for NASAL DRYNESS, (Reported) 0800,1200,1600,2000 GME ATTESTATION GME ATTESTATION My faculty preceptor for this patient encounter was physically present during the encounter and was fully available. All aspects of the patient interview, examination, medical decision making process, and medical care plan development were reviewed and approved by the faculty preceptor. The faculty preceptor is aware and concurs with the plan as stated in the body of this note and will attest to such by his/her cosignature. MARTHA HODGE OMS-3 May 24, 2021 19:41
[2021-05-24 20:39] VITALS: BP 156/88
[2021-05-24] MEDS: SERTRALINE HCL 25 MG TABLET PO SCH (20:47)
[2021-05-24] MEDS: ATORVASTATIN 20 MG TAB PO SCH (20:47)
[2021-05-24] MEDS: MIRTAZAPINE 15 MG TAB PO SCH (20:47)
[2021-05-24] MEDS: valACYclovir HCL 500 MG TAB PO SCH (20:48)
[2021-05-25] MEDS: busPIRone 5 MG TAB PO SCH ×2 (05:30→17:46)
[2021-05-25] MEDS: valACYclovir HCL 500 MG TAB PO SCH ×3 (05:30→21:02)
[2021-05-25 06:12] VITALS: BP 156/70
[2021-05-25] MEDS: OMEPRAZOLE 20 MG CAP PO SCH (07:50)
[2021-05-25] MEDS: METAMUCIL (PSYLLIUM) PACKET PO SCH (07:50)
[2021-05-25] MEDS: PANTOPRAZOLE 40MG TAB (PROTONIX) PO SCH (07:50)
[2021-05-25] MEDS: ASPIRIN 81MG ENTERIC TABLET PO SCH (07:50)
[2021-05-25] MEDS: lisinopriL 5 MG TAB PO SCH (07:51)
[2021-05-25] MEDS: APIXABAN 5 MG TAB (ELIQUIS) PO SCH ×2 (07:51→21:02)
[2021-05-25] MEDS: atenoloL 25 MG TAB PO SCH (07:51)
[2021-05-25] MEDS: LORATADINE 10 MG TAB PO SCH (07:51)
--- NOTE | 2021-05-25 11:33 | IPNPDOC ---
PM&R Progress Note DATE OF SERVICE: May 25, 2021 Bagging Salvager Progress Note SUBJECTIVE: Patient seen in her room stating her left eye is overall feeling better, but she still has some discomfort. REVIEW OF SYSTEMS: The following is a completed review of systems and has been reviewed. Review of systems otherwise unremarkable. PAIN: Patient self reports no pain. EYES: declining vision right eye, blind on left. EARS, NOSE, & THROAT: No throat pain, or dysphagia, or rhinorrhea. CARDIOVASCULAR: Denies chest pain or palpitations. PULMONARY: Denies shortness of breath. GASTROINTESTINAL: denies diarrhea/constipation GENITOURINARY: .No new complaints MUSCULOSKELETAL: .Arthritic pain at times NEUROLOGICAL:.Visual challenges left sided weakness and tremor, worse when anxious HEMATOLOGICAL: .negative SKIN: denies rash PSYCHIATRIC: Increasing anxiety related to deteriorating visual compromise All other review of systems found to be negative. ALLERGIES: See Below MEDICATIONS: Reviewed, see below. OBJECTIVE: VITAL SIGNS: Please see below. GENERAL: Pleasant and cooperative. mild distress. Alert and anxious but able to participate. HEENT: left facial droop and sunken eye, decreased Extraocular movement on the left. +periorbital erythema CARDIOVASCULAR: S1 S2 I. SM occasional extra beats. LUNGS: Clear to auscultation bilaterally. No wheezes. No rhonchi. ABDOMEN: Soft, nontender, nondistended. Positive normal active bowel sounds, no organomegaly. NEUROLOGICAL: Alert and oriented times three. Cranial nerves II through XII grossly intact EXTREMITIES: 4+ /5 right 4/5 left battery inspector, elbow flexion, elbow extension, knee extension, foot dorsiflexion, plantar flexion. ASSESSMENT AND PLAN: DIAGNOSES: ADMITTING DIAGNOSES: Metabolic encephalopathy. Severe visual impairment. 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 New Onset A. fib. Hypertension. Hyperlipidemia. Anxiety. Depression. Paresthesias ASSESSMENT: This is an 89 yo lady who had been doing well in assisted living despite a history of prior CVA's with chronic L hemiparesis, who had previously been on ARU for rehab of R CVA and Left mitchel. She was admitted on 04/26 for a CVA w/ AMS found to have a small L frontal lacunar infarct, and newly noted Afib , was switched from ASA/plavix to ASA/eliquis who returned to the ED from [facility] with acute AMS with possible CVA. 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 She had some transient right facial weakness. In the ED, she was hypertensive, in Afib with a normal ventricular rate and breathing comfortably on room air. She did not complain of any pain, headache, nausea, emesis, vision changes outside of her status quo minimal vision, chest pain, palpitations, SOB. She complained of her feet/toes feeling numb and was quite anxious. PLAN: 1. Rehab- PT/OT advance gait and ADls, strengthen/stretch/maintain ROM all 4 limbs. Working on compensatory strategies to allay anxiety, bridge visual impairment/sensory integration issues. 2. Neuro- altered mental status, most likely related to metabolic encephalopathy aggravated by sensory integration challenges from visual impairment. Well mon itor closely for recurrent TIA or further CVAs. Interim re-imaging negative. Emphasize therapeutic interventions for compensatory strategies for visual impairment, will engage SL for creative augmented communication interventions, visual magnification devices or programs that may be helpful for reading and other activities. resuming sertraline, may need to DC remeron to reduce polypharmacy and continue to adjust where possible. Given varied and fluctuating visual/neurological symptoms, no evidence acute CVA, additional dx including MS, uveiitis might be considered. We look forward to Neurology input regarding this. Opthalmology consult is indicated, possibly steroids or steroid drops might also help. Call out to longstanding director enterprise sales, Dr. Abbott/group [phone], awaiting response on remote chance stem cell therapy may be a consideration. [facility] low vision support services [phone] contacted and left message for Luba to connect her with that community and possible supportive services. 3. Ortho- no specific musculoskeletal complaints at this time. Well proceed with usual strengthening and joint protective maneuvers 4. Cardiac- history of recent onset A. fib, CHF, currently stable on atenolol, Eliquis, Lasix -HTN -stable, expected fluctuations as she adjusts and in dealing with anxiety -HLD- statin -DVT PPX Eliquis 5. Resp -incentive spirometry, monitor for infection 6. -usual bladder protocol 7. ID: infectious disease following left mahamed-orbital lesions thought to be due to Herpes Zoster with +IgM, cont valtrex, on Ceftarolene as well, ID recs gavin reciated 8. Dispo- plan to return to [facility] 05/28/21 Allergies Coded Allergies: morphine (Verified Adverse Reaction, Mild, N/V, 09/29/20) Vital Signs Vital Signs Date Time Temp Pulse Resp B/P (MAP) Pulse Ox O2 Delivery O2 Flow Rate FiO2 05/25/21 07:51 143/71 05/25/21 06:12 97.3 79 18 94 Room Air Laboratory Data CBC/BMP Laboratory Tests 05/24/21 11:42 Labs 24H Laboratory Tests 2 05/24/21 11:42: Neutrophils (%) (Auto) , Nucleated Red Blood Cells % (auto) 0.0, Neutrophils 69H, Lymphocytes (Manual) 17, Monocytes (Manual) 4, Eosinophils (Manual) 6H, Atypical Lymphocytes 4, Platelet Estimate DECREASED, Anion Gap 5L, Glomerular Filtration Rate > 60.0, Calcium Level 8.6L, Magnesium Level 2.3, C-Reactive Protein, Quantitative 1.66H Microbiology Microbiology 05/23/21 Blood Culture - Preliminary, Resulted No Growth after 48 hours. All Specime... 05/23/21 Blood Culture - Preliminary, Resulted No Growth after 48 hours. All Specime... Current Medications Current Medications Current Medications Medications (Trade) Dose Ordered Sig/Gayathri Route PRN Reason Start Time Stop Time Status Last Admin Dose Admin Acetaminophen (Tylenol Tab) 325 mg Q8HP PRN PO MILD PAIN (PS 1-4) 05/18/21 18:15 05/24/21 05:42 Acetaminophen (Tylenol Tab) 650 mg Q4HP PRN PO MILD PAIN (PS 1-4) 05/18/21 15:35 05/18/21 18:34 DC Acyclovir 740 mg/ Sodium Chloride 264.8 ml @ 264.8 mls/ hr Q8H IV 05/23/21 13:00 05/24/21 17:36 DC 05/24/21 12:51 Apixaban (Eliquis) 5 mg BID PO 05/18/21 21:00 05/25/21 07:51 Artificial Tears (Akwa Tears) 2 drop QIDP PRN OU DRY EYES 05/18/21 18:15 05/23/21 08:29 Aspirin (Ecotrin) 81 mg DAILY PO 05/19/21 09:00 05/25/21 07:50 Atenolol (Tenormin) 25 mg DAILY PO 05/19/21 09:00 05/25/21 07:51 Atorvastatin Calcium (Lipitor) 40 mg QHS PO 05/18/21 21:00 05/24/21 20:47 Buspirone HCl (Buspar) 5 mg BID PRN PO ANXIETY 05/18/21 18:15 05/20/21 09:19 DC 05/20/21 08:19 Buspirone HCl (Buspar) 10 mg BID PO 05/20/21 09:00 05/20/21 10:02 DC Buspirone HCl (Buspar) 10 mg BID@0600,1800 PO 05/20/21 10:02 05/25/21 05:30 Ceftaroline Fosamil 600 mg/ Dextrose 50 ml @ 50 mls/hr Q12H IV 05/23/21 12:00 05/24/21 17:37 DC 05/24/21 11:19 Clobetasol Propionate (Temovate Emollient 0.05%) APPLY TO AFFECTED AREA(s... BIDP PRN TOP ITCHING 05/18/21 18:15 Diclofenac Epolamine (Flector 1.3%) 1 patch Q12HP PRN TOP PAIN 05/18/21 18:15 Diphenhydramine HCl (Benadryl) 25 mg DAILYPRN PRN PO ITCHING 05/18/21 18:15 05/22/21 21:21 Docusate Sodium (Colace) 100 mg BID PO 05/18/21 21:00 Cancel Furosemide (Lasix) 20 mg Q3D PO 05/19/21 09:00 Hold 05/22/21 09:24 Home Med (Home Med List Complete!) ASDIRECTED XX 05/18/21 18:25 05/18/21 18:26 DC Lisinopril (Prinivil) 5 mg DAILY PO 05/19/21 09:00 05/25/21 07:51 Loratadine (Claritin) 10 mg DAILY PO 05/19/21 09:00 05/25/21 07:51 Mirtazapine (Remeron) 15 mg QHS PO 05/18/21 21:00 05/24/21 20:47 Omeprazole (PriLOSEC) 20 mg DAILY PO 05/19/21 09:00 05/25/21 07:50 Pantoprazole Sodium (Protonix) 40 mg DAILY PO 05/19/21 09:00 05/25/21 07:50 Paroxetine HCl (PAXil) 5 mg QHS PO 05/20/21 21:00 05/20/21 11:51 DC Psyllium Hydrophilic Mucilloid (Metamucil) 1 pkt DAILY PO 05/19/21 09:00 05/25/21 07:50 Sertraline HCl (Zoloft) 12.5 mg DAILY PO 05/20/21 09:00 05/20/21 11:52 DC Sertraline HCl (Zoloft) 12.5 mg QHS PO 05/20/21 11:52 05/20/21 11:53 DC Sertraline HCl (Zoloft) 25 mg QHS PO 05/18/21 21:00 05/24/21 20:47 Sodium Chloride (Banner Nasal [place]) 1 spray QIDP PRN NA NASAL DRYNESS 05/18/21 18:15 Valacyclovir HCl (Valtrex) 1,000 mg Q8H PO 05/24/21 22:00 05/25/21 05:30 PAT RAMIREZ MD May 25, 2021 11:33
--- NOTE | 2021-05-25 12:22 | IPNPDOC ---
Text Note Date of Service The patient was seen on 05/25/21. NOTE Subjective: Patient is an 89-year-old female with past medical history of CVA (left frontal lacunar infarct 04/26/1991; right parietal lobe 06/2020 with left- sided residual hemiparesis), atrial fibrillation on Eliquis, hypertension, orthostatic hypotension, total left eye blindness, anxiety/depression who presented to the emergency department 1031 with altered mental status. Patient was admitted to hospice service for further evaluation. Patient found to have acute CVA and subsequently transition to acute rehab. Patient reports that the vision in her right eye has been getting worse over the past few months and recently saw her electrical tests supervisor in December 2020. Patient has a history of advanced macular degeneration according to ophthalmology and is legally blind in both eyes as of the last visit in December 2020. Patient says that her left eye is feeling better and that she is able to open it slightly more than she was over the last few days. Speak with nursing, they say that the eye does appear improved from yesterday. Patient denies any other complaints at this time. Review of systems: General: Patient denies fevers HEENT: Patient denies headaches Cardiovascular: Patient denies chest pain Respiratory: Patient denies shortness of breath, cough GI: Patient denies abdominal pain, nausea, vomiting, diarrhea : Patient denies increased frequency or pain with urination Extremities: Patient denies swelling or pain in extremities Neurological: Patient denies numbness or tingling in legs Physical exam: Vitals: See below General: Alert and oriented female patient who was sitting up in bed when I walked in. Patient did not appear to be in any acute distress. HEENT: Normocephalic, atraumatic, moist mucous membranes, left eye erythema with blisters present over the left forehead, right eye reactive to light Neck: No lymphadenopathy or thyromegaly Cardiac: Regular rate and rhythm, no murmurs, normal S1, normal S2 Pulm: Clear to auscultation bilaterally. No wheezes, rhonchi, rales Abd: Nondistended, nontender to palpation, normal bowel sounds Ext: No edema bilateral lower extremities Labs: See below Imaging: No new imaging is been performed Assessment/plan: 89-year-old female who presented to the hospital for acute CVA who was transitioned to ARU 1. Left orbital erythema most likely secondary to herpes zoster ophthalmicus. Infectious disease saw the patient and I appreciate their help treating the patient. Patient will be on valacyclovir. Ceftaroline and acyclovir have been discontinued by infectious disease. We will continue to monitor and patient's eye does appear better. 2. Questionable retinal detachment on imaging. Patient denies any curtainlike blackouts of her vision. Patient states that she had been having difficulty seeing for at least 2 months however, in speaking with her electrical tests supervisor Dr. Charlene Abbott who saw the patient in December 2020 he states that patient has severe macular degeneration in both eyes and unfortunately there is not any treatment that can be done to reverse this and the patient is legally blind as of that visit. 3. Small acute CVA with history of prior CVA. MRI from prior admission consistent with possible infarct. Continue atorvastatin/Eliquis/aspirin. 4. Deconditioning. Continue physical and occupational therapy per ARU. 5. Hypokalemia, resolved. 6. Atrial fibrillation continue with rate control with atenolol and anticoagulation with Eliquis. 7. Hypertension. BP well controlled. Continue with atenolol, lisinopril, furosemide. 8. Chronic heart failure with preserved ejection fraction. As the patient's infection improves, patient can be restarted on furosemide. 9. Depression/anxiety. Continue with mirtazapine, sertraline, buspirone. 10. GERD. Continue with Protonix DVT Prophylaxis: Eliquis Disposition: Per ARU VS,Sherita, I+O VS, Románe, I+O Vital Signs Date Time Temp Pulse Resp B/P (MAP) Pulse Ox O2 Delivery O2 Flow Rate FiO2 05/25/21 07:51 143/71 05/25/21 06:12 97.3 79 18 94 Room Air I&O- Last 24 Hours up to 6 AM 05/25/21 06:00 Intake Total 2119.6 ml Balance 2119.6 ml SHARON GARCIA DO May 25, 2021 12:22
[2021-05-25 14:00] VITALS: BP 168/73
[2021-05-25] MEDS: ACETAMINOPHEN 325 MG TAB PO PRN ×2 (14:31→21:02)
--- NOTE | 2021-05-25 19:41 | IPN ---
INFECTIOUS DISEASE PROGRESS NOTE DATE: 05/25/2021 SUBJECTIVE: Yodit seems to be doing better. She is able to open her eye. She denies any fever or chills. No nausea, vomiting or diarrhea. She states she has a little bit more pain today in the left eye. She has a history of advanced ocular degeneration and since her stroke about a month ago, she states her vision in her right eye has deteriorated. She has a history of blindness, congenital, of her left eye. PHYSICAL EXAMINATION: HEART: Normal. S1, S2. No murmurs, rubs or gallops. LUNGS: Clear. No wheezes, rales or rhonchi.. ABDOMEN: Soft, nontender. No hepatosplenomegaly. EXTREMITIES: No edema. HEENT: Left side of the forehead with scabs along the medial aspect of her nose on the left side, a few scattered on her cheek, on her forehead with largely erythema around the scabs. No evidence of cellulitis. VITAL SIGNS: Temperature 99.7, pulse 75, respirations 17, blood pressure 168/73, oxygen saturation 93% on room air. LABORATORY DATA: White count 6.7, hemoglobin 11.8, hematocrit 35.3, platelets 143, 69% neutrophils, 17% lymphocytes, 4% monocytes, eosinophils 6%. Erythrocyte sedimentation rate (ESR) 26. Sodium 137, potassium 4.2, chloride 106, bicarbonate 26, BUN 13, creatinine 0.64, glucose 97, calcium 8.6, magnesium 2.3. C-reactive protein (CRP) 1.66 down from 1.9. Procalcitonin 1.23. IMPRESSION: 1. Herpes zoster in V1 distribution. Currently on Valtrex 1 gram by mouth every 8 hours. There is no evidence of superimposed bacterial infection. She is afebrile and does not have significant pain. 2. 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 3. History of transient ischemic attack (TIA) on Eliquis 5 mg by mouth twice a day. Patient is expected to be going home later this Monday. PLAN: Continue Valtrex for a total of 7 days. If pain worsens, consider using gabapentin at night. End of therapy will be May 31, 2021 for Valtrex.
[2021-05-25 20:00] VITALS: BP 148/67
[2021-05-25] MEDS: MIRTAZAPINE 15 MG TAB PO SCH (21:02)
[2021-05-25] MEDS: ATORVASTATIN 20 MG TAB PO SCH (21:02)
[2021-05-25] MEDS: SERTRALINE HCL 25 MG TABLET PO SCH (21:03)
[2021-05-25] MEDS: POLYVINYL ALCOHOL OPHTH SOLN 15 ML(LIQUITEARS) OU PRN (21:03)
[2021-05-26] MEDS: valACYclovir HCL 500 MG TAB PO SCH ×3 (05:34→21:34)
[2021-05-26] MEDS: busPIRone 5 MG TAB PO SCH ×2 (05:35→17:10)
[2021-05-26 06:00] VITALS: BP 138/86
[2021-05-26] MEDS: atenoloL 25 MG TAB PO SCH (07:17)
[2021-05-26] MEDS: METAMUCIL (PSYLLIUM) PACKET PO SCH (07:17)
[2021-05-26] MEDS: lisinopriL 5 MG TAB PO SCH (07:18)
[2021-05-26] MEDS: APIXABAN 5 MG TAB (ELIQUIS) PO SCH ×2 (07:18→21:30)
[2021-05-26] MEDS: OMEPRAZOLE 20 MG CAP PO SCH (07:18)
[2021-05-26] MEDS: PANTOPRAZOLE 40MG TAB (PROTONIX) PO SCH (07:18)
[2021-05-26] MEDS: LORATADINE 10 MG TAB PO SCH (07:18)
[2021-05-26] MEDS: ASPIRIN 81MG ENTERIC TABLET PO SCH (07:18)
[2021-05-26 08:00] VITALS: BP 133/86
[2021-05-26] MEDS: ACETAMINOPHEN 325 MG TAB PO PRN ×2 (08:00→17:10)
[2021-05-26 11:27] LABS: BASO % 0.5 % (0.0-1.0); EOS # 0.2 10^3/uL (0.0-0.5); EOS % 2.6 % (0.0-3.0); HEMATOCRIT 34.9 % (36.0-47.0); HEMOGLOBIN 12.1 g/dl (12.0-15.5); LYMPH % 25.4 % (24.0-44.0); MEAN CORPUSCULAR HEMOGLOBIN 33.5 pg (27.0-33.0); MEAN CORPUSCULAR HGB CONC 34.7 g/dl (32.0-36.5); MEAN CORPUSCULAR VOLUME 96.7 fl (80.0-96.0); MONO # 0.6 10^3/uL (0.0-0.8); MONO % 7.9 % (2.0-8.0); NEUTROPHILS # 4.9 10^3/uL (1.5-8.5); NEUTROPHILS % 63.2 % (36.0-66.0); PLATELET COUNT, AUTOMATED 229 10^3/uL (150-450); RED BLOOD COUNT 3.61 10^6/uL (4.00-5.40); WHITE BLOOD COUNT 7.8 10^3/uL (4.0-10.0)
[2021-05-26 11:47] LABS: BLOOD UREA NITROGEN 13 MG/DL (7-18); CALCIUM LEVEL 9.4 MG/DL (8.8-10.2); CARBON DIOXIDE LEVEL 27 MEQ/L (21-32); CHLORIDE LEVEL 104 MEQ/L (98-107); CREATININE FOR GFR 0.69 MG/DL (0.55-1.30); GLOMERULAR FILTRATION RATE > 60.0 (>32); GLUCOSE, FASTING 138 MG/DL (70-100); POTASSIUM SERUM 4.5 MEQ/L (3.5-5.1); SODIUM LEVEL 137 MEQ/L (136-145)
[2021-05-26 14:00] VITALS: BP 134/78
[2021-05-26 20:00] VITALS: BP 150/71
[2021-05-26] MEDS: ATORVASTATIN 20 MG TAB PO SCH (21:30)
[2021-05-26] MEDS: SERTRALINE HCL 25 MG TABLET PO SCH (21:30)
[2021-05-26] MEDS: diphenhydrAMINE 25MG CAP PO PRN (21:30)
[2021-05-26] MEDS: MIRTAZAPINE 15 MG TAB PO SCH (21:30)
[2021-05-27] MEDS: busPIRone 5 MG TAB PO SCH ×2 (05:25→17:14)
[2021-05-27] MEDS: valACYclovir HCL 500 MG TAB PO SCH ×3 (05:25→21:02)
[2021-05-27 06:00] VITALS: BP 145/84
[2021-05-27] MEDS: METAMUCIL (PSYLLIUM) PACKET PO SCH (09:00)
[2021-05-27] MEDS: ACETAMINOPHEN 325 MG TAB PO PRN ×2 (09:00→21:02)
[2021-05-27] MEDS: PANTOPRAZOLE 40MG TAB (PROTONIX) PO SCH (09:00)
[2021-05-27] MEDS: OMEPRAZOLE 20 MG CAP PO SCH (09:00)
[2021-05-27] MEDS: ASPIRIN 81MG ENTERIC TABLET PO SCH (09:00)
[2021-05-27] MEDS: lisinopriL 5 MG TAB PO SCH (09:00)
[2021-05-27] MEDS: atenoloL 25 MG TAB PO SCH (09:01)
[2021-05-27] MEDS: LORATADINE 10 MG TAB PO SCH (09:01)
[2021-05-27] MEDS: APIXABAN 5 MG TAB (ELIQUIS) PO SCH ×2 (09:01→21:01)
[2021-05-27] MEDS: POLYVINYL ALCOHOL OPHTH SOLN 15 ML(LIQUITEARS) OU PRN (09:01)
[2021-05-27 11:08] LABS: HERPES ZOSTER, VARICELLA IgG 2963 index (Immune >165); HERPES ZOSTER, VARICELLA IgM 1.31 index (0.00-0.90); VARICELLA ZOSTER VIRUS PCR Negative (Negative)
[2021-05-27 14:00] VITALS: BP 142/74
[2021-05-27] MEDS: NYSTATIN 500,000 U/5 ML SUSP UDC SS SCH (18:00)
[2021-05-27 20:00] VITALS: BP 132/82
--- NOTE | 2021-05-27 20:12 | IPN ---
PROGRESS NOTE DATE: 05/27/2021 SUBJECTIVE: Mrs. Shannon seems to be doing well. She only complains of some pain in her mouth when she is chewing on the right side and difficulty opening her mouth. She has an upper denture. Her eye has markedly improved. The swelling of the forehead has diminished. PHYSICAL EXAMINATION: VITAL SIGNS: Temperature 98.7, pulse 73, respirations 17, blood pressure 142/74, O2 sat 95% on room air. HEART: Normal S1, S2. No murmurs. LUNGS: Clear. No wheezing, rales or rhonchi. ABDOMEN: Soft, nontender. EXTREMITIES: No edema. HEENT: Dry scabs on the left side of the forehead and left side of nose medially. Oropharynx has some thrush in the right upper corner of the mouth under her denture and she has some ulcerations on her tongue. LABORATORY DATA: White count 7.8, hemoglobin 12.1, hematocrit 34.9, platelets 229,000. Sodium 137, potassium 4.5, chloride 104, bicarb 27, BUN 13, creatinine 0.79, glucose 138. Calcium 9.4. CRP 1.66. VZV IGG 2,963, IGM 1.31. VZV DNA PCR was negative. ASO titer was negative. IMPRESSION: 1. Herpes Zoster in trigeminal V1 distribution: Doing much better on Valtrex 1 gram p.o. t.i.d. Patient to finish a seven day course treatment with end of treatment on May 30. Patient has asked for Vaseline to apply on the lesions for dryness and this was ordered. 2. Oral thrush: Nystatin swish and swallow for 7 to 10 days. Patient was advised to remove her dentures. PLAN: Infectious disease signing off. Patient is going back to [facility] tomorrow.
[2021-05-27] MEDS: ATORVASTATIN 20 MG TAB PO SCH (21:01)
[2021-05-27] MEDS: MIRTAZAPINE 15 MG TAB PO SCH (21:01)
[2021-05-27] MEDS: diphenhydrAMINE 25MG CAP PO PRN (21:02)
[2021-05-27] MEDS: SERTRALINE HCL 25 MG TABLET PO SCH (21:02)
[2021-05-28] MEDS: NYSTATIN 500,000 U/5 ML SUSP UDC SS SCH ×3 (00:30→05:34)
[2021-05-28] MEDS: valACYclovir HCL 500 MG TAB PO SCH (05:29)
[2021-05-28] MEDS: busPIRone 5 MG TAB PO SCH (05:29)
[2021-05-28 06:00] VITALS: BP 115/84
[2021-05-28] MEDS: LORATADINE 10 MG TAB PO SCH (08:43)
[2021-05-28] MEDS: APIXABAN 5 MG TAB (ELIQUIS) PO SCH (08:43)
[2021-05-28] MEDS: PANTOPRAZOLE 40MG TAB (PROTONIX) PO SCH (08:43)
[2021-05-28] MEDS: METAMUCIL (PSYLLIUM) PACKET PO SCH (08:43)
[2021-05-28] MEDS: OMEPRAZOLE 20 MG CAP PO SCH (08:43)
[2021-05-28] MEDS: lisinopriL 5 MG TAB PO SCH (08:43)
[2021-05-28 08:44] VITALS: BP 128/80
[2021-05-28] MEDS: atenoloL 25 MG TAB PO SCH (08:44)
[2021-05-28] MEDS: ASPIRIN 81MG ENTERIC TABLET PO SCH (08:44)
[2021-05-28] MEDS ORDERED: MIRT-62 PO (09:45)
[2021-05-28] MEDS ORDERED: ASPI81TA27 PO (09:45)
[2021-05-28] MEDS ORDERED: SERT25TA85 PO (09:45)
[2021-05-28] MEDS ORDERED: ATOR40TA75 PO (09:45)
[2021-05-28] MEDS ORDERED: VALA500T5 PO (09:45)
[2021-05-28] MEDS ORDERED: PANT-23 PO (09:45)
[2021-05-28] MEDS ORDERED: BUSP5TA PO (09:45)
[2021-05-28] MEDS ORDERED: ELIQ5TAB PO (09:45)
[2021-05-28] MEDS ORDERED: LORA-930 PO (09:45)
[2021-05-28] MEDS ORDERED: ATEN25TA PO (09:45)
[2021-05-28] MEDS ORDERED: FURO20TA2 PO (09:45)
[2021-05-28] MEDS ORDERED: LISI-898 PO (09:45)
--- NOTE | 2021-05-28 10:02 | IPNPDOC ---
PM&R Progress Note DATE OF SERVICE: May 26, 2021 Javascript Programmer Progress Note SUBJECTIVE: Patient seen in her room stating she has become increasingly anxious over the years and is having a terrible time coping with her worsening vision loss. She is open to outpatient therapy to help her manage her stress. REVIEW OF SYSTEMS: The following is a completed review of systems and has been reviewed. Review of systems otherwise unremarkable. PAIN: Patient self reports no pain. EYES: declining vision right eye, blind on left. EARS, NOSE, & THROAT: No throat pain, or dysphagia, or rhinorrhea. CARDIOVASCULAR: Denies chest pain or palpitations. PULMONARY: Denies shortness of breath. GASTROINTESTINAL: denies diarrhea/constipation GENITOURINARY: .No new complaints MUSCULOSKELETAL: .Arthritic pain at times NEUROLOGICAL:.Visual challenges left sided weakness and tremor, worse when anxious HEMATOLOGICAL: .negative SKIN: denies rash PSYCHIATRIC: Increasing anxiety related to deteriorating visual compromise All other review of systems found to be negative. ALLERGIES: See Below MEDICATIONS: Reviewed, see below. OBJECTIVE: VITAL SIGNS: Please see below. GENERAL: Pleasant and cooperative. mild distress. Alert and anxious but able to participate. HEENT: left facial droop and sunken eye, decreased Extraocular movement on the left. +periorbital erythema CARDIOVASCULAR: S1 S2 I. SM occasional extra beats. LUNGS: Clear to auscultation bilaterally. No wheezes. No rhonchi. ABDOMEN: Soft, nontender, nondistended. Positive normal active bowel sounds, no organomegaly. NEUROLOGICAL: Alert and oriented times three. Cranial nerves II through XII grossly intact EXTREMITIES: 4+ /5 right 4/5 left irrigationist, elbow flexion, elbow extension, knee extension, foot dorsiflexion, plantar flexion. ASSESSMENT AND PLAN: DIAGNOSES: ADMITTING DIAGNOSES: Metabolic encephalopathy. Severe visual impairment. 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 New Onset A. fib. Hypertension. Hyperlipidemia. Anxiety. Depression. Paresthesias ASSESSMENT: This is an 89 yo lady who had been doing well in assisted living despite a history of prior CVA's with chronic L hemiparesis, who had previously been on [facility] for rehab of R CVA and Left mitchel. She was admitted on 04/26 for a CVA w/ AMS found to have a small L frontal lacunar infarct, and newly noted Afib , was switched from ASA/plavix to ASA/eliquis who returned to the ED from [facility] with acute AMS with possible CVA. 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 She had some transient right facial weakness. In the ED, she was hypertensive, in Afib with a normal ventricular rate and breathing comfortably on room air. She did not complain of any pain, headache, nausea, emesis, vision changes outside of her status quo minimal vision, chest pain, palpitations, SOB. She complained of her feet/toes feeling numb and was quite anxious. PLAN: 1. Rehab- PT/OT advance gait and ADls, strengthen/stretch/maintain ROM all 4 limbs. Working on compensatory strategies to allay anxiety, bridge visual impairment/sensory integration issues. 2. Neuro- altered mental status, most likely related to metabolic encephalopathy aggravated by sensory integration challenges from visual impairment. Well monitor closely for recurrent TIA or further CVAs. Interim re-imaging negative. Emphasize therapeutic interventions for compensatory strategies for visual impairment, will engage SL for creative augmented communication interventions, visual magnification devices or programs that may be helpful for reading and other activities. resuming sertraline, may need to DC remeron to reduce polypharmacy and continue to adjust where possible. Given varied and fluctuating visual/neurological symptoms, no evidence acute CVA, additional dx including MS, uveiitis might be considered. We look forward to Neurology input regarding this. Opthalmology consult is indicated, possibly steroids or steroid drops might also help. Call out to longstanding social services manager, Dr. Abbott/group [phone], awaiting response on remote chance stem cell therapy may be a consideration. [facility] low vision support services [phone] contacted and left message for Luba to connect her with that community and possible supportive services. 3. Ortho- no specific musculoskeletal complaints at this time. Well proceed with usual strengthening and joint protective maneuvers 4. Cardiac- history of recent onset A. fib, CHF, currently stable on atenolol, Eliquis, Lasix -HTN -stable, expected fluctuations as she adjusts and in dealing with anxiety -HLD- statin -DVT PPX Eliquis 5. Resp -incentive spirometry, monitor for infection 6. -usual bladder protocol 7. ID: infectious disease following left mahamed-orbital lesions thought to be due to Herpes Zoster with +IgM, cont valtrex, Ceftarolene d/c'd - ID recs appreciated 8. Psych- per daughter's request and wih the patient's agreement, will lower dosing of Buspar as this may contributing to patient's fatigue and grogginess, jenise slo refer to outpatient psychology for CBD vs DBT 8. Dispo- plan to return to [facility] 05/28/21 Allergies Coded Allergies: morphine (Verified Adverse Reaction, Mild, N/V, 09/29/20) Vital Signs Vital Signs Date Time Temp Pulse Resp B/P (MAP) Pulse Ox O2 Delivery O2 Flow Rate FiO2 05/28/21 08:44 97 128/80 05/28/21 07:35 18 Room Air 05/28/21 06:00 97.7 91 Microbiology Microbiology 05/23/21 Blood Culture - Preliminary, Resulted No Growth after 72 hours. All specime... 05/23/21 Blood Culture - Preliminary, Resulted No Growth after 72 hours. All specime... Current Medications Current Medications Current Medications Medications (Trade) Dose Ordered Sig/Gayathri Route PRN Reason Start Time Stop Time Status Last Admin Dose Admin Acetaminophen (Tylenol Tab) 325 mg Q8HP PRN PO MILD PAIN (PS 1-4) 05/18/21 18:15 05/27/21 21:02 Acetaminophen (Tylenol Tab) 650 mg Q4HP PRN PO MILD PAIN (PS 1-4) 05/18/21 15:35 05/18/21 18:34 DC Acyclovir 740 mg/ Sodium Chloride 264.8 ml @ 264.8 mls/ hr Q8H IV 05/23/21 13:00 05/24/21 17:36 DC 05/24/21 12:51 Apixaban (Eliquis) 5 mg BID PO 05/18/21 21:00 05/28/21 08:43 Artificial Tears (Akwa Tears) 2 drop QIDP PRN OU DRY EYES 05/18/21 18:15 05/27/21 09:01 Aspirin (Ecotrin) 81 mg DAILY PO 05/19/21 09:00 05/28/21 08:44 Atenolol (Tenormin) 25 mg DAILY PO 05/19/21 09:00 05/28/21 08:44 Atorvastatin Calcium (Lipitor) 40 mg QHS PO 05/18/21 21:00 05/27/21 21:01 Buspirone HCl (Buspar) 5 mg BID PRN PO ANXIETY 05/18/21 18:15 05/20/21 09:19 DC 05/20/21 08:19 Buspirone HCl (Buspar) 5 mg BID@0600,1800 PO 05/26/21 18:00 05/28/21 05:29 Buspirone HCl (Buspar) 10 mg BID PO 05/20/21 09:00 05/20/21 10:02 DC Buspirone HCl (Buspar) 10 mg BID@0600,1800 PO 05/20/21 10:02 05/26/21 10:56 DC 05/26/21 05:35 Ceftaroline Fosamil 600 mg/ Dextrose 50 ml @ 50 mls/hr Q12H IV 05/23/21 12:00 05/24/21 17:37 DC 05/24/21 11:19 Clobetasol Propionate (Temovate Emollient 0.05%) APPLY TO AFFECTED AREA(s... BIDP PRN TOP ITCHING 05/18/21 18:15 Diclofenac Epolamine (Flector 1.3%) 1 patch Q12HP PRN TOP PAIN 05/18/21 18:15 Diphenhydramine HCl (Benadryl) 25 mg DAILYPRN PRN PO ITCHING 05/18/21 18:15 05/27/21 21:02 Docusate Sodium (Colace) 100 mg BID PO 05/18/21 21:00 Cancel Furosemide (Lasix) 20 mg Q3D PO 05/19/21 09:00 Hold 05/22/21 09:24 Home Med (Home Med List Complete!) ASDIRECTED XX 05/18/21 18:25 05/18/21 18:26 DC Lisinopril (Prinivil) 5 mg DAILY PO 05/19/21 09:00 05/28/21 08:43 Loratadine (Claritin) 10 mg DAILY PO 05/19/21 09:00 05/28/21 08:43 Mirtazapine (Remeron) 15 mg QHS PO 05/18/21 21:00 05/27/21 21:01 Nystatin (Mycostatin) 5 ml Q6H SS 05/27/21 18:00 05/28/21 05:34 Omeprazole (PriLOSEC) 20 mg DAILY PO 05/19/21 09:00 05/28/21 08:43 Pantoprazole Sodium (Protonix) 40 mg DAILY PO 05/19/21 09:00 05/28/21 08:43 Paroxetine HCl (PAXil) 5 mg QHS PO 05/20/21 21:00 05/20/21 11:51 DC Psyllium Hydrophilic Mucilloid (Metamucil) 1 pkt DAILY PO 05/19/21 09:00 05/28/21 08:43 Sertraline HCl (Zoloft) 12.5 mg DAILY PO 05/20/21 09:00 05/20/21 11:52 DC Sertraline HCl (Zoloft) 12.5 mg QHS PO 05/20/21 11:52 05/20/21 11:53 DC Sertraline HCl (Zoloft) 25 mg QHS PO 05/18/21 21:00 05/27/21 21:02 Sodium Chloride ([place] Nasal [place]) 1 spray QIDP PRN NA NASAL DRYNESS 05/18/21 18:15 Valacyclovir HCl (Valtrex) 1,000 mg Q8H PO 05/24/21 22:00 05/28/21 05:29 PAT RAMIREZ MD May 28, 2021 10:02
--- NOTE | 2021-05-28 10:37 | PMRDS ---
NAME: RADHA LUTHER [facility] WT ID#: [id number] JOB: [id number] INGRID: 05/28/2021 ACCT: [id number] DOCTOR: PAT RAMIREZ MD PMR DISCHARGE SUMMARY DATE OF ADMISSION: 05/18/2021 DATE OF DISCHARGE: 05/28/2021 CHIEF COMPLAINT/DISCHARGE DIAGNOSES: 1. Debility. 2. Metabolic encephalopathy. HISTORY OF PRESENT ILLNESS: This is an 89-year-old female with past medical history of CVA, recent diagnosis of Afib, congenital left eye blindness, recent onset of right eye macular degeneration, anxiety, depression, hypertension, who presented to [facility] on 04/26/2021 where she was found to have a small left frontal lacunar infarct, was switched from Aspirin/Plavix to Aspirin/Eliquis, returned to [facility] and then returned to the ED with acute mental status changes with repeat CVA ruled out. CT head did not show any intracranial hemorrhage. MRI did not show acute stroke. However, she did have electrolyte abnormalities with potassium of 2.7 and was noted to have overall weakness and debility with difficulty with mobility and ADLs in the setting of worsening vision. HOSPITAL COURSE: The patient was admitted, enrolled in comprehensive PT/OT, speech/language pathology program. She received 24 hour nursing supervision and weekly team meetings were held to discuss her progress. The patient during her hospital course developed left periorbital rash and was started on antiviral medication for suspected herpes zoster in addition to IV antibiotics for potential periorbital cellulitis. Infectious disease was consulted and antibiotics were discontinued and she was maintained on Valtrex for herpes zoster. Her left eye rash and swelling gradually improved and her labs demonstrated resolution of infection. The patient had diarrhea and was started on Metamucil with improvement in her bowels. She demonstrated significant anxiety with mobility given her vision loss. However, was able to make significant gains in therapy and was deemed medically and functionally stable to return to assisted living. DISCHARGE MEDICATIONS: As per instructions. FUNCTIONAL HISTORY: On discharge the patient was modified independent for ambulation and ADLs. Thank you for this referral.
[2021-05-28] MEDS ORDERED: VALA1TAB5 PO (11:22)
== END 2021-05-28 11:25 | DRG 56 ==
LOC: M PM&R 18:09
PROVIDERS: ADMIT Physical Medicine & Rehabilitation; ATTEND Physical Medicine & Rehabilitation
DX: I69.352 Hemiplegia and hemiparesis following cerebral infarction affecting left dominant side (principal); G93.41 Metabolic encephalopathy; I50.32 Chronic diastolic (congestive) heart failure; B02.30 Zoster ocular disease, unspecified; B37.0 Candidal stomatitis; I69.398 Other sequelae of cerebral infarction; R53.81 Other malaise; I48.91 Unspecified atrial fibrillation; I11.0 Hypertensive heart disease with heart failure; E78.5 Hyperlipidemia, unspecified; F41.9 Anxiety disorder, unspecified; F32.A Depression, unspecified; R25.1 Tremor, unspecified; H54.8 Legal blindness, as defined in USA; L40.9 Psoriasis, unspecified; R19.7 Diarrhea, unspecified; Z96.651 Presence of right artificial knee joint; Z98.41 Cataract extraction status, right eye; Z79.82 Long term (current) use of aspirin; Z79.899 Other long term (current) drug therapy; Z88.5 Allergy status to narcotic agent; R21 Rash and other nonspecific skin eruption; M19.90 Unspecified osteoarthritis, unspecified site; K21.9 Gastro-esophageal reflux disease without esophagitis; H35.30 Unspecified macular degeneration

== ENCOUNTER 2021-06-01 08:50 | Inpatient (IN) | payer MEDICARE, BC, MEDICAID ==
[~2021-06-01] VITALS: Ht 157.5 cm; Wt 70.6 kg
[~2021-06-01 08:50] MED LIST changes: -LISI-898 PO; +LISI5TAB11 PO; +VALA1TAB5 PO; +VALA500T5 PO
[2021-06-01 09:31] LABS: BASO % 0.2 % (0.0-1.0); EOS # 0.4 10^3/uL (0.0-0.5); EOS % 5.1 % (0.0-3.0); HEMATOCRIT 38.2 % (36.0-47.0); HEMOGLOBIN 13.1 g/dl (12.0-15.5); LYMPH % 24.1 % (24.0-44.0); MEAN CORPUSCULAR HEMOGLOBIN 33.2 pg (27.0-33.0); MEAN CORPUSCULAR HGB CONC 34.3 g/dl (32.0-36.5); MONO # 0.9 10^3/uL (0.0-0.8); NEUTROPHILS # 4.8 10^3/uL (1.5-8.5); NEUTROPHILS % 59.2 % (36.0-66.0); PLATELET COUNT, AUTOMATED 355 10^3/uL (150-450); RED BLOOD COUNT 3.94 10^6/uL (4.00-5.40); WHITE BLOOD COUNT 8.1 10^3/uL (4.0-10.0)
[2021-06-01] MEDS ORDERED: hydrALAZINE 20MG/ML 1ML VIAL (J0360 PER 20MG) IV ONE (09:35)
[2021-06-01 09:40] LABS: INR 1.08; PROTHROMBIN TIME 14.5 SECONDS (12.7-14.5)
[2021-06-01 09:41] LABS: PARTIAL THROMBOPLASTIN TIME 29.1 SECONDS (25.9-37.0)
[2021-06-01] MEDS ORDERED: LORazepam 1 MG TAB PO ONE ×2 (09:55→17:50)
[2021-06-01 10:00] LABS: BLOOD UREA NITROGEN 11 MG/DL (7-18); CALCIUM LEVEL 9.5 MG/DL (8.8-10.2); CARBON DIOXIDE LEVEL 26 MEQ/L (21-32); CHLORIDE LEVEL 105 MEQ/L (98-107); CREATININE FOR GFR 0.74 MG/DL (0.55-1.30); GLOMERULAR FILTRATION RATE > 60.0 (>32); GLUCOSE, FASTING 112 MG/DL (70-100); SODIUM LEVEL 139 MEQ/L (136-145)
[2021-06-01 10:06] LABS: CK-MB VALUE MASS < 1.0 NG/ML (<3.6); CPK CREATINE PHOSPHOKINASE 44 U/L (26-192); MB/CK RELATIVE INDEX 2.27 (< OR =4); TROPONIN I < 0.02 NG/ML (< 0.10)
[2021-06-01 10:32] LABS: RSV AMPLIFICATION NEGATIVE (NEGATIVE)
[2021-06-01] MEDS ORDERED: ATEN25TA PO (17:40)
[2021-06-01] MEDS ORDERED: ECOT81TA5 PO (17:40)
[2021-06-01] MEDS ORDERED: LISI5TAB11 PO (17:40)
[2021-06-01] MEDS ORDERED: FURO20TA2 PO (17:40)
[2021-06-01] MEDS ORDERED: REME15TA2 PO (17:40)
[2021-06-01] MEDS ORDERED: PANT40TA29 PO (17:40)
[2021-06-01] MEDS ORDERED: ATOR40TA75 PO (17:40)
[2021-06-01] MEDS ORDERED: ZOLO25TA PO (17:40)
[2021-06-01] MEDS ORDERED: CLAR10CA3 PO (17:40)
[2021-06-01] MEDS ORDERED: ELIQ5TAB PO (17:42)
[2021-06-01] MEDS ORDERED: BUSP5TA PO (17:42)
[2021-06-01] MEDS ORDERED: VALA1TAB5 PO (17:45)
[2021-06-01] MEDS ORDERED: LORazepam 1 MG TAB PO STA (17:50)
[2021-06-01] MEDS ORDERED: HOME MED LIST COMPLETE! XX SCH (17:50)
[2021-06-01 18:52] VITALS: BP 131/87
[2021-06-01] MEDS ORDERED: diphenhydrAMINE 25MG CAP PO PRN (19:05)
[2021-06-01] MEDS ORDERED: SODIUM CHLORIDE NASAL 0.65% SPRAY BTL (OCEAN) PRN (19:05)
[2021-06-01] MEDS: SERTRALINE HCL 25 MG TABLET PO SCH (21:16)
[2021-06-01] MEDS: ATORVASTATIN 20 MG TAB PO SCH (21:16)
[2021-06-01] MEDS: APIXABAN 5 MG TAB (ELIQUIS) PO SCH (21:16)
[2021-06-01] MEDS: busPIRone 5 MG TAB PO SCH (21:16)
[2021-06-01] MEDS: valACYclovir HCL 500 MG TAB PO SCH (21:16)
[2021-06-01 22:00] VITALS: BP 141/88
[2021-06-02 06:00] VITALS: BP 143/88
[2021-06-02] MEDS: SENOKOT S TAB PO SCH (09:00)
[2021-06-02] MEDS: DOCUSATE SODIUM 100MG CAPSULE PO SCH (09:00)
[2021-06-02] MEDS: ACETAMINOPHEN 325 MG/10.15 ML UDC PO PRN ×2 (09:07→16:35)
[2021-06-02] MEDS: APIXABAN 5 MG TAB (ELIQUIS) PO SCH ×2 (09:08→21:26)
[2021-06-02] MEDS: busPIRone 5 MG TAB PO SCH ×2 (09:08→21:26)
[2021-06-02] MEDS: LORATADINE 10 MG TAB PO SCH (09:08)
[2021-06-02] MEDS: PANTOPRAZOLE 40MG TAB (PROTONIX) PO SCH (09:08)
[2021-06-02] MEDS: valACYclovir HCL 500 MG TAB PO SCH ×3 (09:08→21:26)
[2021-06-02] MEDS: ASPIRIN 81MG ENTERIC TABLET PO SCH (09:08)
[2021-06-02] MEDS: lisinopriL 5 MG TAB PO SCH (09:09)
[2021-06-02] MEDS: atenoloL 25 MG TAB PO SCH (09:09)
[2021-06-02] MEDS: POLYVINYL ALCOHOL OPHTH SOLN 15 ML(LIQUITEARS) OU PRN (09:18)
[2021-06-02] MEDS ORDERED: LORazepam 1 MG TAB PO ONE (11:20)
[2021-06-02 16:00] VITALS: BP 115/71
[2021-06-02] MEDS: SERTRALINE HCL 25 MG TABLET PO SCH (21:26)
[2021-06-02] MEDS: ATORVASTATIN 20 MG TAB PO SCH (21:26)
[2021-06-03] MEDS ORDERED: ATIV1TAB10 PO (07:49)
[2021-06-03] MEDS ORDERED: MORP1SOL5 PO (07:49)
[2021-06-03] MEDS ORDERED: HYOS125TA PO (07:49)
[2021-06-03] MEDS: ASPIRIN 81MG ENTERIC TABLET PO SCH (08:07)
[2021-06-03] MEDS: ACETAMINOPHEN 325 MG/10.15 ML UDC PO PRN (08:07)
[2021-06-03] MEDS: LORATADINE 10 MG TAB PO SCH (08:08)
[2021-06-03] MEDS: APIXABAN 5 MG TAB (ELIQUIS) PO SCH ×2 (08:08→21:17)
[2021-06-03] MEDS: FUROSEMIDE 20 MG TAB PO SCH (08:08)
[2021-06-03] MEDS: valACYclovir HCL 500 MG TAB PO SCH ×3 (08:08→21:17)
[2021-06-03] MEDS: busPIRone 5 MG TAB PO SCH ×2 (08:08→21:17)
[2021-06-03] MEDS: PANTOPRAZOLE 40MG TAB (PROTONIX) PO SCH (08:08)
[2021-06-03] MEDS: SENOKOT S TAB PO SCH (08:11)
[2021-06-03] MEDS: DOCUSATE SODIUM 100MG CAPSULE PO SCH (08:11)
[2021-06-03] MEDS: lisinopriL 5 MG TAB PO SCH (08:12)
[2021-06-03] MEDS: atenoloL 25 MG TAB PO SCH (08:13)
[2021-06-03] MEDS: ALPRAZolam 0.5 MG TAB PO SCH ×2 (09:48→16:00)
[2021-06-03] MEDS: POLYVINYL ALCOHOL OPHTH SOLN 15 ML(LIQUITEARS) OU PRN (09:48)
[2021-06-03 14:00] VITALS: BP 127/68
[2021-06-03] MEDS: SERTRALINE HCL 25 MG TABLET PO SCH (21:16)
[2021-06-03] MEDS: ATORVASTATIN 20 MG TAB PO SCH (21:17)
[2021-06-03 22:00] VITALS: BP 138/79
[2021-06-04] MEDS: ACETAMINOPHEN 325 MG/10.15 ML UDC PO PRN ×3 (04:01→15:48)
[2021-06-04 06:00] VITALS: BP 137/79
[2021-06-04] MEDS: SENOKOT S TAB PO SCH ×2 (09:00→09:05)
[2021-06-04] MEDS: DOCUSATE SODIUM 100MG CAPSULE PO SCH ×2 (09:00→09:06)
[2021-06-04] MEDS: lisinopriL 5 MG TAB PO SCH (09:05)
[2021-06-04] MEDS: PANTOPRAZOLE 40MG TAB (PROTONIX) PO SCH (09:05)
[2021-06-04] MEDS: valACYclovir HCL 500 MG TAB PO SCH ×3 (09:06→21:01)
[2021-06-04] MEDS: ASPIRIN 81MG ENTERIC TABLET PO SCH (09:06)
[2021-06-04] MEDS: LORATADINE 10 MG TAB PO SCH (09:06)
[2021-06-04] MEDS: busPIRone 5 MG TAB PO SCH ×2 (09:06→21:01)
[2021-06-04] MEDS: APIXABAN 5 MG TAB (ELIQUIS) PO SCH ×2 (09:06→21:01)
[2021-06-04] MEDS: atenoloL 25 MG TAB PO SCH (09:10)
[2021-06-04] MEDS: ALPRAZolam 0.25 MG TAB PO PRN ×2 (11:44→18:47)
[2021-06-04] MEDS: SERTRALINE HCL 25 MG TABLET PO SCH (21:01)
[2021-06-04] MEDS: ATORVASTATIN 20 MG TAB PO SCH (21:01)
[2021-06-04] MEDS: POLYVINYL ALCOHOL OPHTH SOLN 15 ML(LIQUITEARS) OU PRN (21:02)
[2021-06-05] MEDS: ALPRAZolam 0.25 MG TAB PO PRN ×4 (05:34→20:03)
[2021-06-05] MEDS: ACETAMINOPHEN 325 MG/10.15 ML UDC PO PRN ×3 (06:02→20:03)
[2021-06-05] MEDS: SENOKOT S TAB PO SCH (09:55)
[2021-06-05] MEDS: valACYclovir HCL 500 MG TAB PO SCH ×3 (09:55→20:04)
[2021-06-05] MEDS: ASPIRIN 81MG ENTERIC TABLET PO SCH (09:55)
[2021-06-05] MEDS: lisinopriL 5 MG TAB PO SCH (09:58)
[2021-06-05] MEDS: atenoloL 25 MG TAB PO SCH (09:58)
[2021-06-05] MEDS: APIXABAN 5 MG TAB (ELIQUIS) PO SCH ×2 (09:59→20:04)
[2021-06-05] MEDS: LORATADINE 10 MG TAB PO SCH (09:59)
[2021-06-05] MEDS: FUROSEMIDE 20 MG TAB PO SCH (09:59)
[2021-06-05] MEDS: PANTOPRAZOLE 40MG TAB (PROTONIX) PO SCH (09:59)
[2021-06-05] MEDS: busPIRone 5 MG TAB PO SCH ×2 (09:59→20:04)
[2021-06-05] MEDS: DOCUSATE SODIUM 100MG CAPSULE PO SCH (10:07)
[2021-06-05] MEDS: POLYVINYL ALCOHOL OPHTH SOLN 15 ML(LIQUITEARS) OU PRN (16:44)
[2021-06-05] MEDS: ATORVASTATIN 20 MG TAB PO SCH (20:04)
[2021-06-05] MEDS: SERTRALINE HCL 25 MG TABLET PO SCH (20:04)
[2021-06-06] MEDS: ACETAMINOPHEN 325 MG/10.15 ML UDC PO PRN ×4 (04:02→20:39)
[2021-06-06] MEDS: valACYclovir HCL 500 MG TAB PO SCH ×3 (08:55→20:38)
[2021-06-06] MEDS: SENOKOT S TAB PO SCH (08:55)
[2021-06-06] MEDS: DOCUSATE SODIUM 100MG CAPSULE PO SCH (08:55)
[2021-06-06] MEDS: PANTOPRAZOLE 40MG TAB (PROTONIX) PO SCH (08:56)
[2021-06-06] MEDS: APIXABAN 5 MG TAB (ELIQUIS) PO SCH ×2 (08:56→20:38)
[2021-06-06] MEDS: LORATADINE 10 MG TAB PO SCH (08:56)
[2021-06-06] MEDS: busPIRone 5 MG TAB PO SCH ×2 (08:56→20:38)
[2021-06-06] MEDS: ASPIRIN 81MG ENTERIC TABLET PO SCH (08:56)
[2021-06-06] MEDS: lisinopriL 5 MG TAB PO SCH (08:58)
[2021-06-06] MEDS: atenoloL 25 MG TAB PO SCH (08:59)
[2021-06-06] MEDS: ALPRAZolam 0.25 MG TAB PO PRN ×2 (13:27→19:28)
[2021-06-06] MEDS: SERTRALINE HCL 25 MG TABLET PO SCH (20:38)
[2021-06-06] MEDS: ATORVASTATIN 20 MG TAB PO SCH (20:38)
[2021-06-06] MEDS: POLYVINYL ALCOHOL OPHTH SOLN 15 ML(LIQUITEARS) OU PRN (20:39)
[2021-06-07] MEDS: ACETAMINOPHEN 325 MG/10.15 ML UDC PO PRN ×3 (02:27→13:30)
[2021-06-07] MEDS: APIXABAN 5 MG TAB (ELIQUIS) PO SCH (08:50)
[2021-06-07] MEDS: DOCUSATE SODIUM 100MG CAPSULE PO SCH (08:50)
[2021-06-07] MEDS: SENOKOT S TAB PO SCH (08:50)
[2021-06-07] MEDS: busPIRone 5 MG TAB PO SCH (08:50)
[2021-06-07] MEDS: ASPIRIN 81MG ENTERIC TABLET PO SCH (08:51)
[2021-06-07] MEDS: LORATADINE 10 MG TAB PO SCH (08:51)
[2021-06-07] MEDS: PANTOPRAZOLE 40MG TAB (PROTONIX) PO SCH (08:51)
[2021-06-07] MEDS: valACYclovir HCL 500 MG TAB PO SCH (08:51)
[2021-06-07 08:53] VITALS: BP 161/91
[2021-06-07] MEDS: atenoloL 25 MG TAB PO SCH (08:53)
[2021-06-07] MEDS: lisinopriL 5 MG TAB PO SCH (08:53)
[2021-06-07] MEDS ORDERED: ATIV1TAB10 PO (12:00)
[2021-06-07] MEDS ORDERED: MORP1SOL5 PO (12:00)
[2021-06-07] MEDS ORDERED: HYOS125TA PO (12:00)
[2021-06-07] MEDS ORDERED: BUSP5TA PO (12:08)
[2021-06-07] MEDS ORDERED: COLA100C5 PO (12:08)
[2021-06-07] MEDS ORDERED: BENA25CA4 PO (12:08)
[2021-06-07] MEDS ORDERED: ZOLO25TA PO (12:08)
[2021-06-07] MEDS ORDERED: SENN-53 PO (12:08)
[2021-06-07] MEDS ORDERED: ATOR40TA75 PO (12:08)
[2021-06-07] MEDS ORDERED: POLYOPD OU (12:08)
[2021-06-07] MEDS ORDERED: HM S0.65 NARES (12:08)
[2021-06-07] MEDS ORDERED: REME15TA2 PO (12:08)
[2021-06-07] MEDS ORDERED: DICL20GE TP (12:08)
[2021-06-07] MEDS ORDERED: ECOT81TA5 PO (12:08)
[2021-06-07] MEDS ORDERED: CLAR10CA3 PO (12:08)
[2021-06-07] MEDS ORDERED: ATEN25TA PO (12:08)
[2021-06-07] MEDS ORDERED: VALA1TAB5 PO (12:08)
[2021-06-07] MEDS ORDERED: ELIQ5TAB PO (12:08)
[2021-06-07] MEDS ORDERED: FURO20TA2 PO (12:08)
[2021-06-07] MEDS ORDERED: LISI5TAB11 PO (12:08)
[2021-06-07] MEDS ORDERED: PANT40TA29 PO (12:08)
== END 2021-06-07 14:30 | disposition home or self-care (01) | DRG 305 ==
LOC: M ED 08:50 → EDBD 08:50 → M ED INP 08:51 → ENRESERV 18:20 → M MSPAV 19:09 → OBSVTOIN 06-04 12:28
PROVIDERS: ADMIT General Practice; ATTEND Internal Medicine
DX: I16.0 Hypertensive urgency (principal); I48.20 Chronic atrial fibrillation, unspecified; R42 Dizziness and giddiness; H35.30 Unspecified macular degeneration; Z86.73 Personal history of transient ischemic attack (TIA), and cerebral infarction without residual deficits; F41.9 Anxiety disorder, unspecified; F32.9 Major depressive disorder, single episode, unspecified; Z79.01 Long term (current) use of anticoagulants; E78.5 Hyperlipidemia, unspecified; M48.02 Spinal stenosis, cervical region; D64.9 Anemia, unspecified; E03.9 Hypothyroidism, unspecified; G47.00 Insomnia, unspecified; Z88.5 Allergy status to narcotic agent; Z66 Do not resuscitate; Z79.82 Long term (current) use of aspirin; Z79.899 Other long term (current) drug therapy; M19.90 Unspecified osteoarthritis, unspecified site; H54.8 Legal blindness, as defined in USA; Z96.651 Presence of right artificial knee joint; Z85.840 Personal history of malignant neoplasm of eye; Z92.3 Personal history of irradiation; Z51.5 Encounter for palliative care

== ENCOUNTER → 2021-08-31 | Outpatient (REF) | payer MEDICARE, BC, MEDICAID ==
[~2021-08-31] MED LIST changes: +ATIV1TAB10 PO; +CLAR10CA3 PO; +ECOT81TA5 PO; +HYOS125TA PO; +MORP1SOL5 PO; +REME15TA2 PO; +ZOLO25TA PO
[2021-08-31 18:03] LABS: AMYLASE 26 U/L (25-115); LIPASE 57 U/L (73-393)
[2021-09-01 12:42] LABS: APPEARANCE, URINE CLEAR (CLEAR); BACTERIA, URINE AUTO NEGATIVE (NEGATIVE); BILIRUBIN, URINE AUTO NEGATIVE (NEGATIVE); BLOOD, URINE BLOOD NEGATIVE (NEGATIVE); COLOR, URINE AMBER (YELLOW); GLUCOSE, URINE (UA) AUTO NEGATIVE (NEGATIVE); KETONE, URINE AUTO NEGATIVE (NEGATIVE); LEUKOCYTE ESTERASE, URINE AUTO 3+ (NEGATIVE); MUCUS, URINE SMALL (NEGATIVE); NITRITE, URINE AUTO NEGATIVE (NEGATIVE); PROTEIN, URINE AUTO 1+ mg/dL (NEGATIVE); RBC, URINE AUTO 5 /HPF (0-3); SQUAMOUS EPITHELIAL CELL UR AU 5 /HPF (0-6); WBC, URINE AUTO 176 /HPF (0-3)
== END ==
LOC: M LAB REF 17:17
PROVIDERS: ATTEND Family Medicine
DX: R10.31 Right lower quadrant pain (principal)

== ENCOUNTER → 2021-09-15 | Outpatient (REF) | LOC: M LAB REF 10:43 | DX: Z02.89 Encounter for other administrative examinations (principal) ==

== ENCOUNTER → 2021-10-13 | Outpatient (REF) | payer MEDICARE, BC, MEDICAID | PROVIDERS: ATTEND Family Medicine | DX: R19.7 Diarrhea, unspecified (principal) ==

== ENCOUNTER → 2021-10-18 | Outpatient (REF) | payer MEDICARE, BC, MEDICAID ==
[2021-10-18 10:43] LABS: BASO % 0.4 % (0.0-1.0); EOS # 0.3 10^3/uL (0.0-0.5); EOS % 3.5 % (0.0-3.0); HEMATOCRIT 38.9 % (36.0-47.0); HEMOGLOBIN 13.1 g/dl (12.0-15.5); LYMPH # 1.3 10^3/uL (1.5-5.0); LYMPH % 17.3 % (24.0-44.0); MEAN CORPUSCULAR HEMOGLOBIN 32.8 pg (27.0-33.0); MEAN CORPUSCULAR HGB CONC 33.7 g/dl (32.0-36.5); MEAN CORPUSCULAR VOLUME 97.3 fl (80.0-96.0); MONO # 0.7 10^3/uL (0.0-0.8); MONO % 9.1 % (2.0-8.0); NEUTROPHILS # 5.1 10^3/uL (1.5-8.5); NEUTROPHILS % 69.4 % (36.0-66.0); PLATELET COUNT, AUTOMATED 247 10^3/uL (150-450); WHITE BLOOD COUNT 7.4 10^3/uL (4.0-10.0)
[2021-10-18 11:22] LABS: ALBUMIN 3.6 GM/DL (3.2-5.2); ALT/SGPT 20 U/L (12-78); BILIRUBIN,TOTAL 0.8 MG/DL (0.2-1.0); BLOOD UREA NITROGEN 12 MG/DL (7-18); CARBON DIOXIDE LEVEL 27 MEQ/L (21-32); CHLORIDE LEVEL 104 MEQ/L (98-107); CREATININE FOR GFR 0.83 MG/DL (0.55-1.30); GLOMERULAR FILTRATION RATE > 60.0 (>32); GLUCOSE, FASTING 125 MG/DL (70-100); POTASSIUM SERUM 4.3 MEQ/L (3.5-5.1); SODIUM LEVEL 138 MEQ/L (136-145); TOTAL PROTEIN 6.9 GM/DL (6.4-8.2)
== END ==
PROVIDERS: ATTEND Family Medicine
DX: D72.829 Elevated white blood cell count, unspecified (principal)

== ENCOUNTER → 2021-11-02 | Outpatient (REF) | payer MEDICARE, BC, MEDICAID | PROVIDERS: ATTEND Family Medicine | DX: U07.1 COVID-19 (principal) ==

== ENCOUNTER → 2021-12-15 | Outpatient (REF) | payer MEDICARE, BC, MEDICAID | PROVIDERS: ATTEND Family Medicine | DX: Z20.822 Contact with and (suspected) exposure to COVID-19 (principal) ==

== ENCOUNTER → 2022-03-09 | Outpatient (REF) | payer MEDICARE, BC, MEDICAID ==
[2022-03-09 10:45] LABS: BASO % 0.3 % (0.0-1.0); EOS # 0.2 10^3/uL (0.0-0.5); EOS % 2.4 % (0.0-3.0); HEMATOCRIT 40.7 % (36.0-47.0); HEMOGLOBIN 13.3 g/dl (12.0-15.5); LYMPH # 1.4 10^3/uL (1.5-5.0); LYMPH % 15.8 % (24.0-44.0); MEAN CORPUSCULAR HEMOGLOBIN 32.1 pg (27.0-33.0); MEAN CORPUSCULAR HGB CONC 32.7 g/dl (32.0-36.5); MEAN CORPUSCULAR VOLUME 98.3 fl (80.0-96.0); MONO # 0.8 10^3/uL (0.0-0.8); MONO % 9.2 % (2.0-8.0); NEUTROPHILS # 6.3 10^3/uL (1.5-8.5); NEUTROPHILS % 71.7 % (36.0-66.0); PLATELET COUNT, AUTOMATED 249 10^3/uL (150-450); RED BLOOD COUNT 4.14 10^6/uL (4.00-5.40); WHITE BLOOD COUNT 8.8 10^3/uL (4.0-10.0)
[2022-03-09 12:23] LABS: ALBUMIN 3.7 GM/DL (3.2-5.2); ALT/SGPT 17 U/L (12-78); BILIRUBIN,TOTAL 0.9 MG/DL (0.2-1.0); BLOOD UREA NITROGEN 9 MG/DL (7-18); CALCIUM LEVEL 9.2 MG/DL (8.8-10.2); CARBON DIOXIDE LEVEL 31 MEQ/L (21-32); CHLORIDE LEVEL 100 MEQ/L (98-107); CREATININE FOR GFR 0.79 MG/DL (0.55-1.30); GLOMERULAR FILTRATION RATE > 60.0 (>32); GLUCOSE, FASTING 124 MG/DL (70-100); POTASSIUM SERUM 3.7 MEQ/L (3.5-5.1); SODIUM LEVEL 136 MEQ/L (136-145); TOTAL PROTEIN 7.4 GM/DL (6.4-8.2)
== END ==
PROVIDERS: ATTEND Family Medicine
DX: I48.91 Unspecified atrial fibrillation (principal); Z79.01 Long term (current) use of anticoagulants; R63.4 Abnormal weight loss